=== PATIENT | female | born 1975 | race Caucasian/White ===

== ENCOUNTER 2016-12-19 12:56 | Emergency (ER) | payer OTHER ==
[2016-12-19 13:15] VITALS: BP 122/73; PULSE 97; RESP 20; TEMP 98.2
--- NOTE | 2016-12-19 13:25 | ED ---
General Adult HPI - General Chief complaint: Back Pain/Injury Stated complaint: back pain Time Seen by Provider: 12/19/16 13:16 Source: patient, RN notes reviewed Mode of arrival: ambulatory Limitations: no limitations - History of Present Illness Initial comments: The patient is a 41-year-old female who presents emergency room today with a chief complaint of increased right-sided lower back pain over the last week. Does admit to symptoms of nausea vomiting earlier in the week. Please due to nausea vomiting she was straining MUSCLES in her back. States she's tried heat and ibuprofen with little relief the symptoms. Patient admits that pain is worse certain movements and she bends over. Patient denies any other complaints associated symptoms. Denies any bowel or bladder incontinence retention. Denies any saddle anesthesia. Patient denies any recent fever, chills, shortness of breath, chest pain, abdominal pain, nausea or vomiting, numbness or tingling, dysuria or hematuria, constipation or diarrhea, headaches or visual changes, or any other complaints. - Related Data Home Medications Medication Instructions Recorded Confirmed Insulin Glargine [Lantus] 25 unit SQ HS 12/25/14 12/19/16 glipiZIDE [Glucotrol] 10 mg PO BID 12/25/14 12/19/16 sitaGLIPtin [Januvia] 100 mg PO DAILY 04/28/16 12/19/16 Pregabalin [Lyrica] 50 mg PO BID 05/12/16 12/19/16 metFORMIN HCL 1,000 mg PO BID 05/12/16 12/19/16 Omeprazole 20 mg PO DAILY 10/20/16 12/19/16 Vortioxetine Hydrobromide 20 mg PO DAILY 10/20/16 12/19/16 [Trintellix] Previous Rx's Medication Instructions Recorded Cyclobenzaprine [Flexeril] 10 mg PO TID #20 tab 12/19/16 Ibuprofen [Motrin] 800 mg PO Q6HR PRN #30 tab 12/19/16 Allergies Allergy/AdvReac Type Severity Reaction Status Date / Time codeine Allergy Nausea & Verified 12/19/16 13:15 Vomiting Review of Systems ROS Statement: Those systems with pertinent positive or pertinent negative responses have been documented in the HPI. ROS Other: All systems not noted in ROS Statement are negative. Past Medical History Past Medical History: Diabetes Mellitus, Fibromyalgia, GERD/Reflux Additional Past Medical History / Comment(s): change in bowel habits, ovarian cyst History of Any Multi-Drug Resistant Organisms: None Reported Past Surgical History: Appendectomy, Cholecystectomy, Hernia Repair, Orthopedic Surgery, Uterine Ablation Additional Past Surgical History / Comment(s): sinus surgery, carpal tunnel-rt, vein stripping Past Anesthesia/Blood Transfusion Reactions: Previous Problems w/ Anesthesia, Motion Sickness Additional Past Anesthesia/Blood Transfusion Reaction / Comment(s): "sometimes hard time coming out of anesthesia" Past Psychological History: Depression Smoking Status: Current every day smoker Past Alcohol Use History: None Reported Additional Past Alcohol Use History / Comment(s): smokes 1/2 PPD for 10 yrs Past Drug Use History: None Reported - Past Family History Father Family Medical History: Pulmonary Embolus General Exam - General Exam Comments Initial Comments: General: The patient is awake and alert, in no distress, and does not appear acutely ill. Neck: The neck is supple, there is no tenderness or JVD. Cardiovascular: There is a regular rate and rhythm. No murmur, rub or gallop is appreciated. Respiratory: Lungs are clear to auscultation, respirations are non-labored, breath sounds are equal. No wheezes, stridor, rales, or rhonchi. Gastrointestinal: Soft, non-distended, non-tender abdomen without masses or organomegaly noted. There is no rebound or guarding present. No CVA tenderness. Back: Normal appearance of thoracic, lumbar spine. No step-offs deformity appreciated. No tenderness over spinous process. Patient shows good range of motion. Sensations intact with pulses equal bilaterally 2+. Negative straight leg raise test. Patient tender palpation paravertebrally of the right lower lumbar. Musculoskeletal: Normal ROM, no tenderness. Strength 5/5. Sensation intact. Pulses equal bilaterally 2+. Neurological: A&O x 3. CN II-XII intact, There are no obvious motor or sensory deficits. Coordination appears grossly intact. Speech is normal. Skin: Skin is warm and dry and no rashes or lesions are noted. Psychiatric: Cooperative, appropriate mood & affect, normal judgment. Limitations: no limitations Course Vital Signs 12/19/16 13:13 Temperature 98.2 F Pulse Rate 97 Respiratory 20 Rate Blood Pressure 122/73 O2 Sat by Pulse 97 Oximetry Disposition Clinical Impression: Low back strain Disposition: HOME SELF-CARE Condition: Good Instructions: Acute Low Back Pain (ED) Additional Instructions: Please continue heat to the affected area. Please use anti-inflammatories and muscle relaxer as prescribed. Please be aware that muscle relaxant may make you drowsy. His follow-up family doctor over the next 2-4 days if symptoms persist. Please return here the emergency room if any symptoms increase or worsen or for any other concerns. Prescriptions: Cyclobenzaprine [Flexeril] 10 mg PO TID #20 tab Ibuprofen [Motrin] 800 mg PO Q6HR PRN #30 tab PRN Reason: Pain Time of Disposition: 13:23
== END 2016-12-19 14:02 | disposition home or self-care (01) ==
LOC: EC 12:56
DX: S39.012A Strain of muscle, fascia and tendon of lower back, initial encounter (principal); X58.XXXA Exposure to other specified factors, initial encounter; E11.9 Type 2 diabetes mellitus without complications; K21.9 Gastro-esophageal reflux disease without esophagitis; M79.7 Fibromyalgia; F32.9 Major depressive disorder, single episode, unspecified; Z79.4 Long term (current) use of insulin; Z79.899 Other long term (current) drug therapy; Z79.84 Long term (current) use of oral hypoglycemic drugs; F17.200 Nicotine dependence, unspecified, uncomplicated; Z88.5 Allergy status to narcotic agent
CPT/HCPCS: 99283

== ENCOUNTER → 2017-07-03 | Outpatient (CLI) | payer OTHER ==
--- NOTE | 2017-07-03 11:59 | US ---
EXAMINATION TYPE: US pelvic complete DATE OF EXAM: 07/03/2017 COMPARISON: CT & US 05/12/2016 CLINICAL HISTORY: Pelvic Pain R10.2. Constant left pelvic pain x couple months, 2, para 1, ab ortion 1, history of uterine ablation TECHNIQUE: Transabdominal (TA) Date of LMP: 06/14/2017 EXAM MEASUREMENTS: Uterus: 8.7 x 4.3 x 6.0 cm Endometrial Stripe: 0.4 cm Right Ovary: 3.9 x 2.6 x 3.4 cm Left Ovary: 2.3 x 1.5 x 2.6 cm 1. Uterus: anteverted, heterogeneous 2. Endometrium: measuring thin for patient's LMP 3. Right Ovary: 2.4 x 2.1 x 2.7cm cystic area 4. Left Ovary: wnl 5. Bilateral Adnexa: wnl 6. Posterior cul-de-sac: wnl IMPRESSION: 1. Right ovarian cyst. This is larger than previous. This could be a recurrent or new left ovarian cy st. Follow-up exam in 6 weeks following the next normal menstrual period is recommended.
== END | disposition home or self-care (01) ==
LOC: RADUSWWP 10:55
PROVIDERS: ATTEND Obstetrics & Gynecology
DX: N83.201 Unspecified ovarian cyst, right side (principal)
CPT/HCPCS: 76856

== ENCOUNTER → 2018-02-01 | Outpatient (CLI) | payer OTHER ==
--- NOTE | 2018-02-01 16:18 | XR ---
Left foot HISTORY: Pain in left foot 3 views of the left foot Bone mineralization, joint spaces and alignment are maintained. There is soft tissue swelling especia lly lateral to the distal fifth metatarsal, dorsum of the midfoot. Degenerative changes are present a t the first metatarsophalangeal joint. There is a plantar calcaneal spur. Enthesophyte present at the insertion of the Achilles tendon. IMPRESSION: Osteoarthritis and additional findings above.
== END | disposition home or self-care (01) ==
LOC: RADXRMAIN 15:11
PROVIDERS: ATTEND Physician Assistant Medical
DX: M19.072 Primary osteoarthritis, left ankle and foot (principal)

== ENCOUNTER 2018-09-04 10:12 | Emergency (ER) | payer OTHER ==
[2018-09-04 10:27] VITALS: BP 118/80; PULSE 103; RESP 18; TEMP 98.2
--- NOTE | 2018-09-04 10:48 | ED ---
Extremity Problem HPI - General Chief complaint: Extremity Problem,Nontraumatic Stated complaint: lt shoulder injury Time Seen by Provider: 09/04/18 10:31 Source: patient, RN notes reviewed Mode of arrival: ambulatory Limitations: no limitations - History of Present Illness Initial comments: This a 43-year-old female presents emergency Department chief complaint of left shoulder pain. Patient states has been bothersome for almost 2 weeks. Patient states it's worse with any movement. She primarily feels pain around her shoulder blade and over the trapezius region. Patient states that she had no injury. 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 Patient states it is exacerbated by this. Patient denies any paresthesias or weakness to her arm. Patient denies chest pain, shortness breath, headache or dizziness. - Related Data Home Medications Medication Instructions Recorded Confirmed Insulin Glargine [Lantus] 100 unit SQ HS 12/25/14 09/04/18 glipiZIDE [Glucotrol] 10 mg PO BID 12/25/14 09/04/18 sitaGLIPtin [Januvia] 100 mg PO DAILY 04/28/16 09/04/18 metFORMIN HCL 1,000 mg PO BID 05/12/16 09/04/18 Omeprazole 20 mg PO DAILY 10/20/16 09/04/18 Vortioxetine Hydrobromide 40 mg PO DAILY 10/20/16 09/04/18 [Trintellix] Pregabalin [Lyrica] 75 mg PO BID 09/04/18 09/04/18 Previous Rx's Medication Instructions Recorded Ibuprofen [Motrin] 800 mg PO Q6HR PRN #30 tab 12/19/16 Ibuprofen [Motrin] 600 mg PO Q8HR PRN #30 tab 09/04/18 Orphenadrine [Norflex] 100 mg PO Q12H #14 tablet.er 09/04/18 Allergies Allergy/AdvReac Type Severity Reaction Status Date / Time codeine Allergy Nausea & Verified 09/04/18 11:13 Vomiting Review of Systems ROS Statement: Those systems with pertinent positive or pertinent negative responses have been documented in the HPI. ROS Other: All systems not noted in ROS Statement are negative. Past Medical History Past Medical History: Diabetes Mellitus, Fibromyalgia, GERD/Reflux Additional Past Medical History / Comment(s): change in bowel habits, ovarian cyst History of Any Multi-Drug Resistant Organisms: None Reported Past Surgical History: Appendectomy, Cholecystectomy, Hernia Repair, Orthopedic Surgery, Uterine Ablation Additional Past Surgical History / Comment(s): sinus surgery, carpal tunnel-rt, vein stripping Past Anesthesia/Blood Transfusion Reactions: Previous Problems w/ Anesthesia, Motion Sickness Additional Past Anesthesia/Blood Transfusion Reaction / Comment(s): "sometimes hard time coming out of anesthesia" Past Psychological History: Depression Smoking Status: Former smoker Past Alcohol Use History: None Reported Past Drug Use History: None Reported - Past Family History Father Family Medical History: Pulmonary Embolus General Exam Limitations: no limitations General appearance: alert, in no apparent distress Head exam: Present: atraumatic, normocephalic, normal inspection Eye exam: Present: normal appearance, PERRL, EOMI. Absent: scleral icterus, conjunctival injection, periorbital swelling ENT exam: Present: normal exam, normal oropharynx, mucous membranes moist Neck exam: Present: normal inspection, tenderness (Mild tenderness over the left trapezius), full ROM. Absent: meningismus, lymphadenopathy Respiratory exam: Present: normal lung sounds bilaterally. Absent: respiratory distress, wheezes, rales, rhonchi, stridor Cardiovascular Exam: Present: regular rate, normal rhythm, normal heart sounds. 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 Absent: motor sensory deficit Skin exam: Present: warm, dry, intact, normal color. Absent: rash Course Vital Signs 09/04/18 10:24 Temperature 98.2 F Pulse Rate 103 H Respiratory 18 Rate Blood Pressure 118/80 O2 Sat by Pulse 96 Oximetry Medical Decision Making - Medical Decision Making 43-year-old female presents emergency Department for left shoulder pain. Patient has left rotator cuff strain/tendinitis. Patient will follow-up with orthopedics on-call. We discussed anti-inflammatories, muscle relaxers for her trapezius muscle spasm. Patient will be instructed to do home exercises return for any worsening symptoms. Disposition Clinical Impression: Injury of left rotator cuff, Rotator cuff tendinitis Disposition: HOME SELF-CARE Condition: Stable Instructions: Rotator Cuff Injury (ED) Additional Instructions: Please return to the Emergency Department if symptoms worsen or any other concerns. Prescriptions: Ibuprofen [Motrin] 600 mg PO Q8HR PRN #30 tab PRN Reason: Pain Orphenadrine [Norflex] 100 mg PO Q12H #14 tablet.er Is patient prescribed a controlled substance at d/c from ED?: No Referrals: Sandeep Jean III, MD [Primary Care Provider] - 1-2 days Alli Catherine DO [Doctor of Osteopathic Medicine] - 1-2 days Time of Disposition: 11:30
--- NOTE | 2018-09-04 11:00 | XR ---
Left shoulder HISTORY: Left shoulder pain 3 views of the left shoulder Arthropathy changes present at the acromioclavicular joint, there is hypertrophic bone formation. Ali gnment, bone mineralization, joint spaces are maintained. No fracture or dislocation. Left lung apex as visualized is normal. IMPRESSION: Acromioclavicular joint arthropathy, shoulder MRI may be of benefit.
[2018-09-04] MEDS ORDERED: KETOROLAC 60 MG/2 ML VIAL IM STA (11:28)
[2018-09-04] MEDS ORDERED: ORPHENADRINE 30 MG/ML 2 ML VIAL IM STA (11:28)
[2018-09-04] MEDS ORDERED: traMADol 50 MG STARTER PACK 3 TAB BTL PO STA (11:29)
== END 2018-09-04 11:49 | disposition home or self-care (01) ==
LOC: EC 10:12
DX: S46.002A Unspecified injury of muscle(s) and tendon(s) of the rotator cuff of left shoulder, initial encounter (principal); E11.9 Type 2 diabetes mellitus without complications; M79.7 Fibromyalgia; K21.9 Gastro-esophageal reflux disease without esophagitis; F32.9 Major depressive disorder, single episode, unspecified; Z87.891 Personal history of nicotine dependence; Z90.49 Acquired absence of other specified parts of digestive tract; Z98.890 Other specified postprocedural states; Z79.4 Long term (current) use of insulin; Z79.899 Other long term (current) drug therapy; Z88.5 Allergy status to narcotic agent; X50.0XXA Overexertion from strenuous movement or load, initial encounter; Y92.69 Other specified industrial and construction area as the place of occurrence of the external cause; Y99.0 Civilian activity done for income or pay
CPT/HCPCS: 73030; 99283; 96372 ×2; J2360; J1885

== ENCOUNTER → 2019-06-10 | Outpatient (CLI) | payer OTHER ==
--- NOTE | 2019-06-11 10:24 | MM ---
Reason for exam: clinical finding. Baseline mammogram. History: Family history of breast cancer in mother at age 68. Physical Findings: Nurse did not find any significant physical abnormalities on exam. Patient states she has had a clear MG Screening Mammo w CAD Bilateral CC and MLO view(s) were taken. There are scattered fibroglandular densities. No discrete abnormality. ASSESSMENT: Incomplete: need additional imaging evaluation, BI-RAD 0 RECOMMENDATION: Ultrasound of the left breast.
--- NOTE | 2019-06-11 10:27 | USB ---
History: Family history of breast cancer in mother at age 68. US Breast Workup Limited LT Left limited breast ultrasound including focal area of concern, retroareolar and axilla demonstrates No cystic or solid lesion seen. ASSESSMENT: Negative, BI-RAD 1 RECOMMENDATION: Clinical management of the left breast. Routine screening mammogram of both breasts in 1 year.
== END | disposition home or self-care (01) ==
LOC: RADMAMWWP 13:20
PROVIDERS: ATTEND Family Medicine
DX: Z12.31 Encounter for screening mammogram for malignant neoplasm of breast (principal); R92.8 Other abnormal and inconclusive findings on diagnostic imaging of breast
CPT/HCPCS: 77067

== ENCOUNTER 2019-12-09 18:31 | Emergency (ER) | payer OTHER ==
[2019-12-09 18:59] VITALS: RESP 18
[2019-12-09 19:29] LABS: Appearance,Urine Cloudy (Clear); Bilirubin,Urine Negative (Negative); Blood,Urine Negative (Negative); Color,Urine Yellow; Glucose,Urine (UA) 4+ (Negative); Ketones,Urine Negative (Negative); Leukocyte Esterase,Urine Moderate (Negative); Mucus,Urine Rare /hpf; Nitrite,Urine Negative (Negative); PH, Urine 5.5 (5.0-8.0); Protein,Urine Negative (Negative); RBC,Urine 1 /hpf (0-5); Specific Gravity,Urine 1.021 (1.001-1.035); Squamous Epithelial Cell,Urine 13 /hpf (0-4); Urobilinogen,Urine <2.0 mg/dL (<2.0); WBC,Urine 2 /hpf (0-5)
[2019-12-09] MEDS ORDERED: PANTOPRAZOLE 40 MG/10 ML VIAL IVP STA (19:51)
[2019-12-09] MEDS ORDERED: DICYCLOMINE 10 MG/ML 2 ML AMP IM STA (19:51)
[2019-12-09] MEDS ORDERED: SODIUM CHLORIDE 0.9% 1,000 ML IV STA (19:51)
[2019-12-09] MEDS ORDERED: KETOROLAC 30 MG/ML 1 ML VIAL IVP STA (19:51)
--- NOTE | 2019-12-09 20:02 | ED ---
Abdominal Pain HPI - General Chief Complaint: Abdominal Pain Stated Complaint: lt sided abd pain Time Seen by Provider: 12/09/19 19:31 Source: patient Mode of arrival: ambulatory Limitations: no limitations - History of Present Illness Initial Comments: Patient is a 44-year-old female presenting to the emergency department with a chief complaint of abdominal pain. Patient states she developed the sudden onset of sharp left lower quadrant abdominal pain that is radiating to the left groin region. Patient states the only alleviating factor is being in a position. Patient does report some nausea but denies any vomiting diarrhea or constipation. Patient does report a history of ovarian cyst on bilateral ovaries, however she has had issues with cyst on the left ovary. Patient does report urinary ablation and does not remember her last menstrual period. Patient states her also had a vasectomy. Patient has 0 concern for . Patient does report taking ibuprofen with some improvement in symptoms. She denies increased urgency frequency or dysuria. Denies any vaginal bleeding or discharge. Denies hematuria, hematochezia or melena. Denies night sweats or chills. Denies any chest pain back pain or shortness of breath. - Related Data Home Medications Medication Instructions Recorded Confirmed Insulin Glargine [Lantus] 100 unit SQ HS 12/25/14 09/04/18 glipiZIDE [Glucotrol] 10 mg PO BID 12/25/14 09/04/18 sitaGLIPtin [Januvia] 100 mg PO DAILY 04/28/16 09/04/18 metFORMIN HCL 1,000 mg PO BID 05/12/16 09/04/18 Omeprazole 20 mg PO DAILY 10/20/16 09/04/18 Vortioxetine Hydrobromide 40 mg PO DAILY 10/20/16 09/04/18 [Trintellix] Pregabalin [Lyrica] 75 mg PO BID 09/04/18 09/04/18 Previous Rx's Medication Instructions Recorded Ibuprofen [Motrin] 800 mg PO Q6HR PRN #30 tab 12/19/16 Ibuprofen [Motrin] 600 mg PO Q8HR PRN #30 tab 09/04/18 Orphenadrine [Norflex] 100 mg PO Q12H #14 tablet.er 09/04/18 Allergies Allergy/AdvReac Type Severity Reaction Status Date / Time codeine Allergy Nausea & Verified 07/29/19 14:41 Vomiting Review of Systems ROS Statement: Those systems with pertinent positive or pertinent negative responses have been documented in the HPI. ROS Other: All systems not noted in ROS Statement are negative. Past Medical History Past Medical History: Diabetes Mellitus, Fibromyalgia, GERD/Reflux Additional Past Medical History / Comment(s): change in bowel habits, ovarian cyst History of Any Multi-Drug Resistant Organisms: None Reported Past Surgical History: Appendectomy, Cholecystectomy, Hernia Repair, Orthopedic Surgery, Uterine Ablation Additional Past Surgical History / Comment(s): sinus surgery, carpal tunnel-rt, vein stripping Past Anesthesia/Blood Transfusion Reactions: Previous Problems w/ Anesthesia, Motion Sickness Additional Past Anesthesia/Blood Transfusion Reaction / Comment(s): "sometimes hard time coming out of anesthesia" Past Psychological History: Depression Smoking Status: Former smoker Past Alcohol Use History: None Reported Past Drug Use History: None Reported - Past Family History Father Family Medical History: Pulmonary Embolus General Exam Limitations: no limitations General appearance: alert, in no apparent distress Head exam: Present: atraumatic, normocephalic, normal inspection Eye exam: Present: normal appearance, PERRL, EOMI Pupils: Present: normal accommodation ENT exam: Present: normal exam, normal oropharynx, mucous membranes moist Neck exam: Present: normal inspection, full ROM Respiratory exam: Present: normal lung sounds bilaterally Cardiovascular Exam: Present: regular rate, normal rhythm, normal heart sounds GI/Abdominal exam: Present: soft, tenderness (Left lower quadrant tenderness with palpation.), normal bowel sounds. Absent: distended, guarding, rebound, rigid, bruit, pulsatile mass, hernia Extremities exam: Present: normal inspection, full ROM, normal capillary refill Back exam: Present: normal inspection, full ROM Neurological exam: Present: alert, oriented X3 Psychiatric exam: Present: normal affect, normal mood Skin exam: Present: warm, dry, intact, normal color Course Vital Signs 12/09/19 12/09/19 18:56 22:39 Temperature 98.3 F Pulse Rate 86 92 Respiratory 18 18 Rate Blood Pressure 120/77 117/71 O2 Sat by Pulse 98 96 Oximetry Medical Decision Making - Medical Decision Making She is 44-year-old female presenting to emergency Department with a chief co mplaint of abdominal pain. Exam patient is up left lower quadrant abdominal pain. It seems to be alleviated when the patient is in a position. Patient does have history of ovarian cyst and has had a possible rupture on the left side when she was younger. CBC is unremarkable. CMP shows elevated glucose but she is a diabetic. Mild hyponatremia which I suspect is secondary to elevated glucose levels. UA is unremarkable aside from elevated glucose. Transvaginal ultrasound was not able to visualize the right ovary but was able to visualize the left ovary and shows no signs of ovarian torsion. No cyst were detected which I'm suspecting is due to the rupture of the cyst. No free fluid detected. I suspect the patient is symptomatic due to a ruptured ovarian cyst. Patient discharged and advised to alternate between Tylenol and Motrin for pain control. I have low suspicion for diverticulitis considering the patient is afebrile, no vomiting, diarrhea, constipation or leukocytosis. She has no history of diverticulosis. Strict return parameters were thoroughly discussed with patient is understanding and agreeable. Case discussed with physician. - Lab Data Result diagrams: 12/09/19 20:06 12/09/19 20:06 Lab Results 12/09/19 12/09/19 12/09/19 Range/Units 19:00 20:06 20:06 WBC 9.0 (3.8-10.6) k/uL RBC 5.11 (3.80-5.40) m/uL Hgb 15.0 (11.4-16.0) gm/dL Hct 43.9 (34.0-46.0) % MCV 85.9 (80.0-100.0) fL MCH 29.3 (25.0-35.0) pg MCHC 34.2 (31.0-37.0) g/dL RDW 12.6 (11.5-15.5) % Plt Count 218 (150-450) k/uL Neutrophils % 62 % Lymphocytes % 30 % Monocytes % 4 % Eosinophils % 2 % Basophils % 1 % Neutrophils # 5.5 (1.3-7.7) k/uL Lymphocytes # 2.7 (1.0-4.8) k/uL Monocytes # 0.4 (0-1.0) k/uL Eosinophils # 0.2 (0-0.7) k/uL Basophils # 0.0 (0-0.2) k/uL Sodium 135 L (137-145) mmol/L Potassium 4.4 (3.5-5.1) mmol/L Chloride 105 (98-107) mmol/L Carbon Dioxide 22 (22-30) mmol/L Anion Gap 8 mmol/L BUN 12 (7-17) mg/dL Creatinine 0.57 (0.52-1.04) mg/dL Est GFR (CKD-EPI)AfAm >90 (>60 ml/min/1.73 sqM) Est GFR (CKD-EPI)NonAf >90 (>60 ml/min/1.73 sqM) Glucose 197 H (74-99) mg/dL Calcium 10.4 H (8.4-10.2) mg/dL Total Bilirubin 0.4 (0.2-1.3) mg/dL AST 30 (14-36) U/L ALT 34 (4-34) U/L Alkaline Phosphatase 92 (38-126) U/L Total Protein 7.3 (6.3-8.2) g/dL Albumin 4.2 (3.5-5.0) g/dL Amylase 65 (30-110) U/L Lipase 91 (23-300) U/L Urine Color Yellow Urine Appearance Cloudy H (Clear) Urine pH 5.5 (5.0-8.0) Ur Specific [place] 1.021 (1.001-1.035) Urine Protein Negative (Negative) Urine Glucose (UA) 4+ H (Negative) Urine Ketones Negative (Negative) Urine Blood Negative (Negative) Urine Nitrite Negative (Negative) Urine Bilirubin Negative (Negative) Urine Urobilinogen <2.0 (<2.0) mg/dL Ur Leukocyte Esterase Moderate H (Negative) Urine RBC 1 (0-5) /hpf Urine WBC 2 (0-5) /hpf Ur Squamous Epith Cells 13 H (0-4) /hpf Urine Mucus Rare H (None) /hpf Disposition Clinical Impression: Acute abdominal pain in left lower quadrant, Ruptured ovarian cyst Disposition: HOME SELF-CARE Condition: Stable Instructions (If sedation given, give patient instructions): Ruptured Ovarian Cyst (ED) Additional Instructions: Alternate between Tylenol and Motrin for pain. Return to the emergency department if symptoms worsen. Follow-up with primary care. Is patient prescribed a controlled substance at d/c from ED?: No Referrals: Sandeep Jean III, MD [Primary Care Provider] - 1-2 days Time of Disposition: 23:02
[2019-12-09 20:18] LABS: Basophils % (A) 1 %; Eosinophils # (A) 0.2 k/uL (0-0.7); Eosinophils % (A) 2 %; HCT 43.9 % (34.0-46.0); Lymphocytes # (A) 2.7 k/uL (1.0-4.8); Lymphocytes % (A) 30 %; MCH 29.3 pg (25.0-35.0); MCHC 34.2 g/dL (31.0-37.0); MCV 85.9 fL (80.0-100.0); Mean Platelet Volume 7.6; Monocytes # (A) 0.4 k/uL (0-1.0); Monocytes % (A) 4 %; Neutrophils # (A) 5.5 k/uL (1.3-7.7); Neutrophils % (A) 62 %; Platelet Count 218 k/uL (150-450); RBC 5.11 m/uL (3.80-5.40); RDW 12.6 % (11.5-15.5)
[2019-12-09 20:31] LABS: ALT 34 U/L (4-34); AST 30 U/L (14-36); African American GFR (CKD) >90 (>60 ml/min/1.73 sqM); Albumin 4.2 g/dL (3.5-5.0); Alkaline Phosphatase 92 U/L (38-126); Amylase 65 U/L (30-110); Anion Gap 8 mmol/L; Blood Urea Nitrogen 12 mg/dL (7-17); Calcium 10.4 mg/dL (8.4-10.2); Carbon Dioxide 22 mmol/L (22-30); Chloride 105 mmol/L (98-107); Glucose 197 mg/dL (74-99); Non-African American GFR(CKD) >90 (>60 ml/min/1.73 sqM); Potassium 4.4 mmol/L (3.5-5.1); Sodium 135 mmol/L (137-145); Total Bilirubin 0.4 mg/dL (0.2-1.3); Total Protein 7.3 g/dL (6.3-8.2)
[2019-12-09] MEDS ORDERED: MORPHINE SULFATE 4 MG/ML SYRINGE IVP STA (21:33)
--- NOTE | 2019-12-09 22:38 | US ---
EXAMINATION TYPE: US transvaginal DATE OF EXAM: 12/09/2019 COMPARISON: US CLINICAL HISTORY: r/o ovarian torsion, poss ovarian cyst rupture. Pain left pelvic area x 6 hours. R/ O ovarian torsion. Possible ovarian cyst rupture. Hx ovarian cyst. Uterine ablation. LMP unknown. . TECHNIQUE: Transvaginal (TV). Date of LMP: Unknown. EXAM MEASUREMENTS: Uterus: 8.4 x 4.5 x 4.8 cm Endometrial Stripe: 0.41 cm Right Ovary: Not visualized Left Ovary: 3.7 x 2.3 x 2.7 cm 1. Uterus: Anteverted Appears heterogeneous. Multiple hypoechoic areas seen. Largest appear to sheryl sure: #1: 1.4 x 1.1 x 1.4 cm. #2: 1.4 x 1.5 x 1.3 cm. Subcentimeter anechoic areas seen in cervix. Hyperechoic area seen in cervix measurin.2 x 0.2 x 0.3 cm. 2. Endometrium: Limited visibility, measured at: 0.41 cm. 3. Right Ovary: Not visualized 4. Left Ovary: Limited due to position posterior to the uterus. Possible arterial waveform seen. Keith ous waveform not seen. Evaluation for Pulsed-wave Doppler waveforms is limited. Indistinct anechoic a jaron seen measurin.4 x 1.1 1.4 cm. 5. Bilateral Adnexa: Appear to be wnl. 6. Posterior cul-de-sac: No fluid is seen. IMPRESSION: Right ovary is not seen. Left ovary does not show evidence of torsion. No free fluid. No adnexal ma ss. No evidence of ovarian cyst.
[2019-12-09 23:27] VITALS: BP 129/89; PULSE 79; TEMP 97
== END 2019-12-09 23:27 | disposition home or self-care (01) ==
LOC: EC 18:31
DX: N83.202 Unspecified ovarian cyst, left side (principal); E11.65 Type 2 diabetes mellitus with hyperglycemia; E87.1 Hypo-osmolality and hyponatremia; F32.9 Major depressive disorder, single episode, unspecified; M79.7 Fibromyalgia; K21.9 Gastro-esophageal reflux disease without esophagitis; Z79.4 Long term (current) use of insulin; Z79.899 Other long term (current) drug therapy; Z88.5 Allergy status to narcotic agent; Z90.49 Acquired absence of other specified parts of digestive tract; Z98.890 Other specified postprocedural states; Z87.891 Personal history of nicotine dependence
CPT/HCPCS: 36415; 80053; 82150; 83690; 85025; 81001; 93976; 76830; 99284; 96372; 96374; 96375 ×2; 96361 ×3; J2270; J0500; J1885; C9113

== ENCOUNTER 2020-02-29 07:20 | Emergency (ER) | payer OTHER ==
--- NOTE | 2020-02-29 07:53 | ED ---
SOB HPI - General Chief Complaint: Shortness of Breath Stated Complaint: Fever,cough,SOB Time Seen by Provider: 02/29/20 07:25 Source: EMS, RN notes reviewed Mode of arrival: EMS Limitations: no limitations - History of Present Illness Initial Comments: Is a 44-year-old female with a benign history other than she is a smoker who states she started developing fever chills sweats shortness of breath feeling a heaviness in her chest last night. She was exertional dyspnea. She states she has been exposed to the Covid -19 19 virus where she works. She has no productive cough at this time. She states she did finally sinus congestion for last couple months. She states her left ear feels somewhat plugged up. No overt sore throat no overt loss of smell or taste this time. MD Complaint: shortness of breath - Related Data Home Medications Medication Instructions Recorded Confirmed Insulin Glargine [Lantus] 100 unit SQ HS 12/25/14 09/04/18 glipiZIDE [Glucotrol] 10 mg PO BID 12/25/14 09/04/18 sitaGLIPtin [Januvia] 100 mg PO DAILY 04/28/16 09/04/18 metFORMIN HCL 1,000 mg PO BID 05/12/16 09/04/18 Omeprazole 20 mg PO DAILY 10/20/16 09/04/18 Vortioxetine Hydrobromide 40 mg PO DAILY 10/20/16 09/04/18 [Trintellix] Pregabalin [Lyrica] 75 mg PO BID 09/04/18 09/04/18 Previous Rx's Medication Instructions Recorded Ibuprofen [Motrin] 800 mg PO Q6HR PRN #30 tab 12/19/16 Ibuprofen [Motrin] 600 mg PO Q8HR PRN #30 tab 09/04/18 Orphenadrine [Norflex] 100 mg PO Q12H #14 tablet.er 09/04/18 Albuterol Inhaler [Ventolin Hfa 2 puff INHALATION RT-QID PRN #1 02/29/20 Inhaler] puff Azithromycin [Zithromax Z-pack] 250 mg PO DIRECTED #6 tab 02/29/20 Magnesium 250 mg PO DAILY #15 tablet 02/29/20 Allergies Allergy/AdvReac Type Severity Reaction Status Date / Time codeine Allergy Nausea & Verified 06/10/19 14:41 Vomiting Review of Systems ROS Statement: Those systems with pertinent positive or pertinent negative responses have been documented in the HPI. ROS Other: All systems not noted in ROS Statement are negative. Past Medical History Past Medical History: Diabetes Mellitus, Fibromyalgia, GERD/Reflux Additional Past Medical History / Comment(s): change in bowel habits, ovarian cyst History of Any Multi-Drug Resistant Organisms: None Reported Past Surgical History: Appendectomy, Cholecystectomy, Hernia Repair, Orthopedic Surgery, Uterine Ablation Additional Past Surgical History / Comment(s): sinus surgery, carpal tunnel-rt, vein stripping Past Anesthesia/Blood Transfusion Reactions: Previous Problems w/ Anesthesia, Motion Sickness Additional Past Anesthesia/Blood Transfusion Reaction / Comment(s): "sometimes hard time coming out of anesthesia" Past Psychological History: Depression Smoking Status: Current every day smoker Past Alcohol Use History: None Reported Past Drug Use History: None Reported - Past Family History Father Family Medical History: Pulmonary Embolus General Exam - General Exam Comments Initial Comments: This is a well-developed well-nourished awake alert oriented 3 female Limitations: no limitations General appearance: alert, in no apparent distress Head exam: Present: atraumatic, normocephalic, normal inspection Eye exam: Present: normal appearance, PERRL, EOMI. Absent: scleral icterus, conjunctival injection, periorbital swelling ENT exam: Present: mucous membranes moist, other (The left tympanic membrane is demonstrating fluid and some opacity. Right one appears be within normal limits. There is mild posterior pharyngeal hyperemia without exudate.) Neck exam: Present: normal inspection, full ROM, other (No stridor JVD or bruits). Absent: tenderness, meningismus, lymphadenopathy Respiratory exam: Present: normal lung sounds bilaterally. Absent: respiratory distress, wheezes, rales, rhonchi, stridor Cardiovascular Exam: Present: regular rate, normal rhythm, normal heart sounds. Absent: systolic murmur, diastolic murmur, rubs, gallop, clicks GI/Abdominal exam: Present: soft, normal bowel sounds. Absent: distended, tenderness, guarding, rebound, rigid Extremities exam: Present: normal inspection, full ROM, normal capillary refill. Absent: tenderness, pedal edema, joint swelling, calf tenderness Back exam: Present: normal inspection Neurological exam: Present: alert, oriented X3, CN II-XII intact Psychiatric exam: Present: normal affect, normal mood Skin exam: Present: warm, dry, intact, normal color. Absent: rash Course Vital Signs 02/29/20 02/29/20 07:29 07:32 Temperature 98.4 F Pulse Rate 103 H Respiratory 24 24 Rate Blood Pressure 137/89 O2 Sat by Pulse 96 Oximetry Procedures - Smoking Cessation Time Spent Discussing Smoking Cessation w/Patient (Minutes): 3 Patient Acknowledges Need for Cessation: Yes Additional Comments: Patient does agree that she needs to stop smoking Medical Decision Making - Medical Decision Making I did a long discussion with patient regarding the findings patient is covid 19 Negative. Presentation is consistent with bronchitis and some bronchospasm. We did discuss smoking cessation. Patient does work and will get a note for next [address] on an inhaler and short course of antibiotics as well as recommendation for magnesium due to her borderline magnesium levels. - Lab Data Result diagrams: 02/29/20 08:00 02/29/20 08:00 Lab Results 02/29/20 02/29/20 02/29/20 Range/Units 07:55 08:00 08:00 WBC 9.1 (3.8-10.6) k/uL RBC 4.95 (3.80-5.40) m/uL Hgb 14.5 (11.4-16.0) gm/dL Hct 42.2 (34.0-46.0) % MCV 85.2 (80.0-100.0) fL MCH 29.3 (25.0-35.0) pg MCHC 34.4 (31.0-37.0) g/dL RDW 12.9 (11.5-15.5) % Plt Count 233 (150-450) k/uL Neutrophils % 71 % Lymphocytes % 22 % Monocytes % 4 % Eosinophils % 2 % Basophils % 0 % Neutrophils # 6.4 (1.3-7.7) k/uL Lymphocytes # 2.0 (1.0-4.8) k/uL Monocytes # 0.4 (0-1.0) k/uL Eosinophils # 0.2 (0-0.7) k/uL Basophils # 0.0 (0-0.2) k/uL PT 9.7 (9.0-12.0) sec INR 0.9 (<1.2) APTT 22.7 (22.0-30.0) sec D-Dimer 0.35 (<0.60) mg/L FEU Sodium (137-145) mmol/L Potassium (3.5-5.1) mmol/L Chloride (98-107) mmol/L Carbon Dioxide (22-30) mmol/L Anion Gap mmol/L BUN (7-17) mg/dL Creatinine (0.52-1.04) mg/dL Est GFR (CKD-EPI)AfAm (>60 ml/min/1.73 sqM) Est GFR (CKD-EPI)NonAf (>60 ml/min/1.73 sqM) Glucose (74-99) mg/dL Plasma Lactic Acid Keith (0.7-2.0) mmol/L Calcium (8.4-10.2) mg/dL Magnesium (1.6-2.3) mg/dL Total Bilirubin (0.2-1.3) mg/dL AST (14-36) U/L ALT (4-34) U/L Alkaline Phosphatase (38-126) U/L Lactate Dehydrogenase (313-618) U/L Troponin I (0.000-0.034) ng/mL C-Reactive Protein (<10.0) mg/L Total Protein (6.3-8.2) g/dL Albumin (3.5-5.0) g/dL Coronavirus (PCR) Cancelled Influenza Type A RNA Not Detected (Not Detectd) Influenza Type B (PCR) Not Detected (Not Detectd) 02/29/20 02/29/20 02/29/20 Range/Units 08:00 08:00 08:00 WBC (3.8-10.6) k/uL RBC (3.80-5.40) m/uL Hgb (11.4-16.0) gm/dL Hct (34.0-46.0) % MCV (80.0-100.0) fL MCH (25.0-35.0) pg MCHC (31.0-37.0) g/dL RDW (11.5-15.5) % Plt Count (150-450) k/uL Neutrophils % % Lymphocytes % % Monocytes % % Eosinophils % % Basophils % % Neutrophils # (1.3-7.7) k/uL Lymphocytes # (1.0-4.8) k/uL Monocytes # (0-1.0) k/uL Eosinophils # (0-0.7) k/uL Basophils # (0-0.2) k/uL PT (9.0-12.0) sec INR (<1.2) APTT (22.0-30.0) sec D-Dimer (<0.60) mg/L FEU Sodium 135 L (137-145) mmol/L Potassium 4.7 (3.5-5.1) mmol/L Chloride 103 (98-107) mmol/L Carbon Dioxide 23 (22-30) mmol/L Anion Gap 9 mmol/L BUN 10 (7-17) mg/dL Creatinine 0.55 (0.52-1.04) mg/dL Est GFR (CKD-EPI)AfAm >90 (>60 ml/min/1.73 sqM) Est GFR (CKD-EPI)NonAf >90 (>60 ml/min/1.73 sqM) Glucose 136 H (74-99) mg/dL Plasma Lactic Acid Keith 1.7 (0.7-2.0) mmol/L Calcium 10.0 (8.4-10.2) mg/dL Magnesium 1.7 (1.6-2.3) mg/dL Total Bilirubin 0.7 (0.2-1.3) mg/dL AST 37 H (14-36) U/L ALT 34 (4-34) U/L Alkaline Phosphatase 68 (38-126) U/L Lactate Dehydrogenase 698 H (313-618) U/L Troponin I <0.012 (0.000-0.034) ng/mL C-Reactive Protein <5.0 (<10.0) mg/L Total Protein 7.8 (6.3-8.2) g/dL Albumin 4.5 (3.5-5.0) g/dL Coronavirus (PCR) Influenza Type A RNA (Not Detectd) Influenza Type B (PCR) (Not Detectd) 02/29/20 Range/Units 09:00 WBC (3.8-10.6) k/uL RBC (3.80-5.40) m/uL Hgb (11.4-16.0) gm/dL Hct (34.0-46.0) % MCV (80.0-100.0) fL MCH (25.0-35.0) pg MCHC (31.0-37.0) g/dL RDW (11.5-15.5) % Plt Count (150-450) k/uL Neutrophils % % Lymphocytes % % Monocytes % % Eosinophils % % Basophils % % Neutrophils # (1.3-7.7) k/uL Lymphocytes # (1.0-4.8) k/uL Monocytes # (0-1.0) k/uL Eosinophils # (0-0.7) k/uL Basophils # (0-0.2) k/uL PT (9.0-12.0) sec INR (<1.2) APTT (22.0-30.0) sec D-Dimer (<0.60) mg/L FEU Sodium (137-145) mmol/L Potassium (3.5-5.1) mmol/L Chloride (98-107) mmol/L Carbon Dioxide (22-30) mmol/L Anion Gap mmol/L BUN (7-17) mg/dL Creatinine (0.52-1.04) mg/dL Est GFR (CKD-EPI)AfAm (>60 ml/min/1.73 sqM) Est GFR (CKD-EPI)NonAf (>60 ml/min/1.73 sqM) Glucose (74-99) mg/dL Plasma Lactic Acid Keith (0.7-2.0) mmol/L Calcium (8.4-10.2) mg/dL Magnesium (1.6-2.3) mg/dL Total Bilirubin (0.2-1.3) mg/dL AST (14-36) U/L ALT (4-34) U/L Alkaline Phosphatase (38-126) U/L Lactate Dehydrogenase (313-618) U/L Troponin I (0.000-0.034) ng/mL C-Reactive Protein (<10.0) mg/L Total Protein (6.3-8.2) g/dL Albumin (3.5-5.0) g/dL Coronavirus (PCR) Not Detected Influenza Type A RNA (Not Detectd) Influenza Type B (PCR) (Not Detectd) - EKG Data -: EKG Interpreted by Nh EKG shows normal: sinus rhythm EKG Comments: EKG shows normal sinus rhythm of 87 appear interval 142 QRS duration 80 QT since QTC 358/4:30 this is a normal-appearing EKG. - Radiology Data Radiology results: image reviewed Interpreted by me: I did review the imaging and report no acute findings. Disposition Clinical Impression: Bronchitis, Bronchospasm, acute, Smoking Disposition: HOME SELF-CARE Condition: Good Instructions (If sedation given, give patient instructions): Bronchospasm (ED), Acute Bronchitis (ED), How to Stop Smoking (ED) Additional Instructions: Prescriptions he described it to your preferred pharmacy Prescriptions: Magnesium 250 mg PO DAILY #15 tablet Albuterol Inhaler [Ventolin Hfa Inhaler] 2 puff INHALATION RT-QID PRN #1 puff PRN Reason: Dyspnea Azithromycin [Zithromax Z-pack] 250 mg PO DIRECTED #6 tab Is patient prescribed a controlled substance at d/c from ED?: No Referrals: Sandeep Jean III, MD [Primary Care Provider] - 1-2 days
--- NOTE | 2020-02-29 08:17 | XR ---
EXAMINATION TYPE: XR chest 1V portable DATE OF EXAM: 02/29/2020 HISTORY: Suspected COVID-19 pneumonia. REFERENCE: Previous study dated 12/25/2014. FINDINGS: The lungs are clear. Pleural space are clear. The heart is not enlarged. IMPRESSION: NO ACTIVE INTRATHORACIC DISEASE.
[2020-02-29 08:18] LABS: Basophils % (A) 0 %; Eosinophils # (A) 0.2 k/uL (0-0.7); Eosinophils % (A) 2 %; HCT 42.2 % (34.0-46.0); HGB 14.5 gm/dL (11.4-16.0); Lymphocytes % (A) 22 %; MCH 29.3 pg (25.0-35.0); MCHC 34.4 g/dL (31.0-37.0); MCV 85.2 fL (80.0-100.0); Mean Platelet Volume 7.5; Monocytes # (A) 0.4 k/uL (0-1.0); Monocytes % (A) 4 %; Neutrophils # (A) 6.4 k/uL (1.3-7.7); Neutrophils % (A) 71 %; Platelet Count 233 k/uL (150-450); RBC 4.95 m/uL (3.80-5.40); RDW 12.9 % (11.5-15.5); WBC 9.1 k/uL (3.8-10.6)
[2020-02-29 08:26] LABS: D-Dimer 0.35 mg/L FEU (<0.60); INR 0.9 (<1.2); Partial Thromboplastin Time 22.7 sec (22.0-30.0); Prothrombin Time 9.7 sec (9.0-12.0)
[2020-02-29 08:27] LABS: ALT 34 U/L (4-34); African American GFR (CKD) >90 (>60 ml/min/1.73 sqM); Albumin 4.5 g/dL (3.5-5.0); Anion Gap 9 mmol/L; Blood Urea Nitrogen 10 mg/dL (7-17); C Reactive Protein <5.0 mg/L (<10.0); Carbon Dioxide 23 mmol/L (22-30); Chloride 103 mmol/L (98-107); Glucose 136 mg/dL (74-99); LDH 698 U/L (313-618); Non-African American GFR(CKD) >90 (>60 ml/min/1.73 sqM); Sodium 135 mmol/L (137-145); Total Bilirubin 0.7 mg/dL (0.2-1.3); Total Protein 7.8 g/dL (6.3-8.2)
[2020-02-29 08:30] LABS: AST 37 U/L (14-36); Alkaline Phosphatase 68 U/L (38-126); Magnesium 1.7 mg/dL (1.6-2.3); Potassium 4.7 mmol/L (3.5-5.1)
[2020-02-29 10:28] VITALS: BP 101/62; PULSE 93; RESP 18; TEMP 98.7
--- NOTE | 2020-02-29 10:29 | ED ---
Medical Decision Making - Medical Decision Making The patient is requesting heart copies of her prescriptions as well as Diflucan due to history of yeast infections - Lab Data Result diagrams: 02/29/20 08:00 02/29/20 08:00 Lab Results 02/29/20 02/29/20 02/29/20 Range/Units 07:55 08:00 08:00 WBC 9.1 (3.8-10.6) k/uL RBC 4.95 (3.80-5.40) m/uL Hgb 14.5 (11.4-16.0) gm/dL Hct 42.2 (34.0-46.0) % MCV 85.2 (80.0-100.0) fL MCH 29.3 (25.0-35.0) pg MCHC 34.4 (31.0-37.0) g/dL RDW 12.9 (11.5-15.5) % Plt Count 233 (150-450) k/uL Neutrophils % 71 % Lymphocytes % 22 % Monocytes % 4 % Eosinophils % 2 % Basophils % 0 % Neutrophils # 6.4 (1.3-7.7) k/uL Lymphocytes # 2.0 (1.0-4.8) k/uL Monocytes # 0.4 (0-1.0) k/uL Eosinophils # 0.2 (0-0.7) k/uL Basophils # 0.0 (0-0.2) k/uL PT 9.7 (9.0-12.0) sec INR 0.9 (<1.2) APTT 22.7 (22.0-30.0) sec D-Dimer 0.35 (<0.60) mg/L FEU Sodium (137-145) mmol/L Potassium (3.5-5.1) mmol/L Chloride (98-107) mmol/L Carbon Dioxide (22-30) mmol/L Anion Gap mmol/L BUN (7-17) mg/dL Creatinine (0.52-1.04) mg/dL Est GFR (CKD-EPI)AfAm (>60 ml/min/1.73 sqM) Est GFR (CKD-EPI)NonAf (>60 ml/min/1.73 sqM) Glucose (74-99) mg/dL Plasma Lactic Acid Keith (0.7-2.0) mmol/L Calcium (8.4-10.2) mg/dL Magnesium (1.6-2.3) mg/dL Total Bilirubin (0.2-1.3) mg/dL AST (14-36) U/L ALT (4-34) U/L Alkaline Phosphatase (38-126) U/L Lactate Dehydrogenase (313-618) U/L Troponin I (0.000-0.034) ng/mL C-Reactive Protein (<10.0) mg/L Total Protein (6.3-8.2) g/dL Albumin (3.5-5.0) g/dL Coronavirus (PCR) Cancelled Influenza Type A RNA Not Detected (Not Detectd) Influenza Type B (PCR) Not Detected (Not Detectd) 02/29/20 02/29/20 02/29/20 Range/Units 08:00 08:00 08:00 WBC (3.8-10.6) k/uL RBC (3.80-5.40) m/uL Hgb (11.4-16.0) gm/dL Hct (34.0-46.0) % MCV (80.0-100.0) fL MCH (25.0-35.0) pg MCHC (31.0-37.0) g/dL RDW (11.5-15.5) % Plt Count (150-450) k/uL Neutrophils % % Lymphocytes % % Monocytes % % Eosinophils % % Basophils % % Neutrophils # (1.3-7.7) k/uL Lymphocytes # (1.0-4.8) k/uL Monocytes # (0-1.0) k/uL Eosinophils # (0-0.7) k/uL Basophils # (0-0.2) k/uL PT (9.0-12.0) sec INR (<1.2) APTT (22.0-30.0) sec D-Dimer (<0.60) mg/L FEU Sodium 135 L (137-145) mmol/L Potassium 4.7 (3.5-5.1) mmol/L Chloride 103 (98-107) mmol/L Carbon Dioxide 23 (22-30) mmol/L Anion Gap 9 mmol/L BUN 10 (7-17) mg/dL Creatinine 0.55 (0.52-1.04) mg/dL Est GFR (CKD-EPI)AfAm >90 (>60 ml/min/1.73 sqM) Est GFR (CKD-EPI)NonAf >90 (>60 ml/min/1.73 sqM) Glucose 136 H (74-99) mg/dL Plasma Lactic Acid Keith 1.7 (0.7-2.0) mmol/L Calcium 10.0 (8.4-10.2) mg/dL Magnesium 1.7 (1.6-2.3) mg/dL Total Bilirubin 0.7 (0.2-1.3) mg/dL AST 37 H (14-36) U/L ALT 34 (4-34) U/L Alkaline Phosphatase 68 (38-126) U/L Lactate Dehydrogenase 698 H (313-618) U/L Troponin I <0.012 (0.000-0.034) ng/mL C-Reactive Protein <5.0 (<10.0) mg/L Total Protein 7.8 (6.3-8.2) g/dL Albumin 4.5 (3.5-5.0) g/dL Coronavirus (PCR) Influenza Type A RNA (Not Detectd) Influenza Type B (PCR) (Not Detectd) 02/29/20 Range/Units 09:00 WBC (3.8-10.6) k/uL RBC (3.80-5.40) m/uL Hgb (11.4-16.0) gm/dL Hct (34.0-46.0) % MCV (80.0-100.0) fL MCH (25.0-35.0) pg MCHC (31.0-37.0) g/dL RDW (11.5-15.5) % Plt Count (150-450) k/uL Neutrophils % % Lymphocytes % % Monocytes % % Eosinophils % % Basophils % % Neutrophils # (1.3-7.7) k/uL Lymphocytes # (1.0-4.8) k/uL Monocytes # (0-1.0) k/uL Eosinophils # (0-0.7) k/uL Basophils # (0-0.2) k/uL PT (9.0-12.0) sec INR (<1.2) APTT (22.0-30.0) sec D-Dimer (<0.60) mg/L FEU Sodium (137-145) mmol/L Potassium (3.5-5.1) mmol/L Chloride (98-107) mmol/L Carbon Dioxide (22-30) mmol/L Anion Gap mmol/L BUN (7-17) mg/dL Creatinine (0.52-1.04) mg/dL Est GFR (CKD-EPI)AfAm (>60 ml/min/1.73 sqM) Est GFR (CKD-EPI)NonAf (>60 ml/min/1.73 sqM) Glucose (74-99) mg/dL Plasma Lactic Acid Keith (0.7-2.0) mmol/L Calcium (8.4-10.2) mg/dL Magnesium (1.6-2.3) mg/dL Total Bilirubin (0.2-1.3) mg/dL AST (14-36) U/L ALT (4-34) U/L Alkaline Phosphatase (38-126) U/L Lactate Dehydrogenase (313-618) U/L Troponin I (0.000-0.034) ng/mL C-Reactive Protein (<10.0) mg/L Total Protein (6.3-8.2) g/dL Albumin (3.5-5.0) g/dL Coronavirus (PCR) Not Detected Influenza Type A RNA (Not Detectd) Influenza Type B (PCR) (Not Detectd) Disposition Clinical Impression: Bronchitis, Bronchospasm, acute, Smoking Disposition: HOME SELF-CARE Condition: Good Instructions (If sedation given, give patient instructions): How to Stop Smoking (ED), Acute Bronchitis (ED), Bronchospasm (ED) Additional Instructions: Prescriptions he described it to your preferred pharmacy Prescriptions: Fluconazole [Diflucan] 150 mg PO ONCE #1 tab Magnesium 250 mg PO DAILY #15 tablet Albuterol Inhaler [Ventolin Hfa Inhaler] 2 puff INHALATION RT-QID PRN #1 puff PRN Reason: Dyspnea Azithromycin [Zithromax Z-pack] 250 mg PO DIRECTED #6 tab Is patient prescribed a controlled substance at d/c from ED?: No Referrals: Sandeep Jean III, MD [Primary Care Provider] - 1-2 days
[2020-02-29 16:30] LABS: Ferritin 76.5 ng/mL (10.0-291.0)
== END 2020-02-29 10:30 | disposition home or self-care (01) ==
LOC: EC 07:20
DX: Z03.818 Encounter for observation for suspected exposure to other biological agents ruled out (principal); J20.9 Acute bronchitis, unspecified; F17.200 Nicotine dependence, unspecified, uncomplicated; M79.7 Fibromyalgia; E11.9 Type 2 diabetes mellitus without complications; K21.9 Gastro-esophageal reflux disease without esophagitis; F32.9 Major depressive disorder, single episode, unspecified; Z88.5 Allergy status to narcotic agent; Z79.4 Long term (current) use of insulin; Z79.899 Other long term (current) drug therapy
CPT/HCPCS: 36415; 71045; 80053; 82728; 83605; 83615; 83735; 84145; 84484; 85025; 85379; 85610; 85730; 86140; 87040; 87502; 87635; 93005; 99285; 99406

== ENCOUNTER → 2020-05-11 | Outpatient (CLI) | payer OTHER ==
--- NOTE | 2020-05-11 11:29 | XR ---
EXAMINATION TYPE: XR shoulder complete LT DATE OF EXAM: 05/11/2020 COMPARISON: 09/04/2018 HISTORY: Left shoulder pain TECHNIQUE: Three views are submitted. FINDINGS: The osseous structures are intact. There is no acute fracture or dislocation. There is arthropathy o f the AC joint. There is calcification along the humeral head suggestive of calcific tendinosis. IMPRESSION: 1. AC joint arthropathy 2. Calcific tendinosis
== END | disposition home or self-care (01) ==
LOC: RADXRMAIN 11:02
PROVIDERS: ATTEND Emergency Medicine
DX: M12.9 Arthropathy, unspecified (principal)

== ENCOUNTER → 2020-05-19 | Outpatient (CLI) | payer OTHER ==
--- NOTE | 2020-05-19 22:09 | MR ---
EXAMINATION TYPE: MR shoulder LT wo con DATE OF EXAM: 05/19/2020 COMPARISON: None HISTORY: Lt shoulder strain Multiplanar multiecho imaging of the left shoulder was performed without contrast. There is mild shoulder joint effusion. The biceps tendon is intact. Subscapularis tendon is intact. T he glenoid arnie appear intact. There is intact supraspinatus tendon. There is no retraction. There is small fluid collection under t he supraspinatus tendon related to shoulder joint effusion. There is extensive hypertrophic spurring at the AC joint. I see no focal bone destruction. There is no evidence of a fracture. IMPRESSION: Shoulder joint effusion. Extensive hypertrophic degenerative change at the AC joint. No fracture. No evidence of rotator cuff tear.
== END | disposition home or self-care (01) ==
LOC: RADMRIMAIN 17:39
PROVIDERS: ATTEND Emergency Medicine
DX: M19.012 Primary osteoarthritis, left shoulder (principal); M25.412 Effusion, left shoulder; S46.912D Strain of unspecified muscle, fascia and tendon at shoulder and upper arm level, left arm, subsequent encounter

== ENCOUNTER 2021-01-07 19:12 | Emergency (ER) | payer BC ==
[2021-01-07 19:16] VITALS: TEMP 98.1
[2021-01-07] MEDS ORDERED: METOCLOPRAMIDE 5 MG/ML 2 ML VIAL IVP STA (20:02)
[2021-01-07] MEDS ORDERED: diphenhydrAMINE 50 MG/ML 1 ML VIAL IVP STA (20:02)
[2021-01-07] MEDS ORDERED: SODIUM CHLORIDE 0.9% 1,000 ML IV ONE (20:02)
--- NOTE | 2021-01-07 20:29 | CT ---
EXAMINATION TYPE: CT brain wo con DATE OF EXAM: 01/07/2021 COMPARISON: None available. HISTORY: Headache and facial pain. CT DLP: 1257.4 mGycm. Automated Exposure Control for Dose Reduction was Utilized. TECHNIQUE: CT scan of the head is performed without contrast. FINDINGS: There is no acute intracranial hemorrhage, mass effect, or midline shift identified. The ventricles and sulci are within normal limits in size. The globes are intact and the visualized sin uses are clear. IMPRESSION: No acute intracranial hemorrhage, mass effect, or midline shift is seen.
--- NOTE | 2021-01-07 20:31 | CT ---
EXAMINATION TYPE: CT sinus wo con DATE OF EXAM: 01/07/2021 COMPARISON: None available. HISTORY: Facial pain. CT DLP: 1257.4 mGycm. Automated Exposure Control for Dose Reduction was Utilized. TECHNIQUE: CT scan of the sinuses is performed without contrast, axial images are obtained, coronal r eformatted images are also reviewed. FINDINGS: The paranasal sinuses including the frontal, ethmoid, sphenoid, and maxillary sinuses bila terally are well-aerated without abnormal opacification. The ostiomeatal complex is patent bilateral ly on the coronal images. Visualized portion of mastoid air cells show no abnormal opacification. The globes are intact bilate rally. IMPRESSION: No significant abnormality.
--- NOTE | 2021-01-07 20:42 | ED ---
Headache HPI - General Chief Complaint: Headache Stated Complaint: Headache Time Seen by Provider: 01/07/21 19:17 Mode of arrival: ambulatory Limitations: no limitations - History of Present Illness Initial Comments: 45-year-old female patient presents to the emergency department today for evaluation of left-sided headache. Patient states symptoms started on Monday and have been persistent since. States she woke up with the headache. States there are times it does start to feel better but then gets worse again. States she did initially have some blurred vision but that did resolve. States she is not feeling some numbness tingling sensation to the left side of her face. She denies history of migraines or headaches. Denies any head injury. Denies dizziness or weakness. Denies nausea or vomiting. Denies any light or sound sensitivity. Denies any worsening pain with chewing or clenching her jaw. Patient denies any recent rash, fever, chills, cough, shortness of breath, chest pain, abdominal pain, diarrhea, constipation, back pain, hematuria, dysuria, urinary urgency, urinary frequency, or any other complaints. - Related Data Home Medications Medication Instructions Recorded Confirmed Insulin Glargine [Lantus] 100 unit SQ HS 12/25/14 09/04/18 glipiZIDE [Glucotrol] 10 mg PO BID 12/25/14 09/04/18 sitaGLIPtin [Januvia] 100 mg PO DAILY 04/28/16 09/04/18 metFORMIN HCL 1,000 mg PO BID 05/12/16 09/04/18 Omeprazole 20 mg PO DAILY 10/20/16 09/04/18 Vortioxetine Hydrobromide 40 mg PO DAILY 10/20/16 09/04/18 [Trintellix] Pregabalin [Lyrica] 75 mg PO BID 09/04/18 09/04/18 Previous Rx's Medication Instructions Recorded Ibuprofen [Motrin] 800 mg PO Q6HR PRN #30 tab 12/19/16 Ibuprofen [Motrin] 600 mg PO Q8HR PRN #30 tab 09/04/18 Orphenadrine [Norflex] 100 mg PO Q12H #14 tablet.er 09/04/18 Albuterol Inhaler [Ventolin Hfa 2 puff INHALATION RT-QID PRN #1 02/29/20 Inhaler] puff Azithromycin [Zithromax Z-pack] 250 mg PO DIRECTED #6 tab 02/29/20 Fluconazole [Diflucan] 150 mg PO ONCE #1 tab 02/29/20 Magnesium 250 mg PO DAILY #15 tablet 02/29/20 Allergies Allergy/AdvReac Type Severity Reaction Status Date / Time codeine Allergy Nausea & Verified 01/07/21 19:16 Vomiting Review of Systems ROS Statement: Those systems with pertinent positive or pertinent negative responses have been documented in the HPI. ROS Other: All systems not noted in ROS Statement are negative. Past Medical History Past Medical History: Diabetes Mellitus, Fibromyalgia, GERD/Reflux Additional Past Medical History / Comment(s): change in bowel habits, ovarian cyst History of Any Multi-Drug Resistant Organisms: None Reported Past Surgical History: Appendectomy, Cholecystectomy, Hernia Repair, Orthopedic Surgery, Uterine Ablation Additional Past Surgical History / Comment(s): sinus surgery, carpal tunnel-rt, vein stripping Past Anesthesia/Blood Transfusion Reactions: Previous Problems w/ Anesthesia, Motion Sickness Additional Past Anesthesia/Blood Transfusion Reaction / Comment(s): "sometimes hard time coming out of anesthesia" Past Psychological History: Depression Past Alcohol Use History: None Reported Past Drug Use History: None Reported - Past Family History Father Family Medical History: Pulmonary Embolus General Exam Limitations: no limitations General appearance: alert, in no apparent distress, other (This is a well- developed, well-nourished adult female patient in no acute distress. Vital signs upon presentation are temperature 98.1F, pulse 94, respirations 18, blood pressure 137/89, pulse ox 97% on room air.) Eye exam: Present: normal appearance, PERRL, EOMI. Absent: scleral icterus, conjunctival injection, nystagmus, periorbital swelling ENT exam: Present: normal exam, normal oropharynx, mucous membranes moist Respiratory exam: Present: normal lung sounds bilaterally. Absent: respiratory distress, wheezes, rales, rhonchi, stridor Cardiovascular Exam: Present: regular rate, normal rhythm, normal heart sounds. Absent: systolic murmur, diastolic murmur, rubs, gallop, clicks GI/Abdominal exam: Present: soft, normal bowel sounds. Absent: distended, tenderness, guarding, rebound, rigid Neurological exam: Present: alert, oriented X3, CN II-XII intact Expanded Speech: Present: fluid speech Cranial nerves: EOM's Intact: Normal, Nystagmus: Normal, Facial Sensation: Normal Motor strength exam: RUE: 5, LUE: 5, RLE: 5, LLE: 5 Psychiatric exam: Present: normal affect, normal mood Skin exam: Present: warm, dry, intact, normal color. Absent: rash Course Vital Signs 01/07/21 01/07/21 19:14 21:00 Temperature 98.1 F Pulse Rate 94 89 Respiratory 18 22 Rate Blood Pressure 137/89 134/88 O2 Sat by Pulse 97 97 Oximetry Medical Decision Making - Medical Decision Making 45-year-old female patient presents to the emergency department today for evaluation of left-sided headache. Reports pain around her left eye and some mild tingling to the left wrist. Physical examination is unremarkable. She is neurologically intact with no focal deficits. CT brain is negative, CT sinuses negative. She is given IV fluids and medication. Upon reevaluation she is resting comfortably in bed states her symptoms are completely improved. We did obtain visual acuity which was 20/20 and 20/25. She will be discharged home to follow-up through primary care physician for recheck in 1-2 days. Return parameters discussed in detail patient verbalizes understanding and agrees with this plan. Case discussed with my attending Dr. Sanders. - EKG Data -: EKG Interpreted by Me EKG Comments: EKG obtained in 1919 shows normal sinus rhythm with a ventricular 92, WI interval 142, QRS duration 88, QT 354, QTC 437. No evidence of ST elevation or depression - Radiology Data Radiology results: report reviewed, image reviewed CT brain without contrast was obtained. Report is reviewed in its entirety. Impression by Dr. Nava shows no acute intracranial hemorrhage, mass effect, or midline shift. CT sinus without contrast was obtained. Report is reviewed in its entirety. Impression by Dr. Nava shows no significant abnormality. Disposition Clinical Impression: Headache Disposition: HOME SELF-CARE Condition: Good Instructions (If sedation given, give patient instructions): Acute Headache (ED) Additional Instructions: Increase fluids. Rest. Follow-up with the primary care physician for recheck in 1-2 days. If headaches persist discuss possible referral to neurology or MRI. Return to the emergency department for any new, worsening, or concerning symptoms. Is patient prescribed a controlled substance at d/c from ED?: No Referrals: Sandeep Jean III, MD [Primary Care Provider] - 1-2 days Time of Disposition: 21:49
[2021-01-07] MEDS ORDERED: KETOROLAC 15 MG/ML 1 ML VIAL IVP STA (20:49)
[2021-01-07 21:25] VITALS: BP 134/88; PULSE 89; RESP 22
== END 2021-01-07 22:08 | disposition home or self-care (01) ==
LOC: EC 19:12
DX: R51.9 Headache, unspecified (principal); R20.2 Paresthesia of skin; H57.12 Ocular pain, left eye; E11.9 Type 2 diabetes mellitus without complications; K21.9 Gastro-esophageal reflux disease without esophagitis; F32.9 Major depressive disorder, single episode, unspecified; Z79.4 Long term (current) use of insulin; Z79.899 Other long term (current) drug therapy; Z88.5 Allergy status to narcotic agent; Z90.49 Acquired absence of other specified parts of digestive tract
CPT/HCPCS: 93005; 70450; 70486; 99284; 96374; 96375 ×2; 96361; J1200; J2765; J1885

== ENCOUNTER 2021-06-23 10:21 | Emergency (ER) | payer BC, OTHER ==
[2021-06-23 10:25] VITALS: TEMP 98.2
[2021-06-23] MEDS ORDERED: SODIUM CHLORIDE 0.9% 2,000 ML IV ONE (10:47)
--- NOTE | 2021-06-23 11:10 | ED ---
General Adult HPI - General Chief complaint: Urogenital Stated complaint: UTI Time Seen by Provider: 06/23/21 10:28 Source: patient, RN notes reviewed Mode of arrival: ambulatory Limitations: no limitations - History of Present Illness Initial comments: This a 45-year-old female presents emergency Department chief complaint of urinary tract infection, lightheadedness, not feeling well. Patient states she started symptoms on Monday was seen yesterday started on Bactrim taken 2 doses. She states she felt worse today states that she just felt sick where she felt like her blood sugar was offered states that her it's not. Patient has helped was monitored on. - Related Data Home Medications Medication Instructions Recorded Confirmed metFORMIN HCL [Glucophage] 1,000 mg PO HS 05/12/16 06/23/21 Omeprazole 20 mg PO DAILY 10/20/16 06/23/21 Vortioxetine Hydrobromide 20 mg PO DAILY 10/20/16 06/23/21 [Trintellix] Pregabalin [Lyrica] 75 mg PO DAILY 09/04/18 06/23/21 Dulaglutide [Trulicity] 3 mg SQ TH 06/23/21 06/23/21 Fluconazole [Diflucan] 150 mg PO ONCE PRN 06/23/21 06/23/21 Ibuprofen [Motrin] 800 mg PO TID PRN 06/23/21 06/23/21 Rosuvastatin [Crestor] 10 mg PO HS 06/23/21 06/23/21 Sulfamethox-Tmp 800-160Mg [Bactrim 1 tab PO BID 06/23/21 06/23/21 DS 800-160 mg] buPROPion HCL [Wellbutrin XL] 150 mg PO DAILY 06/23/21 06/23/21 buPROPion HCL [Wellbutrin XL] 300 mg PO DAILY 06/23/21 06/23/21 glipiZIDE XL [Glucotrol Xl] 10 mg PO BID 06/23/21 06/23/21 Allergies Allergy/AdvReac Type Severity Reaction Status Date / Time codeine AdvReac Nausea & Verified 06/23/21 11:58 Vomiting Review of Systems ROS Statement: Those systems with pertinent positive or pertinent negative responses have been documented in the HPI. ROS Other: All systems not noted in ROS Statement are negative. Past Medical History Past Medical History: Diabetes Mellitus, Fibromyalgia, GERD/Reflux Additional Past Medical History / Comment(s): change in bowel habits, ovarian cyst History of Any Multi-Drug Resistant Organisms: None Reported Past Surgical History: Appendectomy, Cholecystectomy, Hernia Repair, Orthopedic Surgery, Uterine Ablation Additional Past Surgical History / Comment(s): sinus surgery, carpal tunnel-rt, vein stripping Past Anesthesia/Blood Transfusion Reactions: Previous Problems w/ Anesthesia, Motion Sickness Additional Past Anesthesia/Blood Transfusion Reaction / Comment(s): "sometimes hard time coming out of anesthesia" Past Psychological History: Depression Past Alcohol Use History: None Reported Past Drug Use History: None Reported - Past Family History Father Family Medical History: Pulmonary Embolus General Exam Limitations: no limitations General appearance: alert, in no apparent distress Head exam: Present: atraumatic, normocephalic, normal inspection Eye exam: Present: normal appearance, PERRL, EOMI. Absent: scleral icterus, conjunctival injection, periorbital swelling Respiratory exam: Present: normal lung sounds bilaterally. Absent: respiratory distress, wheezes, rales, rhonchi, stridor Cardiovascular Exam: Present: regular rate, normal rhythm, normal heart sounds. Absent: systolic murmur, diastolic murmur, rubs, gallop, clicks GI/Abdominal exam: Present: soft, tenderness, normal bowel sounds. Absent: distended, guarding, rebound, rigid Back exam: Present: CVA tenderness (R), CVA tenderness (L) Neurological exam: Present: alert Skin exam: Present: warm, dry, intact, normal color. Absent: rash Course Vital Signs 06/23/21 06/23/21 10:23 11:31 Temperature 98.2 F Pulse Rate 98 90 Respiratory 16 20 Rate Blood Pressure 126/77 106/76 O2 Sat by Pulse 93 L 94 L Oximetry Medical Decision Making - Medical Decision Making 45-year-old presented for urinary tract infection, not feeling well. Patient was given 2 L of fluids, given antibiotics. Patient does have evidence UTI. Patient does have mild ketonuria, glucosuria. Patient we discharged with continuation of her oral antibiotics pending urine culture. - Lab Data Result diagrams: 06/23/21 11:06 06/23/21 11:06 Lab Results 06/23/21 06/23/21 06/23/21 Range/Units 11:06 11:06 11:06 WBC 10.5 (3.8-10.6) k/uL RBC 4.96 (3.80-5.40) m/uL Hgb 15.4 (11.4-16.0) gm/dL Hct 44.6 (34.0-46.0) % MCV 90.0 (80.0-100.0) fL MCH 31.1 (25.0-35.0) pg MCHC 34.6 (31.0-37.0) g/dL RDW 13.3 (11.5-15.5) % Plt Count 237 (150-450) k/uL MPV 7.8 Neutrophils % 75 % Lymphocytes % 18 % Monocytes % 4 % Eosinophils % 1 % Basophils % 0 % Neutrophils # 7.9 H (1.3-7.7) k/uL Lymphocytes # 1.9 (1.0-4.8) k/uL Monocytes # 0.4 (0-1.0) k/uL Eosinophils # 0.1 (0-0.7) k/uL Basophils # 0.0 (0-0.2) k/uL Sodium 135 L (137-145) mmol/L Potassium 4.6 (3.5-5.1) mmol/L Chloride 103 (98-107) mmol/L Carbon Dioxide 22 (22-30) mmol/L Anion Gap 10 mmol/L BUN 14 (7-17) mg/dL Creatinine 0.57 (0.52-1.04) mg/dL Est GFR (CKD-EPI)AfAm >90 (>60 ml/min/1.73 sqM) Est GFR (CKD-EPI)NonAf >90 (>60 ml/min/1.73 sqM) Glucose 243 H (74-99) mg/dL Plasma Lactic Acid Keith (0.7-2.0) mmol/L Calcium 10.5 H (8.4-10.2) mg/dL Total Bilirubin 0.6 (0.2-1.3) mg/dL AST 37 H (14-36) U/L ALT 42 H (4-34) U/L Alkaline Phosphatase 84 (38-126) U/L Total Protein 7.3 (6.3-8.2) g/dL Albumin 4.6 (3.5-5.0) g/dL Urine Color Yellow Urine Appearance Cloudy H (Clear) Urine pH 6.0 (5.0-8.0) Ur Specific [place] 1.010 (1.001-1.035) Urine Protein Negative (Negative) Urine Glucose (UA) 4+ H (Negative) Urine Ketones Trace H (Negative) Urine Blood Trace H (Negative) Urine Nitrite Negative (Negative) Urine Bilirubin Negative (Negative) Urine Urobilinogen <2.0 (<2.0) mg/dL Ur Leukocyte Esterase Large H (Negative) Urine RBC 3 (0-5) /hpf Urine WBC 17 H (0-5) /hpf Ur Squamous Epith Cells 2 (0-4) /hpf Urine Bacteria Moderate H (None) /hpf 06/23/21 Range/Units 11:06 WBC (3.8-10.6) k/uL RBC (3.80-5.40) m/uL Hgb (11.4-16.0) gm/dL Hct (34.0-46.0) % MCV (80.0-100.0) fL MCH (25.0-35.0) pg MCHC (31.0-37.0) g/dL RDW (11.5-15.5) % Plt Count (150-450) k/uL MPV Neutrophils % % Lymphocytes % % Monocytes % % Eosinophils % % Basophils % % Neutrophils # (1.3-7.7) k/uL Lymphocytes # (1.0-4.8) k/uL Monocytes # (0-1.0) k/uL Eosinophils # (0-0.7) k/uL Basophils # (0-0.2) k/uL Sodium (137-145) mmol/L Potassium (3.5-5.1) mmol/L Chloride (98-107) mmol/L Carbon Dioxide (22-30) mmol/L Anion Gap mmol/L BUN (7-17) mg/dL Creatinine (0.52-1.04) mg/dL Est GFR (CKD-EPI)AfAm (>60 ml/min/1.73 sqM) Est GFR (CKD-EPI)NonAf (>60 ml/min/1.73 sqM) Glucose (74-99) mg/dL Plasma Lactic Acid Keith 2.1 H* (0.7-2.0) mmol/L Calcium (8.4-10.2) mg/dL Total Bilirubin (0.2-1.3) mg/dL AST (14-36) U/L ALT (4-34) U/L Alkaline Phosphatase (38-126) U/L Total Protein (6.3-8.2) g/dL Albumin (3.5-5.0) g/dL Urine Color Urine Appearance (Clear) Urine pH (5.0-8.0) Ur Specific [place] (1.001-1.035) Urine Protein (Negative) Urine Glucose (UA) (Negative) Urine Ketones (Negative) Urine Blood (Negative) Urine Nitrite (Negative) Urine Bilirubin (Negative) Urine Urobilinogen (<2.0) mg/dL Ur Leukocyte Esterase (Negative) Urine RBC (0-5) /hpf Urine WBC (0-5) /hpf Ur Squamous Epith Cells (0-4) /hpf Urine Bacteria (None) /hpf Disposition Clinical Impression: Urinary tract infection, Malaise, Lightheaded Disposition: HOME SELF-CARE Condition: Stable Instructions (If sedation given, give patient instructions): Urinary Tract Infection in Women (ED) Additional Instructions: Please return to the Emergency Department if symptoms worsen or any other concerns. Continue antibiotics as prescribed Is patient prescribed a controlled substance at d/c from ED?: No Referrals: Ladonna Soto MD [Primary Care Provider] - 1-2 days Time of Disposition: 12:40
[2021-06-23 11:44] LABS: Basophils % (A) 0 %; Eosinophils # (A) 0.1 k/uL (0-0.7); Eosinophils % (A) 1 %; HCT 44.6 % (34.0-46.0); HGB 15.4 gm/dL (11.4-16.0); Lymphocytes # (A) 1.9 k/uL (1.0-4.8); Lymphocytes % (A) 18 %; MCH 31.1 pg (25.0-35.0); MCHC 34.6 g/dL (31.0-37.0); Mean Platelet Volume 7.8; Monocytes # (A) 0.4 k/uL (0-1.0); Monocytes % (A) 4 %; Neutrophils # (A) 7.9 k/uL (1.3-7.7); Neutrophils % (A) 75 %; Platelet Count 237 k/uL (150-450); RBC 4.96 m/uL (3.80-5.40); RDW 13.3 % (11.5-15.5); WBC 10.5 k/uL (3.8-10.6)
[2021-06-23 11:48] LABS: ALT 42 U/L (4-34); AST 37 U/L (14-36); African American GFR (CKD) >90 (>60 ml/min/1.73 sqM); Albumin 4.6 g/dL (3.5-5.0); Alkaline Phosphatase 84 U/L (38-126); Anion Gap 10 mmol/L; Blood Urea Nitrogen 14 mg/dL (7-17); Calcium 10.5 mg/dL (8.4-10.2); Carbon Dioxide 22 mmol/L (22-30); Chloride 103 mmol/L (98-107); Glucose 243 mg/dL (74-99); Non-African American GFR(CKD) >90 (>60 ml/min/1.73 sqM); Potassium 4.6 mmol/L (3.5-5.1); Sodium 135 mmol/L (137-145); Total Bilirubin 0.6 mg/dL (0.2-1.3); Total Protein 7.3 g/dL (6.3-8.2)
[2021-06-23] MEDS ORDERED: KETOROLAC 15 MG/ML 1 ML VIAL IVP STA (11:50)
[2021-06-23 11:51] LABS: Appearance,Urine Cloudy (Clear); Bacteria,Urine Moderate /hpf; Bilirubin,Urine Negative (Negative); Blood,Urine Trace (Negative); Color,Urine Yellow; Glucose,Urine (UA) 4+ (Negative); Ketones,Urine Trace (Negative); Leukocyte Esterase,Urine Large (Negative); Nitrite,Urine Negative (Negative); Protein,Urine Negative (Negative); RBC,Urine 3 /hpf (0-5); Squamous Epithelial Cell,Urine 2 /hpf (0-4); Urobilinogen,Urine <2.0 mg/dL (<2.0); WBC,Urine 17 /hpf (0-5)
[2021-06-23 12:57] VITALS: BP 107/60; PULSE 70; RESP 18
== END 2021-06-23 12:55 | disposition home or self-care (01) ==
LOC: EC 10:21
DX: N39.0 Urinary tract infection, site not specified (principal); R53.81 Other malaise; R42 Dizziness and giddiness; R82.4 Acetonuria; E11.9 Type 2 diabetes mellitus without complications; K21.9 Gastro-esophageal reflux disease without esophagitis; Z79.84 Long term (current) use of oral hypoglycemic drugs; Z79.899 Other long term (current) drug therapy; Z88.5 Allergy status to narcotic agent
CPT/HCPCS: 36415; 80053; 83605; 85025; 81001; 87040; 99284; 96365; 96375; J0696; J1885

== ENCOUNTER 2022-04-08 19:05 | Inpatient (IN) | payer OTHER ==
[2022-04-08] MEDS ORDERED: SODIUM CHLORIDE 0.9% 1,000 ML IV STA (19:17)
[2022-04-08 19:43] LABS: Glucose,Whole Blood 144 mg/dL (75-99)
[2022-04-08 20:30] LABS: Basophils # (A) 0.1 k/uL (0-0.2); Basophils % (A) 1 %; Eosinophils # (A) 0.1 k/uL (0-0.7); Eosinophils % (A) 1 %; HCT 46.6 % (34.0-46.0); HGB 15.4 gm/dL (11.4-16.0); Lymphocytes # (A) 1.9 k/uL (1.0-4.8); Lymphocytes % (A) 22 %; MCH 29.4 pg (25.0-35.0); MCHC 32.9 g/dL (31.0-37.0); MCV 89.3 fL (80.0-100.0); Mean Platelet Volume 8.2; Monocytes # (A) 0.4 k/uL (0-1.0); Monocytes % (A) 5 %; Neutrophils # (A) 6.3 k/uL (1.3-7.7); Neutrophils % (A) 71 %; Platelet Count 214 k/uL (150-450); RBC 5.22 m/uL (3.80-5.40); RDW 11.8 % (11.5-15.5); VBG PH 7.34 (7.31-7.41)
[2022-04-08 20:39] LABS: ALT 33 U/L (4-34); AST 27 U/L (14-36); Acetaminophen <10.0 ug/mL; African American GFR (CKD) >90 (>60 ml/min/1.73 sqM); Albumin 4.5 g/dL (3.5-5.0); Alcohol <10 mg/dL; Alkaline Phosphatase 90 U/L (38-126); Anion Gap 9 mmol/L; Blood Urea Nitrogen 13 mg/dL (7-17); Calcium 9.8 mg/dL (8.4-10.2); Carbon Dioxide 22 mmol/L (22-30); Chloride 110 mmol/L (98-107); Glucose 159 mg/dL (74-99); Lithium <0.2 mmol/L; Non-African American GFR(CKD) >90 (>60 ml/min/1.73 sqM); Potassium 4.2 mmol/L (3.5-5.1); Salicylate <1.0 mg/dL; Sodium 141 mmol/L (137-145); Total Bilirubin 0.4 mg/dL (0.2-1.3); Total Protein 7.3 g/dL (6.3-8.2)
--- NOTE | 2022-04-08 21:37 | CT ---
EXAMINATION TYPE: CT brain wo con DATE OF EXAM: 04/08/2022 COMPARISON: None HISTORY: unconcious, AMS, poss overdose CT DLP: 1173.4 mGycm Automated exposure control for dose reduction was used. Ventricles and sulci appear normal. There is no mass effect or midline shift. No sign of intracranial hemorrhage. Calvarium is intact. There is normal aeration of the mastoid sinuses. IMPRESSION: Negative CT scan of the brain. No change.
--- NOTE | 2022-04-08 22:08 | ED ---
General Adult HPI - General Chief complaint: Overdose Stated complaint: unresponsive Time Seen by Provider: 04/08/22 19:12 Source: family, EMS, RN notes reviewed, old records reviewed Mode of arrival: EMS Limitations: altered mental status - History of Present Illness Initial comments: 46-year-old female presenting with altered mental status. Patient was brought in by paramedics after her suspected benzodiazepine overdose. Patient had an argument with family earlier today and there was report that she had taken several Xanax tablets. Uncertain exact quantity. Patient did have what was thought to be seizure activity at home prior to arrival. The exact details of this are not known. The history is very limited. - Related Data Home Medications Medication Instructions Recorded Confirmed metFORMIN HCL [Glucophage] 1,000 mg PO HS 05/12/16 06/23/21 Omeprazole 20 mg PO DAILY 10/20/16 06/23/21 Vortioxetine Hydrobromide 20 mg PO DAILY 10/20/16 06/23/21 [Trintellix] Pregabalin [Lyrica] 75 mg PO DAILY 09/04/18 06/23/21 Dulaglutide [Trulicity] 3 mg SQ TH 06/23/21 06/23/21 Fluconazole [Diflucan] 150 mg PO ONCE PRN 06/23/21 06/23/21 Ibuprofen [Motrin] 800 mg PO TID PRN 06/23/21 06/23/21 Rosuvastatin [Crestor] 10 mg PO HS 06/23/21 06/23/21 Sulfamethox-Tmp 800-160Mg [Bactrim 1 tab PO BID 06/23/21 06/23/21 DS 800-160 mg] buPROPion HCL [Wellbutrin XL] 150 mg PO DAILY 06/23/21 06/23/21 buPROPion HCL [Wellbutrin XL] 300 mg PO DAILY 06/23/21 06/23/21 glipiZIDE XL [Glucotrol Xl] 10 mg PO BID 06/23/21 06/23/21 Allergies Allergy/AdvReac Type Severity Reaction Status Date / Time codeine AdvReac Nausea & Verified 06/23/21 11:58 Vomiting Review of Systems ROS Statement: Those systems with pertinent positive or pertinent negative responses have been documented in the HPI. ROS Other: All systems not noted in ROS Statement are negative. Past Medical History Past Medical History: Diabetes Mellitus, Fibromyalgia, GERD/Reflux Additional Past Medical History / Comment(s): change in bowel habits, ovarian cyst History of Any Multi-Drug Resistant Organisms: None Reported Past Surgical History: Appendectomy, Cholecystectomy, Hernia Repair, Orthopedic Surgery, Uterine Ablation Additional Past Surgical History / Comment(s): sinus surgery, carpal tunnel-rt, vein stripping, aortic stent placed approx 2 years ago. Past Anesthesia/Blood Transfusion Reactions: Previous Problems w/ Anesthesia, Motion Sickness Additional Past Anesthesia/Blood Transfusion Reaction / Comment(s): "sometimes hard time coming out of anesthesia" Past Psychological History: Depression Smoking Status: Current every day smoker Past Alcohol Use History: Occasional Past Drug Use History: None Reported - Past Family History Father Family Medical History: Pulmonary Embolus General Exam Limitations: altered mental status General appearance: appears intoxicated, obtunded Head exam: Present: atraumatic, normocephalic Eye exam: Present: normal appearance, PERRL ENT exam: Present: other (Positive gag reflex) Neck exam: Present: normal inspection. Absent: tenderness, meningismus Respiratory exam: Present: normal lung sounds bilaterally. Absent: respiratory distress Cardiovascular Exam: Present: regular rate, normal rhythm GI/Abdominal exam: Present: soft. Absent: distended, tenderness Neurological exam: Present: other (Patient does withdrawal to pain in all extremities. She has corneal and gag reflex. She does spontaneous respirations.) Skin exam: Present: warm, dry, intact. Absent: cyanosis, diaphoretic Course Vital Signs 04/08/22 19:36 Temperature 97.3 F L Pulse Rate 86 Respiratory 16 Rate Blood Pressure 107/65 O2 Sat by Pulse 96 Oximetry EKG Findings - EKG Comments: EKG Findings:: EKG: Sinus rhythm rate of 87, MD interval 138, QRS duration 105, QTC 4:[address] segment elevation. Medical Decision Making - Medical Decision Making 46-year-old female presenting with suspected suicide attempt. History is very limited on this patient. EMS and family reported there was a verbal altercation with family that the patient mentioned that she was suicidal. There was concern that she may have taken medication. Uncertain exactly what medication she took but there was a bottle of Xanax with an unknown quantity. Patient presents obtunded but protecting her airway with stable vitals, normal hemodynamics. Workup was initiated including laboratory testing, drug testing, and CT imaging of the brain. He is negative for acute process. Laboratory showing normal CBC, normal CMP, negative Tylenol, negative salicylate, negative alcohol levels. Urine drug screen is positive for amphetamines only. - Lab Data Result diagrams: 04/08/22 20:25 04/08/22 20:25 Lab Results 04/08/22 04/08/22 04/08/22 Range/Units 19:40 20:25 20:25 WBC 9.0 (3.8-10.6) k/uL RBC 5.22 (3.80-5.40) m/uL Hgb 15.4 (11.4-16.0) gm/dL Hct 46.6 H (34.0-46.0) % MCV 89.3 (80.0-100.0) fL MCH 29.4 (25.0-35.0) pg MCHC 32.9 (31.0-37.0) g/dL RDW 11.8 (11.5-15.5) % Plt Count 214 (150-450) k/uL MPV 8.2 Neutrophils % 71 % Lymphocytes % 22 % Monocytes % 5 % Eosinophils % 1 % Basophils % 1 % Neutrophils # 6.3 (1.3-7.7) k/uL Lymphocytes # 1.9 (1.0-4.8) k/uL Monocytes # 0.4 (0-1.0) k/uL Eosinophils # 0.1 (0-0.7) k/uL Basophils # 0.1 (0-0.2) k/uL VBG pH (7.31-7.41) VBG pCO2 (37-51) mmHg VBG HCO3 (24-28) mmol/L Sodium 141 (137-145) mmol/L Potassium 4.2 (3.5-5.1) mmol/L Chloride 110 H (98-107) mmol/L Carbon Dioxide 22 (22-30) mmol/L Anion Gap 9 mmol/L BUN 13 (7-17) mg/dL Creatinine 0.72 (0.52-1.04) mg/dL Est GFR (CKD-EPI)AfAm >90 (>60 ml/min/1.73 sqM) Est GFR (CKD-EPI)NonAf >90 (>60 ml/min/1.73 sqM) Glucose 159 H (74-99) mg/dL POC Glucose (mg/dL) 144 H (75-99) mg/dL POC Glu [employer] [place] Plasma Lactic Acid Keith (0.7-2.0) mmol/L Calcium 9.8 (8.4-10.2) mg/dL Total Bilirubin 0.4 (0.2-1.3) mg/dL AST 27 (14-36) U/L ALT 33 (4-34) U/L Alkaline Phosphatase 90 (38-126) U/L Total Protein 7.3 (6.3-8.2) g/dL Albumin 4.5 (3.5-5.0) g/dL Salicylates <1.0 mg/dL Acetaminophen <10.0 ug/mL [place] <0.2 mmol/L Serum Alcohol <10 mg/dL 04/08/22 04/08/22 Range/Units 20:25 20:25 WBC (3.8-10.6) k/uL RBC (3.80-5.40) m/uL Hgb (11.4-16.0) gm/dL Hct (34.0-46.0) % MCV (80.0-100.0) fL MCH (25.0-35.0) pg MCHC (31.0-37.0) g/dL RDW (11.5-15.5) % Plt Count (150-450) k/uL MPV Neutrophils % % Lymphocytes % % Monocytes % % Eosinophils % % Basophils % % Neutrophils # (1.3-7.7) k/uL Lymphocytes # (1.0-4.8) k/uL Monocytes # (0-1.0) k/uL Eosinophils # (0-0.7) k/uL Basophils # (0-0.2) k/uL VBG pH 7.34 (7.31-7.41) VBG pCO2 41 (37-51) mmHg VBG HCO3 22 L (24-28) mmol/L Sodium (137-145) mmol/L Potassium (3.5-5.1) mmol/L Chloride (98-107) mmol/L Carbon Dioxide (22-30) mmol/L Anion Gap mmol/L BUN (7-17) mg/dL Creatinine (0.52-1.04) mg/dL Est GFR (CKD-EPI)AfAm (>60 ml/min/1.73 sqM) Est GFR (CKD-EPI)NonAf (>60 ml/min/1.73 sqM) Glucose (74-99) mg/dL POC Glucose (mg/dL) (75-99) mg/dL POC Glu [employer] [place] [facility] Plasma Lactic Acid Keith 1.1 (0.7-2.0) mmol/L Calcium (8.4-10.2) mg/dL Total Bilirubin (0.2-1.3) mg/dL AST (14-36) U/L ALT (4-34) U/L Alkaline Phosphatase (38-126) U/L Total Protein (6.3-8.2) g/dL Albumin (3.5-5.0) g/dL Salicylates mg/dL Acetaminophen ug/mL [place] mmol/L Serum Alcohol mg/dL Disposition Clinical Impression: Drug overdose, Suicide attempt Disposition: ADMITTED IP TO THIS [facility] Condition: Stable Is patient prescribed a controlled substance at d/c from ED?: No Time of Disposition: 22:45
[2022-04-08] MEDS ORDERED: NALOXONE 0.4 MG/ML 1 ML VIAL IV PRN (22:11)
[2022-04-08 22:28] LABS: Appearance,Urine Clear (Clear); Bilirubin,Urine Negative (Negative); Blood,Urine Negative (Negative); Color,Urine Colorless; Glucose,Urine (UA) 4+ (Negative); Ketones,Urine Negative (Negative); Leukocyte Esterase,Urine Negative (Negative); Nitrite,Urine Negative (Negative); Protein,Urine Negative (Negative); Specific Gravity,Urine 1.009 (1.001-1.035); Urobilinogen,Urine <2.0 mg/dL (<2.0)
[2022-04-08 22:39] LABS: Amphetamine Screen,Urine Detected (NotDetected); Barbiturate Screen,Urine Not Detected (NotDetected); Benzodiazepines Screen,Urine Not Detected (NotDetected); Cocaine Screen,Urine Not Detected (NotDetected); Methadone Screen, Urine Not Detected (NotDetected); Opiate Screen,Urine Not Detected (NotDetected); Oxycodone Screen, Urine Not Detected (NotDetected); Phencyclidine Screen,Urine Not Detected (NotDetected); Tricyclic Antidepressant,Urine Not Detected (NotDetected); Urn Cannabinoid Scrn Not Detected (NotDetected)
[2022-04-09 01:46] LABS: Glucose,Whole Blood 180 mg/dL (75-99)
[2022-04-09 05:31] LABS: Basophils % (A) 0 %; Eosinophils # (A) 0.2 k/uL (0-0.7); Eosinophils % (A) 1 %; HGB 16.5 gm/dL (11.4-16.0); Lymphocytes # (A) 1.4 k/uL (1.0-4.8); Lymphocytes % (A) 9 %; MCH 30.9 pg (25.0-35.0); MCHC 34.3 g/dL (31.0-37.0); MCV 90.2 fL (80.0-100.0); Mean Platelet Volume 7.8; Monocytes # (A) 0.4 k/uL (0-1.0); Monocytes % (A) 3 %; Neutrophils # (A) 12.8 k/uL (1.3-7.7); Neutrophils % (A) 86 %; Platelet Count 249 k/uL (150-450); RBC 5.32 m/uL (3.80-5.40); RDW 12.7 % (11.5-15.5); WBC 14.8 k/uL (3.8-10.6)
[2022-04-09 05:51] LABS: VBG PH 7.34 (7.31-7.41)
[2022-04-09 06:11] LABS: ALT 35 U/L (4-34); AST 31 U/L (14-36); African American GFR (CKD) >90 (>60 ml/min/1.73 sqM); Albumin 4.9 g/dL (3.5-5.0); Albumin/Globulin Ratio 1.5; Alkaline Phosphatase 93 U/L (38-126); Anion Gap 11 mmol/L; Blood Urea Nitrogen 13 mg/dL (7-17); Calcium 10.3 mg/dL (8.4-10.2); Carbon Dioxide 20 mmol/L (22-30); Chloride 114 mmol/L (98-107); Globulin 3.2 g/dL; Glucose 241 mg/dL (74-99); Non-African American GFR(CKD) >90 (>60 ml/min/1.73 sqM); Potassium 4.5 mmol/L (3.5-5.1); Sodium 145 mmol/L (137-145); Total Bilirubin 0.7 mg/dL (0.2-1.3); Total Protein 8.1 g/dL (6.3-8.2)
[2022-04-09] MEDS ORDERED: DIAZEPAM 5 MG/ML 2 ML INJ IVP STA (06:24)
[2022-04-09] MEDS: SODIUM CHLORIDE 0.9% 1,000 ML IV SCH ×2 (07:00→14:37)
[2022-04-09] MEDS: LORazepam 2 MG/ML INJ IV PRN ×2 (08:17→14:15)
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
[2022-04-09] MEDS ORDERED: LORazepam 2 MG/ML INJ IV STA (11:49)
--- NOTE | 2022-04-09 14:58 | EEG ---
ELECTROENCEPHALOGRAM REPORT DATE OF SERVICE: 04/09/2022 PREAMBLE: This is a 46-year-old female with altered mental status. EEG FINDINGS: This is a 21-channel digital EEG recording with video component, utilizing 10/20 international system with referential and bipolar montages. Background consists of moderately well-developed, poorly regulated, mixed frequencies of 6 to 7 hertz theta seen in bihemispheric region. Intermittent periods of generalized suppression lasting for one second were also seen frequently during this study. The patient was restless, frequently moving, rolling over in the bed during the study with associated significant myogenic activities during most of the study. Some sleep spindles were also seen. No focal or generalized epileptiform activity was seen. Photic stimulation and hyperventilation were not performed. EKG channel showed no obvious arrhythmia. IMPRESSION: This is an abnormal EEG due to background slowing of moderate degree, with intermittent periods of generalized suppression lasting for one second. This is suggestive of generalized cerebral dysfunction as can be seen with toxic metabolic encephalopathy or due to diffuse structural brain abnormality or medication effect. Clinical correlation is recommended. No epileptiform activity was seen. Follow-up EEG recommended, if clinically indicated. MMODL / IJN: [id number] /
--- NOTE | 2022-04-09 15:40 | US ---
EXAMINATION TYPE: US carotid duplex BILAT DATE OF EXAM: 04/09/2022 COMPARISON: NONE CLINICAL HISTORY: Altered mental status. altered mental status. suicide attempt - benzodiazepine over dose EXAM MEASUREMENTS: RIGHT: Peak Systolic Velocity (PSV) cm/sec ----- Right CCA: 86.4 ----- Right ICA: 85.5 ----- Right ECA: 125 ICA/CCA ratio: 1.0 RIGHT: End Diastole cm/sec ----- Right CCA: 19.5 ----- Right ICA: 18.4 ----- Right ECA: 13.6 LEFT: Peak Systolic Velocity (PSV) cm/sec ----- Left CCA: 99.4 ----- Left ICA: 85.8 ----- Left ECA: 112 ICA/CCA ratio: 0.86 LEFT: End Diastole cm/sec ----- Left CCA: 17.5 ----- Left ICA: 29.9 ----- Left ECA: 14.3 VERTEBRALS (direction of flow): Right Vertebral: Antegrade Left Vertebral: Antegrade Rhythm: Normal Minimal plaque bilateral bifurcations. no evidence of increased velocities IMPRESSION: There is antegrade flow in the vertebral arteries. The images and measurements suggest less than 15% stenosis in both internal carotid arteries. Criteria for Assigning % of Stenosis / Diameter reduction (Estimation based on the indirect measurements of the internal carotid artery velocities (ICA PSV). 1. Normal (no stenosis)=ICA PSV < 125 cm/s: ratio < 2.0: ICA EDV<40 cm/s. 2. Less than 50% stenosis=ICA PSV < 125 cm/s: ratio < 2.0: ICA EDV<40 cm/s. 3. 50 to 69% stenosis=ICA PSV of 125 to 230 cm/s: ration 2.0 ? 4.0: ICA EDV 40-100 cm/s. 4. Greater than 70% stenosis to near occlusion= ICA PSV > 230 cm/s: ratio > 4.0: ICA EDV > 100 cm/s. 5. Near occlusion= ICA PSV velocities may be low or undetectable: variable ratio and ICA EDV. 6. Total occlusion=unable to detect flow.
[2022-04-09] MEDS: HEPARIN SODIUM,PORCINE/PF 5,000 UNIT/0.5 ML SYRINGE SQ SCH ×2 (16:02→21:48)
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
[2022-04-09] MEDS ORDERED: THIAMINE 100 MG/ML 2 ML VIAL IM STA (20:41)
[2022-04-09] MEDS ORDERED: LORazepam 2 MG/ML INJ IV PRN ×3 (20:41)
[2022-04-10 00:51] LABS: Glucose,Whole Blood 142 mg/dL (75-99)
[2022-04-10] MEDS: SODIUM CHLORIDE 0.9% 1,000 ML IV SCH ×2 (03:27→10:53)
[2022-04-10 07:47] LABS: Glucose,Whole Blood 197 mg/dL (75-99)
[2022-04-10] MEDS: THIAMINE 100 MG TAB PO SCH ×2 (09:22→16:38)
[2022-04-10] MEDS: HEPARIN SODIUM,PORCINE/PF 5,000 UNIT/0.5 ML SYRINGE SQ SCH ×2 (09:22→20:47)
[2022-04-10 09:23] LABS: Basophils # (A) 0.02 X 10*3/uL (0.00-0.10); Basophils % (A) 0.2 %; Eosinophils # (A) 0.15 X 10*3/uL (0.04-0.35); Eosinophils % (A) 1.5 %; HCT 43.8 % (37.2-46.3); HGB 14.4 g/dL (12.0-15.0); Immature Grans, Automated 0.5 %; Lymphocytes # (A) 2.96 X 10*3/uL (0.90-5.00); Lymphocytes % (A) 28.8 %; MCH 29.6 pg (27.0-32.0); MCHC 32.9 g/dL (32.0-37.0); MCV 89.9 fL (80.0-97.0); Mean Platelet Volume 10.5 fL (9.5-12.2); Monocytes # (A) 0.65 X 10*3/uL (0.20-1.00); Monocytes % (A) 6.3 %; NRBC Per 100 WBC 0 /100 WBCS (0.0-0.0); Neutrophils # (A) 6.44 X 10*3/uL (1.80-7.70); Neutrophils % (A) 62.7 %; Platelet Count 211 X 10*3/uL (140-440); RBC 4.87 X 10*6/uL (4.10-5.20); RDW 12.4 % (11.5-14.5); WBC 10.27 X 10*3/uL (4.50-10.00)
[2022-04-10 09:45] LABS: African American GFR (CKD) 103.2 (60.0-200.0); Anion Gap 12.4 mmol/L (10.00-18.00); BUN/Creat Ratio 16.75 Ratio (12.00-20.00); Blood Urea Nitrogen 13.4 mg/dL (9.0-27.0); Calcium 9.9 mg/dL (8.7-10.3); Carbon Dioxide 22.6 mmol/L (20.0-27.5); Potassium 3.8 mmol/L (3.5-5.5)
[2022-04-10 12:15] LABS: Glucose,Whole Blood 172 mg/dL (75-99)
--- NOTE | 2022-04-10 13:11 | P.HPIM ---
History of Present Illness H&P Date: 04/09/22 Chief Complaint: Drug overdose 46-year-old female presenting with altered mental status. Patient was brought in by paramedics after her suspected benzodiazepine overdose. Patient had an argument with family earlier today and there was report that she had taken several Xanax tablets. Uncertain exact quantity. Patient did have what was thought to be seizure activity at home prior to arrival. The exact details of this are not known. The history is very limited. As per EMS flow sheet, it was reported patient is diabetic. Patient was seizing prior to EMS arrival. When EMS arrived, patient was combative, restrained her manually on the floor prior to arrival. EMS noted patient was unresponsive. Her blood glucose was 148 mg/dL. Repeat blood glucose was 135 mg/dL. No history of trauma and family reported patient has history of psychiatric issues that she takes medication for. Patient was given IV Benadryl for possible dystonic reaction. It was reported by family that patient was making suicidal remarks earlier in the day around 3 PM and that she took 6 tablets of Xanax. An empty bottle of Xanax was found from a old prescription from 2019. Patient's v itals were blood pressure 132/85, pulse rate 96, respiration 20, saturation 96%. Blood test shows normal CBC PT/PTT, normal CMP. UA negative, urine drug screen positive for amphetamines. Salicylates, acetaminophen, blood alkaline level were negative. Review of Systems ROS unobtainable: due to mental status Past Medical History Past Medical History: Diabetes Mellitus, Fibromyalgia, GERD/Reflux Additional Past Medical History / Comment(s): change in bowel habits, ovarian cyst History of Any Multi-Drug Resistant Organisms: None Reported Past Surgical History: Appendectomy, Cholecystectomy, Hernia Repair, Orthopedic Surgery, Uterine Ablation Additional Past Surgical History / Comment(s): sinus surgery, carpal tunnel-rt, vein stripping, aortic stent placed approx 2 years ago. Past Anesthesia/Blood Transfusion Reactions: Previous Problems w/ Anesthesia, Motion Sickness Additional Past Anesthesia/Blood Transfusion Reaction / Comment(s): "sometimes hard time coming out of anesthesia" Past Psychological History: Depression Smoking Status: Current every day smoker Past Alcohol Use History: Occasional Past Drug Use History: None Reported - Past Family History Father Family Medical History: Pulmonary Embolus Medications and Allergies Home Medications Medication Instructions Recorded Confirmed Type metFORMIN HCL [Glucophage] 1,000 mg PO BID 05/12/16 04/08/22 History Omeprazole 20 mg PO DAILY 10/20/16 04/08/22 History Vortioxetine Hydrobromide 20 mg PO DAILY 10/20/16 04/08/22 History [Trintellix] Pregabalin [Lyrica] 75 mg PO BID 09/04/18 04/08/22 History Dulaglutide [Trulicity] 3 mg SQ Q7D 06/23/21 04/08/22 History Ibuprofen [Motrin] 800 mg PO TID PRN 06/23/21 04/08/22 History Empagliflozin [Jardiance] 10 mg PO DAILY 04/08/22 04/08/22 History Glimepiride [Amaryl] 4 mg PO BID 04/08/22 04/08/22 History Ondansetron [Zofran] 4 mg PO QID PRN 04/08/22 04/08/22 History Phentermine HCl [Adipex-P] 37.5 mg PO [id number] 04/08/22 04/08/22 History Rosuvastatin Calcium [Crestor] 20 mg PO DAILY 04/08/22 04/08/22 History Wellbutrin (Unknown Dose) 1 dose PO DIRECTED 04/08/22 04/08/22 History Allergies Allergy/AdvReac Type Severity Reaction Status Date / Time codeine AdvReac Nausea & Verified 06/23/21 11:58 Vomiting Physical Exam Vitals: Vital Signs Temp Pulse Resp BP Pulse Ox 04/09/22 08:18 101 H 16 137/94 96 04/09/22 07:00 94 20 127/82 04/09/22 01:49 96 10 L 112/78 96 04/08/22 23:56 87 16 112/70 95 04/08/22 19:36 97.3 F L 86 16 107/65 96 Intake and Output 04/08/22 04/09/22 04/09/22 22:59 06:59 14:59 Other: Weight 97.4 kg General appearance: appears intoxicated, obtunded Head exam: Present: atraumatic, normocephalic Eye exam: Present: normal appearance, PERRL ENT exam: Present: other (Positive gag reflex) Neck exam: Present: normal inspection. Absent: tenderness, meningismus Respiratory exam: Present: normal lung sounds bilaterally. Absent: respiratory distress Cardiovascular Exam: Present: regular rate, normal rhythm GI/Abdominal exam: Present: soft. Absent: distended, tenderness Neurological exam: Present: other (Patient does withdrawal to pain in all extremities. She has corneal and gag reflex. She does spontaneous respirations.) Skin exam: Present: warm, dry, intact. Absent: cyanosis, diaphoretic Results CBC & Chem 7: 04/10/22 04:16 04/10/22 04:16 Labs: Abnormal Lab Results - Last 24 Hours (Table) 04/08/22 04/08/22 04/08/22 Range/Units 19:40 20:25 20:25 WBC (3.8-10.6) k/uL Hgb (11.4-16.0) gm/dL Hct 46.6 H (34.0-46.0) % Neutrophils # (1.3-7.7) k/uL VBG HCO3 (24-28) mmol/L Chloride 110 H (98-107) mmol/L Carbon Dioxide (22-30) mmol/L Glucose 159 H (74-99) mg/dL POC Glucose (mg/dL) 144 H (75-99) mg/dL Calcium (8.4-10.2) mg/dL Magnesium (1.6-2.3) mg/dL ALT (4-34) U/L Urine Glucose (UA) (Negative) Ur Amphetamines Screen (NotDetected) 04/08/22 04/08/22 04/09/22 Range/Units 20:25 22:17 01:43 WBC (3.8-10.6) k/uL Hgb (11.4-16.0) gm/dL Hct (34.0-46.0) % Neutrophils # (1.3-7.7) k/uL VBG HCO3 22 L (24-28) mmol/L Chloride (98-107) mmol/L Carbon Dioxide (22-30) mmol/L Glucose (74-99) mg/dL POC Glucose (mg/dL) 180 H (75-99) mg/dL Calcium (8.4-10.2) mg/dL Magnesium (1.6-2.3) mg/dL ALT (4-34) U/L Urine Glucose (UA) 4+ H (Negative) Ur Amphetamines Screen Detected H (NotDetected) 04/09/22 04/09/22 04/09/22 Range/Units 05:17 05:17 05:17 WBC 14.8 H (3.8-10.6) k/uL Hgb 16.5 H (11.4-16.0) gm/dL Hct 48.0 H (34.0-46.0) % Neutrophils # 12.8 H (1.3-7.7) k/uL VBG HCO3 20 L (24-28) mmol/L Chloride 114 H (98-107) mmol/L Carbon Dioxide 20 L (22-30) mmol/L Glucose 241 H (74-99) mg/dL POC Glucose (mg/dL) (75-99) mg/dL Calcium 10.3 H (8.4-10.2) mg/dL Magnesium (1.6-2.3) mg/dL ALT 35 H (4-34) U/L Urine Glucose (UA) (Negative) Ur Amphetamines Screen (NotDetected) 04/09/22 Range/Units 05:17 WBC (3.8-10.6) k/uL Hgb (11.4-16.0) gm/dL Hct (34.0-46.0) % Neutrophils # (1.3-7.7) k/uL VBG HCO3 (24-28) mmol/L Chloride (98-107) mmol/L Carbon Dioxide (22-30) mmol/L Glucose (74-99) mg/dL POC Glucose (mg/dL) (75-99) mg/dL Calcium (8.4-10.2) mg/dL Magnesium 2.4 H (1.6-2.3) mg/dL ALT (4-34) U/L Urine Glucose (UA) (Negative) Ur Amphetamines Screen (NotDetected) Assessment and Plan Assessment: 1. Altered mental status/ Drug overdose - Patient has been evaluated by neurology; EEG has been completed; suggestive of generalized cerebral dysfunction likely consistent with toxic metabolic encephalopathy; no epileptiform activity was seen - Neurology recommending to hold off on antiepileptic medications; recommending to discontinue Wellbutrin and hold off on intermittent 2. Suicidal attempt/delirium; likely multidrug ingestion; patient has been evaluated by psychiatry; recommended to continue Wellbutrin; CIWA protocol is recommended due to gaps history; psychiatry will hold off on adjusting anti- depressant therapy the patient is medically stable and the medium results - Patient to be transferred to psych floor once clinically stable 3. Possible new onset seizures; EEG is completed; EEG has been completed; suggestive of generalized cerebral dysfunction likely consistent with toxic metabolic encephalopathy; no epileptiform activity was seen - Neurology recommending to hold off on antiepileptic medications 4. Diabetes mellitus; monitor Accu-Cheks every before meals and at bedtime with insulin sliding scale DVT prophylaxis; SCDs/subcu heparin CODE STATUS; full code
[2022-04-10] MEDS ORDERED: PANTOPRAZOLE 40 MG TABLET PO STA (16:34)
[2022-04-10] MEDS: metFORMIN 500 MG TAB PO SCH (16:37)
[2022-04-10] MEDS: ACETAMINOPHEN TAB 500 MG TAB PO PRN (16:42)
--- NOTE | 2022-04-10 19:48 | P.PN ---
Subjective Progress Note Date: 04/10/22 46-year-old female presenting with altered mental status. Patient was brought in by paramedics after her suspected benzodiazepine overdose. Patient had an argument with family earlier today and there was report that she had taken several Xanax tablets. Uncertain exact quantity. Patient did have what was thought to be seizure activity at home prior to arrival. The exact details of this are not known. The history is very limited. As per EMS flow sheet, it was reported patient is diabetic. Patient was seizing prior to EMS arrival. When EMS arrived, patient was combative, restrained her manually on the floor prior to arrival. EMS noted patient was unresponsive. Her blood glucose was 148 mg/dL. Repeat blood glucose was 135 mg/dL. No history of trauma and family reported patient has history of psychiatric issues that she takes medication for. Patient was given IV Benadryl for possible dystonic reaction. It was reported by family that patient was making suicidal remarks earlier in the day around 3 PM and that she took 6 tablets of Xanax. An empty bottle of Xanax was found from a old prescription from 2019. Patient's vitals were blood pressure 132/85, pulse rate 96, respiration 20, saturation 96%. Blood test shows normal CBC PT/PTT, normal CMP. UA negative, urine drug screen positive for amphetamines. Salicylates, acetaminophen, blood alkaline level were negative. Patient is seen and evaluated with sedated at bedside; reports that she wants to be discharged home and doesn't want to be transferred to mental health unit; patient has been evaluated by psych and is recommended inpatient psych transfer once clinically stable; can likely be transferred to psych unit in next 24 hours Objective - Vital Signs Vital signs: Vital Signs Temp 98 F 04/10/22 14:00 Pulse 90 04/10/22 14:00 Resp 18 04/10/22 14:00 BP 114/74 04/10/22 14:00 Pulse Ox 97 04/10/22 14:00 FiO2 Intake & Output 04/09/22 04/10/22 04/10/22 18:59 06:59 18:59 Weight 97.4 kg Other: Voiding Method Diaper Toilet Toilet Incontinent # Voids 5 2 - Exam PHYSICAL EXAMINATION: GENERAL: The patient is alert and oriented x3, not in any acute distress. Well developed, well nourished. HEENT: Pupils are round and equally reacting to light. EOMI. No scleral icterus. No conjunctival pallor. Normocephalic, atraumatic. No pharyngeal erythema. No thyromegaly. CARDIOVASCULAR: S1 and S2 present. No murmurs, rubs, or gallops. PULMONARY: Chest is clear to auscultation, no wheezing or crackles. ABDOMEN: Soft, nontender, nondistended, normoactive bowel sounds. No palpable organomegaly. MUSCULOSKELETAL: No joint swelling or deformity. EXTREMITIES: No cyanosis, clubbing, or pedal edema. NEUROLOGICAL: Gross neurological examination did not reveal any focal deficits. SKIN: No rashes. - Labs CBC & Chem 7: 04/10/22 04:16 04/10/22 04:16 Labs: Abnormal Lab Results - Last 24 Hours (Table) 04/10/22 04/10/22 04/10/22 Range/Units 00:43 04:16 04:16 WBC 10.27 H (4.50-10.00) X 10*3/uL Immature Gran # 0.05 H (0.00-0.04) X 10*3/uL Glucose 172 H (70-110) mg/dL POC Glucose (mg/dL) 142 H (75-99) mg/dL 04/10/22 04/10/22 Range/Units 07:46 12:14 WBC (4.50-10.00) X 10*3/uL Immature Gran # (0.00-0.04) X 10*3/uL Glucose (70-110) mg/dL POC Glucose (mg/dL) 197 H 172 H (75-99) mg/dL Assessment and Plan Assessment: 1. Altered mental status/ Drug overdose - Patient has been evaluated by neurology; EEG has been completed; suggestive of generalized cerebral dysfunction likely consistent with toxic metabolic encephalopathy; no epileptiform activity was seen - Neurology recommending to hold off on antiepileptic medications; recommending to discontinue Wellbutrin and hold off on intermittent 2. Suicidal attempt/delirium; likely multidrug ingestion; patient has been evaluated by psychiatry; recommended to continue Wellbutrin; CIWA protocol is recommended due to gaps history; psychiatry will hold off on adjusting anti- depressant therapy the patient is medically stable and the medium results - Patient to be transferred to psych floor once clinically stable 3. Possible new onset seizures; EEG is completed; EEG has been completed; suggestive of generalized cerebral dysfunction likely consistent with toxic metabolic encephalopathy; no epileptiform activity was seen - Neurology recommending to hold off on antiepileptic medications 4. Diabetes mellitus; monitor Accu-Cheks every before meals and at bedtime with insulin sliding scale DVT prophylaxis; SCDs/subcu heparin CODE STATUS; full code
[2022-04-10] MEDS: GLIMEPIRIDE 4 MG TAB PO SCH (20:47)
[2022-04-10] MEDS: PREGABALIN 75 MG CAP PO SCH (20:47)
[2022-04-11] MEDS: ACETAMINOPHEN TAB 500 MG TAB PO PRN ×3 (02:05→18:02)
[2022-04-11] MEDS: SODIUM CHLORIDE 0.9% 1,000 ML IV SCH ×2 (05:33→07:29)
[2022-04-11 07:16] LABS: Glucose,Whole Blood 169 mg/dL (75-99)
[2022-04-11] MEDS: HEPARIN SODIUM,PORCINE/PF 5,000 UNIT/0.5 ML SYRINGE SQ SCH ×2 (07:19→21:59)
[2022-04-11] MEDS: PREGABALIN 75 MG CAP PO SCH ×2 (07:19→21:58)
[2022-04-11] MEDS: GLIMEPIRIDE 4 MG TAB PO SCH ×2 (07:19→21:58)
[2022-04-11] MEDS: PANTOPRAZOLE 40 MG TABLET PO SCH (07:19)
[2022-04-11] MEDS: THIAMINE 100 MG TAB PO SCH ×2 (07:19→18:02)
[2022-04-11] MEDS: buPROPion XL 150 MG TAB.ER.24H PO SCH (07:19)
[2022-04-11] MEDS: ATORVASTATIN 40 MG TAB PO SCH (07:19)
[2022-04-11] MEDS: buPROPion XL 300 MG TAB.ER.24H PO SCH (07:19)
[2022-04-11] MEDS: metFORMIN 500 MG TAB PO SCH ×2 (07:25→18:03)
[2022-04-11] MEDS ORDERED: buPROPion SR 100 MG TABLET.ER PO SCH (09:00)
--- NOTE | 2022-04-11 09:33 | P.PN ---
Subjective Progress Note Date: 04/10/22 Patient was seen for a follow-up. Patient is fully alert and awake. Denies any focal symptoms. She feels good, but does admit to having headache 8 involving the left frontal region. Patient admits that she had an argument with her brother. She became upset, and intentionally took 4-5 tablets of Xanax 0.25 mg. She also took 5 tablets of baclofen 5 mg tablets. (Patient does recall the number of tablets, although was not very clear about the milligram of each pill of Xanax and baclofen. Patient was slightly emotional today. She does take Wellbutrin 500 mg every morning as well as Trintellix 20 mg daily. Objective - Vital Signs Vital signs: Vital Signs Temp 98 F 04/10/22 14:00 Pulse 90 04/10/22 14:00 Resp 18 04/10/22 14:00 BP 114/74 04/10/22 14:00 Pulse Ox 97 04/10/22 14:00 FiO2 Intake & Output 04/09/22 04/10/22 04/10/22 18:59 06:59 18:59 Weight 97.4 kg Other: Voiding Method Diaper Toilet Toilet Incontinent # Voids 5 2 - Exam Mental status, speech and language functions are normal. Cranial nerves are normal muscle strength normal. No ataxia. - Labs CBC & Chem 7: 04/10/22 04:16 04/10/22 04:16 Labs: Abnormal Lab Results - Last 24 Hours (Table) 04/10/22 04/10/22 04/10/22 Range/Units 00:43 04:16 04:16 WBC 10.27 H (4.50-10.00) X 10*3/uL Immature Gran # 0.05 H (0.00-0.04) X 10*3/uL Glucose 172 H (70-110) mg/dL POC Glucose (mg/dL) 142 H (75-99) mg/dL 04/10/22 04/10/22 Range/Units 07:46 12:14 WBC (4.50-10.00) X 10*3/uL Immature Gran # (0.00-0.04) X 10*3/uL Glucose (70-110) mg/dL POC Glucose (mg/dL) 197 H 172 H (75-99) mg/dL Assessment and Plan Assessment: * Altered mental status, unclear etiology. Likely due to intentional overdose on Xanax and baclofen. Patient had an argument with her brother, became upset and took excessive doses of Xanax and baclofen. No previous history of seizures. * New onset seizure during altered mental status, likely due to above. * Urine drug screen positive for amphetamine but negative for methamphetamine. Perhaps related to use of phentermine. * Diabetes. Patient's blood sugar was normal at the time of incident. Plan: * Patient's mentation is back to normal. Psychiatry on board. Neurologically clear for transfer to psychiatry unit. * EEG performed 04/09/2022 was abnormal due to background slowing of at least moderate degree. There were periods of suppression lasting for around 1 second frequently during the study. This is suggestive of generalized cerebral dysfunction as can be seen with toxic metabolic encephalopathy, due to diffuse structural brain abnormality or medication effect. Clinical correlation is recommended. No epileptiform activity was seen. We will hold off on antiepileptic medication at this time. * Recommend decrease dose of Wellbutrin, as it can lower seizure threshold. Patient will discuss with her psychiatrist.
[2022-04-11] MEDS: CEPHALEXIN 250 MG CAP PO SCH ×3 (09:47→21:58)
[2022-04-11 10:49] LABS: Basophils # (A) 0.04 X 10*3/uL (0.00-0.10); Basophils % (A) 0.5 %; Eosinophils # (A) 0.22 X 10*3/uL (0.04-0.35); Eosinophils % (A) 2.6 %; HCT 42.7 % (37.2-46.3); HGB 13.8 g/dL (12.0-15.0); Immature Grans, Automated 0.6 %; Lymphocytes # (A) 3.28 X 10*3/uL (0.90-5.00); Lymphocytes % (A) 39.4 %; MCH 28.6 pg (27.0-32.0); MCHC 32.3 g/dL (32.0-37.0); MCV 88.4 fL (80.0-97.0); Monocytes # (A) 0.62 X 10*3/uL (0.20-1.00); Monocytes % (A) 7.4 %; NRBC Per 100 WBC 0 /100 WBCS (0.0-0.0); Neutrophils # (A) 4.12 X 10*3/uL (1.80-7.70); Neutrophils % (A) 49.5 %; Platelet Count 207 X 10*3/uL (140-440); RBC 4.83 X 10*6/uL (4.10-5.20); RDW 11.9 % (11.5-14.5); WBC 8.33 X 10*3/uL (4.50-10.00)
[2022-04-11 11:02] LABS: African American GFR (CKD) 127.6 (60.0-200.0); Anion Gap 14.3 mmol/L (10.00-18.00); Blood Urea Nitrogen 13.2 mg/dL (9.0-27.0); Calcium 9.6 mg/dL (8.7-10.3); Carbon Dioxide 21.7 mmol/L (20.0-27.5); Non-African American GFR(CKD) 110.1 (60.0-200.0); Potassium 3.8 mmol/L (3.5-5.5)
[2022-04-11 11:20] LABS: Glucose,Whole Blood 228 mg/dL (75-99)
--- NOTE | 2022-04-11 16:37 | US ---
EXAMINATION TYPE: US venous doppler duplex UE RT DATE OF EXAM: 04/11/2022 COMPARISON: NONE CLINICAL HISTORY: rule out DVT right upper arm cellulitis. Cellulitis, pain. Hx superficial clot in r ight leg. No hx of DVT per patient. Patient does not take blood thinners. SIDE PERFORMED: Right arm Right Arm: Internal echoes seen within the basilic vein at the elbow and within the forearm. Basilic vein does not compress and shows color defect/ [id number] color flow in some segments. No evidence of DVT at this time. IMPRESSION: 1. No evidence of deep venous thrombosis. 2. Basilic vein demonstrates internal echogenicity without complete compression which may relate to u nderlying superficial thrombophlebitis.
[2022-04-11 20:39] LABS: Glucose,Whole Blood 218 mg/dL (75-99)
--- NOTE | 2022-04-11 22:16 | P.PN ---
Subjective 46-year-old female presenting with altered mental status. Patient was brought in by paramedics after her suspected benzodiazepine overdose. Patient had an argument with family earlier today and there was report that she had taken several Xanax tablets. Uncertain exact quantity. Patient did have what was thought to be seizure activity at home prior to arrival. Patient has been evaluated by neurologist and psychiatrist, sitter was at bedside with suicidal precautions, patient underwent workup showing unremarkable CT of the brain or EEG for any acute epileptic discharge, as per recommendation by neurologist we will hold on antiseizure medication, while the dose of Wellbutrin is recommended to be decreased, however management of antipsychotic medication will be deferred to the psychiatrist on the case which was also following the patient closely, patient recommended by psychiatrist for inpatient psychiatric admission. Patient hemodynamically stable. Labs showing WBC of 8.3, rest of CBC is normal, BMP is unremarkable. Glucose is controlled. Patient has evidence of mild left forearm cellulitis at the previous IV injection site, patient was started on Keflex and needs close monitoring. Psych medication management is deferred to psychiatrist Patient is on metformin and Amaryl which her home doses. Ultrasound of the upper extremity showing no DVT, possible superficial thrombophlebitis Repeat liver enzymes are pending Objective - Vital Signs Vital signs: Vital Signs Temp 98.6 F 04/11/22 14:00 Pulse 80 04/11/22 14:00 Resp 18 04/11/22 14:00 BP 119/77 04/11/22 14:00 Pulse Ox 96 04/11/22 14:00 FiO2 Intake & Output 04/10/22 04/11/22 04/11/22 18:59 06:59 18:59 Intake Total 1500 Balance 1500 Intake: Oral 1500 Other: Voiding Method Toilet Toilet # Voids 3 - Exam -GENERAL: The patient is alert and oriented x3, not in any acute distress obese HEENT: Pupils are round and equally reacting to light. EOMI. No scleral icterus. No conjunctival pallor. Normocephalic, atraumatic. No pharyngeal erythema. No thyromegaly. CARDIOVASCULAR: S1 and S2 present. No murmurs, rubs, or gallops. PULMONARY: Chest is clear to auscultation, no wheezing or crackles. ABDOMEN: Soft, nontender, nondistended, normoactive bowel sounds. No palpable organomegaly. MUSCULOSKELETAL: No joint swelling or deformity. EXTREMITIES: No cyanosis, clubbing, or pedal edema. NEUROLOGICAL: Gross neurological examination did not reveal any focal deficits. SKIN: No rashes. no petechiae. - Labs CBC & Chem 7: 04/11/22 03:53 04/11/22 03:53 Labs: Abnormal Lab Results - Last 24 Hours (Table) 04/11/22 04/11/22 04/11/22 Range/Units 03:53 03:53 07:14 Immature Gran # 0.05 H (0.00-0.04) X 10*3/uL BUN/Creatinine Ratio 22.00 H (12.00-20.00) Ratio Glucose 152 H (70-110) mg/dL POC Glucose (mg/dL) 169 H (75-99) mg/dL 04/11/22 Range/Units 11:19 Immature Gran # (0.00-0.04) X 10*3/uL BUN/Creatinine Ratio (12.00-20.00) Ratio Glucose (70-110) mg/dL POC Glucose (mg/dL) 228 H (75-99) mg/dL Assessment and Plan Assessment: Severe depression with suicidal attempt with dark overdose with benzodiazepine Periods of unresponsiveness secondary to above, unlikely seizure, neurologist recommended to hold on seizure medication Left forearm cellulitis with superficial thrombophlebitis Occasional alcohol drinker, patient states she drinks once a month, no evidence of focal abuse Diabetes mellitus with hyperglycemia Obesity with BMI of 55.7 Plan: This is a pleasant 46 years old female who presents with drug overdose with benzodiazepines Neurologist cleared the patient for discharge to psych unit Start Keflex, ultrasound was negative for DVT Continue with Amaryl and metformin Keep sitter at bedside with suicidal ideation. Repeat labs which are pending Labs and medication were reviewed.. Continue same treatment. Continue with symptomatic treatment. Resume home medication. Monitor lytes and vitals. DVT and GI prophylaxis. Further recommendations as per clinical course of the patient DVT prophylaxis: Subcutaneous heparin GI Prophylaxis: Ppi Prognosis is guarded
[2022-04-12] MEDS: SODIUM CHLORIDE 0.9% 1,000 ML IV SCH (00:08)
[2022-04-12 06:19] LABS: Albumin/Globulin Ratio 1.5; Bilirubin,Unconjugated 0.5 mg/dL (0.0-1.1); Globulin 2.7 g/dL; Total Bilirubin 0.4 mg/dL (0.2-1.3); Total Protein 6.7 g/dL (6.3-8.2)
[2022-04-12] MEDS: buPROPion XL 300 MG TAB.ER.24H PO SCH (06:52)
[2022-04-12] MEDS: THIAMINE 100 MG TAB PO SCH (06:52)
[2022-04-12] MEDS: metFORMIN 500 MG TAB PO SCH (06:52)
[2022-04-12] MEDS: PANTOPRAZOLE 40 MG TABLET PO SCH (06:52)
[2022-04-12] MEDS: ATORVASTATIN 40 MG TAB PO SCH (06:52)
[2022-04-12] MEDS: PREGABALIN 75 MG CAP PO SCH (06:52)
[2022-04-12] MEDS: HEPARIN SODIUM,PORCINE/PF 5,000 UNIT/0.5 ML SYRINGE SQ SCH (06:53)
[2022-04-12] MEDS: buPROPion XL 150 MG TAB.ER.24H PO SCH (06:53)
[2022-04-12] MEDS: GLIMEPIRIDE 4 MG TAB PO SCH (06:53)
[2022-04-12] MEDS: CEPHALEXIN 250 MG CAP PO SCH (06:53)
[2022-04-12 07:00] LABS: Glucose,Whole Blood 222 mg/dL (75-99)
[2022-04-12 08:48] VITALS: RESP 18
[2022-04-12 09:41] LABS: ALT 28 U/L (8-44); AST 19 U/L (13-35); Albumin 4.1 g/dL (3.8-4.9); Albumin/Globulin Ratio 1.92 (1.60-3.17); Alkaline Phosphatase 76 U/L (41-126); Bilirubin, Conjugated <0.20 mg/dL (0.20-0.40); Globulin 2.1 g/dL (1.6-3.3); Total Protein 6.3 g/dL (6.2-8.2)
--- NOTE | 2022-04-12 10:42 | P.DS ---
Providers Date of admission: 04/08/22 22:11 Attending physician: Farhat Cristobal Consults: 04/08/22 22:14 Consult Physician Routine Consulting Provider: Yvette Landry Consult Reason/Comments: Suicide attempt, medication overdose Do you want consulting provider notified?: Yes Consult Physician Routine Consulting Provider: Aric Torres Consult Reason/Comments: Concern for new onset seizure Do you want consulting provider notified?: Yes Primary care physician: Ladonna Soto Hospital Course: Diagnoses: Severe depression with suicidal attempt with dark overdose with benzodiazepine Periods of unresponsiveness secondary to above, unlikely seizure, neurologist recommended to hold on seizure medication right forearm cellulitis with superficial thrombophlebitis, improving Occasional alcohol drinker, patient states she drinks once a month, no evidence of alcohol abuse Diabetes mellitus with hyperglycemia Obesity with BMI of 55.7 Hospital course: 46-year-old female presenting with altered mental status. Patient was brought in by paramedics after her suspected benzodiazepine overdose. Patient had an argument with family earlier today and there was report that she had taken several Xanax tablets. Uncertain exact quantity. Patient did have what was thought to be seizure activity at home prior to arrival. Patient has been evaluated by neurologist and psychiatrist, sitter was at bedside with suicidal precautions, patient underwent workup showing unremarkable CT of the brain or EEG for any acute epileptic discharge, as per recommendation by neurologist we will hold on antiseizure medication, while the dose of Wellbutrin is recommended to be decreased, however management of antipsychotic medication will be deferred to the psychiatrist on the case which was also following the patient closely, patient recommended by psychiatrist for inpatient psychiatric admission. Patient hemodynamically stable. Labs showing WBC of 8.3, rest of CBC is normal, BMP is unremarkable. Glucose is controlled. Patient has evidence of mild left forearm cellulitis at the previous IV injection site, patient was started on Keflex and needs close monitoring. Psych medication management is deferred to psychiatrist Patient is on metformin and Amaryl which her home doses. Patient was cleared by neurologist to be transferred to psych unit. Patient is medically stable and guarded prognosis Problems and management plan were discussed with the patient and he verbalized understanding and acceptance Patient was found stable and can be discharged to psych unit however he needs follow-up as an outpatient. Patient was instructed to follow up with PCP Dr. Ladonna gutierrez within one week and patient agrees Patient instructed to follow up with the neurologist Dr. Wang in 1-2 weeks and she agrees Physical exam Gen: patient is a AAOx3, no distress CVS: S1-S2, RRR, no murmur Lungs: B/L CTA, no wheezing Abdomen: soft, no distention, no tenderness, positive bowel sounds Extremity: no leg edema or induration Time spent more than 35 minutes Patient Condition at Discharge: Stable Plan - Discharge Summary Discharge Rx Participant: No New Discharge Prescriptions: New Cephalexin [Keflex] 250 mg PO TID 7 Days #21 cap Pantoprazole [Protonix] 40 mg PO AC-BRKFST tab Thiamine [Vitamin B-1] 100 mg PO BID-W/MEALS tab Acetaminophen Tab [Tylenol] 1,000 mg PO Q6HR PRN tab PRN Reason: Fever And/ Or Pain Continue metFORMIN HCL [Glucophage] 1,000 mg PO BID Pregabalin [Lyrica] 75 mg PO BID Empagliflozin [Jardiance] 10 mg PO DAILY Dulaglutide [Trulicity] 3 mg SQ Q7D Rosuvastatin Calcium [Crestor] 20 mg PO DAILY Ondansetron [Zofran] 4 mg PO QID PRN PRN Reason: nausea Glimepiride [Amaryl] 4 mg PO BID Discontinued Omeprazole 20 mg PO DAILY Ibuprofen [Motrin] 800 mg PO TID PRN PRN Reason: Pain No Action Vortioxetine Hydrobromide [Trintellix] 20 mg PO DAILY Phentermine HCl [Adipex-P] 37.5 mg PO AC-BRKFST buPROPion HCL [Wellbutrin XL] 300 mg PO DAILY Discharge Medication List metFORMIN HCL [Glucophage] 1,000 mg PO BID 05/12/16 [History] Vortioxetine Hydrobromide [Trintellix] 20 mg PO DAILY 10/20/16 [History] Pregabalin [Lyrica] 75 mg PO BID 09/04/18 [History] Dulaglutide [Trulicity] 3 mg SQ Q7D 06/23/21 [History] Empagliflozin [Jardiance] 10 mg PO DAILY 04/08/22 [History] Glimepiride [Amaryl] 4 mg PO BID 04/08/22 [History] Ondansetron [Zofran] 4 mg PO QID PRN 04/08/22 [History] Phentermine HCl [Adipex-P] 37.5 mg PO AC-BRKFST 04/08/22 [History] Rosuvastatin Calcium [Crestor] 20 mg PO DAILY 04/08/22 [History] Acetaminophen Tab [Tylenol] 1,000 mg PO Q6HR PRN tab 04/11/22 [Rx] Cephalexin [Keflex] 250 mg PO TID 7 Days #21 cap 04/11/22 [Rx] Pantoprazole [Protonix] 40 mg PO AC-BRKFST tab 04/11/22 [Rx] Thiamine [Vitamin B-1] 100 mg PO BID-W/MEALS tab 04/11/22 [Rx] buPROPion HCL [Wellbutrin XL] 300 mg PO DAILY 04/12/22 [History] Follow up Appointment(s)/Referral(s): Ladonna Soto MD [Primary Care Provider] - 1-2 days Inocencia Wang MD [Medical Doctor] - 1 Week Activity/Diet/Wound Care/Special Instructions: we recommend to check your glucose 4 times a day before each meal and at bed time , keep the results in a log book and bring it to your doctor upon your appointment date if your glucose is less than 70 or more than 400 then call 911 and come to emergency room diabetic diet activity is restricted till you see your doctor Discharge Disposition: TRANSFER TO PSYCH HOSP/UNIT
[2022-04-12 11:38] LABS: Glucose,Whole Blood 169 mg/dL (75-99)
[2022-04-12] MEDS: ACETAMINOPHEN TAB 500 MG TAB PO PRN (13:02)
[2022-04-12 15:10] VITALS: BP 112/72; PULSE 86; TEMP 98.5
[2022-04-12 16:49] LABS: Glucose,Whole Blood 145 mg/dL (75-99)
== END 2022-04-12 17:00 | DRG 917 ==
LOC: EC 19:05 → 4SSUR 22:11
PROVIDERS: ADMIT Hospitalist; ATTEND Hospitalist
DX: T42.4X2A Poisoning by benzodiazepines, intentional self-harm, initial encounter (principal); G92.8 Other toxic encephalopathy; Z68.43 Body mass index [BMI] 50.0-59.9, adult; L03.114 Cellulitis of left upper limb; I80.8 Phlebitis and thrombophlebitis of other sites; E11.65 Type 2 diabetes mellitus with hyperglycemia; E66.9 Obesity, unspecified; F32.A Depression, unspecified; M79.7 Fibromyalgia; F17.210 Nicotine dependence, cigarettes, uncomplicated; K21.9 Gastro-esophageal reflux disease without esophagitis; Z20.822 Contact with and (suspected) exposure to COVID-19; Z79.899 Other long term (current) drug therapy; Z79.84 Long term (current) use of oral hypoglycemic drugs; Z90.49 Acquired absence of other specified parts of digestive tract; Z95.5 Presence of coronary angioplasty implant and graft
CPT/HCPCS: 36415; 70450; 80048; 80053; 80076; 80143; 80178; 80179; 80306; 80320; 81003; 82803; 83605; 83735; 85025; 87635; 93005; 93880; 95816; 96361; 96374; 96375; 96376; 99285

== ENCOUNTER 2022-04-12 14:45 | Inpatient (IN) | payer MEDICAID ==
[2022-04-12] MEDS ORDERED: MAG HYDROX/AL HYDROX/SIMETH 30 ML CUP PO PRN (16:58)
[2022-04-12] MEDS ORDERED: HALOPERIDOL LACTATE 5 MG/ML 1 ML VIAL IM PRN (16:58)
[2022-04-12] MEDS ORDERED: LORazepam 1 MG TAB PO PRN (16:58)
[2022-04-12] MEDS ORDERED: MAGNESIUM HYDROXIDE 2,400 MG/10 ML CUP PO PRN (16:58)
[2022-04-12] MEDS ORDERED: LORazepam 2 MG/ML INJ IM PRN (17:09)
[2022-04-12] MEDS ORDERED: haloperidoL 5 MG TAB PO PRN (17:09)
[2022-04-12] MEDS ORDERED: ONDANSETRON 4 MG TAB PO PRN (17:37)
[2022-04-12] MEDS: metFORMIN 500 MG TAB PO SCH (18:19)
[2022-04-12 20:06] LABS: Glucose,Whole Blood 237 mg/dL (75-99)
[2022-04-12] MEDS: PREGABALIN 75 MG CAP PO SCH (20:12)
[2022-04-12] MEDS: THIAMINE 100 MG TAB PO SCH (20:12)
[2022-04-12] MEDS: ACETAMINOPHEN TAB 325 MG TAB PO PRN (20:12)
[2022-04-12] MEDS: CEPHALEXIN 250 MG CAP PO SCH (20:13)
[2022-04-12] MEDS: GLIMEPIRIDE 4 MG TAB PO SCH (20:13)
[2022-04-13 00:58] VITALS: RESP 14; TEMP 97.5
[2022-04-13 08:00] LABS: Glucose,Whole Blood 195 mg/dL (75-99)
[2022-04-13] MEDS: VORTIOXETINE HYDROBROMIDE 20 MG TABLET PO SCH (08:30)
[2022-04-13] MEDS: buPROPion XL 300 MG TAB.ER.24H PO SCH (08:30)
[2022-04-13] MEDS: CEPHALEXIN 250 MG CAP PO SCH ×3 (08:30→21:02)
[2022-04-13] MEDS: metFORMIN 500 MG TAB PO SCH ×2 (08:30→17:44)
[2022-04-13] MEDS: ATORVASTATIN 20 MG TAB PO SCH (08:30)
[2022-04-13] MEDS: THIAMINE 100 MG TAB PO SCH ×2 (08:30→21:02)
[2022-04-13] MEDS: PANTOPRAZOLE 40 MG TABLET PO SCH (08:30)
[2022-04-13] MEDS: GLIMEPIRIDE 4 MG TAB PO SCH ×2 (08:30→21:02)
[2022-04-13] MEDS: PREGABALIN 75 MG CAP PO SCH ×2 (08:30→21:02)
[2022-04-13] MEDS ORDERED: TRULICITY SQ SCH (09:00)
[2022-04-13] MEDS ORDERED: JARDIANCE 10 MG PO SCH (09:00)
[2022-04-13] MEDS: ACETAMINOPHEN TAB 325 MG TAB PO PRN ×2 (09:29→21:03)
[2022-04-13] MEDS ORDERED: MELATONIN 3 MG TABLET PO PRN (11:21)
[2022-04-13 12:56] LABS: Glucose,Whole Blood 183 mg/dL (75-99)
--- NOTE | 2022-04-13 12:57 | P.HP ---
Psychiatric H&P - . H&P Date: 04/13/22 History & Physical: Allergies Allergy/AdvReac Type Severity Reaction Status Date / Time codeine AdvReac Nausea & Verified 06/23/21 11:58 Vomiting Vital Signs Temp 97.5 F L 04/13/22 00:57 Pulse 116 H 04/13/22 00:57 Resp 14 04/13/22 00:57 BP 107/67 04/13/22 00:57 Pulse Ox FiO2 Intake & Output 04/12/22 04/13/22 04/13/22 18:59 06:59 18:59 Weight 97.4 kg Laboratory Last Values POC Glucose (mg/dL) 195 mg/dL (75-99) H 04/13/22 07:58 POC Glu Professor Computer Science ID Amisha Rosario 04/13/22 07:58 04/13/22 11:07 IDENTIFYING DATA: This patient is a 46-year-old female, , has one adult daughter, with history of bipolar disorder. HISTORY OF PRESENT ILLNESS: The patient presented to the hospital via ambulance for evaluation in the ER on 04/08 after a family argument and reportedly overdosing on Xanax combined with alcohol and muscle relaxer. Patient was admitted medically and seen by psych CL for evaluation. As per Dr. Landry's consult note " patient was initially found asleep with sitter and nurse at bedside, however she does awaken after multiple attempts to call her name and sternal rub. She is emotionally labile, sobbing and has difficulty answering questions. She admits this was an intentional suicide attempt. Reports she had gotten into an argument with her brother over the phone who was accusing her of stealing from their mother whom she lives with. She states her brother's friend but the mother in protective social scientist custody. Patient admits to borrowing money from her mother but insists she pays it back. Patient becomes increasingly emotional throughout assessment. She reports she overdosed on 5 tablets of Xanax (2 mg each), and combined this with alcohol and a muscle relaxer baclofen. At this time patient denies any suicidal or homical ideations, intent or plan; however she admits this was an intentional suicide attempt. Patient denies any auditory, visual hallucinations. No over paranoia or delusions expressed. Patients admits to using to drinking alcohol including one can of truly and 1 can of Budweiser when ingesting the pills. It is not clear how much she drinks on a regular basis. She smokes one pack per day of cigarettes. She denies any illicit drug use including marijuana. Around 5 PM yesterday patient's daughter her decide when she went in patient was on her knees and was moaning and was acting like she was a little drunk., And shortly after had seizure-like activity. EEG was completed which was consistent with toxic metabolic encephalopathy, and no seizure activity was noted." Patient was cleared medically and transferred to the MHU unit last night and seen today for evaluation by journalists and other writers. Patient claims that she has a history of depression and anxiety. She states the medications have been working fairly well however she has been having poor coping skills. She states that she overdosed on the Xanax and baclofen taking 5 tablets of each at home after an argument with her brother. She states that "I just couldn't handle it anymore". She claims that her daughter found her on the floor. She states that her brother has been accusing her of stealing from him. She states that "my brain went blank" and relays that it was an impulsive suicide attempt. She states that she is regretting it now. She claims that her sleep and appetite have been fair. She wants that remain on the same medications as it has been helping her in the past. She claims that she is not suicidal or homicidal ideations today. She is denying any auditory or visual hallucinations. She states that she smokes cigarettes and drinks alcohol occasionally however denies using any other recreational drug use. PAST PSYCHIATRIC HISTORY: Patient has a a history of bipolar disorder for which she states she takes Xanax as needed. Patient claims that she takes Wellbutrin and trintellix now. Patient reports previous psychiatric hospitalizations including 2005 after her cousin . Patient denies any patient psychiatric outpatient follow-up, and follows up with a PCP. Patient denies any history of suicide attempts in the past. PAST MEDICAL HISTORY: Past Medical History: Diabetes Mellitus, Fibromyalgia, GERD/Reflux Additional Past Medical History / Comment(s): change in bowel habits, ovarian cyst History of Any Multi-Drug Resistant Organisms: None Reported Past Surgical History: Appendectomy, Cholecystectomy, Hernia Repair, Orthopedic Surgery, Uterine Ablation Additional Past Surgical History / Comment(s): sinus surgery, carpal tunnel-rt, vein stripping, aortic stent placed approx 2 years ago. Past Anesthesia/Blood Transfusion Reactions: Previous Problems w/ Anesthesia, Motion Sickness Additional Past Anesthesia/Blood Transfusion Reaction / Comment(s): "sometimes hard time coming out of anesthesia" Past Psychological History: Depression Smoking Status: Current every day smoker Past Alcohol Use History: Occasional Past Drug Use History: None Reported ALLERGIES: as per EMR. CHEMICAL DEPENDENCY HISTORY: Patients admits to using to drinking alcohol including one can of truly and 1 can of Budweiser when ingesting the pills. It is not clear how much she drinks on a regular basis. She smokes one pack per day of cigarettes. She denies any illicit drug use including marijuana. FAMILY PSYCHIATRIC/SUBSTANCE USE HISTORY: Not known at this time. SOCIAL HISTORY: Patient is and has one 21-year-old daughter. She lives with her daughter and her mother. 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 She states that she completed high school. She is denying any legal history. MENTAL STATUS EXAM: General Appearance: Patient appears to be stated age, alert, attempts to cooperate. Fair hygiene and grooming. Behavior: Patient is attending to cooperate, no agitation today. Speech: Patient's speech is rambling. Fluent. Mood/Affect: Patient reports their mood is "a bit depressed", affect is constricted Suicidality/Homicidality: Patient denies having any suicidal or homicidal ideation intent or plan. Perceptions: Patient denies any visual hallucinations and denies any auditory hallucinations. Though content/process: There is no evidence of any delusional thought content. Thought process is rambling and at times difficult to follow. Memory and concentration: Alert and oriented to person, place, and time. fair concentration. Judgment and insight: Poor IMPRESSIONS: Major depressive disorder, without psychosis nicotine dependence overdose of medications STRENGTHS/WEAKNESSES: strength is that patient is resilient. Weakness is that patient has poor judgment and is impulsive INTELLECT: average PLAN: -Patient is admitted under voluntary status to MHU for stabilization of psychiatric symptoms and safety. Patient has signed adult voluntary form and medication consent and is placed in patient's chart. -Medications : Will start patient on her current home medications including Wellbutrin XL 300 mg daily and also trintellix 20 mg daily for mood/anxiety. -Ativan and Haldol PRN for agitation/aggression -Patient was informed of the risks, benefits and side effects of the medication and patient verbally consented to taking the medications. Patient signed med consent form and was placed in chart. -Internal Medicine consult to perform medical evaluation and physical. -NRT - nicotine patch -SW on board for discharge planning. Encourage patient to participate in groups to work on coping skills. 04/13/22 12:52
[2022-04-13 17:33] LABS: Glucose,Whole Blood 130 mg/dL (75-99)
[2022-04-13 20:07] LABS: Glucose,Whole Blood 194 mg/dL (75-99)
[2022-04-14 07:49] LABS: Glucose,Whole Blood 154 mg/dL (75-99)
[2022-04-14 08:26] VITALS: BP 124/69; PULSE 91
[2022-04-14] MEDS: metFORMIN 500 MG TAB PO SCH ×2 (08:26→17:39)
[2022-04-14] MEDS: CEPHALEXIN 250 MG CAP PO SCH ×3 (08:26→20:42)
[2022-04-14] MEDS: VORTIOXETINE HYDROBROMIDE 20 MG TABLET PO SCH (08:26)
[2022-04-14] MEDS: buPROPion XL 300 MG TAB.ER.24H PO SCH (08:26)
[2022-04-14] MEDS: GLIMEPIRIDE 4 MG TAB PO SCH ×2 (08:26→20:41)
[2022-04-14] MEDS: ATORVASTATIN 20 MG TAB PO SCH (08:26)
[2022-04-14] MEDS: THIAMINE 100 MG TAB PO SCH ×2 (08:26→20:42)
[2022-04-14] MEDS: PANTOPRAZOLE 40 MG TABLET PO SCH (08:26)
[2022-04-14] MEDS: PREGABALIN 75 MG CAP PO SCH ×2 (08:27→20:42)
[2022-04-14] MEDS: ACETAMINOPHEN TAB 325 MG TAB PO PRN ×2 (08:29→14:48)
[2022-04-14] MEDS: JARDIANCE (EMPAGLIFLOZIN) 10 MG TABLET PO SCH (08:51)
[2022-04-14] MEDS ORDERED: TRULICITY 3 MG/0.5 ML SQ SCH (09:00)
[2022-04-14] MEDS ORDERED: FLUCONAZOLE 150 MG TAB PO STA (09:27)
[2022-04-14] MEDS: LACTOBACILLUS ACIDOPH & BULGAR 1 EACH PACKET PO SCH (10:25)
[2022-04-14] MEDS: NICOTINE 14MG/24HR PATCH TRANSDERM SCH (10:26)
--- NOTE | 2022-04-14 10:37 | P.PN ---
Progress Note - Text Progress Note Date: 04/14/22 Interval History: Patient was seen wandering the hallways after she took her medications this mo rning and was directable and agreeable to speak with leader writer in the office. She went on to describe what she is learning in group and therapy. She spoke about coping skills and how she did not use them at that time. She went on to describe her various coping skills and what she can do to remove herself from the situations. She states that she is feeling more optomistic today and less depressed. she states that the visit with her boyfriend last night which went well. She claims that she is going to groups and eating well, slept fairly last night. At this time patient denies any suicidal or homical ideations, intent or plan. Patient denies any auditory, visual hallucinations and denies any paranoia or delusions. Patient denies any side effects from the medications and has been compliant with meds. Mental Status Exam: General Appearance: Patient appears to be stated age, alert, attempts to cooperate. Fair hygiene and grooming. Behavior: Patient is attending to cooperate, no agitation today. Speech: Patient's speech is rambling. Fluent. Mood/Affect: Patient reports their mood is "better", affect is improved Suicidality/Homicidality: Patient denies having any suicidal or homicidal i deation intent or plan. Perceptions: Patient denies any visual hallucinations and denies any auditory hallucinations. Though content/process: There is no evidence of any delusional thought content. Thought process is rambling and at times, more goal oriented. Memory and concentration: Alert and oriented to person, place, and time. fair concentration. Judgment and insight: improving IMPRESSIONS: Major depressive disorder, without psychosis nicotine dependence overdose of medications Plan: -Patient continues to meet criteria for inpatient psychiatric admission for symptom stabilization and safety. Patient has signed [adult voluntary form and] [medication consent] and was placed in patient's chart. -Medications: Wellbutrin XL 300 mg daily and also trintellix 20 mg daily for mood/anxiety. -When necessary Ativan and Haldol for agitation/aggression. -NRT - nicotine patch -SW on board for discharge planning. Encouraged the patient to participate in milieu. liekly discharge tomorrow.
--- NOTE | 2022-04-14 11:42 | P.MDCNMH ---
History of Present Illness H&P Date: 04/14/22 HISTORY OF PRESENT ILLNESS This is a 46-year-old female patient newly established with Dr. Meade one week ago with past medical history of diabetes mellitus type 2, hyperlipidemia, bipolar disorder, gastroesophageal reflux disease, abdominal aortic aneurysm status post stent done at [facility]. Patient initially presented to the hospital on 04/08 was amended to [facility] services for suspected benzodiazepine overdose. Patient was stabilized and then transferred to the mental health unit. Patient states that she took 5 Xanax and 5 baclofen and her daughter found her initially checked her blood sugar which was okay and then found out that the patient had taken the medication. Patient complains of swelling and redness to the right antecubital area where she had an IV site. But denies any other physical or medical concerns. She states the onset of her problems was because her brother was accusing her daughter of stealing from her grandmother. Capillary blood glucose running between 130 and 194. REVIEW OF SYSTEMS Constitutional: No fever, no chills, no night sweats. No weight change. No weakness, fatigue or lethargy. No daytime sleepiness. EENT: No headache. No blurred vision or double vision, no loss of vision. No loss of Hearing, no ringing in the ears, no dizziness. No nasal drainage or congestion. No epistaxis. No sore throat. Lungs: No shortness of breath, cough, no sputum production. No wheezing. Cardiovascular: No chest pain, no lower extremity edema. No palpitations. No paroxysmal nocturnal dyspnea. No orthopnea. No lightheadedness or dizziness. No syncopal episodes. Abdominal: No abdominal pain. No nausea, vomiting. No diarrhea. No constipation. No bloody or tarry stools. No loss of appetite. Genitourinary: No dysuria, increased frequency, urgency. No urinary retention. Musculoskeletal: No myalgias. No muscle weakness, no gait dysfunction, no frequent falls. No back pain. No neck pain. Integumentary: No wounds, reports redness and swelling to right antecubital. No rash or pruritus. No unusual bruising. No change in hair or nails. Neurologic: No aphasia. No facial droop. No change in mentation. No head injury. No headache. No paralysis. No paresthesia. Psychiatric: Reports depression. Reports anxiety. No mood swings. Endocrine: Noted mildly abnormal blood sugars. No weight change. No excessive sweating or thirst. No cold intolerance. SOCIAL HISTORY Patient is a smoker of half a pack per day for 15 years. She denies any alcohol use or abuse, no illicit drug use. 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 FAMILY HISTORY Mother is alive at age 71 with history of breast cancer, dementia, hypertension, hypothyroidism and diabetes. Father is alive at age 72 and resides at an extended care facility in [facility] with PTSD due to combat wounded in [place] vet, diabetes, hypertension, myocardial infarction, severe neuropathy. Patient has one brother age 51 with no major medical problems and one daughter age 21 with no major medical problems. PHYSICAL EXAMINATION Gen: This is a 46-year-old female. She is ambulatory on the unit, she is cooperative for evaluation and appears to be in no acute distress. HEENT: Head is atraumatic, normocephalic. Pupils equal, round. Sclerae is anicteric. NECK: Supple. No JVD. No lymphadenopathy. No thyromegaly. LUNGS: Clear to auscultation. No wheezes or rhonchi. No intercostal retractions. HEART: Regular rate and rhythm. No murmur. ABDOMEN: Soft. Bowel sounds are present. No masses. No tenderness. EXTREMITIES: No pedal edema. No calf tenderness. NEUROLOGICAL: Patient is awake, alert and oriented x3. Cranial nerves 2 through 12 are grossly intact. ASSESSMENT AND PLAN 1. Depression with medication overdose, medically stable and cleared for admission to the mental health unit. Continue current plan per psychiatry. 2. Diabetes mellitus type 2. Continue metformin 1000 mg twice daily and Amaryl 4 mg twice daily. Patient will resume Jardiance 10 mg daily and Trulicity 3 mg subcu weekly once discharged as these are not available in the hospital. 3. Phlebitis right antecubital. Continue Keflex, ice to the area. 4. Hyperlipidemia. Continue Crestor 20 mg daily. 5. Gastroesophageal reflux disease. Continue Protonix. 6. Tobacco use and dependence. Continue nicotine patch. 7. Abdominal aortic aneurysm status post stent, stable. 8. Diabetic neuropathy. Continue Lyrica 75 mg twice daily, vitamin B. DISCHARGE PLAN Home. Patient to follow up with Dr. Meade one week following discharge. Impression and plan of care have been directed as dictated by the signing physician. Aleena Vance nurse practitioner acting as scribe for signing physician. Past Medical History Past Medical History: Diabetes Mellitus, Fibromyalgia, GERD/Reflux Additional Past Medical History / Comment(s): change in bowel habits, ovarian cyst History of Any Multi-Drug Resistant Organisms: None Reported Past Surgical History: Appendectomy, Cholecystectomy, Hernia Repair, Orthopedic Surgery, Uterine Ablation Additional Past Surgical History / Comment(s): sinus surgery, carpal tunnel-rt, vein stripping, aortic stent placed approx 2 years ago. Past Anesthesia/Blood Transfusion Reactions: Previous Problems w/ Anesthesia, Motion Sickness Additional Past Anesthesia/Blood Transfusion Reaction / Comment(s): "sometimes hard time coming out of anesthesia" Past Psychological History: Depression Smoking Status: Current every day smoker Past Alcohol Use History: Occasional Past Drug Use History: None Reported - Past Family History Father Family Medical History: Pulmonary Embolus Medications and Allergies Home Medications Medication Instructions Recorded Confirmed Type metFORMIN HCL [Glucophage] 1,000 mg PO BID 05/12/16 04/12/22 History Pregabalin [Lyrica] 75 mg PO BID 09/04/18 04/12/22 History Dulaglutide [Trulicity] 3 mg SQ Q7D 06/23/21 04/12/22 History Empagliflozin [Jardiance] 10 mg PO DAILY 04/08/22 04/12/22 History Glimepiride [Amaryl] 4 mg PO BID 04/08/22 04/12/22 History Ondansetron [Zofran] 4 mg PO QID PRN 04/08/22 04/12/22 History Rosuvastatin Calcium [Crestor] 20 mg PO DAILY 04/08/22 04/12/22 History Pantoprazole [Protonix] 40 mg PO AC-BRKFST tab 04/11/22 04/12/22 Rx Thiamine [Vitamin B-1] 100 mg PO BID-W/MEALS tab 04/11/22 04/12/22 Rx Acetaminophen Tab [Tylenol] 650 mg PO Q4HR PRN tab 04/14/22 Rx Cephalexin [Keflex] 250 mg PO TID 5 Days cap 04/14/22 Rx Lactobacillus Acidoph & Bulgar 1 each PO DAILY 30 Days packet 04/14/22 Rx [Lactinex] Nicotine 14Mg/24Hr Patch [Habitrol] 1 patch TRANSDERM DAILY 14 Days 04/14/22 Rx patch Vortioxetine Hydrobromide 20 mg PO DAILY 30 Days tab 04/14/22 Rx [Trintellix] buPROPion HCL [Wellbutrin XL] 300 mg PO DAILY 30 Days tab 04/14/22 Rx Allergies Allergy/AdvReac Type Severity Reaction Status Date / Time codeine AdvReac Nausea & Verified 06/23/21 11:58 Vomiting Physical Exam Vitals: Vital Signs Pulse BP 04/14/22 08:25 91 124/69 Cranial Nerve Examination - Cranial Nerves Cranial Nerve I- Olfactory: Intact Cranial Nerve II- Optic: Intact Cranial Nerve III- Oculomotor: Intact Cranial Nerve IV- Trochlear: Intact Cranial Nerve V- Trigeminal: Intact Cranial Nerve - Abducens: Intact Cranial Nerve VII- Facial: Intact Cranial Nerve VIII- Auditory: Intact Cranial Nerve IX- Glossopharyngeal: Intact Cranial Nerve X- Vagus: Intact Cranial Nerve XI- Accessory: Intact Cranial Nerve XII- Hypoglossal: Intact Results Labs: Abnormal Lab Results - Last 24 Hours (Table) 04/13/22 04/13/22 04/13/22 Range/Units 12:54 17:31 20:06 POC Glucose (mg/dL) 183 H 130 H 194 H (75-99) mg/dL 04/14/22 Range/Units 07:39 POC Glucose (mg/dL) 154 H (75-99) mg/dL
[2022-04-14 12:40] LABS: Glucose,Whole Blood 103 mg/dL (75-99)
[2022-04-14 17:37] LABS: Glucose,Whole Blood 87 mg/dL (75-99)
[2022-04-14 19:57] LABS: Glucose,Whole Blood 146 mg/dL (75-99)
[2022-04-15 07:44] LABS: Glucose,Whole Blood 107 mg/dL (75-99)
[2022-04-15] MEDS: PANTOPRAZOLE 40 MG TABLET PO SCH (08:40)
[2022-04-15] MEDS: buPROPion XL 300 MG TAB.ER.24H PO SCH (08:40)
[2022-04-15] MEDS: metFORMIN 500 MG TAB PO SCH (08:40)
[2022-04-15] MEDS: ATORVASTATIN 20 MG TAB PO SCH (08:40)
[2022-04-15] MEDS: CEPHALEXIN 250 MG CAP PO SCH (08:41)
[2022-04-15] MEDS: LACTOBACILLUS ACIDOPH & BULGAR 1 EACH PACKET PO SCH (08:41)
[2022-04-15] MEDS: GLIMEPIRIDE 4 MG TAB PO SCH (08:41)
[2022-04-15] MEDS: NICOTINE 14MG/24HR PATCH TRANSDERM SCH (08:41)
[2022-04-15] MEDS: JARDIANCE (EMPAGLIFLOZIN) 10 MG TABLET PO SCH (08:42)
[2022-04-15] MEDS: THIAMINE 100 MG TAB PO SCH (08:42)
[2022-04-15] MEDS: VORTIOXETINE HYDROBROMIDE 20 MG TABLET PO SCH (08:42)
[2022-04-15] MEDS: PREGABALIN 75 MG CAP PO SCH (08:42)
[2022-04-15] MEDS: ACETAMINOPHEN TAB 325 MG TAB PO PRN (08:44)
--- NOTE | 2022-04-15 15:05 | P.DS ---
Providers Date of admission: 04/12/22 17:09 Expected date of discharge: 04/15/22 Attending physician: Sandip Tee MD Consults: 04/12/22 16:58 Consult Physician Routine Consulting Provider: Kirsten Meade Consult Reason/Comments: Medical H&P Do you want consulting provider notified?: Yes Primary care physician: [facility] Course: IDENTIFYING DATA: This patient is a 46-year-old female, , has one adult daughter, with history of bipolar disorder. HISTORY OF PRESENT ILLNESS: The patient presented to the hospital via ambulance for evaluation in the ER on 04/08 after a family argument and reportedly overdosing on Xanax combined with alcohol and muscle relaxer. Patient was admitted medically and seen by psych CL for evaluation. As per Dr. Landry's consult note " patient was initially found asleep with sitter and nurse at bedside, however she does awaken after multiple attempts to call her name and sternal rub. She is emotionally labile, sobbing and has difficulty answering questions. She admits this was an intentional suicide attempt. Reports she had gotten into an argument with her brother over the phone who was accusing her of stealing from their mother whom she lives with. She states her brother's friend but the mother in protective medical social worker custody. Patient admits to borrowing money from her mother but insists she pays it back. Patient becomes increasingly emotional throughout assessment. She reports she overdosed on 5 tablets of Xanax (2 mg each), and combined this with alcohol and a muscle relaxer baclofen. At this time patient denies any suicidal or homical ideations, intent or plan; however she admits this was an intentional suicide attempt. Patient denies any auditory, visual hallucinations. No over paranoia or de lusions expressed. Patients admits to using to drinking alcohol including one can of truly and 1 can of Budweiser when ingesting the pills. It is not clear how much she drinks on a regular basis. She smokes one pack per day of cigarettes. She denies any illicit drug use including marijuana. Around 5 PM yesterday patient's daughter her decide when she went in patient was on her knees and was moaning and was acting like she was a little drunk., And shortly after had seizure-like activity. EEG was completed which was consistent with toxic metabolic encephalopathy, and no seizure activity was noted." Patient was cleared medically and transferred to the MHU unit last night and seen today for evaluation by repairer typewriter. Patient claims that she has a history of depression and anxiety. She states the medications have been working fairly well however she has been having poor coping skills. She states that she overdosed on the Xanax and baclofen taking 5 tablets of each at home after an argument with her brother. She states that "I just couldn't handle it anymore". She claims that her daughter found her on the floor. She states that her brother has been accusing her of stealing from him. She states that "my brain went blank" and relays that it was an impulsive suicide attempt. She states that she is regretting it now. She claims that her sleep and appetite have been fair. She wants that remain on the same medications as it has been helping her in the past. She claims that she is not suicidal or homicidal ideations today. She is denying any auditory or visual hallucinations. She states that she smokes cigarettes and drinks alcohol occasionally however denies using any other recreational drug use. PAST PSYCHIATRIC HISTORY: Patient has a a history of bipolar disorder for which she states she takes Xanax as needed. Patient claims that she takes Wellbutrin and trintellix now. Patient reports previous psychiatric hospitalizations including 2005 after her cousin . Patient denies any patient psychiatric outpatient follow-up, and follows up with a PCP. Patient denies any history of suicide attempts in the past. PAST MEDICAL HISTORY: Past Medical History: Diabetes Mellitus, Fibromyalgia, GERD/Reflux Additional Past Medical History / Comment(s): change in bowel habits, ovarian cyst History of Any Multi-Drug Resistant Organisms: None Reported Past Surgical History: Appendectomy, Cholecystectomy, Hernia Repair, Orthopedic Surgery, Uterine Ablation Additional Past Surgical History / Comment(s): sinus surgery, carpal tunnel-rt, vein stripping, aortic stent placed approx 2 years ago. Past Anesthesia/Blood Transfusion Reactions: Previous Problems w/ Anesthesia, Motion Sickness Additional Past Anesthesia/Blood Transfusion Reaction / Comment(s): "sometimes hard time coming out of anesthesia" Past Psychological History: Depression Smoking Status: Current every day smoker Past Alcohol Use History: Occasional Past Drug Use History: None Reported ALLERGIES: as per EMR. CHEMICAL DEPENDENCY HISTORY: Patients admits to using to drinking alcohol including one can of truly and 1 can of Budweiser when ingesting the pills. It is not clear how much she drinks on a regular basis. She smokes one pack per day of cigarettes. She denies any illicit drug use including marijuana. FAMILY PSYCHIATRIC/SUBSTANCE USE HISTORY: Not known at this time. SOCIAL HISTORY: Patient is and has one 21-year-old daughter. She lives with her daughter and her mother. 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 She states that she completed high school. She is denying any legal history. MENTAL STATUS EXAM: General Appearance: Patient appears to be stated age, alert, attempts to cooperate. Fair hygiene and grooming. Behavior: Patient is attending to cooperate, no agitation today. Speech: Patient's speech is rambling. Fluent. Mood/Affect: Patient reports their mood is "a bit depressed", affect is constricted Suicidality/Homicidality: Patient denies having any suicidal or homicidal ideation intent or plan. Perceptions: Patient denies any visual hallucinations and denies any auditory hallucinations. Though content/process: There is no evidence of any delusional thought content. Thought process is rambling and at times difficult to follow. Memory and concentration: Alert and oriented to person, place, and time. fair concentration. Judgment and insight: Poor IMPRESSIONS: Major depressive disorder, without psychosis nicotine dependence overdose of medications STRENGTHS/WEAKNESSES: strength is that patient is resilient. Weakness is that patient has poor judgment and is impulsive INTELLECT: average PLAN: -Patient is admitted under voluntary status to MHU for stabilization of psychiatric symptoms and safety. Patient has signed adult voluntary form and medication consent and is placed in patient's chart. -Medications : Will start patient on her current home medications including Wellbutrin XL 300 mg daily and also trintellix 20 mg daily for mood/anxiety. -Ativan and Haldol PRN for agitation/aggression -Patient was informed of the risks, benefits and side effects of the medication and patient verbally consented to taking the medications. Patient signed med consent form and was placed in chart. -Internal Medicine consult to perform medical evaluation and physical. -NRT - nicotine patch -SW on board for discharge planning. Encourage patient to participate in groups to work on coping skills. Assessment: General Appearance: Patient appears to be stated age, dressed in clean casual attire. Behavior: Patient is calm, cooperative, does not become aggressive. Speech: Patient's speech is fluent and coherent. Mood/Affect: Patient reports their mood is "good", affect is stable, mood congruent. Suicidality/Homicidality: Patient denies having any suicidal or homicidal ideation intent or plan. Perceptions: Patient denies any visual hallucinations and denies any auditory hallucinations. Though content/process: There is no evidence of any delusional thought content. Thought process is linear, goal-directed and future-oriented. Memory and concentration: Alert and oriented to person, place, time and situation. Judgment and insight: Improved Pertinent Studies: Laboratory Results POC Glucose (mg/dL) 107 mg/dL (75-99) H 04/15/22 07:40 POC Glu Window Machine Operator ID Ibis Smyth 04/15/22 07:40 Patient Condition at Discharge: Stable Plan - Discharge Summary New Discharge Prescriptions: New Nicotine 14Mg/24Hr Patch [Habitrol] 1 patch TRANSDERM DAILY 14 Days patch Acetaminophen Tab [Tylenol] 650 mg PO Q4HR PRN tab PRN Reason: Pain/Discomfort Cephalexin [Keflex] 250 mg PO TID 5 Days cap Lactobacillus Acidoph & Bulgar [Lactinex] 1 each PO DAILY 30 Days packet Continue metFORMIN HCL [Glucophage] 1,000 mg PO BID Pregabalin [Lyrica] 75 mg PO BID Empagliflozin [Jardiance] 10 mg PO DAILY Pantoprazole [Protonix] 40 mg PO AC-BRKFST tab Thiamine [Vitamin B-1] 100 mg PO BID-W/MEALS tab Vortioxetine Hydrobromide [Trintellix] 20 mg PO DAILY 30 Days tab Dulaglutide [Trulicity] 3 mg SQ Q7D Rosuvastatin Calcium [Crestor] 20 mg PO DAILY Ondansetron [Zofran] 4 mg PO QID PRN PRN Reason: nausea Glimepiride [Amaryl] 4 mg PO BID buPROPion HCL [Wellbutrin XL] 300 mg PO DAILY 30 Days tab Discontinued Phentermine HCl [Adipex-P] 37.5 mg PO AC-BRKFST Cephalexin [Keflex] 250 mg PO TID 7 Days #21 cap Acetaminophen Tab [Tylenol] 1,000 mg PO Q6HR PRN tab PRN Reason: Fever And/ Or Pain Discharge Medication List metFORMIN HCL [Glucophage] 1,000 mg PO BID 05/12/16 [History] Pregabalin [Lyrica] 75 mg PO BID 09/04/18 [History] Dulaglutide [Trulicity] 3 mg SQ Q7D 06/23/21 [History] Empagliflozin [Jardiance] 10 mg PO DAILY 04/08/22 [History] Glimepiride [Amaryl] 4 mg PO BID 04/08/22 [History] Ondansetron [Zofran] 4 mg PO QID PRN 04/08/22 [History] Rosuvastatin Calcium [Crestor] 20 mg PO DAILY 04/08/22 [History] Pantoprazole [Protonix] 40 mg PO AC-BRKFST tab 04/11/22 [Rx] Thiamine [Vitamin B-1] 100 mg PO BID-W/MEALS tab 04/11/22 [Rx] Acetaminophen Tab [Tylenol] 650 mg PO Q4HR PRN tab 04/14/22 [Rx] Cephalexin [Keflex] 250 mg PO TID 5 Days cap 04/14/22 [Rx] Lactobacillus Acidoph & Bulgar [Lactinex] 1 each PO DAILY 30 Days packet 04/14/22 [Rx] Nicotine 14Mg/24Hr Patch [Habitrol] 1 patch TRANSDERM DAILY 14 Days patch 04/14/22 [Rx] Vortioxetine Hydrobromide [Trintellix] 20 mg PO DAILY 30 Days tab 04/14/22 [Rx] buPROPion HCL [Wellbutrin XL] 300 mg PO DAILY 30 Days tab 04/14/22 [Rx] Follow up Appointment(s)/Referral(s): [facility] [Outside] - 04/20/22 2:00 pm (w/intake) Kirsten Meade MD [STAFF PHYSICIAN] - 1 Week Patient Instructions/Handouts: How to Stop Smoking (DC), Depression (ED) Activity/Diet/Wound Care/Special Instructions: Pt discharged in stable condition with prescriptions and verb understanding of follow up out pt. Discharged with daughter. Activity and diet as tolerated. Avoid the use of street drugs and alcohol. Take all medications as prescribed. When you are in need of refills on your medications please contact your medical provider and/or outpatient psychiatrist to have this done. Please go to scheduled outpatient appointment for aftercare treatment. If symptoms return or become worse, call the crisis line at and/or go to the nearest emergency room for evaluation Discharge Disposition: HOME SELF-CARE
== END 2022-04-15 11:40 | disposition home or self-care (01) | DRG 885 ==
LOC: 3MHU 17:09
PROVIDERS: ADMIT Psychiatry & Neurology Psychiatry; ATTEND Psychiatry & Neurology Psychiatry
DX: F32.0 Major depressive disorder, single episode, mild (principal); G92.8 Other toxic encephalopathy; I80.9 Phlebitis and thrombophlebitis of unspecified site; F17.210 Nicotine dependence, cigarettes, uncomplicated; M79.7 Fibromyalgia; E11.40 Type 2 diabetes mellitus with diabetic neuropathy, unspecified; T42.4X2D Poisoning by benzodiazepines, intentional self-harm, subsequent encounter; Z90.49 Acquired absence of other specified parts of digestive tract; Z98.890 Other specified postprocedural states; Z63.5 Disruption of family by separation and divorce; Z86.79 Personal history of other diseases of the circulatory system; Z88.5 Allergy status to narcotic agent; Z79.899 Other long term (current) drug therapy

== ENCOUNTER → 2022-04-19 | Outpatient (CLI) | payer OTHER ==
--- NOTE | 2022-04-19 14:05 | XR ---
EXAMINATION TYPE: XR chest 2V DATE OF EXAM: 04/19/2022 COMPARISON: NONE TECHNIQUE: PA and lateral views submitted. HISTORY: Preop FINDINGS: The lungs are clear and there is no pneumothorax, pleural effusion, or focal pneumonia. Heart size normal. No overt failure. Hypertrophic changes of the spine. IMPRESSION: 1. No acute process.
== END | disposition home or self-care (01) ==
LOC: RADXRMAIN 13:44
PROVIDERS: ATTEND Family Medicine
DX: Z01.812 Encounter for preprocedural laboratory examination (principal)
CPT/HCPCS: 71046

== ENCOUNTER → 2022-09-19 | Outpatient (CLI) | payer OTHER ==
--- NOTE | 2022-09-19 14:21 | MM ---
Reason for Exam: Clinical finding. Last mammogram was performed 3 year(s) and 4 month(s) ago. Patient History: Menarche at age 11. First Full-Term at age 24. Mother had breast cancer, age 68. Risk Values: Luci 5 year model risk: 1.8%. NCI Lifetime model risk: 18.9%. Prior Study Comparison: 06/10/2019 Bilateral Screening Mammogram, [facility]. Tissue Density: There are scattered fibroglandular densities. Findings: Analyzed By CAD. No suspicious mass or worrisome cluster of microcystic calcifications within either breast. No mammographic abnormality of the bilateral breasts in the patient's region of palpable abnormality. Overall Assessment: Incomplete: need additional imaging evaluation, BI-RAD 0 Management: Diagnostic Breast Ultrasound of both breasts. A clinical breast exam by your physician is recommended on an annual basis and results should be correlated with mammographic findings. This exam should not preclude additional follow-up of suspicious palpable abnormalities. Results were given to the patient verbally at the time of exam. Electronically signed and approved by: Pete Lovell D.O.
--- NOTE | 2022-09-19 14:50 | USB ---
Patient History: Menarche at age 11. First Full-Term at age 24. Mother had breast cancer, age 68. Risk Values: Luci 5 year model risk: 1.8%. NCI Lifetime model risk: 18.9%. Technique: Method: Targeted. Prior Study Comparison: 06/10/2019 Bilateral Screening Mammogram, [facility]. Findings: The area of palpable concern of both breasts, the axilla of both breasts and the retroareolar of both breasts were scanned. Gated ultrasound of the right breast from 2-4 o'clock with evaluation the nipple and axilla was performed. Additional targeted ultrasound the left breast from 11-1 o'clock with evaluation the nipple and axilla was performed. No solid or cystic lesions identified within either breast in the patient's region of palpable abnormality. No abnormality demonstrated on the mammogram corresponding to palpable markers.Limited ultrasound of the right breast from 2-4 o'clock with evaluation the nipple and axilla was performed. Additional targeted ultrasound of the left breast from 11-1 o'clock with evaluation the nipple and axilla was performed. No solid or cystic lesions identified within either breast in the patient's region of palpable abnormality. No abnormality demonstrated on the mammogram corresponding to palpable markers. Overall Assessment: Negative, BI-RAD 1 Management: Screening Mammogram of both breasts in 1 year. A clinical breast exam by your physician is recommended on an annual basis and results should be correlated with mammographic findings. This exam should not preclude additional follow-up of suspicious palpable abnormalities. Results were given to the patient verbally at the time of exam. Electronically signed and approved by: Pete Lovell D.O.
== END | disposition home or self-care (01) ==
LOC: RADMAMWWP 13:37
PROVIDERS: ATTEND Family Medicine
DX: N63.10 Unspecified lump in the right breast, unspecified quadrant (principal); N63.20 Unspecified lump in the left breast, unspecified quadrant; Z80.3 Family history of malignant neoplasm of breast
CPT/HCPCS: 77066

== ENCOUNTER → 2022-10-18 | Outpatient (CLI) | payer OTHER ==
--- NOTE | 2022-10-18 16:09 | US ---
EXAMINATION TYPE: US kidneys/renal and bladder DATE OF EXAM: 10/18/2022 COMPARISON: CT abdomen pelvis 05/12/2016 CLINICAL HISTORY: R10.9 UNSPECIFIED ABDOMINAL PAIN. Pt states left flank pain EXAM MEASUREMENTS: Right Kidney: 13.3 x 5.4 x 5.9 cm Left Kidney: 12.4 x 6.9 x 5.6 cm Right Kidney: Appeared wnl Left Kidney: Possible lobulations at upper pole Bladder: wnl Bilateral Jets seen: Only left jet visualized There is no evidence for hydronephrosis at this point in time. No nephrolithiasis is seen. Hypoechoi c region measuring 2.5 cm within the superior pole of the left kidney. The urinary bladder is anechoi c. Left ureteral jet is seen. IMPRESSION: 1. Hypoechoic region measuring 2.5 cm within the superior pole the left kidney. Further evaluation w ith CT or MR abdomen (renal mass protocol) is recommended. 2. No hydronephrosis or shadowing renal calculi.
== END | disposition home or self-care (01) ==
LOC: RADUSWWP 15:39
PROVIDERS: ATTEND Internal Medicine Geriatric Medicine
DX: N28.89 Other specified disorders of kidney and ureter (principal)
CPT/HCPCS: 76770

== ENCOUNTER → 2022-11-04 | Outpatient (CLI) | payer OTHER ==
[2022-11-04 14:29] LABS: African American GFR (CKD) >90 (>60 ml/min/1.73 sqM); Blood Urea Nitrogen 20 mg/dL (7-17); Non-African American GFR(CKD) >90 (>60 ml/min/1.73 sqM)
--- NOTE | 2022-11-04 16:14 | CT ---
EXAMINATION TYPE: CT abdomen pelvis w con DATE OF EXAM: 11/04/2022 COMPARISON: None HISTORY: left side renal mass seen on prior US CT DLP: 1722 mGycm Automated exposure control for dose reduction was used. TECHNIQUE: Helical acquisition of images was performed from the lung bases through the pelvis. CONTRAST: Performed with Oral Contrast and with IV Contrast, patient injected with 100 mL of Isovue 300. FINDINGS: The lung bases are clear. There are surgical absence of gallbladder. There is no focal mass or organomegaly involving the liver, pancreas, spleen or adrenal glands. The kidneys excrete contrast promptly and symmetrically and there is no hydronephrosis. 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 MRI would be us eful for further evaluation. There is no retroperitoneal adenopathy or hemorrhage in the caliber of the abdominal aorta is normal. The bowel loops are normal in caliber fluid. There is no pelvic mass or adenopathy. There is a right iliac. The osseous structures are intact. IMPRESSION: 1. 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 MRI of the kidneys is recommended for further evaluation. 2. Right iliac vein stent. 3. Cholecystectomy.
== END | disposition home or self-care (01) ==
LOC: RADCTMAIN 13:47
PROVIDERS: ATTEND Internal Medicine Geriatric Medicine
DX: N28.89 Other specified disorders of kidney and ureter (principal); R93.41 Abnormal radiologic findings on diagnostic imaging of renal pelvis, ureter, or bladder; Z90.49 Acquired absence of other specified parts of digestive tract; Z95.820 Peripheral vascular angioplasty status with implants and grafts
CPT/HCPCS: 82565; 84520; 74177; 36415; Q9967

== ENCOUNTER 2022-11-21 07:22 | Emergency (ER) | payer OTHER ==
[2022-11-21 07:27] VITALS: TEMP 97.6
[2022-11-21] MEDS ORDERED: SODIUM CHLORIDE 0.9% 1,000 ML IV ONE (07:48)
[2022-11-21] MEDS ORDERED: HYDROmorphone 0.5 MG/0.5 ML SYRINGE IVP STA ×2 (07:48→08:59)
[2022-11-21] MEDS ORDERED: ONDANSETRON 4 MG/2 ML VIAL IVP STA (07:48)
[2022-11-21 08:04] LABS: Basophils # (A) 0.1 k/uL (0-0.2); Basophils % (A) 1 %; Eosinophils # (A) 0.2 k/uL (0-0.7); Eosinophils % (A) 2 %; HCT 44.4 % (34.0-46.0); HGB 15.6 gm/dL (11.4-16.0); Lymphocytes # (A) 1.8 k/uL (1.0-4.8); Lymphocytes % (A) 20 %; MCH 30.8 pg (25.0-35.0); MCHC 35.1 g/dL (31.0-37.0); MCV 87.7 fL (80.0-100.0); Mean Platelet Volume 8.3; Monocytes # (A) 0.3 k/uL (0-1.0); Monocytes % (A) 3 %; Neutrophils # (A) 6.5 k/uL (1.3-7.7); Neutrophils % (A) 73 %; Platelet Count 222 k/uL (150-450); RBC 5.06 m/uL (3.80-5.40); RDW 12.8 % (11.5-15.5)
[2022-11-21 08:15] LABS: ALT 52 U/L (4-34); AST 37 U/L (14-36); African American GFR (CKD) >90 (>60 ml/min/1.73 sqM); Albumin 4.6 g/dL (3.5-5.0); Alkaline Phosphatase 91 U/L (38-126); Anion Gap 14 mmol/L; Blood Urea Nitrogen 18 mg/dL (7-17); Calcium 10.1 mg/dL (8.4-10.2); Carbon Dioxide 18 mmol/L (22-30); Chloride 104 mmol/L (98-107); Glucose 311 mg/dL (74-99); Lipase 131 U/L (23-300); Non-African American GFR(CKD) >90 (>60 ml/min/1.73 sqM); Potassium 4.5 mmol/L (3.5-5.1); Sodium 136 mmol/L (137-145); Total Bilirubin 0.6 mg/dL (0.2-1.3); Total Protein 7.5 g/dL (6.3-8.2)
--- NOTE | 2022-11-21 08:42 | ED ---
Abdominal Pain HPI - General Chief Complaint: Abdominal Pain Stated Complaint: left side abd pain Time Seen by Provider: 11/21/22 07:31 Source: patient, RN notes reviewed Mode of arrival: ambulatory Limitations: no limitations - History of Present Illness Initial Comments: 47-year-old female sent emergency Department chief complaint of left flank pain. Patient states that she's been having ongoing pain. Patient states that she has CT ultrasound back in October showed possible mass of her left kidney. Patient states seemed to worsen today. She has follow-up on Monday with urology. Patient states that the pain worsened today she cannot tolerated. Patient denies trauma. Patient states she has a known diabetic. No dysuria no hematuria no chest pain or shortness breath. - Related Data Home Medications Medication Instructions Recorded Confirmed metFORMIN HCL [Glucophage] 1,000 mg PO BID 05/12/16 04/12/22 Pregabalin [Lyrica] 75 mg PO BID 09/04/18 04/12/22 Dulaglutide [Trulicity] 3 mg SQ Q7D 06/23/21 04/12/22 Empagliflozin [Jardiance] 10 mg PO DAILY 04/08/22 04/12/22 Glimepiride [Amaryl] 4 mg PO BID 04/08/22 04/12/22 Ondansetron [Zofran] 4 mg PO QID PRN 04/08/22 04/12/22 Rosuvastatin Calcium [Crestor] 20 mg PO DAILY 04/08/22 04/12/22 Previous Rx's Medication Instructions Recorded Pantoprazole [Protonix] 40 mg PO AC-BRKFST tab 04/11/22 Thiamine [Vitamin B-1] 100 mg PO BID-W/MEALS tab 04/11/22 Acetaminophen Tab [Tylenol] 650 mg PO Q4HR PRN tab 04/14/22 Cephalexin [Keflex] 250 mg PO TID 5 Days cap 04/14/22 Lactobacillus Acidoph & Bulgar 1 each PO DAILY 30 Days packet 04/14/22 [Lactinex] Nicotine 14Mg/24Hr Patch [Habitrol] 1 patch TRANSDERM DAILY 14 Days 04/14/22 patch Vortioxetine Hydrobromide 20 mg PO DAILY 30 Days tab 04/14/22 [Trintellix] buPROPion HCL [Wellbutrin XL] 300 mg PO DAILY 30 Days tab 04/14/22 HYDROcodone/APAP 5-325MG [[place] 5] 1 each PO Q6HR PRN #12 tab 11/21/22 bisacodyL [Dulcolax] 5 mg PO DAILY #14 tab 11/21/22 Allergies Allergy/AdvReac Type Severity Reaction Status Date / Time codeine AdvReac Nausea & Verified 11/21/22 07:27 Vomiting Review of Systems ROS Statement: Those systems with pertinent positive or pertinent negative responses have been documented in the HPI. ROS Other: All systems not noted in ROS Statement are negative. Past Medical History Past Medical History: Diabetes Mellitus, Fibromyalgia, GERD/Reflux Additional Past Medical History / Comment(s): change in bowel habits, ovarian cyst History of Any Multi-Drug Resistant Organisms: None Reported Past Surgical History: Appendectomy, Cholecystectomy, Hernia Repair, Orthopedic Surgery, Uterine Ablation Additional Past Surgical History / Comment(s): sinus surgery, carpal tunnel-rt, vein stripping, aortic stent placed approx 2 years ago. Past Anesthesia/Blood Transfusion Reactions: Previous Problems w/ Anesthesia, Motion Sickness Additional Past Anesthesia/Blood Transfusion Reaction / Comment(s): "sometimes h ramirez time coming out of anesthesia" Past Psychological History: Depression Smoking Status: Current every day smoker Past Alcohol Use History: Occasional Past Drug Use History: None Reported - Past Family History Father Family Medical History: Pulmonary Embolus General Exam Limitations: no limitations General appearance: alert, in no apparent distress Head exam: Present: atraumatic, normocephalic, normal inspection Eye exam: Present: normal appearance, PERRL, EOMI. Absent: scleral icterus, conjunctival injection, periorbital swelling ENT exam: Present: normal exam, normal oropharynx, mucous membranes moist Neck exam: Present: normal inspection, full ROM. Absent: tenderness, meningismus, lymphadenopathy Respiratory exam: Present: normal lung sounds bilaterally. Absent: respiratory distress, wheezes, rales, rhonchi, stridor Cardiovascular Exam: Present: regular rate, normal rhythm, normal heart sounds. Absent: systolic murmur, diastolic murmur, rubs, gallop, clicks GI/Abdominal exam: Present: soft, tenderness, normal bowel sounds. Absent: distended, guarding, rebound, rigid Back exam: Present: CVA tenderness (L). Absent: CVA tenderness (R) Course Vital Signs 11/21/22 11/21/22 11/21/22 07:24 08:00 09:00 Temperature 97.6 F Pulse Rate 72 97 96 Respiratory 20 16 18 Rate Blood Pressure 136/79 117/79 111/67 O2 Sat by Pulse 99 98 97 Oximetry Medical Decision Making - Medical Decision Making Was pt. sent in by a medical professional or institution ([facility], [facility], urgent care, hospital, or fci...) When possible be specific @ -No Did you speak to anyone other than the patient for history (EMS, parent, family, police, friend...)? What history was obtained from this source @ -No Did you review nursing and triage notes (agree or disagree)? Why? @ -I reviewed and agree with nursing and triage notes Were old charts reviewed (outside hosp., previous admission, EMS record, old EKG, old radiological studies, urgent care reports/EKG's, fci records)? Report findings @ -No old charts were reviewed Differential Diagnosis (chest pain, altered mental status, abdominal pain women, abdominal pain men, vaginal bleeding, weakness, fever, dyspnea, syncope, headache, dizziness, GI bleed, back pain, seizure, CVA, palpatations, mental health)? @ -Abdominal pain, kidney stone, hydronephrosis, bowel obstruction, UTI, pyelonephritis, this list is not all inclusive EKG interpreted by me (3pts min.). @ -As above X-rays interpreted by me (1pt min.). @ -None done CT interpreted by me (1pt min.). @ -Ct abdomen pelvis does not reveal any masses the left kidney and there is possible adrenal mass. Patient has fecal stasis noted U/S interpreted by me (1pt. min.). @ -None done What testing was considered but not performed or refused? (CT, X-rays, U/S, labs)? Why? @ -None What meds were considered but not given or refused? Why? @ -None Did you discuss the management of the patient with other professionals (professionals i.e. [facility], [employer], lab, RT, psych nurse, healthcare social worker, clinical lab technologist, teacher, home lending officer, case liner)? Give summary @ -No Was smoking cessation discussed for >3mins.? @ -No Was critical care preformed (if so, how long)? @ -No Were there social determinants of health that impacted care today? How? (Homelessness, low income, unemployed, alcoholism, drug addiction, transportation, low edu. Level, literacy, decrease access to med. care, snf, rehab)? @ -No Was there de-escalation of care discussed even if they declined (Discuss DNR or withdrawal of care, Hospice)? DNR status @ -No What co-morbidities impacted this encounter? (DM, HTN, Smoking, COPD, CAD, Cancer, CVA, ARF, Chemo, Hep., AIDS, mental health diagnosis, sleep apnea, morbid obesity)? @ -dm Was patient admitted / discharged? Hospital course, mention meds given and route, prescriptions, significant lab abnormalities, going to OR and other pertinent info. @ -Discharged a review of labs, CT with findings of constipation, ongoing flank pain. Patient is requesting pain medication for home and instructed that this may cause worsening pain with constipation. Patient agrees she'll follow-up with urology she'll take her lactulose over Dulcolax at home. Undiagnosed new problem with uncertain prognosis? @ -No Drug Therapy requiring intensive monitoring for toxicity (Heparin, Nitro, Insulin, Cardizem)? @ -No Were any procedures done? @ -No Diagnosis/symptom? @ -Abdominal pain Acute, or Chronic, or Acute on Chronic? @ -Acute Uncomplicated (without systemic symptoms) or Complicated (systemic symptoms)? @ -Uncomplicated Side effects of treatment? @ -No Exacerbation, Progression, or Severe Exacerbation? @ -No Poses a threat to life or bodily function? How? (Chest pain, [place], [place], pneumonia, PE, COPD, DKA, ARF, appy, cholecystitis, CVA, Diverticulitis, Homicidal, Suicidal, threat to staff... and all critical care pts) @ -No - Lab Data Result diagrams: 11/21/22 07:51 11/21/22 07:51 Lab Results 11/21/22 11/21/22 11/21/22 Range/Units 07:47 07:51 07:51 WBC 9.0 (3.8-10.6) k/uL RBC 5.06 (3.80-5.40) m/uL Hgb 15.6 (11.4-16.0) gm/dL Hct 44.4 (34.0-46.0) % MCV 87.7 (80.0-100.0) fL MCH 30.8 (25.0-35.0) pg MCHC 35.1 (31.0-37.0) g/dL RDW 12.8 (11.5-15.5) % Plt Count 222 (150-450) k/uL MPV 8.3 Neutrophils % 73 % Lymphocytes % 20 % Monocytes % 3 % Eosinophils % 2 % Basophils % 1 % Neutrophils # 6.5 (1.3-7.7) k/uL Lymphocytes # 1.8 (1.0-4.8) k/uL Monocytes # 0.3 (0-1.0) k/uL Eosinophils # 0.2 (0-0.7) k/uL Basophils # 0.1 (0-0.2) k/uL Sodium 136 L (137-145) mmol/L Potassium 4.5 (3.5-5.1) mmol/L Chloride 104 (98-107) mmol/L Carbon Dioxide 18 L (22-30) mmol/L Anion Gap 14 mmol/L BUN 18 H (7-17) mg/dL Creatinine 0.65 (0.52-1.04) mg/dL Est GFR (CKD-EPI)AfAm >90 (>60 ml/min/1.73 sqM) Est GFR (CKD-EPI)NonAf >90 (>60 ml/min/1.73 sqM) Glucose 311 H (74-99) mg/dL Plasma Lactic Acid Keith (0.7-2.0) mmol/L Calcium 10.1 (8.4-10.2) mg/dL Total Bilirubin 0.6 (0.2-1.3) mg/dL AST 37 H (14-36) U/L ALT 52 H (4-34) U/L Alkaline Phosphatase 91 (38-126) U/L Total Protein 7.5 (6.3-8.2) g/dL Albumin 4.6 (3.5-5.0) g/dL Lipase 131 (23-300) U/L Urine Color Colorless Urine Appearance Clear (Clear) Urine pH 5.0 (5.0-8.0) Ur Specific Niles 1.032 (1.001-1.035) Urine Protein Negative (Negative) Urine Glucose (UA) 4+ H (Negative) Urine Ketones Trace H (Negative) Urine Blood Negative (Negative) Urine Nitrite Negative (Negative) Urine Bilirubin Negative (Negative) Urine Urobilinogen <2.0 (<2.0) mg/dL Ur Leukocyte Esterase Negative (Negative) 11/21/22 Range/Units 07:51 WBC (3.8-10.6) k/uL RBC (3.80-5.40) m/uL Hgb (11.4-16.0) gm/dL Hct (34.0-46.0) % MCV (80.0-100.0) fL MCH (25.0-35.0) pg MCHC (31.0-37.0) g/dL RDW (11.5-15.5) % Plt Count (150-450) k/uL MPV Neutrophils % % Lymphocytes % % Monocytes % % Eosinophils % % Basophils % % Neutrophils # (1.3-7.7) k/uL Lymphocytes # (1.0-4.8) k/uL Monocytes # (0-1.0) k/uL Eosinophils # (0-0.7) k/uL Basophils # (0-0.2) k/uL Sodium (137-145) mmol/L Potassium (3.5-5.1) mmol/L Chloride (98-107) mmol/L Carbon Dioxide (22-30) mmol/L Anion Gap mmol/L BUN (7-17) mg/dL Creatinine (0.52-1.04) mg/dL Est GFR (CKD-EPI)AfAm (>60 ml/min/1.73 sqM) Est GFR (CKD-EPI)NonAf (>60 ml/min/1.73 sqM) Glucose (74-99) mg/dL Plasma Lactic Acid Keith 2.4 H* (0.7-2.0) mmol/L Calcium (8.4-10.2) mg/dL Total Bilirubin (0.2-1.3) mg/dL AST (14-36) U/L ALT (4-34) U/L Alkaline Phosphatase (38-126) U/L Total Protein (6.3-8.2) g/dL Albumin (3.5-5.0) g/dL Lipase (23-300) U/L Urine Color Urine Appearance (Clear) Urine pH (5.0-8.0) Ur Specific Niles (1.001-1.035) Urine Protein (Negative) Urine Glucose (UA) (Negative) Urine Ketones (Negative) Urine Blood (Negative) Urine Nitrite (Negative) Urine Bilirubin (Negative) Urine Urobilinogen (<2.0) mg/dL Ur Leukocyte Esterase (Negative) Disposition Clinical Impression: Abdominal pain Disposition: HOME SELF-CARE Condition: Stable Instructions (If sedation given, give patient instructions): Abdominal Pain (ED) Additional Instructions: Please return to the Emergency Department if symptoms worsen or any other concerns. Prescriptions: bisacodyL [Dulcolax] 5 mg PO DAILY #14 tab HYDROcodone/APAP 5-325MG [[place] 5] 1 each PO Q6HR PRN #12 tab PRN Reason: Pain Is patient prescribed a controlled substance at d/c from ED?: No Referrals: Kirsten Meade MD [Primary Care Provider] - 1-2 days Time of Disposition: 10:25
[2022-11-21 08:43] LABS: Appearance,Urine Clear (Clear); Bilirubin,Urine Negative (Negative); Blood,Urine Negative (Negative); Color,Urine Colorless; Glucose,Urine (UA) 4+ (Negative); Ketones,Urine Trace (Negative); Leukocyte Esterase,Urine Negative (Negative); Nitrite,Urine Negative (Negative); Protein,Urine Negative (Negative); Specific Gravity,Urine 1.032 (1.001-1.035); Urobilinogen,Urine <2.0 mg/dL (<2.0)
--- NOTE | 2022-11-21 09:30 | CT ---
EXAMINATION TYPE: CT abdomen pelvis w con CT DLP: 1381.6 mGycm, Automated exposure control for dose reduction was used. DATE OF EXAM: 11/21/2022 8:52 AM COMPARISON: CT abdomen pelvis most recent from 11/04/2022 CLINICAL INDICATION:Female, 47 years old with history of pain, left, known mass; Left sided abdominal pain, known mass TECHNIQUE: Axial CT of the abdomen and pelvis. Sagittal and coronal reformats were created on a [employer] workstation. Contrast used:100 mL of Isovue 300 with IV Contrast, Oral contrast used: without Oral Contrast FINDINGS: LOWER CHEST: Unremarkable ABDOMEN LIVER: Unremarkable GALLBLADDER AND BILE DUCTS: The gallbladder is surgically absent. PANCREAS: Unremarkable. SPLEEN: At the upper limits of normal measuring up to 14.0 cm ADRENAL GLANDS: 1.2 cm left adrenal gland nodule which is indeterminate. No adrenal gland is unremark able. Moderate amount of stool seen within the colon KIDNEYS AND URETERS: Previous fat-containing lesion within left kidney is not definitively visualized . No evidence of hydronephrosis or renal calculus. The ureters are unremarkable. PELVIS BLADDER: Unremarkable REPRODUCTIVE: Fibroid uterus with lobulated contour noted. ABDOMEN & PELVIS STOMACH AND BOWEL: No evidence of bowel obstruction. Small bowel feces throughout the abdomen. Modera te amount of stool in the colon. PERITONEUM/RETROPERITONEUM: No evidence of pneumoperitoneum or free fluid. VASCULATURE: No evidence of aortic aneurysm. Right common iliac vein stent is present. MUSCULOSKELETAL: No acute osseous abnormalities LYMPH NODES: No gross evidence for lymphadenopathy. SOFT TISSUE/ABDOMINAL WALL: Unremarkable IMPRESSION: 1. Small bowel feces throughout the abdomen correlate for fecal stasis/ileus. No acute abdominal pro cess to explain the patient's pain. 2. No renal mass identified. Fat-containing lesion described on prior involving the left kidney is n ot visualized. This can be confirmed with MRI renal mass protocol. 3. Indeterminate left adrenal 1.2 cm nodule consider further evaluation on MRI adrenal mass protocol .
[2022-11-21 10:43] VITALS: BP 104/66; PULSE 100; RESP 18
== END 2022-11-21 10:43 | disposition home or self-care (01) ==
LOC: EC 07:22
DX: R10.9 Unspecified abdominal pain (principal); E11.9 Type 2 diabetes mellitus without complications; F32.A Depression, unspecified; F17.200 Nicotine dependence, unspecified, uncomplicated; Z88.5 Allergy status to narcotic agent; Z79.84 Long term (current) use of oral hypoglycemic drugs; Z79.899 Other long term (current) drug therapy
CPT/HCPCS: 36415; 80053; 83605; 83690; 85025; 81003; 74177; 99284; 96374; 96375; 96376; 96361 ×2; J2405; J1170; Q9967

== ENCOUNTER 2022-11-22 08:46 | Inpatient (IN) | payer MEDICAID, OTHER ==
[2022-11-22] MEDS ORDERED: HYDROmorphone 0.5 MG/0.5 ML SYRINGE IVP STA (09:26)
--- NOTE | 2022-11-22 09:26 | ED ---
General Adult HPI - General Chief complaint: Abdominal Pain Stated complaint: abd pain Time Seen by Provider: 11/22/22 08:56 Source: patient Mode of arrival: EMS Limitations: no limitations - History of Present Illness Initial comments: Dictation was produced using [employer] dictation software. please excuse any grammatical, word or spelling errors. Chief Complaint: 47-year-old female represents to the emergency department for abdominal pain nausea and vomiting History of Present Illness: 47-year-old female she was seen here in emergency department yesterday. Currently documentation from the emergency room patient was seen here for left flank pain. She has been having nausea and vomiting. Patient had a computed tomography scan performed yesterday suggesting fecal stasis versus ileus. Patient is here today because her symptoms recurred earlier. She had bouts of bilious emesis. No constitutional symptoms. The ROS documented in this emergency department record has been reviewed and confirmed by me. Those systems with pertinent positive or negative responses have been documented in the HPI. All other systems are other negative and/or noncontributory. PHYSICAL EXAM: General Impression: Alert and oriented x3, not in acute distress HEENT: Normocephalic atraumatic, extra-ocular movements intact, pupils equal and reactive to light bilaterally, mucous membranes moist. Cardiovascular: Heart regular rate and rhythm Chest: Able to complete full sentences, no retractions, no tachypnea Abdomen: abdomen soft, diffuse palpatory tenderness, non-distended, no organomegaly Musculoskeletal: Pulses present and equal in all extremities, no peripheral edema Motor: no focal deficits noted Neurological: CN II-XII grossly intact, no focal motor or sensory deficits noted Skin: Intact with no visualized rashes Psych: Normal affect and mood ED course: 47-year-old female presents emergency department for abdominal pain. She seen here yesterday. Computed tomography scan yesterday suggested ileus versus fecal stasis. Clinical presentation suspicious for ileus.. As upon arrival are within acceptable limits. Nursing notes and chart review was performed Laboratory evaluation obtained. CBC, metabolic panel is unremarkable. Abdominal labs are negative. Urinalysis is negative. X-ray shows nonob structive bowel gas pattern. Patient reevaluated bedside still symptomatic. Patient be admitted for monitoring and intractable abdominal pain per Gen. surgery consulted for evaluation. Case discussed with sheet for admission Was pt. sent in by a medical professional or institution (Dr., PA, AUTOMATIC RIVETING MACHINE OPERATOR, urgent care, hospital, or long term...) When possible be specific @ -No Did you speak to anyone other than the patient for history (EMS, parent, family, police, friend...)? What history was obtained from this source @ -No Did you review nursing and triage notes (agree or disagree)? Why? @ -I reviewed and agree with nursing and triage notes Were old charts reviewed (outside hosp., previous admission, EMS record, old EKG, old radiological studies, urgent care reports/EKG's, long term records)? Report findings @ -No old charts were reviewed Differential Diagnosis (chest pain, altered mental status, abdominal pain women, abdominal pain men, vaginal bleeding, weakness, fever, dyspnea, syncope, headache, dizziness, GI bleed, back pain, seizure, CVA, palpatations, mental health)? @ -not applicable EKG interpreted by me (3pts min.). @ -As above X-rays interpreted by me (1pt min.). @ -As above CT interpreted by me (1pt min.). @ -None done U/S interpreted by me (1pt. min.). @ -None done What testing was considered but not performed or refused? (CT, X-rays, U/S, labs)? Why? @ -CT was considered however she received the computed tomography scan yesterday. Labs do not suggest any significant progression to indicate repeat CT today. What meds were considered but not given or refused? Why? @ -None Did you discuss the management of the patient with other professionals (professionals i.e. EFREM Mercer, AUTOMATIC RIVETING MACHINE OPERATOR, lab, RT, psych nurse, social scientist, rn orthopaedics, teacher, geospatial program management officer, case investigator)? Give summary @ -See above Was smoking cessation discussed for >3mins.? @ -No Was critical care preformed (if so, how long)? @ -No Were there social determinants of health that impacted care today? How? (Homelessness, low income, unemployed, alcoholism, drug addiction, transportation, low edu. Level, literacy, decrease access to med. care, shelter, rehab)? @ -No Was there de-escalation of care discussed even if they declined (Discuss DNR or withdrawal of care, Hospice)? DNR status @ -No What co-morbidities impacted this encounter? (DM, HTN, Smoking, COPD, CAD, Ca ncer, CVA, ARF, Chemo, Hep., AIDS, mental health diagnosis, sleep apnea, morbid obesity)? @ -None Was patient admitted / discharged? Hospital course, mention meds given and route, prescriptions, significant lab abnormalities, going to OR and other pertinent info. @ -See above Undiagnosed new problem with uncertain prognosis? @ -No Drug Therapy requiring intensive monitoring for toxicity (Heparin, Nitro, Insulin, Cardizem)? @ -No Were any procedures done? @ -No Diagnosis/symptom? @ -Intractable abdominal pain, no obvious source Acute, or Chronic, or Acute on Chronic? @ -Acute Uncomplicated (without systemic symptoms) or Complicated (systemic symptoms)? @ -default Side effects of treatment? @ -No Exacerbation, Progression, or Severe Exacerbation? @ -No Poses a threat to life or bodily function? How? (Chest pain, USA, DC, pneumonia, PE, COPD, DKA, ARF, appy, cholecystitis, CVA, Diverticulitis, Homicidal, Suic idal, threat to staff... and all critical care pts) @ -Yes - Related Data Home Medications Medication Instructions Recorded Confirmed metFORMIN HCL [Glucophage] 1,000 mg PO BID 05/12/16 04/12/22 Pregabalin [Lyrica] 75 mg PO BID 09/04/18 04/12/22 Dulaglutide [Trulicity] 3 mg SQ Q7D 06/23/21 04/12/22 Empagliflozin [Jardiance] 10 mg PO DAILY 04/08/22 04/12/22 Glimepiride [Amaryl] 4 mg PO BID 04/08/22 04/12/22 Ondansetron [Zofran] 4 mg PO QID PRN 04/08/22 04/12/22 Rosuvastatin Calcium [Crestor] 20 mg PO DAILY 04/08/22 04/12/22 Previous Rx's Medication Instructions Recorded Pantoprazole [Protonix] 40 mg PO AC-BRKFST tab 04/11/22 Thiamine [Vitamin B-1] 100 mg PO BID-W/MEALS tab 04/11/22 Acetaminophen Tab [Tylenol] 650 mg PO Q4HR PRN tab 04/14/22 Cephalexin [Keflex] 250 mg PO TID 5 Days cap 04/14/22 Lactobacillus Acidoph & Bulgar 1 each PO DAILY 30 Days packet 04/14/22 [Lactinex] Nicotine 14Mg/24Hr Patch [Habitrol] 1 patch TRANSDERM DAILY 14 Days 04/14/22 patch Vortioxetine Hydrobromide 20 mg PO DAILY 30 Days tab 04/14/22 [Trintellix] buPROPion HCL [Wellbutrin XL] 300 mg PO DAILY 30 Days tab 04/14/22 HYDROcodone/APAP 5-325MG [[place] 5] 1 each PO Q6HR PRN #12 tab 11/21/22 bisacodyL [Dulcolax] 5 mg PO DAILY #14 tab 11/21/22 Allergies Allergy/AdvReac Type Severity Reaction Status Date / Time codeine AdvReac Nausea & Verified 11/22/22 11:18 Vomiting Review of Systems ROS Statement: Those systems with pertinent positive or pertinent negative responses have been documented in the HPI. ROS Other: All systems not noted in ROS Statement are negative. Past Medical History Past Medical History: Diabetes Mellitus, Fibromyalgia, GERD/Reflux Additional Past Medical History / Comment(s): change in bowel habits, ovarian cyst History of Any Multi-Drug Resistant Organisms: None Reported Past Surgical History: Appendectomy, Cholecystectomy, Hernia Repair, Orthopedic Surgery, Uterine Ablation Additional Past Surgical History / Comment(s): sinus surgery, carpal tunnel-rt, vein stripping, aortic stent placed approx 2 years ago. Past Anesthesia/Blood Transfusion Reactions: Previous Problems w/ Anesthesia, Motion Sickness Additional Past Anesthesia/Blood Transfusion Reaction / Comment(s): "sometimes hard time coming out of anesthesia" Past Psychological History: Depression Smoking Status: Current every day smoker Past Alcohol Use History: Occasional Past Drug Use History: None Reported - Past Family History Father Family Medical History: Pulmonary Embolus General Exam Limitations: no limitations Course Vital Signs 11/22/22 08:51 Temperature 98.4 F Pulse Rate 108 H Respiratory 16 Rate Blood Pressure 122/88 O2 Sat by Pulse 96 Oximetry Medical Decision Making - Lab Data Result diagrams: 11/22/22 09:22 11/22/22 09:22 Lab Results 11/22/22 11/22/22 11/22/22 Range/Units 09:22 09:22 09:22 WBC 8.4 (3.8-10.6) k/uL RBC 5.09 (3.80-5.40) m/uL Hgb 15.6 (11.4-16.0) gm/dL Hct 44.5 (34.0-46.0) % MCV 87.4 (80.0-100.0) fL MCH 30.7 (25.0-35.0) pg MCHC 35.1 (31.0-37.0) g/dL RDW 12.6 (11.5-15.5) % Plt Count 218 (150-450) k/uL MPV 8.2 Neutrophils % 70 % Lymphocytes % 22 % Monocytes % 4 % Eosinophils % 2 % Basophils % 1 % Neutrophils # 5.9 (1.3-7.7) k/uL Lymphocytes # 1.8 (1.0-4.8) k/uL Monocytes # 0.4 (0-1.0) k/uL Eosinophils # 0.2 (0-0.7) k/uL Basophils # 0.1 (0-0.2) k/uL Sodium 136 L (137-145) mmol/L Potassium 4.3 (3.5-5.1) mmol/L Chloride 104 (98-107) mmol/L Carbon Dioxide 20 L (22-30) mmol/L Anion Gap 12 mmol/L BUN 16 (7-17) mg/dL Creatinine 0.58 (0.52-1.04) mg/dL Est GFR (CKD-EPI)AfAm >90 (>60 ml/min/1.73 sqM) Est GFR (CKD-EPI)NonAf >90 (>60 ml/min/1.73 sqM) Glucose 240 H (74-99) mg/dL Plasma Lactic Acid Keith 1.5 (0.7-2.0) mmol/L Calcium 10.3 H (8.4-10.2) mg/dL Total Bilirubin 0.5 (0.2-1.3) mg/dL AST 38 H (14-36) U/L ALT 54 H (4-34) U/L Alkaline Phosphatase 89 (38-126) U/L Total Protein 7.3 (6.3-8.2) g/dL Albumin 4.5 (3.5-5.0) g/dL Lipase 122 (23-300) U/L HCG, Qual Urine Color Urine Appearance (Clear) Urine pH (5.0-8.0) Ur Specific Howard (1.001-1.035) Urine Protein (Negative) Urine Glucose (UA) (Negative) Urine Ketones (Negative) Urine Blood (Negative) Urine Nitrite (Negative) Urine Bilirubin (Negative) Urine Urobilinogen (<2.0) mg/dL Ur Leukocyte Esterase (Negative) 11/22/22 11/22/22 Range/Units 09:22 09:22 WBC (3.8-10.6) k/uL RBC (3.80-5.40) m/uL Hgb (11.4-16.0) gm/dL Hct (34.0-46.0) % MCV (80.0-100.0) fL MCH (25.0-35.0) pg MCHC (31.0-37.0) g/dL RDW (11.5-15.5) % Plt Count (150-450) k/uL MPV Neutrophils % % Lymphocytes % % Monocytes % % Eosinophils % % Basophils % % Neutrophils # (1.3-7.7) k/uL Lymphocytes # (1.0-4.8) k/uL Monocytes # (0-1.0) k/uL Eosinophils # (0-0.7) k/uL Basophils # (0-0.2) k/uL Sodium (137-145) mmol/L Potassium (3.5-5.1) mmol/L Chloride (98-107) mmol/L Carbon Dioxide (22-30) mmol/L Anion Gap mmol/L BUN (7-17) mg/dL Creatinine (0.52-1.04) mg/dL Est GFR (CKD-EPI)AfAm (>60 ml/min/1.73 sqM) Est GFR (CKD-EPI)NonAf (>60 ml/min/1.73 sqM) Glucose (74-99) mg/dL Plasma Lactic Acid Kieth (0.7-2.0) mmol/L Calcium (8.4-10.2) mg/dL Total Bilirubin (0.2-1.3) mg/dL AST (14-36) U/L ALT (4-34) U/L Alkaline Phosphatase (38-126) U/L Total Protein (6.3-8.2) g/dL Albumin (3.5-5.0) g/dL Lipase (23-300) U/L HCG, Qual Not Detected Urine Color Light Yellow Urine Appearance Clear (Clear) Urine pH 5.0 (5.0-8.0) Ur Specific Howard 1.032 (1.001-1.035) Urine Protein Negative (Negative) Urine Glucose (UA) 4+ H (Negative) Urine Ketones 1+ H (Negative) Urine Blood Negative (Negative) Urine Nitrite Negative (Negative) Urine Bilirubin Negative (Negative) Urine Urobilinogen <2.0 (<2.0) mg/dL Ur Leukocyte Esterase Negative (Negative) Disposition Clinical Impression: Intractable abdominal pain Disposition: ADMITTED IP TO THIS HOSP Condition: Fair Referrals: Kirsten Meade MD [Primary Care Provider] - 1-2 days Decision Time: 11:22
[2022-11-22] MEDS ORDERED: ONDANSETRON 4 MG/2 ML VIAL IVP STA (09:27)
[2022-11-22 09:31] LABS: Basophils # (A) 0.1 k/uL (0-0.2); Basophils % (A) 1 %; Eosinophils # (A) 0.2 k/uL (0-0.7); Eosinophils % (A) 2 %; HCT 44.5 % (34.0-46.0); HGB 15.6 gm/dL (11.4-16.0); Lymphocytes # (A) 1.8 k/uL (1.0-4.8); Lymphocytes % (A) 22 %; MCH 30.7 pg (25.0-35.0); MCHC 35.1 g/dL (31.0-37.0); MCV 87.4 fL (80.0-100.0); Mean Platelet Volume 8.2; Monocytes # (A) 0.4 k/uL (0-1.0); Monocytes % (A) 4 %; Neutrophils # (A) 5.9 k/uL (1.3-7.7); Neutrophils % (A) 70 %; Platelet Count 218 k/uL (150-450); RBC 5.09 m/uL (3.80-5.40); RDW 12.6 % (11.5-15.5); WBC 8.4 k/uL (3.8-10.6)
[2022-11-22 09:35] LABS: Appearance,Urine Clear (Clear); Bilirubin,Urine Negative (Negative); Blood,Urine Negative (Negative); Color,Urine Light Yellow; Glucose,Urine (UA) 4+ (Negative); Ketones,Urine 1+ (Negative); Leukocyte Esterase,Urine Negative (Negative); Nitrite,Urine Negative (Negative); Protein,Urine Negative (Negative); Specific Gravity,Urine 1.032 (1.001-1.035); Urobilinogen,Urine <2.0 mg/dL (<2.0)
[2022-11-22 09:42] LABS: ALT 54 U/L (4-34); AST 38 U/L (14-36); African American GFR (CKD) >90 (>60 ml/min/1.73 sqM); Albumin 4.5 g/dL (3.5-5.0); Alkaline Phosphatase 89 U/L (38-126); Anion Gap 12 mmol/L; Blood Urea Nitrogen 16 mg/dL (7-17); Calcium 10.3 mg/dL (8.4-10.2); Carbon Dioxide 20 mmol/L (22-30); Chloride 104 mmol/L (98-107); Glucose 240 mg/dL (74-99); Lipase 122 U/L (23-300); Non-African American GFR(CKD) >90 (>60 ml/min/1.73 sqM); Potassium 4.3 mmol/L (3.5-5.1); Sodium 136 mmol/L (137-145); Total Bilirubin 0.5 mg/dL (0.2-1.3); Total Protein 7.3 g/dL (6.3-8.2)
--- NOTE | 2022-11-22 10:03 | XR ---
EXAMINATION TYPE: XR abdomen 1V DATE OF EXAM: 11/22/2022 COMPARISON: NONE HISTORY: Pain TECHNIQUE: One view abdominal series FINDINGS: The osseous structures are intact. The bowel gas pattern is nonspecific. Lung bases are clear. Surg ical clips in the right lower quadrant and there is a vascular stent involving the right iliac region . Bilateral hypertrophic arthropathy. Spina bifida occulta of the sacrum. IMPRESSION: 1. Nonspecific abdomen.
[2022-11-22] MEDS ORDERED: NALOXONE 0.4 MG/ML 1 ML VIAL IV PRN (11:04)
[2022-11-22] MEDS: SODIUM CHLORIDE 0.9% 1,000 ML IV SCH ×2 (11:39→17:40)
[2022-11-22] MEDS: PANTOPRAZOLE 40 MG/10 ML VIAL IVP SCH ×2 (12:54→21:25)
[2022-11-22] MEDS: HYDROmorphone 0.5 MG/0.5 ML SYRINGE IVP PRN ×2 (12:54→21:34)
[2022-11-22] MEDS ORDERED: IOPAMIDOL CONTRAST (ORAL USE) VIAL PO PRN (13:38)
--- NOTE | 2022-11-22 13:53 | P.GSCN ---
History of Present Illness Consult date: 11/22/22 History of present illness: CHIEF COMPLAINT: Abdominal pain HISTORY OF PRESENT ILLNESS: This is a 47-year-old female who presented to the hospital with complaints of abdominal pain for the past 3 months. She reports over the last few days the pain has worsened. Pain is located in the epigastric area and left upper quadrant and radiates to the left side of her back. She has been having nausea and vomiting. The emesis is mostly bile. She's had poor oral intake. Her bowel movements have been loose to constipated. She did have a bowel movement this morning and has been having flatus. She denies any fever chills or sweats. She was just in ER yesterday and the CAT scan without contrast had shown fecal stasis and ileus. She was discharged home with Dulcola x and pain medication. Patient reports her last colonoscopy was about 4 years ago. Last charted colonoscopy was in 2016 with a right colon polyp. Denies any history of EGD. Denies any fever chills or sweats. She does report urinary frequency. She does have a known left any mass. She is supposed to follow up with urology outpatient this Monday. Past surgical history includes appendectomy, cholecystectomy and umbilical hernia repair. She also has a stent in her aorta. PAST MEDICAL HISTORY: See below PAST SURGICAL HISTORY: See below MEDICATIONS: See below ALLERGIES: See below SOCIAL HISTORY: No illicit drug use. REVIEW OF SYSTEMS: CONSTITUTIONAL: Denies fever or chills. HEENT: Denies blurred vision, vision changes, or eye pain. Denies hemoptysis CARDIOVASCULAR: Denies chest pain or pressure. RESPIRATORY: No shortness of breath. GASTROINTESTINAL: See HPI for pertinent findings HEMATOLOGIC: Denies bleeding disorders. GENITOURINARY: Denies any blood in urine or increased urinary frequency. SKIN: Denies pruitis. Denies rash. PHYSICAL EXAM: VITAL SIGNS: Reviewed GENERAL: Well-developed in no acute distress. HEENT: No sclera icterus. Extraocular movements grossly intact. Moist buccal mucosa. Head is atraumatic, normocephalic. No nasal drainage. ABDOMEN: Soft. Nondistended. Tenderness to palpation of epigastric left upper quadrant and left flank. Also noted some lower abdominal tenderness. This was less tender than the upper abdomen NEUROLOGIC: Alert and oriented. Cranial nerves II through XII grossly intact. LABORATORY DATA: WBC is 8.4 Hgb 15.6 platelets 218 Sodium 136 potassium 4.3 creatinine 0.58 Lactic acid 1.5 AST 38 ALT 54 lipase 122 IMAGING: Abdominal x-ray nonspecific abdomen Abdominal CT small bowel feces throughout the abdomen correlate for fecal stasis/ileus. No acute abdominal process to explain the patient's pain. No renal mass identified. Fat-containing lesion described on prior CT involving the left kidney is not visualized. This can be confirmed with MRI renal mass protocol. In determining left adrenal 1.2 cm nodule consider further evaluation on MRI adrenal mass protocol ASSESSMENT: 1. Abdominal pain with nausea and vomiting 2. Fecal stasis and ileus noted on yesterday's CT without oral contrast 3. Left renal mass 4. Left Adrenal mass PLAN: -Computed tomography scan abdomen and pelvis with oral contrast for further evaluation of patient's abdominal pain with nausea and vomiting -Keep patient nothing by mouth until CAT scan findings reviewed -Urology consultation regarding left renal mass -Continue IV fluids -Continue antiemetics -Continue pain medication as needed Thank you for this consultation Physician Cuff Knitter note has been reviewed by physician. Signing provider agrees with the documented findings, assessment, and plan of care. Past Medical History Past Medical History: Diabetes Mellitus, Fibromyalgia, GERD/Reflux Additional Past Medical History / Comment(s): change in bowel habits, ovarian cyst History of Any Multi-Drug Resistant Organisms: None Reported Past Surgical History: Appendectomy, Cholecystectomy, Hernia Repair, Orthopedic Surgery, Uterine Ablation Additional Past Surgical History / Comment(s): sinus surgery, carpal tunnel-rt, vein stripping, aortic stent placed approx 2 years ago. Past Anesthesia/Blood Transfusion Reactions: Previous Problems w/ Anesthesia, Motion Sickness Additional Past Anesthesia/Blood Transfusion Reaction / Comm: "sometimes hard time coming out of anesthesia" Past Psychological History: Depression Smoking Status: Current every day smoker Past Alcohol Use History: Occasional Past Drug Use History: None Reported - Past Family History Father Family Medical History: Pulmonary Embolus Medications and Allergies Home Medications Medication Instructions Recorded Confirmed Type metFORMIN HCL [Glucophage] 1,000 mg PO BID 05/12/16 11/22/22 History Pregabalin [Lyrica] 75 mg PO BID 09/04/18 11/22/22 History Dulaglutide [Trulicity] 3 mg SQ DIRECTED 06/23/21 11/22/22 History Empagliflozin [Jardiance] 10 mg PO DAILY 04/08/22 11/22/22 History Glimepiride [Amaryl] 4 mg PO BID 04/08/22 11/22/22 History Ondansetron [Zofran] 4 mg PO QID PRN 04/08/22 11/22/22 History Rosuvastatin Calcium [Crestor] 20 mg PO DAILY 04/08/22 11/22/22 History Acetaminophen Tab [Tylenol] 650 mg PO Q4HR PRN tab 04/14/22 11/22/22 Rx Vortioxetine Hydrobromide 20 mg PO DAILY 30 Days tab 04/14/22 11/22/22 Rx [Trintellix] Albuterol Sulfate [Proair Hfa] 2 puff INHALATION RT-Q6H PRN 11/22/22 11/22/22 History HYDROcodone/APAP 5-325MG [[place] 5] 1 tab PO Q6HR PRN 11/22/22 11/22/22 History Ibuprofen [Motrin] 800 mg PO TID PRN 11/22/22 11/22/22 History Lactulose 10 gm PO DAILY PRN 11/22/22 11/22/22 History OXcarbazepine [Trileptal] 300 mg PO HS 11/22/22 11/22/22 History Omeprazole 20 mg PO DAILY 11/22/22 11/22/22 History Phentermine HCl [Adipex-P] 37.5 mg PO DAILY 11/22/22 11/22/22 History Pioglitazone [Actos] 15 mg PO HS 11/22/22 11/22/22 History bisacodyL [Dulcolax] 5 mg PO DAILY PRN 11/22/22 11/22/22 History buPROPion HCL [Wellbutrin SR] 200 mg PO BID 11/22/22 11/22/22 History Allergies Allergy/AdvReac Type Severity Reaction Status Date / Time codeine AdvReac Nausea & Verified 11/22/22 11:18 Vomiting Surgical - Exam Vital Signs Temp Pulse Resp BP Pulse Ox 98.4 F 108 H 16 122/88 96 11/22/22 08:51 11/22/22 08:51 11/22/22 08:51 11/22/22 08:51 11/22/22 08:51 Results - Labs 11/22/22 09:22 11/22/22 09:22 Abnormal Lab Results - Last 24 Hours (Table) 11/22/22 11/22/22 Range/Units 09:22 09:22 Sodium 136 L (137-145) mmol/L Carbon Dioxide 20 L (22-30) mmol/L Glucose 240 H (74-99) mg/dL Calcium 10.3 H (8.4-10.2) mg/dL AST 38 H (14-36) U/L ALT 54 H (4-34) U/L Urine Glucose (UA) 4+ H (Negative) Urine Ketones 1+ H (Negative) Diabetes panel 11/22/22 Range/Units 09:22 Sodium 136 L (137-145) mmol/L Potassium 4.3 (3.5-5.1) mmol/L Chloride 104 (98-107) mmol/L Carbon Dioxide 20 L (22-30) mmol/L BUN 16 (7-17) mg/dL Creatinine 0.58 (0.52-1.04) mg/dL Glucose 240 H (74-99) mg/dL Calcium 10.3 H (8.4-10.2) mg/dL AST 38 H (14-36) U/L ALT 54 H (4-34) U/L Alkaline Phosphatase 89 (38-126) U/L Total Protein 7.3 (6.3-8.2) g/dL Albumin 4.5 (3.5-5.0) g/dL Calcium panel 11/22/22 Range/Units 09:22 Calcium 10.3 H (8.4-10.2) mg/dL Albumin 4.5 (3.5-5.0) g/dL Pituitary panel 11/22/22 Range/Units 09:22 Sodium 136 L (137-145) mmol/L Potassium 4.3 (3.5-5.1) mmol/L Chloride 104 (98-107) mmol/L Carbon Dioxide 20 L (22-30) mmol/L BUN 16 (7-17) mg/dL Creatinine 0.58 (0.52-1.04) mg/dL Glucose 240 H (74-99) mg/dL Calcium 10.3 H (8.4-10.2) mg/dL Adrenal panel 11/22/22 Range/Units 09:22 Sodium 136 L (137-145) mmol/L Potassium 4.3 (3.5-5.1) mmol/L Chloride 104 (98-107) mmol/L Carbon Dioxide 20 L (22-30) mmol/L BUN 16 (7-17) mg/dL Creatinine 0.58 (0.52-1.04) mg/dL Glucose 240 H (74-99) mg/dL Calcium 10.3 H (8.4-10.2) mg/dL Total Bilirubin 0.5 (0.2-1.3) mg/dL AST 38 H (14-36) U/L ALT 54 H (4-34) U/L Alkaline Phosphatase 89 (38-126) U/L Total Protein 7.3 (6.3-8.2) g/dL Albumin 4.5 (3.5-5.0) g/dL
--- NOTE | 2022-11-22 15:48 | CT ---
EXAMINATION TYPE: CT abdomen pelvis wo con CT DLP: 967.6 mGycm, Automated exposure control for dose reduction was used. DATE OF EXAM: 11/22/2022 3:31 PM COMPARISON: CT abdomen pelvis most recent from 11/21/2022, 11/04/2022, 05/12/2016 TECHNIQUE: Standard CT of the abdomen and pelvis following the administration of oral contrast. Cor onal and sagittal reformats were performed. FINDINGS: Evaluation is limited due to lack of intravenous contrast. LOWER CHEST: Unremarkable ABDOMEN LIVER: Unremarkable noncontrast appearance. GALLBLADDER AND BILE DUCTS: The gallbladder is surgically absent. No biliary duct dilatation. PANCREAS: Unremarkable noncontrast appearance. SPLEEN: Stable upper limits of size measuring up to 14 cm. ADRENAL GLANDS: Stable indeterminate 1.2 cm left adrenal gland nodule with a Hounsfield unit of 14. T his is stable dating back to 2015 and considered benign. Right adrenal gland is unremarkable. KIDNEYS AND URETERS: No hydronephrosis or renal calculi. PELVIS BLADDER: Under distended, limiting evaluation. REPRODUCTIVE: Fibroid uterus with lobulated contour noted. ABDOMEN & PELVIS STOMACH AND BOWEL: Stomach is unremarkable. Circumferential thickening of the duodenum. No surroundin g inflammatory changes. Enteric contrast reaches the splenic flexure. No evidence of bowel obstructio n. PERITONEUM: No evidence of pneumoperitoneum or free fluid. VASCULATURE: No evidence of aortic aneurysm. Right common iliac artery vein stent is again present. MUSCULOSKELETAL: No acute osseous abnormalities LYMPH NODES: No gross evidence for lymphadenopathy. SOFT TISSUE/ABDOMINAL WALL: Postsurgical changes of the anterior, wall. IMPRESSION: 1. Circumferential wall thickening of the duodenum which can be seen with duodenitis. 2. Stable indeterminate left adrenal gland 1.2 cm nodule, stable dating back to 2015. Considered aubrey gn.
[2022-11-22] MEDS: ACETAMINOPHEN TAB 325 MG TAB PO PRN (16:12)
[2022-11-22] MEDS ORDERED: DEXTROSE 50% SYRINGE 50 ML IVP PRN ×2 (18:19)
--- NOTE | 2022-11-22 18:26 | P.HPIM ---
History of Present Illness This is a pleasant 47 years old female with past medical history of diabetes mellitus, status post cholecystectomy, nicotine dependence, motion sickness. Presents because of abdominal pain. She came to emergency room yesterday or t joe. patient says that her abdominal pain has been going on since last September 2022, and that her PCP Knows about It, and She Ordered Lactulose for Her with No Much Benefit. This Time Her Pain in the Left Upper Abdomen, Going around to the Back, with 10/10 in Severity, Improved with Pain Medication down to 4/10. She Vomited Yesterday and Twice Today, No Blood in His Vomitus. She Had Not Pasty-like Brown Bowel Movement This Morning with No Blood. Usually She Has a 9 Bowel Movements per Day but since September Her Bowel Movements Are Only 3-4 per Day but She Denies Overt Diarrhea she denies chest pain or dyspnea or coughing. She has some dizziness but no headache or weakness or numbness, no urinary symptoms. She supposed to follow-up with Dr. Hensley for kidney mass. She smokes about 6 cigarettes per day and she was counseled to quit and agrees to the nicotine patch but no alcohol or illicit drugs. Patient aware there is no GI service and this hospital but she does not want to be transfer to tertiary center. Patient also is diabetic and states she is taking metformin, glimepiride Actos and Januvia at home. Patient is mildly tachycardic around 108. Patient is afebrile. CBC is unremarkable. Sodium 136. Glucose elevated 311 and 240. Calcium was 10.3. Liver enzymes mildly elevated with AST 38, and ALT 54 which is stable from yesterday. Bilirubin is normal. Urinalysis showed glucose urea with no evidence of infection. CT of the abdomen and pelvis: 1.2 cm left adrenal gland nodule. Moderate amount of stool in the colon Abdominal x-ray from today show nonspecific abdomen EKG showing normal sinus rhythm at [address]-T changes HCG in the serum undetected today. Patient was admitted with surgery team consult. CT of the abdomen and pelvis without contrast: Gallbladder absent. Stable left 1.2 cm adrenal gland nodule with Hounsfield unit of 14. This is stable dating back to 2016 and considered benign. Right adrenal gland is unremarkable, uterine fibroids. Thickening of the duodenum suspicious for duodenitis Review of Systems Review of systems CONSTITUTIONAL: No fever, no malaise, no fatigue. HEENT: No recent visual problems or hearing problems. Denied any sore throat. CARDIOVASCULAR: No orthopnea, PND, no palpitations, no syncope. PULMONARY: No shortness of breath, no cough, no hemoptysis. GASTROINTESTINAL: No diarrhea, . Normoactive bowel sounds. NEUROLOGICAL: No headaches, no weakness, no numbness. HEMATOLOGICAL: Denies any bleeding or petechiae. GENITOURINARY: Denies any burning micturition, frequency, or urgency. MUSCULOSKELETAL/RHEUMATOLOGICAL: Denies any joint pain, swelling, or any muscle pain. ENDOCRINE: Denies any polyuria or polydipsia. Past Medical History Past Medical History: Diabetes Mellitus, Fibromyalgia, GERD/Reflux Additional Past Medical History / Comment(s): change in bowel habits, ovarian cyst History of Any Multi-Drug Resistant Organisms: None Reported Past Surgical History: Appendectomy, Cholecystectomy, Hernia Repair, Orthopedic Surgery, Uterine Ablation Additional Past Surgical History / Comment(s): sinus surgery, carpal tunnel-rt, vein stripping, aortic stent placed approx 2 years ago. Past Anesthesia/Blood Transfusion Reactions: Previous Problems w/ Anesthesia, Motion Sickness Additional Past Anesthesia/Blood Transfusion Reaction / Comment(s): "sometimes hard time coming out of anesthesia" Past Psychological History: Depression Smoking Status: Current every day smoker Past Alcohol Use History: Occasional Past Drug Use History: None Reported - Past Family History Father Family Medical History: Pulmonary Embolus Medications and Allergies Home Medications Medication Instructions Recorded Confirmed Type metFORMIN HCL [Glucophage] 1,000 mg PO BID 05/12/16 11/22/22 History Pregabalin [Lyrica] 75 mg PO BID 09/04/18 11/22/22 History Dulaglutide [Trulicity] 3 mg SQ DIRECTED 06/23/21 11/22/22 History Empagliflozin [Jardiance] 10 mg PO DAILY 04/08/22 11/22/22 History Glimepiride [Amaryl] 4 mg PO BID 04/08/22 11/22/22 History Ondansetron [Zofran] 4 mg PO QID PRN 04/08/22 11/22/22 History Rosuvastatin Calcium [Crestor] 20 mg PO DAILY 04/08/22 11/22/22 History Acetaminophen Tab [Tylenol] 650 mg PO Q4HR PRN tab 04/14/22 11/22/22 Rx Vortioxetine Hydrobromide 20 mg PO DAILY 30 Days tab 04/14/22 11/22/22 Rx [Trintellix] Albuterol Sulfate [Proair Hfa] 2 puff INHALATION RT-Q6H PRN 11/22/22 11/22/22 History HYDROcodone/APAP 5-325MG [[place] 5] 1 tab PO Q6HR PRN 11/22/22 11/22/22 History Ibuprofen [Motrin] 800 mg PO TID PRN 11/22/22 11/22/22 History Lactulose 10 gm PO DAILY PRN 11/22/22 11/22/22 History OXcarbazepine [Trileptal] 300 mg PO HS 11/22/22 11/22/22 History Omeprazole 20 mg PO DAILY 11/22/22 11/22/22 History Phentermine HCl [Adipex-P] 37.5 mg PO DAILY 11/22/22 11/22/22 History Pioglitazone [Actos] 15 mg PO HS 11/22/22 11/22/22 History bisacodyL [Dulcolax] 5 mg PO DAILY PRN 11/22/22 11/22/22 History buPROPion HCL [Wellbutrin SR] 200 mg PO BID 11/22/22 11/22/22 History Allergies Allergy/AdvReac Type Severity Reaction Status Date / Time codeine AdvReac Nausea & Verified 11/22/22 11:18 Vomiting Physical Exam Vitals: Vital Signs Temp Pulse Resp BP Pulse Ox 11/22/22 08:51 98.4 F 108 H 16 122/88 96 Intake and Output 11/21/22 11/22/22 11/22/22 22:59 06:59 14:59 Other: Weight 97.522 kg GENERAL: The patient is alert and oriented x3, not in any acute distress. Well developed, well nourished. HEENT: Pupils are round and equally reacting to light. EOMI. No scleral icterus. No conjunctival pallor. Normocephalic, atraumatic. No pharyngeal erythema. No thyromegaly. CARDIOVASCULAR: S1 and S2 present. No murmurs, rubs, or gallops. PULMONARY: Chest is clear to auscultation, no wheezing or crackles. -ABDOMEN: Soft, epigastric and left upper quadrant tendernessr, nondistended, normoactive bowel sounds. No palpable organomegaly. MUSCULOSKELETAL: No joint swelling or deformity. EXTREMITIES: No cyanosis, clubbing, or pedal edema. NEUROLOGICAL: Gross neurological examination did not reveal any focal deficits. SKIN: No rashes. no petechiae. Results CBC & Chem 7: 11/22/22 09:22 11/22/22 09:22 Labs: Abnormal Lab Results - Last 24 Hours (Table) 11/22/22 11/22/22 Range/Units 09:22 09:22 Sodium 136 L (137-145) mmol/L Carbon Dioxide 20 L (22-30) mmol/L Glucose 240 H (74-99) mg/dL Calcium 10.3 H (8.4-10.2) mg/dL AST 38 H (14-36) U/L ALT 54 H (4-34) U/L Urine Glucose (UA) 4+ H (Negative) Urine Ketones 1+ H (Negative) Assessment and Plan Assessment: Abdominal pain secondary to Duodenitis, acute Diabetes mellitus with hyperglycemia stable Left adrenal nodule 1.2 cmsince 2016 Mild transaminitis. Stable. History of cholecystectomy nicotine dependence obesity with BMI of 36.9 diabetes mellitus uterine fibroids fibromyalgia History of GERD Plan: Continue with bowel rest IV fluids Pain management Surgery team consult check pro-calcitonin Labs and medication were reviewed.. Continue same treatment. Continue with symptomatic treatment. Resume home medication. Monitor labs and vitals. DVT and GI prophylaxis. Further recommendations as per clinical course of the patient DVT prophylaxis: Subcutaneous heparin GI Prophylaxis: Ppi Protonix IV twice a day Prognosis is guarded
[2022-11-22] MEDS: ONDANSETRON 4 MG/2 ML VIAL IVP PRN (18:41)
[2022-11-22] MEDS ORDERED: ALBUTEROL HFA INHALER INHALATION PRN (20:31)
[2022-11-22 20:38] LABS: Glucose,Whole Blood 213 mg/dL (70-110)
[2022-11-22] MEDS: OXcarbazepine 300 MG TAB PO SCH (21:23)
[2022-11-22] MEDS: INSULIN ASPART (NovoLOG) 100 UNIT/ML VIAL SQ SCH (21:25)
[2022-11-22] MEDS: HEPARIN SODIUM,PORCINE/PF 5,000 UNIT/0.5 ML SYRINGE SQ SCH (21:25)
[2022-11-22] MEDS: NICOTINE 14MG/24HR PATCH TRANSDERM SCH (21:26)
[2022-11-23] MEDS: ONDANSETRON 4 MG/2 ML VIAL IVP PRN ×4 (01:14→20:23)
[2022-11-23] MEDS: SODIUM CHLORIDE 0.9% 1,000 ML IV SCH ×3 (01:15→18:15)
[2022-11-23] MEDS: HYDROmorphone 0.5 MG/0.5 ML SYRINGE IVP PRN ×3 (05:55→18:16)
[2022-11-23 07:12] LABS: Glucose,Whole Blood 193 mg/dL (70-110)
[2022-11-23] MEDS: HEPARIN SODIUM,PORCINE/PF 5,000 UNIT/0.5 ML SYRINGE SQ SCH ×2 (09:05→20:23)
[2022-11-23] MEDS: PANTOPRAZOLE 40 MG/10 ML VIAL IVP SCH ×2 (09:05→20:25)
[2022-11-23] MEDS: INSULIN ASPART (NovoLOG) 100 UNIT/ML VIAL SQ SCH ×4 (09:05→20:45)
[2022-11-23] MEDS: NICOTINE 14MG/24HR PATCH TRANSDERM SCH (09:06)
[2022-11-23] MEDS: ACETAMINOPHEN TAB 325 MG TAB PO PRN (09:19)
[2022-11-23 09:41] LABS: Basophils # (A) 0.03 X 10*3/uL (0.00-0.10); Basophils % (A) 0.5 %; Eosinophils # (A) 0.15 X 10*3/uL (0.04-0.35); Eosinophils % (A) 2.6 %; HCT 43.4 % (37.2-46.3); HGB 14.6 g/dL (12.0-15.0); Immature Grans, Automated 0.7 %; Lymphocytes # (A) 2.06 X 10*3/uL (0.90-5.00); Lymphocytes % (A) 36.1 %; MCH 30.4 pg (27.0-32.0); MCHC 33.6 g/dL (32.0-37.0); MCV 90.2 fL (80.0-97.0); Mean Platelet Volume 10.1 fL (9.5-12.2); Monocytes # (A) 0.39 X 10*3/uL (0.20-1.00); Monocytes % (A) 6.8 %; NRBC Per 100 WBC 0 /100 WBCS (0.0-0.0); Neutrophils # (A) 3.03 X 10*3/uL (1.80-7.70); Neutrophils % (A) 53.3 %; Platelet Count 206 X 10*3/uL (140-440); RBC 4.81 X 10*6/uL (4.10-5.20); RDW 12.6 % (11.5-14.5)
[2022-11-23] MEDS ORDERED: PEG 3350 (236 GM/BTL) + LYTES 4,000 ML BOTTLE PO ONE (10:00)
[2022-11-23 10:04] LABS: ALT 52 U/L (8-44); AST 36 U/L (13-35); African American GFR (CKD) 117.8 (60.0-200.0); Albumin 4.1 g/dL (3.8-4.9); Albumin/Globulin Ratio 1.94 (1.60-3.17); Alkaline Phosphatase 63 U/L (41-126); BUN/Creat Ratio 16.27 Ratio (12.00-20.00); Bilirubin, Conjugated <0.20 mg/dL (0.20-0.40); Blood Urea Nitrogen 11.6 mg/dL (9.0-27.0); Calcium 9.1 mg/dL (8.7-10.3); Carbon Dioxide 22.7 mmol/L (20.0-27.5); Chloride 106 mmol/L (96-109); Globulin 2.1 g/dL (1.6-3.3); Glucose 204 mg/dL (70-110); Non-African American GFR(CKD) 101.6 (60.0-200.0); Potassium 4.5 mmol/L (3.5-5.5); Sodium 140 mmol/L (135-145); Total Protein 6.2 g/dL (6.2-8.2)
--- NOTE | 2022-11-23 10:42 | P.GSCN ---
History of Present Illness Consult date: 11/23/22 Reason for Consult: Left kidney mass Requesting physician: Milagro Gomez History of present illness: The patient is a 47-year-old female with a past medical history significant for diabetes mellitus, fibromyalgia appendectomy, and cholecystectomy. The was just in emergency department on 11/21 with abdominal pain and the CT scan without contrast had shown fecal stasis and ileus, and an indeterminate left adrenal 1.2 cm nodule. She was discharged home with Dulcolax and pain medication. The patient presented to the emergency department on 11/22/22 again with complaints of abdominal pain, nausea, and vomiting. She reports the abdominal pain has been ongoing for 3 months, but has gotten progressively worse over the last few days. 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 CT scan on 11/22 revealed a stable indeterminant 1.2 cm left adrenal gland nodule with a Hounsfield unit of 14. This is stable dating back to 2015 and considered benign. Right adrenal gland is unremarkable. No hydronephrosis or renal calculi noted. Review of Systems - Constitutional Denies chills, Denies fever - Cardiovascular Denies chest pain, Denies shortness of breath - Gastrointestinal Reports abdominal pain, Reports nausea, Reports vomiting - Genitourinary Genitourinary: Reports flank pain, Reports urinary frequency, Denies dysuria Past Medical History Past Medical History: Diabetes Mellitus, Fibromyalgia, GERD/Reflux Additional Past Medical History / Comment(s): change in bowel habits, ovarian cyst History of Any Multi-Drug Resistant Organisms: None Reported Past Surgical History: Appendectomy, Cholecystectomy, Hernia Repair, Orthopedic Surgery, Uterine Ablation Additional Past Surgical History / Comment(s): sinus surgery, carpal tunnel-rt, vein stripping, aortic stent placed approx 2 years ago. Past Anesthesia/Blood Transfusion Reactions: Previous Problems w/ Anesthesia, Motion Sickness Additional Past Anesthesia/Blood Transfusion Reaction / Comm: "sometimes hard time coming out of anesthesia" Past Psychological History: Depression Smoking Status: Current every day smoker Past Alcohol Use History: Occasional Past Drug Use History: None Reported - Past Family History Father Family Medical History: Pulmonary Embolus Medications and Allergies Home Medications Medication Instructions Recorded Confirmed Type metFORMIN HCL [Glucophage] 1,000 mg PO BID 05/12/16 11/22/22 History Pregabalin [Lyrica] 75 mg PO BID 09/04/18 11/22/22 History Dulaglutide [Trulicity] 3 mg SQ DIRECTED 06/23/21 11/22/22 History Empagliflozin [Jardiance] 10 mg PO DAILY 04/08/22 11/22/22 History Glimepiride [Amaryl] 4 mg PO BID 04/08/22 11/22/22 History Ondansetron [Zofran] 4 mg PO QID PRN 04/08/22 11/22/22 History Rosuvastatin Calcium [Crestor] 20 mg PO DAILY 04/08/22 11/22/22 History Acetaminophen Tab [Tylenol] 650 mg PO Q4HR PRN tab 04/14/22 11/22/22 Rx Vortioxetine Hydrobromide 20 mg PO DAILY 30 Days tab 04/14/22 11/22/22 Rx [Trintellix] Albuterol Sulfate [Proair Hfa] 2 puff INHALATION RT-Q6H PRN 11/22/22 11/22/22 History HYDROcodone/APAP 5-325MG [[place] 5] 1 tab PO Q6HR PRN 11/22/22 11/22/22 History Ibuprofen [Motrin] 800 mg PO TID PRN 11/22/22 11/22/22 History Lactulose 10 gm PO DAILY PRN 11/22/22 11/22/22 History OXcarbazepine [Trileptal] 300 mg PO HS 11/22/22 11/22/22 History Omeprazole 20 mg PO DAILY 11/22/22 11/22/22 History Phentermine HCl [Adipex-P] 37.5 mg PO DAILY 11/22/22 11/22/22 History Pioglitazone [Actos] 15 mg PO HS 11/22/22 11/22/22 History bisacodyL [Dulcolax] 5 mg PO DAILY PRN 11/22/22 11/22/22 History buPROPion HCL [Wellbutrin SR] 200 mg PO BID 11/22/22 11/22/22 History Allergies Allergy/AdvReac Type Severity Reaction Status Date / Time codeine AdvReac Nausea & Verified 11/22/22 11:18 Vomiting Surgical - Exam Vital Signs Temp Pulse Resp BP Pulse Ox 98.4 F 108 H 16 122/88 96 11/22/22 08:51 11/22/22 08:51 11/22/22 08:51 11/22/22 08:51 11/22/22 08:51 General: Well developed, well nourished. No acute distress. HEENT: Head is atraumatic, normocephalic. Lungs: Respirations even and nonlabored. Abdomen/GI: Soft, Nondistended. Abdomen tender to palpitation. : No suprapubic tenderness. Left flank tenderness. Skin: Warm and dry Neurologic: Awake, alert and oriented times 3. CN II-XII grossly intact. No focal deficits. Psychiatric: Appropriate mood and affect. Results - Labs 11/23/22 06:27 11/23/22 06:27 Abnormal Lab Results - Last 24 Hours (Table) 11/22/22 11/23/22 Range/Units 20:36 07:11 POC Glucose (mg/dL) 213 H 193 H (70-110) mg/dL - Imaging Abdominal x-ray: report reviewed CT scan - abdomen: report reviewed CT scan - pelvis: report reviewed Assessment and Plan Assessment: The patient has diffuse abdominal and left flank tenderness to palpitation. She states her pain radiates from the left upper quadrant to her back. She denies any difficulty urinating. She reports frequent urination. She reports that her pain increases if she does not void frequently. She denies any hematuria or dysuria. She does not have a history of kidney stones. Urinalysis is not indicative of infection. Serum creatinine is 0.7Previous abdominal surgeries include appendectomy, cholecystectomy, umbilical hernia repair, and AAA stent placement. The patient has a smoking history of 6-10 cigarettes a day for approximately 10 years. Family history includes a grandmother that had bladder cancer. She was aware of her left renal mass and supposed to follow up in our office on Monday. We will obtain a MRI to further evaluate the left renal mass and left adrenal mass. We will check cortisol levels during follow-up appointment as outpatient, as they may be falsely elevated secondary to her ileus. (1) Adrenal mass Current Visit: Yes Status: Acute Code(s): E27.8 - OTHER SPECIFIED DISORDERS OF ADRENAL GLAND SNOMED Code(s): 534388934 (2) Left renal mass Current Visit: Yes Status: Acute Code(s): N28.89 - OTHER SPECIFIED DISORDERS OF KIDNEY AND URETER SNOMED Code(s): 407554896 Plan: - MRI to evaluate adrenal gland and kidney masses - Continue current pain regimen as needed - Continue antiemetics Impression and plan of care have been directed as dictated by the signing physician. Dagmar De Leon nurse practitioner acting as scribe for signing physician. Dagmar De Leon [facility] Palliative Care/Urology [facility] [id number] Email: [email or web address] I personally performed and participated in the history, physical, the decision making, I agree with the assessment and plan of [employer]
[2022-11-23 11:11] LABS: Glucose,Whole Blood 170 mg/dL (70-110)
--- NOTE | 2022-11-23 12:13 | P.PN ---
Subjective Progress Note Date: 11/23/22 CHIEF COMPLAINT: Abdominal pain HISTORY OF PRESENT ILLNESS: Patient continues to report epigastric and left upper quadrant pain that radiates to the left side. She does report nausea. Denies any vomiting. Computed tomography scan has shown circumferential wall thickening of the duodenum which can be seen with duodenitis. Stable indeterminate left adrenal gland 1.2 cm nodule, stable dating back to 2016. Consider benign. Patient seen by urology service. MRI has been ordered. Patient does have a known history of colon polyps. Last colonoscopy was in 2016. She was due for repeat colonoscopy. PHYSICAL EXAM: VITAL SIGNS: Reviewed. GENERAL: Well-developed in no acute distress. HEENT: No sclera icterus. Extraocular movements grossly intact. Moist buccal mucosa. Head is atraumatic, normocephalic. ABDOMEN: Soft. Nondistended. Epigastric and left upper quadrant tenderness NEUROLOGIC: Alert and oriented. Cranial nerves II through XII grossly intact. ASSESSMENT: 1. Epigastric and left upper quadrant abdominal pain with evidence of duodenal thickening on CAT scan likely due to duodenitis 2. History of colon polyps PLAN: -Patient scheduled for EGD and colonoscopy tomorrow with Dr. patel -Start GoLYTELY prep today -Clear liquid diet today -Nothing by mouth after midnight -Continue PPI Physician Facialist note has been reviewed by physician. Signing provider agrees with the documented findings, assessment, and plan of care. Objective - Vital Signs Vital signs: Vital Signs Temp 98.4 F 11/23/22 07:08 Pulse 82 11/23/22 07:08 Resp 17 11/23/22 07:08 BP 98/61 11/23/22 07:08 Pulse Ox 97 11/23/22 07:08 FiO2 Intake & Output 11/22/22 11/23/22 11/23/22 18:59 06:59 18:59 Intake Total 1560 Balance 1560 Weight 97.522 kg Intake: Intake, IV Titration 1560 Amount Sodium Chloride 0.9% 1, 1560 000 ml @ 130 mls/hr IV . Q7H42M [facility] Rx#:[id number] Other: Voiding Method Toilet Toilet - Labs CBC & Chem 7: 11/23/22 06:27 11/23/22 06:27 Labs: Abnormal Lab Results - Last 24 Hours (Table) 11/22/22 11/23/22 11/23/22 Range/Units 20:36 06:27 06:27 Glucose 204 H (70-110) mg/dL POC Glucose (mg/dL) 213 H (70-110) mg/dL Hemoglobin A1c 9.2 H (0.0-6.0) % Conjugated Bilirubin <0.20 L (0.20-0.40) mg/dL AST 36 H (13-35) U/L ALT 52 H (8-44) U/L 11/23/22 11/23/22 Range/Units 07:11 11:09 Glucose (70-110) mg/dL POC Glucose (mg/dL) 193 H 170 H (70-110) mg/dL Hemoglobin A1c (0.0-6.0) % Conjugated Bilirubin (0.20-0.40) mg/dL AST (13-35) U/L ALT (8-44) U/L
--- NOTE | 2022-11-23 13:40 | P.PN ---
Subjective This is a pleasant 47 years old female with past medical history of diabetes mellitus, status post cholecystectomy, nicotine dependence, motion sickness. Presents because of abdominal pain. She came to emergency room yesterday or today. patient says that her abdominal pain has been going on since last September 2022, and that her PCP Knows about It, and She Ordered Lactulose for Her with No Much Benefit. This Time Her Pain in the Left Upper Abdomen, Going around to the Back, with 10/10 in Severity, Improved with Pain Medication down to 4/10. She Vomited Yesterday and Twice Today, No Blood in His Vomitus. She Had Not Pasty-like Brown Bowel Movement This Morning with No Blood. Usually She Has a 9 Bowel Movements per Day but since September Her Bowel Movements Are Only 3-4 per Day but She Denies Overt Diarrhea she denies chest pain or dyspnea or coughing. She has some dizziness but no headache or weakness or numbness, no urinary symptoms. She supposed to follow-up with Dr. Hensley for kidney mass. She smokes about 6 cigarettes per day and she was counseled to quit and agrees to the nicotine patch but no alcohol or illicit drugs. Patient aware there is no GI service and this hospital but she does not want to be transfer to tertiary center. Patient also is diabetic and states she is taking metformin, glimepiride Actos and Januvia at home. Patient is mildly tachycardic around 108. Patient is afebrile. CBC is unremarkable. Sodium 136. Glucose elevated 311 and 240. Calcium was 10.3. Liver enzymes mildly elevated with AST 38, and ALT 54 which is stable from yesterday. Bilirubin is normal. Urinalysis showed glucose urea with no evidence of infection. CT of the abdomen and pelvis: 1.2 cm left adrenal gland nodule. Moderate amount of stool in the colon Abdominal x-ray from today show nonspecific abdomen EKG showing normal sinus rhythm at [address]-T changes HCG in the serum undetected today. Patient was admitted with surgery team consult. CT of the abdomen and pelvis without contrast: Gallbladder absent. Stable left 1.2 cm adrenal gland nodule with Hounsfield unit of 14. This is stable dating b ack to 2016 and considered benign. Right adrenal gland is unremarkable, uterine fibroids. Thickening of the duodenum suspicious for duodenitis 11/23/2022 Patient is with abdominal pain today 05/22, she had 1 bowel movement with no blood and she is tolerating liquid diet with no vomiting or nausea. She remains on normal saline. By mouth medication are held because she has NG tube accept Trileptal because of her history of seizure. Surgery team on the case with the plan for EGD/colonoscopy tomorrow Neurology input recommended MRI for today adrenal gland, however patient states that she has appointment with her urologist Dr. Vargas on this coming saturday 11/25 for the same reason. Objective - Vital Signs Vital signs: Vital Signs Temp 98.1 F 11/23/22 12:04 Pulse 80 11/23/22 12:04 Resp 17 11/23/22 12:04 BP 105/69 11/23/22 12:04 Pulse Ox 100 11/23/22 12:04 FiO2 Intake & Output 11/22/22 11/23/22 11/23/22 18:59 06:59 18:59 Intake Total 1560 Balance 1560 Weight 97.522 kg Intake: Intake, IV Titration 1560 Amount Sodium Chloride 0.9% 1, 1560 000 ml @ 130 mls/hr IV . Q7H42M [facility] Rx#:[id number] Other: Voiding Method Toilet Toilet - Exam GENERAL: The patient is alert and oriented x3, not in any acute distress. Well developed, well nourished. HEENT: Pupils are round and equally reacting to light. EOMI. No scleral icterus. No conjunctival pallor. Normocephalic, atraumatic. No pharyngeal erythema. No thyromegaly. CARDIOVASCULAR: S1 and S2 present. No murmurs, rubs, or gallops. PULMONARY: Chest is clear to auscultation, no wheezing or crackles. -ABDOMEN: Soft, left lower quadrant tenderness and epigastric tenderness, nondistended, normoactive bowel sounds. No palpable organomegaly. NG tube in place MUSCULOSKELETAL: No joint swelling or deformity. EXTREMITIES: No cyanosis, clubbing, or pedal edema. NEUROLOGICAL: Gross neurological examination did not reveal any focal deficits. SKIN: No rashes. no petechiae. - Labs CBC & Chem 7: 11/23/22 06:27 11/23/22 06:27 Labs: Abnormal Lab Results - Last 24 Hours (Table) 11/22/22 11/23/22 11/23/22 Range/Units 20:36 06:27 06:27 Glucose 204 H (70-110) mg/dL POC Glucose (mg/dL) 213 H (70-110) mg/dL Hemoglobin A1c 9.2 H (0.0-6.0) % Conjugated Bilirubin <0.20 L (0.20-0.40) mg/dL AST 36 H (13-35) U/L ALT 52 H (8-44) U/L 11/23/22 11/23/22 Range/Units 07:11 11:09 Glucose (70-110) mg/dL POC Glucose (mg/dL) 193 H 170 H (70-110) mg/dL Hemoglobin A1c (0.0-6.0) % Conjugated Bilirubin (0.20-0.40) mg/dL AST (13-35) U/L ALT (8-44) U/L Assessment and Plan Assessment: Abdominal pain secondary to Duodenitis, acute Diabetes mellitus with hyperglycemia stable Left adrenal nodule 1.2 cmsince 2016 Mild transaminitis. Stable. History of cholecystectomy nicotine dependence obesity with BMI of 36.9 diabetes mellitus uterine fibroids fibromyalgia History of GERD Plan: Continue with bowel rest IV fluids Pain management Surgery team consult check EGD and colonoscopy tomorrow Neurologist on the case and recommended MRI however patient has appointment with her urologist on 09/25 Labs and medication were reviewed.. Continue same treatment. Continue with symptomatic treatment. Resume home medication. Monitor labs and vitals. DVT and GI prophylaxis. Further recommendations as per clinical course of the patient DVT prophylaxis: Subcutaneous heparin GI Prophylaxis: Ppi Protonix IV twice a day Prognosis is guarded
[2022-11-23 17:04] LABS: Glucose,Whole Blood 173 mg/dL (70-110)
[2022-11-23 20:20] LABS: Glucose,Whole Blood 217 mg/dL (70-110)
[2022-11-23] MEDS: OXcarbazepine 300 MG TAB PO SCH (20:23)
[2022-11-24] MEDS: HYDROmorphone 0.5 MG/0.5 ML SYRINGE IVP PRN ×4 (02:21→21:13)
[2022-11-24] MEDS: ACETAMINOPHEN TAB 325 MG TAB PO PRN (02:22)
[2022-11-24] MEDS: SODIUM CHLORIDE 0.9% 1,000 ML IV SCH ×3 (04:14→18:04)
[2022-11-24 07:08] LABS: Basophils % (A) 1 %; Eosinophils # (A) 0.1 k/uL (0-0.7); Eosinophils % (A) 3 %; HCT 41.7 % (34.0-46.0); Lymphocytes # (A) 1.9 k/uL (1.0-4.8); Lymphocytes % (A) 37 %; MCH 30.1 pg (25.0-35.0); MCHC 33.6 g/dL (31.0-37.0); MCV 89.5 fL (80.0-100.0); Mean Platelet Volume 7.8; Monocytes # (A) 0.3 k/uL (0-1.0); Monocytes % (A) 5 %; Neutrophils # (A) 2.6 k/uL (1.3-7.7); Neutrophils % (A) 52 %; Platelet Count 175 k/uL (150-450); RBC 4.66 m/uL (3.80-5.40)
[2022-11-24 07:09] LABS: African American GFR (CKD) >90 (>60 ml/min/1.73 sqM); Anion Gap 1 mmol/L; Blood Urea Nitrogen 6 mg/dL (7-17); Calcium 8.5 mg/dL (8.4-10.2); Carbon Dioxide 28 mmol/L (22-30); Chloride 107 mmol/L (98-107); Glucose 171 mg/dL (74-99); Non-African American GFR(CKD) >90 (>60 ml/min/1.73 sqM); Potassium 4.2 mmol/L (3.5-5.1); Sodium 136 mmol/L (137-145)
[2022-11-24 07:16] LABS: Glucose,Whole Blood 163 mg/dL (70-110)
[2022-11-24] MEDS: INSULIN ASPART (NovoLOG) 100 UNIT/ML VIAL SQ SCH ×4 (07:51→21:08)
[2022-11-24] MEDS: HEPARIN SODIUM,PORCINE/PF 5,000 UNIT/0.5 ML SYRINGE SQ SCH ×2 (07:52→21:09)
[2022-11-24] MEDS: ONDANSETRON 4 MG/2 ML VIAL IVP PRN ×2 (07:52→15:02)
[2022-11-24] MEDS: PANTOPRAZOLE 40 MG/10 ML VIAL IVP SCH ×2 (07:52→21:09)
[2022-11-24] MEDS: NICOTINE 14MG/24HR PATCH TRANSDERM SCH (07:55)
[2022-11-24] MEDS ORDERED: IV FLUID CONTINUATION 1,000 ML IV ONE (10:42)
[2022-11-24] MEDS ORDERED: LIDOCAINE 2% INJ 20 MG/ML (2 ML VIAL) ONE (10:44)
[2022-11-24] MEDS ORDERED: PROPOFOL 10 MG/ML 20 ML VIAL IV ONE (10:44)
[2022-11-24] MEDS ORDERED: PHENYLEPHRINE-0.9% NACL SYG 1,000 MCG/10 ML SYRINGE ONE (10:44)
--- NOTE | 2022-11-24 11:01 | P.OP ---
Date of Procedure: 11/24/22 Preoperative Diagnosis: Abdominal pain Postoperative Diagnosis: Antral gastritis Procedure(s) Performed: EGD Colonoscopy Anesthesia: MAC Surgeon: Chad Hernadez Pathology: other (Antrum) Condition: stable Disposition: PACU Description of Procedure: Patient's placed on the endoscopy table in the lateral position. She received IV sedation. The gastroscope placed oropharynx passed in the esophagus and into the stomach. Scope was then placed through the pylorus. First and second portion of the duodenum appeared normal. There is no evidence of duodenitis. Scope was then brought back the antrum and this appeared minimally inflamed. A biopsies performed. The scope was unretroflexed and remainder of the stomach appeared normal. The GE junction was at 40 cm per the distal esophagus appeared normal. The proximal esophagus appeared normal. The withdrawn for patient. Next digital rectal exam was performed. This revealed a few external hemorrhoids. The flexible colonoscope was then placed patient anus and passed throughout the colon. The cecal valve was visually is. The cecum, ascending and transverse colon appeared normal. The descending and sigmoid colon appeared normal. Scope was brought back the rectum and this appeared normal. The scope was then withdrawn. There is no signs of inflammatory bowel disease.
[2022-11-24 11:13] LABS: Glucose,Whole Blood 200 mg/dL (70-110)
[2022-11-24] MEDS ORDERED: SODIUM CHLORIDE 0.9% 500 ML 500 ML IV ONE (12:42)
[2022-11-24] MEDS ORDERED: bisacodyL 5 MG TABLET.DR PO PRN (12:44)
--- NOTE | 2022-11-24 12:49 | P.PN ---
Progress Note - Text Progress Note Date: 11/24/22 The patient was being taken down to endoscopy for an EGD and a colonoscopy. No acute events overnight. No changes in her abdominal pain and nausea. She is still voiding without difficulty. MRI to further evaluate the left renal mass and left adrenal mass is still pending. Will continue to follow. Impression and plan of care have been directed as dictated by the signing physician. Dagmar De Leon nurse practitioner acting as scribe for signing physician. Dagmar De Leon [facility] Palliative Care/Urology [place] [id number] Email: [email or web address]
--- NOTE | 2022-11-24 12:52 | P.PN ---
Subjective This is a pleasant 47 years old female with past medical history of diabetes mellitus, status post cholecystectomy, nicotine dependence, motion sickness. Presents because of abdominal pain. She came to emergency room yesterday or today. patient says that her abdominal pain has been going on since last September 2022, and that her PCP Knows about It, and She Ordered Lactulose for Her with No Much Benefit. This Time Her Pain in the Left Upper Abdomen, Going around to the Back, with 10/10 in Severity, Improved with Pain Medication down to 4/10. She Vomited Yesterday and Twice Today, No Blood in His Vomitus. She Had Not Pasty-like Brown Bowel Movement This Morning with No Blood. Usually She Has a 9 Bowel Movements per Day but since September Her Bowel Movements Are Only 3-4 per Day but She Denies Overt Diarrhea she denies chest pain or dyspnea or coughing. She has some dizziness but no headache or weakness or numbness, no urinary symptoms. She supposed to follow-up with Dr. Hensley for kidney mass. She smokes about 6 cigarettes per day and she was counseled to quit and agrees to the nicotine patch but no alcohol or illicit drugs. Patient aware there is no GI service and this hospital but she does not want to be transfer to tertiary center. Patient also is diabetic and states she is taking metformin, glimepiride Actos and Januvia at home. Patient is mildly tachycardic around 108. Patient is afebrile. CBC is unremarkable. Sodium 136. Glucose elevated 311 and 240. Calcium was 10.3. Liver enzymes mildly elevated with AST 38, and ALT 54 which is stable from yesterday. Bilirubin is normal. Urinalysis showed glucose urea with no evidence of infection. CT of the abdomen and pelvis: 1.2 cm left adrenal gland nodule. Moderate amount of stool in the colon Abdominal x-ray from today show nonspecific abdomen EKG showing normal sinus rhythm at [address]-T changes HCG in the serum undetected today. Patient was admitted with surgery team consult. CT of the abdomen and pelvis without contrast: Gallbladder absent. Stable left 1.2 cm adrenal gland nodule with Hounsfield unit of 14. This is stable dating b ack to 2016 and considered benign. Right adrenal gland is unremarkable, uterine fibroids. Thickening of the duodenum suspicious for duodenitis 11/23/2022 Patient is with abdominal pain today 05/22, she had 1 bowel movement with no blood and she is tolerating liquid diet with no vomiting or nausea. She remains on normal saline. By mouth medication are held because she has NG tube accept Trileptal because of her history of seizure. Surgery team on the case with the plan for EGD/colonoscopy tomorrow Neurology input recommended MRI for today adrenal gland, however patient states that she has appointment with her urologist Dr. Vargas on this coming saturday 11/25 for the same reason. 11/24/2022 Patient still complains from some nausea and she is complaining of from abdominal pain with some tenderness in the epigastric and left abdomen, she still is not able to tolerate diet well. Postoperative pressures until the low side. She had EGD and colonoscopy today which they were remarkable for significant abnormality some minimal antritis/gastritis and biopsy was taken. But no findings to explain patient's symptoms. Her vitals are stable other than moderately low blood pressure. Also patient hemoglobin A1c is uncontrolled with 9.2%. Patient has uncontrolled diabetes which might contribute into her GI symptoms. We going to give bolus of normal saline Advance diet as tolerated Also we'll start Bentyl Possible discharge in 24-48 hours once patient able to tolerate diet. Patient will need better control of her diabetes as an outpatient Objective - Vital Signs Vital signs: Vital Signs Temp 98.3 F 11/24/22 11:15 Pulse 74 11/24/22 11:15 Resp 17 11/24/22 11:15 BP 99/66 11/24/22 11:15 Pulse Ox 94 L 11/24/22 11:15 FiO2 Intake & Output 11/23/22 11/24/22 11/24/22 18:59 06:59 18:59 Intake Total 100 Balance 100 Intake: IV 100 Other: Voiding Method Toilet # Voids 6 3 # Bowel Movements 6 3 - Exam GENERAL: The patient is alert and oriented x3, not in any acute distress. Well developed, well nourished. HEENT: Pupils are round and equally reacting to light. EOMI. No scleral icterus. No conjunctival pallor. Normocephalic, atraumatic. No pharyngeal erythema. No thyromegaly. CARDIOVASCULAR: S1 and S2 present. No murmurs, rubs, or gallops. PULMONARY: Chest is clear to auscultation, no wheezing or crackles. -ABDOMEN: Soft, left lower quadrant tenderness and epigastric tenderness, nondistended, normoactive bowel sounds. No palpable organomegaly. NG tube in place MUSCULOSKELETAL: No joint swelling or deformity. EXTREMITIES: No cyanosis, clubbing, or pedal edema. NEUROLOGICAL: Gross neurological examination did not reveal any focal deficits. SKIN: No rashes. no petechiae. - Labs CBC & Chem 7: 11/24/22 06:33 11/24/22 06:37 Labs: Abnormal Lab Results - Last 24 Hours (Table) 11/23/22 11/23/22 11/24/22 Range/Units 17:03 20:17 06:37 Sodium 136 L (137-145) mmol/L BUN 6 L (7-17) mg/dL Glucose 171 H (74-99) mg/dL POC Glucose (mg/dL) 173 H 217 H (70-110) mg/dL 11/24/22 11/24/22 Range/Units 07:15 11:11 Sodium (137-145) mmol/L BUN (7-17) mg/dL Glucose (74-99) mg/dL POC Glucose (mg/dL) 163 H 200 H (70-110) mg/dL Assessment and Plan Assessment: Abdominal pain secondary to Duodenitis, acute. However EGD/colonoscopy were unremarkable Diabetes mellitus with hyperglycemia stable Left adrenal nodule 1.2 cmsince 2016 Mild transaminitis. Stable. History of cholecystectomy nicotine dependence obesity with BMI of 36.9 diabetes mellitus uterine fibroids fibromyalgia History of GERD Plan: Advance diet as tolerated IV fluids Pain management Surgery team consult Follow-up biopsy of the EGD Start Bentyl Patient will need better control of her diabetes, she might benefit from construction inspector as an outpatient Neurologist on the case and recommended MRI however patient has appointment with her urologist on 09/25. Follow-up MRI of the abdomen ordered by urologist Labs and medication were reviewed.. Continue same treatment. Continue with symptomatic treatment. Resume home medication. Monitor labs and vitals. DVT and GI prophylaxis. Further recommendations as per clinical course of the patient DVT prophylaxis: Subcutaneous heparin GI Prophylaxis: Ppi Protonix IV twice a day Prognosis is guarded
[2022-11-24] MEDS: DICYCLOMINE 10 MG CAP PO SCH ×3 (13:06→21:08)
--- NOTE | 2022-11-24 15:09 | MR ---
EXAMINATION TYPE: MR abdomen wo/w con DATE OF EXAM: 11/24/2022 COMPARISON: CT abdomen and pelvis 2 days ago and older CTs back to 2015 HISTORY: Left side abdominal pain, abnormal CT. CONTRAST: Standard multiplanar, multisequence MRI departmental protocol images were obtained without contrast a nd with 11 mL intravenous Gadavist gadolinium contrast. Imaging performed of the abdomen focusing on the adrenal glands. FINDINGS: Adrenal glands: Persistent thickening to the left adrenal gland with subtle small nodularity or mass inferiorly measuring 1.5 x 1.2 cm showing diffuse signal dropout consistent with benign lipid rich ad enoma. This is grossly unchanged in size from the 2015 CT. Right adrenal gland appears within normal limits. Other: Lung bases are clear. The spleen and pancreas appear within normal limits. There is no concern ing renal mass or hydronephrosis. No suspicious small or large bowel dilatation. Gallbladder surgical ly absent. No concerning intrahepatic mass. Osseous structures are intact. IMPRESSION: There is redemonstration of inferior 1.5 cm left adrenal mass showing diffuse signal drop out consistent with benign lipid rich adenoma. No suspicious new or acute findings identified on MRI versus most recent CT.
[2022-11-24 17:06] LABS: Glucose,Whole Blood 388 mg/dL (70-110)
[2022-11-24 20:04] LABS: Glucose,Whole Blood 214 mg/dL (70-110)
[2022-11-24] MEDS: OXcarbazepine 300 MG TAB PO SCH (21:08)
[2022-11-24] MEDS: buPROPion SR 100 MG TABLET.ER PO SCH (21:08)
[2022-11-25] MEDS: SODIUM CHLORIDE 0.9% 1,000 ML IV SCH ×2 (02:43→17:43)
[2022-11-25] MEDS: HYDROmorphone 0.5 MG/0.5 ML SYRINGE IVP PRN ×2 (05:06→07:38)
[2022-11-25 07:27] LABS: Glucose,Whole Blood 248 mg/dL (70-110)
[2022-11-25] MEDS ORDERED: LACTULOSE 20 GM/30 ML CUP PO PRN (08:39)
[2022-11-25] MEDS: INSULIN ASPART (NovoLOG) 100 UNIT/ML VIAL SQ SCH ×4 (08:45→21:07)
--- NOTE | 2022-11-25 09:06 | P.PN ---
Subjective Progress Note Date: 11/25/22 The patient is a 47-year-old female with a past medical history significant for diabetes mellitus, fibromyalgia appendectomy, and cholecystectomy. The was just in emergency department on 11/21 with abdominal pain and the CT scan without contrast had shown fecal stasis and ileus, and an indeterminate left adrenal 1.2 cm nodule. She was discharged home with Dulcolax and pain medication. The patient presented to the emergency department on 11/22/22 again with complaints of abdominal pain, nausea, and vomiting. She reports the abdominal pain has been ongoing for 3 months, but has gotten progressively worse over the last few days. 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 CT scan on 11/22 revealed a stable indeterminant 1.2 cm left adrenal gland nodule with a Hounsfield unit of 14. This is stable dating back to 2015 and considered benign. Right adrenal gland is unremarkable. No hydronephrosis or renal calculi noted. 11/23 The patient has diffuse abdominal and left flank tenderness to palpitation. She states her pain radiates from the left upper quadrant to her back. She denies any difficulty urinating. She reports frequent urination. She reports that her pain increases if she does not void frequently. She denies any hematuria or dysuria. She does not have a history of kidney stones. Urinalysis is not indicative of infection. Serum creatinine is 0.7Previous abdominal surgeries include appendectomy, cholecystectomy, umbilical hernia repair, and A AA stent placement. The patient has a smoking history of 6-10 cigarettes a day for approximately 10 years. Family history includes a grandmother that had bladder cancer. She was aware of her left renal mass and supposed to follow up in our office on Monday. We will obtain a MRI to further evaluate the left renal mass and left adrenal mass. We will check cortisol levels during follow- up appointment as outpatient, as they may be falsely elevated secondary to her ileus. Objective - Vital Signs Vital signs: Vital Signs Temp 97.8 F 11/25/22 07:36 Pulse 68 11/25/22 07:36 Resp 18 11/25/22 07:36 BP 112/75 11/25/22 07:36 Pulse Ox 95 11/25/22 07:36 FiO2 Intake & Output 11/24/22 11/25/22 11/25/22 18:59 06:59 18:59 Intake Total 100 590 Balance 100 590 Intake: IV 100 Oral 590 Other: Voiding Method Toilet # Voids 6 2 # Bowel Movements 6 - Exam General: Well developed, well nourished. No acute distress. HEENT: Head is atraumatic, normocephalic. Lungs: Respirations even and nonlabored. Abdomen/GI: Soft, Nondistended. Abdomen tender to palpitation. : No suprapubic tenderness. Left flank tenderness. Skin: Warm and dry Neurologic: Awake, alert and oriented times 3. CN II-XII grossly intact. No focal deficits. Psychiatric: Appropriate mood and affect. - Labs CBC & Chem 7: 11/24/22 06:33 11/25/22 06:19 Labs: Abnormal Lab Results - Last 24 Hours (Table) 11/24/22 11/24/22 11/24/22 Range/Units 11:11 17:05 20:02 POC Glucose (mg/dL) 200 H 388 H 214 H (70-110) mg/dL 11/25/22 Range/Units 07:26 POC Glucose (mg/dL) 248 H (70-110) mg/dL Assessment and Plan (1) Adrenal mass Current Visit: Yes Status: Acute Code(s): E27.8 - OTHER SPECIFIED DISORDERS OF ADRENAL GLAND SNOMED Code(s): 089658169 (2) Left renal mass Current Visit: Yes Status: Acute Code(s): N28.89 - OTHER SPECIFIED DISORDERS OF KIDNEY AND URETER SNOMED Code(s): 392952525 Plan: MRI images reviewed by Dr. Alfaro. Left adrenal mass consistent with benign lipid rich adenoma, no renal masses, no hydronephrosis. Findings discussed with the patient. From a urological standpoint, the patient may be discharged today. Cortisol levels will be checked during her follow-up visit. She is to follow up with Dr. Alfaro in our office in 6 weeks. Impression and plan of care have been directed as dictated by the signing physician. Dagmar De Leon nurse practitioner acting as scribe for signing physician. Dagmar De Leon [facility] Palliative Care/Urology [facility] [id number] Email: I personally performed and participated in the history, physical, the decision making, I agree with the assessment and plan of MEDICAL CODING SPECIALIST
[2022-11-25] MEDS: ATORVASTATIN 40 MG TAB PO SCH (09:24)
[2022-11-25] MEDS: DICYCLOMINE 10 MG CAP PO SCH ×4 (09:24→21:07)
[2022-11-25] MEDS: PREGABALIN 75 MG CAP PO SCH ×2 (09:24→21:07)
[2022-11-25] MEDS: buPROPion SR 100 MG TABLET.ER PO SCH ×2 (09:25→21:06)
[2022-11-25] MEDS: VORTIOXETINE HYDROBROMIDE 20 MG TABLET PO SCH (09:25)
[2022-11-25] MEDS: DAPAGLIFLOZIN PROPANEDIOL 5 MG TABLET PO SCH (09:25)
[2022-11-25] MEDS: HEPARIN SODIUM,PORCINE/PF 5,000 UNIT/0.5 ML SYRINGE SQ SCH ×2 (09:25→21:07)
[2022-11-25] MEDS: NICOTINE 14MG/24HR PATCH TRANSDERM SCH (09:26)
[2022-11-25] MEDS: metFORMIN 500 MG TAB PO SCH ×2 (11:48→17:43)
[2022-11-25] MEDS: PANTOPRAZOLE 40 MG/10 ML VIAL IVP SCH ×2 (11:48→21:07)
[2022-11-25] MEDS ORDERED: MAG HYDROX/AL HYDROX/SIMETH 30 ML CUP PO PRN ×2 (11:53→14:15)
[2022-11-25 12:11] LABS: ALT 57 U/L (8-44); AST 27 U/L (13-35); African American GFR (CKD) 114.5 (60.0-200.0); Albumin/Globulin Ratio 2.02 (1.60-3.17); Alkaline Phosphatase 67 U/L (41-126); BUN/Creat Ratio 13.97 Ratio (12.00-20.00); Bilirubin, Conjugated <0.20 mg/dL (0.20-0.40); Blood Urea Nitrogen 10.2 mg/dL (9.0-27.0); Calcium 9.8 mg/dL (8.7-10.3); Carbon Dioxide 26.9 mmol/L (20.0-27.5); Chloride 102 mmol/L (96-109); Glucose 294 mg/dL (70-110); Magnesium 1.8 mg/dL (1.5-2.4); Non-African American GFR(CKD) 98.8 (60.0-200.0); Potassium 4.5 mmol/L (3.5-5.5); Sodium 138 mmol/L (135-145); Total Bilirubin <0.15 mg/dL (0.30-1.20); Total Protein 5.9 g/dL (6.2-8.2)
[2022-11-25 12:51] LABS: Glucose,Whole Blood 155 mg/dL (70-110)
--- NOTE | 2022-11-25 13:06 | P.PN ---
Subjective This is a pleasant 47 years old female with past medical history of diabetes mellitus, status post cholecystectomy, nicotine dependence, motion sickness. Presents because of abdominal pain. She came to emergency room yesterday or today. patient says that her abdominal pain has been going on since last September 2022, and that her PCP Knows about It, and She Ordered Lactulose for Her with No Much Benefit. This Time Her Pain in the Left Upper Abdomen, Going around to the Back, with 10/10 in Severity, Improved with Pain Medication down to 4/10. She Vomited Yesterday and Twice Today, No Blood in His Vomitus. She Had Not Pasty-like Brown Bowel Movement This Morning with No Blood. Usually She Has a 9 Bowel Movements per Day but since September Her Bowel Movements Are Only 3-4 per Day but She Denies Overt Diarrhea she denies chest pain or dyspnea or coughing. She has some dizziness but no headache or weakness or numbness, no urinary symptoms. She supposed to follow-up with Dr. Hensley for kidney mass. She smokes about 6 cigarettes per day and she was counseled to quit and agrees to the nicotine patch but no alcohol or illicit drugs. Patient aware there is no GI service and this hospital but she does not want to be transfer to tertiary center. Patient also is diabetic and states she is taking metformin, glimepiride Actos and Januvia at home. Patient is mildly tachycardic around 108. Patient is afebrile. CBC is unremarkable. Sodium 136. Glucose elevated 311 and 240. Calcium was 10.3. Liver enzymes mildly elevated with AST 38, and ALT 54 which is stable from yesterday. Bilirubin is normal. Urinalysis showed glucose urea with no evidence of infection. CT of the abdomen and pelvis: 1.2 cm left adrenal gland nodule. Moderate amount of stool in the colon Abdominal x-ray from today show nonspecific abdomen EKG showing normal sinus rhythm at [address]-T changes HCG in the serum undetected today. Patient was admitted with surgery team consult. CT of the abdomen and pelvis without contrast: Gallbladder absent. Stable left 1.2 cm adrenal gland nodule with Hounsfield unit of 14. This is stable dating b ack to 2016 and considered benign. Right adrenal gland is unremarkable, uterine fibroids. Thickening of the duodenum suspicious for duodenitis 11/23/2022 Patient is with abdominal pain today 05/22, she had 1 bowel movement with no blood and she is tolerating liquid diet with no vomiting or nausea. She remains on normal saline. By mouth medication are held because she has NG tube accept Trileptal because of her history of seizure. Surgery team on the case with the plan for EGD/colonoscopy tomorrow Neurology input recommended MRI for today adrenal gland, however patient states that she has appointment with her urologist Dr. Vargas on this coming saturday 11/25 for the same reason. 11/24/2022 Patient still complains from some nausea and she is complaining of from abdominal pain with some tenderness in the epigastric and left abdomen, she still is not able to tolerate diet well. Postoperative pressures until the low side. She had EGD and colonoscopy today which they were remarkable for significant abnormality some minimal antritis/gastritis and biopsy was taken. But no findings to explain patient's symptoms. Her vitals are stable other than moderately low blood pressure. Also patient hemoglobin A1c is uncontrolled with 9.2%. Patient has uncontrolled diabetes which might contribute into her GI symptoms. We going to give bolus of normal saline Advance diet as tolerated Also we'll start Bentyl Possible discharge in 24-48 hours once patient able to tolerate diet. Patient will need better control of her diabetes as an outpatient 11/27/2022 Patient was informed this morning about the results of EGD and colonoscopy which are basically unremarkable however she needs to follow-up the results of the biopsy, follow-up with surgery team Also I discussed the case with urology team, MRI of the abdomen showing the same 1.5 lesion, urology team recommended outpatient follow-up however patient is still have abdominal pain with eating, retracted advanced diet as tolerated. Lower IV fluid to 50 mL/h DC Dilaudid and started the patient on Toradol when necessary, also Bentyl. Most likely patient's symptoms could be explained by uncontrolled diabetes, patient informs needs better control of her sugar, resumed her antidiabetic medication. Hemoglobin A1c is more than 90%, patient referred to station operator an outpatient, Dr. Orta or Dr. montez are suggested Once control symptoms patient may be considered for discharge Objective - Vital Signs Vital signs: Vital Signs Temp 97.8 F 11/25/22 07:36 Pulse 68 11/25/22 07:36 Resp 18 11/25/22 07:36 BP 112/75 11/25/22 07:36 Pulse Ox 95 11/25/22 07:36 FiO2 Intake & Output 11/24/22 11/25/22 11/25/22 18:59 06:59 18:59 Intake Total 100 590 Balance 100 590 Intake: IV 100 Oral 590 Other: Voiding Method Toilet # Voids 6 2 # Bowel Movements 6 - Exam GENERAL: The patient is alert and oriented x3, not in any acute distress. Well developed, well nourished. HEENT: Pupils are round and equally reacting to light. EOMI. No scleral icterus. No conjunctival pallor. Normocephalic, atraumatic. No pharyngeal erythema. No thyromegaly. CARDIOVASCULAR: S1 and S2 present. No murmurs, rubs, or gallops. PULMONARY: Chest is clear to auscultation, no wheezing or crackles. -ABDOMEN: Soft, left lower quadrant tenderness and epigastric tenderness, nondistended, normoactive bowel sounds. No palpable organomegaly. NG tube in place MUSCULOSKELETAL: No joint swelling or deformity. EXTREMITIES: No cyanosis, clubbing, or pedal edema. NEUROLOGICAL: Gross neurological examination did not reveal any focal deficits. SKIN: No rashes. no petechiae. - Labs CBC & Chem 7: 11/24/22 06:33 11/25/22 06:19 Labs: Abnormal Lab Results - Last 24 Hours (Table) 11/24/22 11/24/22 11/25/22 Range/Units 17:05 20:02 06:19 Anion Gap 8.30 L (10.00-18.00) mmol/L Glucose 294 H (70-110) mg/dL POC Glucose (mg/dL) 388 H 214 H (70-110) mg/dL Total Bilirubin <0.15 L (0.30-1.20) mg/dL Conjugated Bilirubin <0.20 L (0.20-0.40) mg/dL ALT 57 H (8-44) U/L Total Protein 5.9 L (6.2-8.2) g/dL 11/25/22 11/25/22 Range/Units 07:26 12:49 Anion Gap (10.00-18.00) mmol/L Glucose (70-110) mg/dL POC Glucose (mg/dL) 248 H 155 H (70-110) mg/dL Total Bilirubin (0.30-1.20) mg/dL Conjugated Bilirubin (0.20-0.40) mg/dL ALT (8-44) U/L Total Protein (6.2-8.2) g/dL Assessment and Plan Assessment: Abdominal pain secondary to Duodenitis, acute. However EGD/colonoscopy were unremarkable Possible diabetic enteropathy versus irritable bowel syndrome, referred to outpatient follow-up with GI service Dr. Cronin Diabetes mellitus with hyperglycemia stable Left adrenal nodule 1.2 cmsince 2015 Mild transaminitis. Stable. History of cholecystectomy nicotine dependence obesity with BMI of 36.9 diabetes mellitus uterine fibroids fibromyalgia History of GERD Plan: Advance diet as tolerated IV fluids Pain management Surgery team consult Follow-up biopsy of the EGD Start Bentyl Toradol when necessary for pain management Patient will need better control of her diabetes, she might benefit from station operator as an outpatient Follow-up with urologist as an outpatient Follow-up with GI service and station operator as an outpatient Follow-up MRI of the abdomen ordered by urologist Labs and medication were reviewed.. Continue same treatment. Continue with symptomatic treatment. Resume home medication. Monitor labs and vitals. DVT and GI prophylaxis. Further recommendations as per clinical course of the patient DVT prophylaxis: Subcutaneous heparin GI Prophylaxis: Ppi Protonix IV twice a day Prognosis is guarded
[2022-11-25 13:23] VITALS: BMI 36.8
[2022-11-25] MEDS: KETOROLAC 15 MG/ML 1 ML VIAL IVP PRN ×2 (14:27→23:02)
--- NOTE | 2022-11-25 15:11 | P.PN ---
Subjective Progress Note Date: 11/25/22 CHIEF COMPLAINT: Abdominal pain HISTORY OF PRESENT ILLNESS: Patient is status post EGD and colonoscopy showing evidence of gastritis and hemorrhoids. Patient continues to complain of burning sensation in her stomach. Afebrile. PHYSICAL EXAM: VITAL SIGNS: Reviewed. GENERAL: Well-developed in no acute distress. HEENT: No sclera icterus. Extraocular movements grossly intact. Moist buccal mucosa. Head is atraumatic, normocephalic. ABDOMEN: Soft. Nondistended. Epigastric and left upper quadrant tenderness NEUROLOGIC: Alert and oriented. Cranial nerves II through XII grossly intact. ASSESSMENT: 1. Epigastric and left upper quadrant abdominal pain and EGD demonstrated gastritis 2. History of colon polyps PLAN: -Carafate and Mylanta added -Continue PPI -Continue regular diet Physician Invoice Control Clerk note has been reviewed by physician. Signing provider agrees with the documented findings, assessment, and plan of care. Objective - Vital Signs Vital signs: Vital Signs Temp 98.7 F 11/25/22 12:53 Pulse 64 11/25/22 12:53 Resp 18 11/25/22 12:53 BP 114/71 11/25/22 12:53 Pulse Ox 94 L 11/25/22 12:53 FiO2 Intake & Output 11/24/22 11/25/22 11/25/22 18:59 06:59 18:59 Intake Total 100 590 Balance 100 590 Weight 97.522 kg Intake: IV 100 Oral 590 Other: Voiding Method Toilet # Voids 6 2 # Bowel Movements 6 - Labs CBC & Chem 7: 11/24/22 06:33 11/25/22 06:19 Labs: Abnormal Lab Results - Last 24 Hours (Table) 11/24/22 11/24/22 11/25/22 Range/Units 17:05 20:02 06:19 Anion Gap 8.30 L (10.00-18.00) mmol/L Glucose 294 H (70-110) mg/dL POC Glucose (mg/dL) 388 H 214 H (70-110) mg/dL Total Bilirubin <0.15 L (0.30-1.20) mg/dL Conjugated Bilirubin <0.20 L (0.20-0.40) mg/dL ALT 57 H (8-44) U/L Total Protein 5.9 L (6.2-8.2) g/dL 11/25/22 11/25/22 Range/Units 07:26 12:49 Anion Gap (10.00-18.00) mmol/L Glucose (70-110) mg/dL POC Glucose (mg/dL) 248 H 155 H (70-110) mg/dL Total Bilirubin (0.30-1.20) mg/dL Conjugated Bilirubin (0.20-0.40) mg/dL ALT (8-44) U/L Total Protein (6.2-8.2) g/dL
[2022-11-25 17:37] LABS: Glucose,Whole Blood 194 mg/dL (70-110)
[2022-11-25] MEDS: SUCRALFATE 1 GM TAB PO SCH (17:44)
[2022-11-25 20:16] LABS: Glucose,Whole Blood 204 mg/dL (70-110)
[2022-11-25] MEDS: OXcarbazepine 300 MG TAB PO SCH (21:06)
[2022-11-25] MEDS: PIOGLITAZONE 15 MG TAB PO SCH (21:06)
[2022-11-25] MEDS: ONDANSETRON 4 MG/2 ML VIAL IVP PRN (23:02)
[2022-11-26] MEDS: SODIUM CHLORIDE 0.9% 1,000 ML IV SCH ×2 (05:25→18:33)
[2022-11-26 08:09] LABS: Glucose,Whole Blood 232 mg/dL (70-110)
[2022-11-26] MEDS: KETOROLAC 15 MG/ML 1 ML VIAL IVP PRN ×3 (08:55→22:56)
[2022-11-26] MEDS: PANTOPRAZOLE 40 MG/10 ML VIAL IVP SCH ×2 (08:56→22:43)
[2022-11-26] MEDS: metFORMIN 500 MG TAB PO SCH ×2 (08:57→18:03)
[2022-11-26] MEDS: DAPAGLIFLOZIN PROPANEDIOL 5 MG TABLET PO SCH (08:57)
[2022-11-26] MEDS: PREGABALIN 75 MG CAP PO SCH ×2 (08:57→22:42)
[2022-11-26] MEDS: ATORVASTATIN 40 MG TAB PO SCH (08:57)
[2022-11-26] MEDS: VORTIOXETINE HYDROBROMIDE 20 MG TABLET PO SCH (08:57)
[2022-11-26] MEDS: SUCRALFATE 1 GM TAB PO SCH ×2 (08:57→18:03)
[2022-11-26] MEDS: DICYCLOMINE 10 MG CAP PO SCH ×4 (08:57→22:41)
[2022-11-26] MEDS: buPROPion SR 100 MG TABLET.ER PO SCH ×2 (08:57→22:42)
[2022-11-26] MEDS: HEPARIN SODIUM,PORCINE/PF 5,000 UNIT/0.5 ML SYRINGE SQ SCH ×2 (08:58→22:43)
[2022-11-26] MEDS: NICOTINE 14MG/24HR PATCH TRANSDERM SCH (08:58)
[2022-11-26] MEDS: INSULIN ASPART (NovoLOG) 100 UNIT/ML VIAL SQ SCH ×4 (08:58→22:42)
[2022-11-26] MEDS ORDERED: BARIUM SULFATE 450 ML ORAL.SUSP BOTTLE PO PRN (11:15)
--- NOTE | 2022-11-26 11:15 | P.PN ---
Progress Note - Text Progress Note Date: 11/26/22 Patient still has complaints of intermittent severe right and left epigastric abdominal pain. On exam vital signs appear stable. Abdomen soft. Patient undergo repeat CAT scan today. Is unclear what is causing her epigastric pain.
[2022-11-26] MEDS: IOPAMIDOL CONTRAST (ORAL USE) VIAL PO PRN ×2 (11:56→12:48)
[2022-11-26] MEDS: ACETAMINOPHEN TAB 325 MG TAB PO PRN ×2 (13:23→22:59)
[2022-11-26] MEDS: ONDANSETRON 4 MG/2 ML VIAL IVP PRN (13:23)
[2022-11-26 13:27] LABS: Glucose,Whole Blood 147 mg/dL (70-110)
--- NOTE | 2022-11-26 13:44 | CT ---
EXAMINATION TYPE: CT abdomen pelvis w con CT DLP: 1596.9 mGycm, Automated exposure control for dose reduction was used. DATE OF EXAM: 11/26/2022 1:23 PM COMPARISON: CT abdomen pelvis most recent from CLINICAL INDICATION:Female, 47 years old with history of pain; Mid abdominal pain. TECHNIQUE: Axial CT of the abdomen and pelvis. Sagittal and coronal reformats were created on a [employer] workstation. Contrast used:100ml mL of Isovue 300 with IV Contrast, Oral contrast used: with Oral Contrast FINDINGS: LOWER CHEST: Unremarkable ABDOMEN LIVER: Unremarkable GALLBLADDER AND BILE DUCTS: Gallbladder is surgically absent with mild intrahepatic and extra hepatic biliary dilatation likely physiologic and a postcholecystectomy change. No evidence of choledocholit hiasis. PANCREAS: Unremarkable. SPLEEN: Unremarkable. ADRENAL GLANDS: 1.2 cm left adrenal gland nodule which is indeterminate. No adrenal gland is unremark able. Moderate amount of stool seen within the colon KIDNEYS AND URETERS: No evidence of hydronephrosis or renal calculus. The ureters are unremarkable. PELVIS BLADDER: Unremarkable REPRODUCTIVE: Love dilated contralateral uterus likely representing fibroids. ABDOMEN & PELVIS STOMACH AND BOWEL: No evidence of bowel obstruction. Appendix appears surgically absent. PERITONEUM/RETROPERITONEUM: No evidence of pneumoperitoneum or free fluid. . VASCULATURE: No evidence of aortic aneurysm. Right common iliac vein/external iliac vein stent. MUSCULOSKELETAL: No acute osseous abnormalities LYMPH NODES: No gross evidence for lymphadenopathy. SOFT TISSUE/ABDOMINAL WALL: Unremarkable IMPRESSION: 1. No acute intra-abdominal process. 2. Fibroid uterus. 3. Biliary dilation 4. Indeterminate left adrenal 1.2 cm nodule consider further evaluation on MRI adrenal mass protocol.
--- NOTE | 2022-11-26 16:02 | P.PN ---
Subjective Progress Note Date: 11/26/22 This is a pleasant 47 years old female with past medical history of diabetes mellitus, status post cholecystectomy, nicotine dependence, motion sickness. Presents because of abdominal pain. She came to emergency room yesterday or today. patient says that her abdominal pain has been going on since last September 2022, and that her PCP Knows about It, and She Ordered Lactulose for Her with No Much Benefit. This Time Her Pain in the Left Upper Abdomen, Going around to the Back, with 10/10 in Severity, Improved with Pain Medication down to 4/10. She Vomited Yesterday and Twice Today, No Blood in His Vomitus. She Had Not Pasty-like Brown Bowel Movement This Morning with No Blood. Usually She Has a 9 Bowel Movements per Day but since September Her Bowel Movements Are Only 3-4 per Day but She Denies Overt Diarrhea she denies chest pain or dyspnea or coughing. She has some dizziness but no headache or weakness or numbness, no urinary symptoms. She supposed to follow-up with Dr. Hensley for kidney mass. She smokes about 6 cigarettes per day and she was counseled to quit and agrees to the nicotine patch but no alcohol or illicit drugs. Patient aware there is no GI service and this hospital but she does not want to be transfer to tertiary center. Patient also is diabetic and states she is taking metformin, glimepiride Actos and Januvia at home. Patient is mildly tachycardic around 108. Patient is afebrile. CBC is unremarkable. Sodium 136. Glucose elevated 311 and 240. Calcium was 10.3. Liver enzymes mildly elevated with AST 38, and ALT 54 which is stable from yesterday. Bilirubin is normal. Urinalysis showed glucose urea with no evidence of infection. CT of the abdomen and pelvis: 1.2 cm left adrenal gland nodule. Moderate amount of stool in the colon Abdominal x-ray from today show nonspecific abdomen EKG showing normal sinus rhythm at [address]-T changes HCG in the serum undetected today. Patient was admitted with surgery team consult. CT of the abdomen and pelvis without contrast: Gallbladder absent. Stable left 1.2 cm adrenal gland nodule with Hounsfield unit of 14. This is stable dating back to 2016 and considered benign. Right adrenal gland is unremarkable, uterine fibroids. Thickening of the duodenum suspicious for duodenitis 11/23/2022 Patient is with abdominal pain today 05/22, she had 1 bowel movement with no blood and she is tolerating liquid diet with no vomiting or nausea. She remains on normal saline. By mouth medication are held because she has NG tube accept Trileptal because of her history of seizure. Surgery team on the case with the plan for EGD/colonoscopy tomorrow Neurology input recommended MRI for today adrenal gland, however patient states that she has appointment with her urologist Dr. Vargas on this coming saturday 11/25 for the same reason. 11/24/2022 Patient still complains from some nausea and she is complaining of from abdominal pain with some tenderness in the epigastric and left abdomen, she still is not able to tolerate diet well. Postoperative pressures until the low side. She had EGD and colonoscopy today which they were remarkable for significant abnormality some minimal antritis/gastritis and biopsy was taken. But no findings to explain patient's symptoms. Her vitals are stable other than moderately low blood pressure. Also patient hemoglobin A1c is uncontrolled with 9.2%. Patient has uncontrolled diabetes which might contribute into her GI symptoms. We going to give bolus of normal saline Advance diet as tolerated Also we'll start Bentyl Possible discharge in 24-48 hours once patient able to tolerate diet. Patient will need better control of her diabetes as an outpatient 11/25/2022 Patient was informed this morning about the results of EGD and colonoscopy which are basically unremarkable however she needs to follow-up the results of the biopsy, follow-up with surgery team Also I discussed the case with urology team, MRI of the abdomen showing the same 1.5 lesion, urology team recommended outpatient follow-up however patient is still have abdominal pain with eating, retracted advanced diet as tolerated. Lower IV fluid to 50 mL/h DC Dilaudid and started the patient on Toradol when necessary, also Bentyl. Most likely patient's symptoms could be explained by uncontrolled diabetes, patient informs needs better control of her sugar, resumed her antidiabetic medication. Hemoglobin A1c is more than 90%, patient referred to senior ios developer an outpatient, Dr. Orta or Dr. montez are suggested Once control symptoms patient may be considered for discharge 11/26. Patient seen and examined. States she still has abdominal pain. Denies any nausea or vomiting. surgery following the patient REVIEW OF SYSTEMS: CONSTITUTIONAL: No fever, no malaise,. CARDIOVASCULAR: No chest pain, no palpitations, no syncope. PULMONARY: No shortness of breath, no cough, GASTROINTESTINAL: No diarrhea, no nausea, no vomiting, NEUROLOGICAL: No headaches, no weakness, PHYSICAL EXAMINATION: GENERAL: The patient is alert and oriented x3, not in any acute distress. Well developed, well nourished. HEENT: Pupils are round and equally reacting to light. EOMI. No scleral icterus. No conjunctival pallor. Normocephalic, atraumatic. No pharyngeal erythema. No thyromegaly. CARDIOVASCULAR: S1 and S2 present. No murmurs, rubs, or gallops. PULMONARY: Chest is clear to auscultation, no wheezing or crackles. ABDOMEN: Soft, nontender, nondistended, normoactive bowel sounds. No palpable organomegaly. MUSCULOSKELETAL: No joint swelling or deformity. EXTREMITIES: No cyanosis, clubbing, or pedal edema. NEUROLOGICAL: Gross neurological examination did not reveal any focal deficits. SKIN: No rashes. Assessment and plan Abdominal pain secondary to Duodenitis, acute. However EGD/colonoscopy were unremarkable Possible diabetic enteropathy versus irritable bowel syndrome, referred to outpatient follow-up with GI service Dr. Cronin Diabetes mellitus with hyperglycemia stable Left adrenal nodule 1.2 cmsince 2016 Mild transaminitis. Stable. History of cholecystectomy nicotine dependence obesity with BMI of 36.9 diabetes mellitus uterine fibroids fibromyalgia History of GERD Plan: Monitor vital signs and monitor CBC Repeat CT of abdomen pelvis ordered IV fluids Pain management MRI abdominal done on 11/24 showed 1.5 cm left adrenal mass showing diffuse signal dropout consistent with benign lipid rich adenoma, outpatient follow-up with endocrinology Follow-up on general surgery recommendations Objective - Vital Signs Vital signs: Vital Signs Temp 98.4 F 11/26/22 13:25 Pulse 73 11/26/22 13:25 Resp 16 11/26/22 13:25 BP 114/75 11/26/22 13:25 Pulse Ox 96 11/26/22 13:25 FiO2 Intake & Output 11/25/22 11/26/22 11/26/22 18:59 06:59 18:59 Intake Total 1250 590 Balance 1250 590 Weight 97.522 kg 97.522 kg Intake: Oral 1250 590 Other: Voiding Method Toilet Toilet # Voids 2 2 - Labs CBC & Chem 7: 11/24/22 06:33 11/25/22 06:19 Labs: Abnormal Lab Results - Last 24 Hours (Table) 11/25/22 11/25/22 11/26/22 Range/Units 17:35 20:15 08:07 POC Glucose (mg/dL) 194 H 204 H 232 H (70-110) mg/dL 11/26/22 Range/Units 13:26 POC Glucose (mg/dL) 147 H (70-110) mg/dL
[2022-11-26 17:36] LABS: Glucose,Whole Blood 221 mg/dL (70-110)
[2022-11-26 20:17] LABS: Glucose,Whole Blood 335 mg/dL (70-110)
[2022-11-26] MEDS: PIOGLITAZONE 15 MG TAB PO SCH (22:41)
[2022-11-26] MEDS: OXcarbazepine 300 MG TAB PO SCH (22:42)
[2022-11-27] MEDS: ONDANSETRON 4 MG/2 ML VIAL IVP PRN ×2 (03:27→09:49)
[2022-11-27] MEDS: SUCRALFATE 1 GM TAB PO SCH (06:26)
[2022-11-27 07:34] LABS: Glucose,Whole Blood 206 mg/dL (70-110)
[2022-11-27 08:01] VITALS: BP 109/69; PULSE 72; RESP 18; TEMP 98
[2022-11-27] MEDS: PREGABALIN 75 MG CAP PO SCH (08:58)
[2022-11-27] MEDS: buPROPion SR 100 MG TABLET.ER PO SCH (08:58)
[2022-11-27] MEDS: metFORMIN 500 MG TAB PO SCH (08:58)
[2022-11-27] MEDS: ATORVASTATIN 40 MG TAB PO SCH (08:58)
[2022-11-27] MEDS: HEPARIN SODIUM,PORCINE/PF 5,000 UNIT/0.5 ML SYRINGE SQ SCH (08:58)
[2022-11-27] MEDS: DICYCLOMINE 10 MG CAP PO SCH (08:58)
[2022-11-27] MEDS: DAPAGLIFLOZIN PROPANEDIOL 5 MG TABLET PO SCH (08:58)
[2022-11-27] MEDS: VORTIOXETINE HYDROBROMIDE 20 MG TABLET PO SCH (08:58)
[2022-11-27] MEDS: PANTOPRAZOLE 40 MG/10 ML VIAL IVP SCH (08:59)
[2022-11-27] MEDS: INSULIN ASPART (NovoLOG) 100 UNIT/ML VIAL SQ SCH ×2 (08:59→11:46)
[2022-11-27] MEDS: KETOROLAC 15 MG/ML 1 ML VIAL IVP PRN (08:59)
[2022-11-27] MEDS: NICOTINE 14MG/24HR PATCH TRANSDERM SCH (08:59)
[2022-11-27 11:11] LABS: Glucose,Whole Blood 275 mg/dL (70-110)
--- NOTE | 2022-11-27 11:14 | P.DS ---
Providers Date of admission: 11/22/22 11:04 Expected date of discharge: 11/27/22 Attending physician: Marcos Franco MD Consults: 11/22/22 10:27 Consult Physician Routine Consulting Provider: Chad Hernadez Consult Reason/Comments: intratable abdominal pain Do you want consulting provider notified?: Yes 11/22/22 12:52 Consult Physician Routine Consulting Provider: Luis Antonio Alfaro Consult Reason/Comments: left kidney mass Do you want consulting provider notified?: Yes Primary care physician: [facility] Course: Discharge diagnoses; Abdominal pain secondary to Duodenitis, acute. However EGD/colonoscopy were unremarkable Possible diabetic enteropathy versus irritable bowel syndrome, referred to outpatient follow-up with GI service Dr. Cronin Diabetes mellitus with hyperglycemia stable Left adrenal nodule 1.2 cmsince 2016 Mild transaminitis. Stable. History of cholecystectomy nicotine dependence obesity with BMI of 36.9 diabetes mellitus uterine fibroids fibromyalgia History of GERD Hospital course; This is a pleasant 47 years old female with past medical history of diabetes mellitus, status post cholecystectomy, nicotine dependence, motion sickness. Presents because of abdominal pain. She came to emergency room yesterday or today. patient says that her abdominal pain has been going on since last September 2022, and that her PCP Knows about It, and She Ordered Lactulose for Her with No Much Benefit. This Time Her Pain in the Left Upper Abdomen, Going around to the Back, with 10/10 in Severity, Improved with Pain Medication down to 4/10. She Vomited Yesterday and Twice Today, No Blood in His Vomitus. She Had Not Pasty-like Brown Bowel Movement This Morning with No Blood. Usually She Has a 9 Bowel Movements per Day but since September Her Bowel Movements Are Only 3-4 per Day but She Denies Overt Diarrhea she denies chest pain or dyspnea or coughing. She has some dizziness but no headache or weakness or numbness, no urinary symptoms. She supposed to follow-up with Dr. Hensley for kidney mass. She smokes about 6 cigarettes per day and she was counseled to quit and agrees to the nicotine patch but no alcohol or illicit drugs. Patient aware there is no GI service and this hospital but she does not want to be transfer to tertiary center. Patient also is diabetic and states she is taking metformin, glimepiride Actos and Januvia at home. Patient is mildly tachycardic around 108. Patient is afebrile. CBC is unremarkable. Sodium 136. Glucose elevated 311 and 240. Calcium was 10.3. Liver enzymes mildly elevated with AST 38, and ALT 54 which is stable from yesterday. Bilirubin is normal. Urinalysis showed glucose urea with no evidence of infection. CT of the abdomen and pelvis: 1.2 cm left adrenal gland nodule. Moderate amount of stool in the colon Abdominal x-ray from today show nonspecific abdomen EKG showing normal sinus rhythm at [address]-T changes HCG in the serum undetected today. Patient was admitted with surgery team consult. CT of the abdomen and pelvis without contrast: Gallbladder absent. Stable left 1.2 cm adrenal gland nodule with Hounsfield unit of 14. This is stable dating b ack to 2016 and considered benign. Right adrenal gland is unremarkable, uterine fibroids. Thickening of the duodenum suspicious for duodenitis 11/23/2022 Patient is with abdominal pain today 05/22, she had 1 bowel movement with no blood and she is tolerating liquid diet with no vomiting or nausea. She remains on normal saline. By mouth medication are held because she has NG tube accept Trileptal because of her history of seizure. Surgery team on the case with the plan for EGD/colonoscopy tomorrow Neurology input recommended MRI for today adrenal gland, however patient states that she has appointment with her urologist Dr. Vargas on this coming saturday 11/25 for the same reason. 11/24/2022 Patient still complains from some nausea and she is complaining of from abdominal pain with some tenderness in the epigastric and left abdomen, she still is not able to tolerate diet well. Postoperative pressures until the low side. She had EGD and colonoscopy today which they were remarkable for significant abnormality some minimal antritis/gastritis and biopsy was taken. But no findings to explain patient's symptoms. Her vitals are stable other than moderately low blood pressure. Also patient hemoglobin A1c is uncontrolled with 9.2%. Patient has uncontrolled diabetes which might contribute into her GI symptoms. We going to give bolus of normal saline Advance diet as tolerated Also we'll start Bentyl Possible discharge in 24-48 hours once patient able to tolerate diet. Patient will need better control of her diabetes as an outpatient 11/25/2022 Patient was informed this morning about the results of EGD and colonoscopy which are basically unremarkable however she needs to follow-up the results of the biopsy, follow-up with surgery team Also I discussed the case with urology team, MRI of the abdomen showing the same 1.5 lesion, urology team recommended outpatient follow-up however patient is still have abdominal pain with eating, retracted advanced diet as tolerated. Lower IV fluid to 50 mL/h DC Dilaudid and started the patient on Toradol when necessary, also Bentyl. Most likely patient's symptoms could be explained by uncontrolled diabetes, patient informs needs better control of her sugar, resumed her antidiabetic medication. Hemoglobin A1c is more than 90%, patient referred to track repairer helper an outpatient, Dr. Orta or Dr. montez are suggested Once control symptoms patient may be considered for discharge 11/26. Patient seen and examined. States she still has abdominal pain. Denies any nausea or vomiting. surgery following the patient 11/27. Patient seen and examined. Repeat CT abdominal and pelvis done, showed no evidence of acute intra-abdominal process. Patient needs outpatient follow- up with GI PHYSICAL EXAMINATION: GENERAL: The patient is alert and oriented x3, not in any acute distress. Well developed, well nourished. HEENT: Pupils are round and equally reacting to light. EOMI. No scleral icterus. No conjunctival pallor. Normocephalic, atraumatic. No pharyngeal erythema. No thyromegaly. CARDIOVASCULAR: S1 and S2 present. No murmurs, rubs, or gallops. PULMONARY: Chest is clear to auscultation, no wheezing or crackles. ABDOMEN: Soft, nontender, nondistended, normoactive bowel sounds. No palpable organomegaly. MUSCULOSKELETAL: No joint swelling or deformity. EXTREMITIES: No cyanosis, clubbing, or pedal edema. NEUROLOGICAL: Gross neurological examination did not reveal any focal deficits. SKIN: No rashes. Plan - Discharge Summary Discharge Rx Participant: Yes New Discharge Prescriptions: New Dicyclomine [Bentyl] 10 mg PO QID #28 cap Sucralfate [Carafate] 1 gm PO AC-BID 30 Days #60 tab Continue metFORMIN HCL [Glucophage] 1,000 mg PO BID Pregabalin [Lyrica] 75 mg PO BID Empagliflozin [Jardiance] 10 mg PO DAILY Acetaminophen Tab [Tylenol] 650 mg PO Q4HR PRN tab PRN Reason: Pain/Discomfort Vortioxetine Hydrobromide [Trintellix] 20 mg PO DAILY 30 Days tab bisacodyL [Dulcolax] 5 mg PO DAILY PRN PRN Reason: Constipation with Hodges buPROPion HCL [Wellbutrin SR] 200 mg PO BID HYDROcodone/APAP 5-325MG [Hodges 5-325] 1 tab PO Q6HR PRN PRN Reason: Pain Phentermine HCl [Adipex-P] 37.5 mg PO DAILY Dulaglutide [Trulicity] 3 mg SQ DIRECTED Rosuvastatin Calcium [Crestor] 20 mg PO DAILY Ondansetron [Zofran] 4 mg PO QID PRN PRN Reason: nausea Glimepiride [Amaryl] 4 mg PO BID Albuterol Sulfate [Proair Hfa] 2 puff INHALATION RT-Q6H PRN PRN Reason: Shortness Of Breath Lactulose 10 gm PO DAILY PRN PRN Reason: Constipation OXcarbazepine [Trileptal] 300 mg PO HS Pioglitazone [Actos] 15 mg PO HS Changed Omeprazole 40 mg PO BID #60 cap Discontinued Ibuprofen [Motrin] 800 mg PO TID PRN PRN Reason: Pain Discharge Medication List metFORMIN HCL [Glucophage] 1,000 mg PO BID 05/12/16 [History] Pregabalin [Lyrica] 75 mg PO BID 09/04/18 [History] Dulaglutide [Trulicity] 3 mg SQ DIRECTED 06/23/21 [History] Empagliflozin [Jardiance] 10 mg PO DAILY 04/08/22 [History] Glimepiride [Amaryl] 4 mg PO BID 04/08/22 [History] Ondansetron [Zofran] 4 mg PO QID PRN 04/08/22 [History] Rosuvastatin Calcium [Crestor] 20 mg PO DAILY 04/08/22 [History] Acetaminophen Tab [Tylenol] 650 mg PO Q4HR PRN tab 04/14/22 [Rx] Vortioxetine Hydrobromide [Trintellix] 20 mg PO DAILY 30 Days tab 04/14/22 [Rx] Albuterol Sulfate [Proair Hfa] 2 puff INHALATION RT-Q6H PRN 11/22/22 [History] HYDROcodone/APAP 5-325MG [Hodges 5-325] 1 tab PO Q6HR PRN 11/22/22 [History] Lactulose 10 gm PO DAILY PRN 11/22/22 [History] OXcarbazepine [Trileptal] 300 mg PO HS 11/22/22 [History] Phentermine HCl [Adipex-P] 37.5 mg PO DAILY 11/22/22 [History] Pioglitazone [Actos] 15 mg PO HS 11/22/22 [History] bisacodyL [Dulcolax] 5 mg PO DAILY PRN 11/22/22 [History] buPROPion HCL [Wellbutrin SR] 200 mg PO BID 11/22/22 [History] Dicyclomine [Bentyl] 10 mg PO QID #28 cap 11/27/22 [Rx] Omeprazole 40 mg PO BID #60 cap 11/27/22 [Rx] Sucralfate [Carafate] 1 gm PO AC-BID 30 Days #60 tab 11/27/22 [Rx] Follow up Appointment(s)/Referral(s): Kirsten Meade MD [Primary Care Provider] - 1-2 days Andrea Montez MD [REFERRING] - 2 Weeks (Pharmacy Director for your diabetes) Luis Antonio Alfaro MD [STAFF PHYSICIAN] - 6 Weeks Jennifer Cronin MD [STAFF PHYSICIAN] - 10 Days (GI Dr. for your abdominal symptoms) Darling Orta MD [STAFF PHYSICIAN] - 2 Weeks (Pharmacy Director for your diabetes) Activity/Diet/Wound Care/Special Instructions: [facility] We are here when you cant be. Director: Lyle Blanca Call Today! [email or web address] [facility] When a person is providing care 24-hours a day to a loved one, it does not leave much time to run errands or to do some of the special things that interest the care provider. It also makes holding a job almost impossible for some care providers. [facility] is an alternative for individuals in these types of situations. [employer] is available Monday through Monday, 8:00 a.m. to 4:30 p.m., and Saturdays if a need arises to provide supervised activities, companionship, exercise, and mental stimulation for seniors who have become the victims of stroke, Alzheimers, or Dementia. Clients can come every day of the week, or any portion of it that they require. Care providers can use [facility] as a place to leave a loved one once a week as they do their shopping and errands, or as a place where mom and/or dad can stay while a care provider goes to work. Clients arrive each day at [facility] and are greeted by a cheerful staff who will attend to their needs throughout the day. There are activities for the seniors to participate in, as well as quiet areas for those who need or prefer to rest. The seniors are made to feel that [facility] is their home away from home, and they are encouraged to participate in the seasonal decorating and daily activities. Transportation and personal care services are available. For more information please contact Lyle Blanca or [email or web address] ([email or web address]) with [email or web address]) Find additional local resources for Dementia and Alzheimers Disease in [facility] through the Dementia and Alzheimers Resource Committee (DARC): http://darcscc.org/ Discharge/Stand Alone Forms: Who Do I Call?, Community Resources, Help In The Home Discharge Disposition: HOME SELF-CARE
--- NOTE | 2022-11-27 11:58 | P.PN ---
Progress Note - Text Progress Note Date: 11/27/22 Patient still has complaints of some vague epigastric pain. Her repeat CAT scan was essentially normal. On exam vessels are still. Abdomen soft. I deeply the patient be discharged home today. She will follow-up as needed.
== END 2022-11-27 13:20 | disposition home or self-care (01) | DRG 392 ==
LOC: EC 08:46 → 4SSUR 11:04 → 5NMEDONC 15:48
PROVIDERS: ADMIT Internal Medicine; ATTEND Internal Medicine
PROC: 0DJD8ZZ Inspection of Lower Intestinal Tract, Via Natural or Artificial Opening Endoscopic (ICD-10-PCS; principal; 2022-11-24 10:50)
PROC: 0DB78ZX Excision of Stomach, Pylorus, Via Natural or Artificial Opening Endoscopic, Diagnostic (ICD-10-PCS; principal; 2022-11-24 10:50)
DX: K29.70 Gastritis, unspecified, without bleeding (principal); K56.7 Ileus, unspecified; E27.8 Other specified disorders of adrenal gland; E11.65 Type 2 diabetes mellitus with hyperglycemia; G40.909 Epilepsy, unspecified, not intractable, without status epilepticus; F32.A Depression, unspecified; K64.4 Residual hemorrhoidal skin tags; N28.89 Other specified disorders of kidney and ureter; K21.9 Gastro-esophageal reflux disease without esophagitis; D25.9 Leiomyoma of uterus, unspecified; M79.7 Fibromyalgia; R35.0 Frequency of micturition; R74.01 Elevation of levels of liver transaminase levels; E66.9 Obesity, unspecified; Z68.36 Body mass index [BMI] 36.0-36.9, adult; F17.210 Nicotine dependence, cigarettes, uncomplicated; Z71.6 Tobacco abuse counseling; Z79.84 Long term (current) use of oral hypoglycemic drugs; Z79.85 Long-term (current) use of injectable non-insulin antidiabetic drugs; Z79.899 Other long term (current) drug therapy; Z71.3 Dietary counseling and surveillance; Z88.5 Allergy status to narcotic agent
CPT/HCPCS: 36415; 43239; 45378; 74018; 74176; 74177; 74183; 80048; 80053; 80076; 81003; 83036; 83605; 83690; 83735; 84145; 84703; 85025; 88305; 93005; 96374; 96375; 99285

== ENCOUNTER 2023-02-17 06:53 | Emergency (ER) | payer MEDICAID, OTHER ==
[2023-02-17] MEDS ORDERED: SODIUM CHLORIDE 0.9% 500 ML 500 ML IV STA (07:18)
[2023-02-17] MEDS ORDERED: KETOROLAC 15 MG/ML 1 ML VIAL IVP STA (07:19)
--- NOTE | 2023-02-17 07:23 | ED ---
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 States feels like she is on a boat. Patient also states her blood glucose levels have been elevated today around 200. Denies any fever. No ear pain or fullness. Denies any difficulty in breathing or chest pain. No abdominal pain. Does have a history of diabetes, fibromyalgia, GERD, appendectomy and cholecystectomy. -: days(s) (5) Associated Symptoms: cough, other (dizziness, sore throat) - Related Data Home Medications Medication Instructions Recorded Confirmed metFORMIN HCL [Glucophage] 1,000 mg PO BID 05/12/16 11/22/22 Pregabalin [Lyrica] 75 mg PO BID 09/04/18 11/22/22 Dulaglutide [Trulicity] 3 mg SQ DIRECTED 06/23/21 11/22/22 Empagliflozin [Jardiance] 10 mg PO DAILY 04/08/22 11/22/22 Glimepiride [Amaryl] 4 mg PO BID 04/08/22 11/22/22 Ondansetron [Zofran] 4 mg PO QID PRN 04/08/22 11/22/22 Rosuvastatin Calcium [Crestor] 20 mg PO DAILY 04/08/22 11/22/22 Albuterol Sulfate [Proair Hfa] 2 puff INHALATION RT-Q6H PRN 11/22/22 11/22/22 HYDROcodone/APAP 5-325MG [[place] 1 tab PO Q6HR PRN 11/22/22 11/22/22 5-325] Lactulose 10 gm PO DAILY PRN 11/22/22 11/22/22 OXcarbazepine [Trileptal] 300 mg PO HS 11/22/22 11/22/22 Phentermine HCl [Adipex-P] 37.5 mg PO DAILY 11/22/22 11/22/22 Pioglitazone [Actos] 15 mg PO HS 11/22/22 11/22/22 bisacodyL [Dulcolax] 5 mg PO DAILY PRN 11/22/22 11/22/22 buPROPion HCL [Wellbutrin SR] 200 mg PO BID 11/22/22 11/22/22 Previous Rx's Medication Instructions Recorded Acetaminophen Tab [Tylenol] 650 mg PO Q4HR PRN tab 04/14/22 Vortioxetine Hydrobromide 20 mg PO DAILY 30 Days tab 04/14/22 [Trintellix] Dicyclomine [Bentyl] 10 mg PO QID #28 cap 11/27/22 Omeprazole 40 mg PO BID #60 cap 11/27/22 Sucralfate [Carafate] 1 gm PO AC-BID 30 Days #60 tab 11/27/22 Meclizine [Antivert] 25 mg PO TID PRN #15 tab 02/17/23 Allergies Allergy/AdvReac Type Severity Reaction Status Date / Time codeine AdvReac Nausea & Verified 02/17/23 07:00 Vomiting Review of Systems ROS Statement: Those systems with pertinent positive or pertinent negative responses have been documented in the HPI. ROS Other: All systems not noted in ROS Statement are negative. Past Medical History Past Medical History: Diabetes Mellitus, Fibromyalgia, GERD/Reflux Additional Past Medical History / Comment(s): change in bowel habits, ovarian cyst History of Any Multi-Drug Resistant Organisms: None Reported Past Surgical History: Appendectomy, Cholecystectomy, Hernia Repair, Orthopedic Surgery, Uterine Ablation Additional Past Surgical History / Comment(s): sinus surgery, carpal tunnel-rt, vein stripping, aortic stent placed approx 2 years ago. Past Anesthesia/Blood Transfusion Reactions: Previous Problems w/ Anesthesia, Motion Sickness Additional Past Anesthesia/Blood Transfusion Reaction / Comment(s): "sometimes hard time coming out of anesthesia" Past Psychological History: Depression Smoking Status: Current every day smoker Past Alcohol Use History: Occasional Past Drug Use History: None Reported - Past Family History Father Family Medical History: Pulmonary Embolus General Exam Limitations: no limitations General appearance: alert, in no apparent distress Head exam: Present: atraumatic Eye exam: Present: normal appearance. Absent: scleral icterus, conjunctival injection, periorbital swelling ENT exam: Present: mucous membranes moist, TM's normal bilaterally Neck exam: Present: full ROM. Absent: tenderness, meningismus, lymphadenopathy Respiratory exam: Present: normal lung sounds bilaterally. Absent: respiratory distress, accessory muscle use Cardiovascular Exam: Present: regular rate GI/Abdominal exam: Present: soft. Absent: distended, tenderness, guarding, rebound, rigid Extremities exam: Present: normal capillary refill. Absent: pedal edema Back exam: Absent: tenderness Neurological exam: Present: alert, oriented X3, normal gait Expanded Patient oriented to: Present: person, place, time Cranial nerves: EOM's Intact: Normal, Gag Reflex: Normal, Tongue Deviation: Normal Cerebellar function: Finger to Nose: Normal (rapid hand movements intact) Motor strength exam: RUE: 5, LUE: 5, RLE: 5, LLE: 5 Eye Response: (4) open spontaneously Motor Response: (6) obeys commands Verbal Response: (5) oriented [place] Total: 15 Psychiatric exam: Present: normal affect, normal mood Skin exam: Present: warm, dry, normal color. Absent: cyanosis, diaphoretic, petechiae, pallor Course Vital Signs 02/17/23 02/17/23 07:00 08:27 Temperature 97.7 F Pulse Rate 90 78 Respiratory 18 16 Rate Blood Pressure 127/76 125/78 O2 Sat by Pulse 98 95 Oximetry - Reevaluation(s) Reevaluation #1: 02/17/23 08:40 Patient resting comfortably on her right side using her phone. Continues to complain of some dizziness. Reglan and Antivert given. Time: 08:40 EKG Findings - EKG Results: EKG: sinus rhythm (Sinus rhythm with ventricular rate of 79, [place] interval 0.144, QRS 0.94, QTC 0.431, no significant change compared to old 11/22/22) Medical Decision Making - Medical Decision Making Patient presents ambulatory with steady gait. No focal neurological deficits. No evidence of nystagmus. EKG shows sinus rhythm with ventricular rate of 79, [place] interval 0.144, QRS 0.94, QTC 0.431, no significant change compared to old 11/22/22 No evidence of leukocytosis. Electrolytes show blood glucose level of 238, urinalysis shows 4+ glucose no evidence of ketones. No evidence of UTI. Influenza, coronavirus and strep swabs negative. Troponin is negative. Patient's symptoms of dizziness are likely related to her blood glucose level in addition to upper respiratory infection. She was given IV fluids, antivert, and reglan with some relief. Directed to follow-up with the primary care doctor on Monday for continuation of care and ENT it symptoms of vertigo persist. She is agreeable to this plan of care. Case discussed with Dr. Machado. Was pt. sent in by a medical professional or institution (, [facility], [employer], urgent care, hospital, or fdc...) When possible be specific @ -No Did you speak to anyone other than the patient for history (EMS, parent, family, police, friend...)? What history was obtained from this source @ -No Did you review nursing and triage notes (agree or disagree)? Why? @ -I reviewed and agree with nursing and triage notes Were old charts reviewed (outside hosp., previous admission, EMS record, old EKG, old radiological studies, urgent care reports/EKG's, fdc records)? Report findings @ -Old EKG Differential Diagnosis (chest pain, altered mental status, abdominal pain women, abdominal pain men, vaginal bleeding, weakness, fever, dyspnea, syncope, headache, dizziness, GI bleed, back pain, seizure, CVA, palpatations, mental health, musculoskeletal)? @ -Differential Dizziness: Benign paroxysmal positional Vertigo, Menieres disease, otitis media, acoustic neuroma, vertebrobasilar insufficiency, cerebellar stroke, encephalitis, hypovolemic, arrhythmia, coronary artery syndrome, anemia, this is not meant to be an all-inclusive list EKG interpreted by me (3pts min.). @ -As above X-rays interpreted by me (1pt min.). @ -None done CT interpreted by me (1pt min.). @ -None done U/S interpreted by me (1pt. min.). @ -None done What testing was considered but not performed or refused? (CT, X-rays, U/S, lab s)? Why? @ -None What meds were considered but not given or refused? Why? @ -None Did you discuss the management of the patient with other professionals (professionals i.e. , [facility], [employer], lab, RT, psych nurse, clinical social work aide, mental health social worker, teacher, chief resource officer, casework specialist)? Give summary @ -No Was smoking cessation discussed for >3mins.? @ -No Was critical care preformed (if so, how long)? @ -No Were there social determinants of health that impacted care today? How? (Homelessness, low income, unemployed, alcoholism, drug addiction, transportation, low edu. Level, literacy, decrease access to med. care, detention, rehab)? @ -No Was there de-escalation of care discussed even if they declined (Discuss DNR or withdrawal of care, Hospice)? DNR status @ -No What co-morbidities impacted this encounter? (DM, HTN, Smoking, COPD, CAD, Cancer, CVA, ARF, Chemo, Hep., AIDS, mental health diagnosis, sleep apnea, morbid obesity)? @ -Diabetes, fibromyalgia, GERD, depression Was patient admitted / discharged? Hospital course, mention meds given and route, prescriptions, significant lab abnormalities, going to OR and other pertinent info. @ -Discharged Undiagnosed new problem with uncertain prognosis? @ -No Drug Therapy requiring intensive monitoring for toxicity (Heparin, Nitro, Insulin, Cardizem)? @ -No Were any procedures done? @ -No Diagnosis/symptom? @ -URI, vertigo, hyperglycemia Acute, or Chronic, or Acute on Chronic? @ -Acute Uncomplicated (without systemic symptoms) or Complicated (systemic symptoms)? @ -Uncomplicated Side effects of treatment? @ -No Exacerbation, Progression, or Severe Exacerbation? @ -No Poses a threat to life or bodily function? How? (Chest pain, [place], [place], pneumonia, PE, COPD, DKA, ARF, appy, cholecystitis, CVA, Diverticulitis, Homicidal, Suicidal, threat to staff... and all critical care pts) @ -No - Lab Data Result diagrams: 02/17/23 07:33 02/17/23 07:33 Lab Results 02/17/23 02/17/23 02/17/23 Range/Units 07:33 07:33 07:33 WBC 6.0 (3.8-10.6) k/uL RBC 4.65 (3.80-5.40) m/uL Hgb 13.9 (11.4-16.0) gm/dL Hct 40.9 (34.0-46.0) % MCV 87.9 (80.0-100.0) fL MCH 29.8 (25.0-35.0) pg MCHC 33.9 (31.0-37.0) g/dL RDW 12.9 (11.5-15.5) % Plt Count 215 (150-450) k/uL MPV 7.6 Neutrophils % 66 % Lymphocytes % 25 % Monocytes % 4 % Eosinophils % 3 % Basophils % 0 % Neutrophils # 3.9 (1.3-7.7) k/uL Lymphocytes # 1.5 (1.0-4.8) k/uL Monocytes # 0.2 (0-1.0) k/uL Eosinophils # 0.2 (0-0.7) k/uL Basophils # 0.0 (0-0.2) k/uL Sodium 137 (137-145) mmol/L Potassium 4.4 (3.5-5.1) mmol/L Chloride 105 (98-107) mmol/L Carbon Dioxide 25 (22-30) mmol/L Anion Gap 7 mmol/L BUN 13 (7-17) mg/dL Creatinine 0.73 (0.52-1.04) mg/dL Est GFR (CKD-EPI)AfAm >90 (>60 ml/min/1.73 sqM) Est GFR (CKD-EPI)NonAf >90 (>60 ml/min/1.73 sqM) Glucose 238 H (74-99) mg/dL POC Glucose (mg/dL) (70-110) mg/dL POC Glu Cap Inspector ID Calcium 9.1 (8.4-10.2) mg/dL Total Bilirubin 0.4 (0.2-1.3) mg/dL AST 33 (14-36) U/L ALT 38 H (4-34) U/L Alkaline Phosphatase 77 (38-126) U/L Troponin I (0.000-0.034) ng/mL Total Protein 6.6 (6.3-8.2) g/dL Albumin 3.9 (3.5-5.0) g/dL Urine Color Light Yellow Urine Appearance Clear (Clear) Urine pH 5.5 (5.0-8.0) Ur Specific [place] 1.029 (1.001-1.035) Urine Protein Negative (Negative) Urine Glucose (UA) 4+ H (Negative) Urine Ketones Negative (Negative) Urine Blood Moderate H (Negative) Urine Nitrite Negative (Negative) Urine Bilirubin Negative (Negative) Urine Urobilinogen <2.0 (<2.0) mg/dL Ur Leukocyte Esterase Negative (Negative) Urine RBC <1 (0-5) /hpf Urine WBC 1 (0-5) /hpf Ur Squamous Epith Cells 2 (0-4) /hpf Influenza Type A (PCR) (Not Detectd) Influenza Type B (PCR) (Not Detectd) RSV (PCR) (Not Detectd) SARS-CoV-2 (PCR) (Not Detectd) Group A Strep (PCR) (Not Detectd) 02/17/23 02/17/23 02/17/23 Range/Units 07:33 07:33 07:33 WBC (3.8-10.6) k/uL RBC (3.80-5.40) m/uL Hgb (11.4-16.0) gm/dL Hct (34.0-46.0) % MCV (80.0-100.0) fL MCH (25.0-35.0) pg MCHC (31.0-37.0) g/dL RDW (11.5-15.5) % Plt Count (150-450) k/uL MPV Neutrophils % % Lymphocytes % % Monocytes % % Eosinophils % % Basophils % % Neutrophils # (1.3-7.7) k/uL Lymphocytes # (1.0-4.8) k/uL Monocytes # (0-1.0) k/uL Eosinophils # (0-0.7) k/uL Basophils # (0-0.2) k/uL Sodium (137-145) mmol/L Potassium (3.5-5.1) mmol/L Chloride (98-107) mmol/L Carbon Dioxide (22-30) mmol/L Anion Gap mmol/L BUN (7-17) mg/dL Creatinine (0.52-1.04) mg/dL Est GFR (CKD-EPI)AfAm (>60 ml/min/1.73 sqM) Est GFR (CKD-EPI)NonAf (>60 ml/min/1.73 sqM) Glucose (74-99) mg/dL POC Glucose (mg/dL) (70-110) mg/dL POC Glu Cap Inspector ID Calcium (8.4-10.2) mg/dL Total Bilirubin (0.2-1.3) mg/dL AST (14-36) U/L ALT (4-34) U/L Alkaline Phosphatase (38-126) U/L Troponin I <0.012 (0.000-0.034) ng/mL Total Protein (6.3-8.2) g/dL Albumin (3.5-5.0) g/dL Urine Color Urine Appearance (Clear) Urine pH (5.0-8.0) Ur Specific [place] (1.001-1.035) Urine Protein (Negative) Urine Glucose (UA) (Negative) Urine Ketones (Negative) Urine Blood (Negative) Urine Nitrite (Negative) Urine Bilirubin (Negative) Urine Urobilinogen (<2.0) mg/dL Ur Leukocyte Esterase (Negative) Urine RBC (0-5) /hpf Urine WBC (0-5) /hpf Ur Squamous Epith Cells (0-4) /hpf Influenza Type A (PCR) Not Detected (Not Detectd) Influenza Type B (PCR) Not Detected (Not Detectd) RSV (PCR) Not Detected (Not Detectd) SARS-CoV-2 (PCR) Not Detected (Not Detectd) Group A Strep (PCR) NOT DETECTED (Not Detectd) 02/17/23 Range/Units 09:18 WBC (3.8-10.6) k/uL RBC (3.80-5.40) m/uL Hgb (11.4-16.0) gm/dL Hct (34.0-46.0) % MCV (80.0-100.0) fL MCH (25.0-35.0) pg MCHC (31.0-37.0) g/dL RDW (11.5-15.5) % Plt Count (150-450) k/uL MPV Neutrophils % % Lymphocytes % % Monocytes % % Eosinophils % % Basophils % % Neutrophils # (1.3-7.7) k/uL Lymphocytes # (1.0-4.8) k/uL Monocytes # (0-1.0) k/uL Eosinophils # (0-0.7) k/uL Basophils # (0-0.2) k/uL Sodium (137-145) mmol/L Potassium (3.5-5.1) mmol/L Chloride (98-107) mmol/L Carbon Dioxide (22-30) mmol/L Anion Gap mmol/L BUN (7-17) mg/dL Creatinine (0.52-1.04) mg/dL Est GFR (CKD-EPI)AfAm (>60 ml/min/1.73 sqM) Est GFR (CKD-EPI)NonAf (>60 ml/min/1.73 sqM) Glucose (74-99) mg/dL POC Glucose (mg/dL) 169 H (70-110) mg/dL POC Glu Cap Inspector Adelaida Cruz Calcium (8.4-10.2) mg/dL Total Bilirubin (0.2-1.3) mg/dL AST (14-36) U/L ALT (4-34) U/L Alkaline Phosphatase (38-126) U/L Troponin I (0.000-0.034) ng/mL Total Protein (6.3-8.2) g/dL Albumin (3.5-5.0) g/dL Urine Color Urine Appearance (Clear) Urine pH (5.0-8.0) Ur Specific [place] (1.001-1.035) Urine Protein (Negative) Urine Glucose (UA) (Negative) Urine Ketones (Negative) Urine Blood (Negative) Urine Nitrite (Negative) Urine Bilirubin (Negative) Urine Urobilinogen (<2.0) mg/dL Ur Leukocyte Esterase (Negative) Urine RBC (0-5) /hpf Urine WBC (0-5) /hpf Ur Squamous Epith Cells (0-4) /hpf Influenza Type A (PCR) (Not Detectd) Influenza Type B (PCR) (Not Detectd) RSV (PCR) (Not Detectd) SARS-CoV-2 (PCR) (Not Detectd) Group A Strep (PCR) (Not Detectd) Disposition Clinical Impression: Dizziness, URI (upper respiratory infection), Hyperglycemia due to diabetes mellitus, Vertigo Disposition: HOME SELF-CARE Condition: Good Instructions (If sedation given, give patient instructions): Vertigo (ED), Upper Respiratory Infection (ED), Diabetic Hyperglycemia (ED) Additional Instructions: Increase your fluid intake. Take Antivert as needed for any dizziness. Do not roll out of bed or bend over which may cause worsening vertigo or dizziness. Do not drive or operate heavy machinery when having episodes of dizziness. Follow-up with your primary care doctor on Monday. If dizziness persists after 4 days follow-up with ENT. Prescriptions: Meclizine [Antivert] 25 mg PO TID PRN #15 tab PRN Reason: Vertigo Is patient prescribed a controlled substance at d/c from ED?: No Referrals: Kirsten Meade MD [Primary Care Provider] - 1-2 days Carlin Rajan MD [STAFF PHYSICIAN] - 1-2 days Time of Disposition: 09:29
[2023-02-17 07:54] LABS: Appearance,Urine Clear (Clear); Bilirubin,Urine Negative (Negative); Blood,Urine Moderate (Negative); Color,Urine Light Yellow; Glucose,Urine (UA) 4+ (Negative); Ketones,Urine Negative (Negative); Leukocyte Esterase,Urine Negative (Negative); Nitrite,Urine Negative (Negative); PH, Urine 5.5 (5.0-8.0); Protein,Urine Negative (Negative); RBC,Urine <1 /hpf (0-5); Specific Gravity,Urine 1.029 (1.001-1.035); Squamous Epithelial Cell,Urine 2 /hpf (0-4); Urobilinogen,Urine <2.0 mg/dL (<2.0); WBC,Urine 1 /hpf (0-5)
[2023-02-17 08:02] LABS: Basophils % (A) 0 %; Eosinophils # (A) 0.2 k/uL (0-0.7); Eosinophils % (A) 3 %; HCT 40.9 % (34.0-46.0); HGB 13.9 gm/dL (11.4-16.0); Lymphocytes # (A) 1.5 k/uL (1.0-4.8); Lymphocytes % (A) 25 %; MCH 29.8 pg (25.0-35.0); MCHC 33.9 g/dL (31.0-37.0); MCV 87.9 fL (80.0-100.0); Mean Platelet Volume 7.6; Monocytes # (A) 0.2 k/uL (0-1.0); Monocytes % (A) 4 %; Neutrophils # (A) 3.9 k/uL (1.3-7.7); Neutrophils % (A) 66 %; Platelet Count 215 k/uL (150-450); RBC 4.65 m/uL (3.80-5.40); RDW 12.9 % (11.5-15.5)
[2023-02-17 08:21] LABS: ALT 38 U/L (4-34); AST 33 U/L (14-36); African American GFR (CKD) >90 (>60 ml/min/1.73 sqM); Albumin 3.9 g/dL (3.5-5.0); Alkaline Phosphatase 77 U/L (38-126); Anion Gap 7 mmol/L; Blood Urea Nitrogen 13 mg/dL (7-17); Calcium 9.1 mg/dL (8.4-10.2); Carbon Dioxide 25 mmol/L (22-30); Chloride 105 mmol/L (98-107); Glucose 238 mg/dL (74-99); Non-African American GFR(CKD) >90 (>60 ml/min/1.73 sqM); Potassium 4.4 mmol/L (3.5-5.1); Sodium 137 mmol/L (137-145); Total Bilirubin 0.4 mg/dL (0.2-1.3); Total Protein 6.6 g/dL (6.3-8.2)
--- NOTE | 2023-02-17 08:21 | XR ---
EXAMINATION TYPE: XR chest 2V DATE OF EXAM: 02/17/2023 COMPARISON: Chest x-ray April 19, 2022 HISTORY: Cough. TECHNIQUE: Frontal and lateral views of the chest are obtained. FINDINGS: There is no suspicious new focal air space opacity, pleural effusion, or pneumothorax seen . The cardiac silhouette size is stable and within normal limits. The osseous structures are intac t. Cholecystectomy clips are present. IMPRESSION: No acute pulmonary process. No significant change from prior.
[2023-02-17] MEDS ORDERED: SODIUM CHLORIDE 0.9% 500 ML 500 ML IV ONE (08:26)
[2023-02-17 08:27] VITALS: RESP 16
[2023-02-17] MEDS ORDERED: METOCLOPRAMIDE 5 MG/ML 2 ML VIAL IVP STA (08:39)
[2023-02-17] MEDS ORDERED: MECLIZINE 12.5 MG TAB PO STA (08:39)
[2023-02-17 09:21] LABS: Glucose,Whole Blood 169 mg/dL (70-110)
[2023-02-17 09:47] VITALS: BP 114/70; PULSE 85; TEMP 98.2
== END 2023-02-17 09:46 | disposition home or self-care (01) ==
LOC: EC 06:53
DX: E11.65 Type 2 diabetes mellitus with hyperglycemia (principal); J06.9 Acute upper respiratory infection, unspecified; R42 Dizziness and giddiness; F17.200 Nicotine dependence, unspecified, uncomplicated; K21.9 Gastro-esophageal reflux disease without esophagitis; Z20.822 Contact with and (suspected) exposure to COVID-19; Z88.8 Allergy status to other drugs, medicaments and biological substances; Z90.49 Acquired absence of other specified parts of digestive tract; Z90.89 Acquired absence of other organs; Z79.899 Other long term (current) drug therapy; Z79.84 Long term (current) use of oral hypoglycemic drugs
CPT/HCPCS: 36415; 93005; 87651; 80053; 84484; 85025; 81001; 87636; 71046; 99285; 96374; 96375; 96361; J2765; J1885

== ENCOUNTER 2023-02-24 13:04 | Emergency (ER) | payer OTHER, MEDICAID ==
[2023-02-24 13:12] VITALS: BP 109/73; PULSE 85; RESP 20; TEMP 98
--- NOTE | 2023-02-24 13:14 | ED ---
Skin/Abscess/FB HPI - General Chief complaint: Needlestick/Exposure Stated complaint: ACC NEEDLE STICK Time Seen by Provider: 02/24/23 13:12 Source: patient, RN notes reviewed Mode of arrival: ambulatory Limitations: no limitations - History of Present Illness Initial comments: This is a 47-year-old female who presents to the emergency department for a n eedlestick to the right index finger. 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 States that this only involved the tip of the needle. Pain is controlled at this time. Tetanus vaccine is up-to-date. MD complaint: other (needle stick exposure) Tetanus Up to Date: yes - Related Data Home Medications Medication Instructions Recorded Confirmed metFORMIN HCL [Glucophage] 1,000 mg PO BID 05/12/16 11/22/22 Pregabalin [Lyrica] 75 mg PO BID 09/04/18 11/22/22 Dulaglutide [Trulicity] 3 mg SQ DIRECTED 06/23/21 11/22/22 Empagliflozin [Jardiance] 10 mg PO DAILY 04/08/22 11/22/22 Glimepiride [Amaryl] 4 mg PO BID 04/08/22 11/22/22 Ondansetron [Zofran] 4 mg PO QID PRN 04/08/22 11/22/22 Rosuvastatin Calcium [Crestor] 20 mg PO DAILY 04/08/22 11/22/22 Albuterol Sulfate [Proair Hfa] 2 puff INHALATION RT-Q6H PRN 11/22/22 11/22/22 HYDROcodone/APAP 5-325MG [[place] 1 tab PO Q6HR PRN 11/22/22 11/22/22 5-325] Lactulose 10 gm PO DAILY PRN 11/22/22 11/22/22 OXcarbazepine [Trileptal] 300 mg PO HS 11/22/22 11/22/22 Phentermine HCl [Adipex-P] 37.5 mg PO DAILY 11/22/22 11/22/22 Pioglitazone [Actos] 15 mg PO HS 11/22/22 11/22/22 bisacodyL [Dulcolax] 5 mg PO DAILY PRN 11/22/22 11/22/22 buPROPion HCL [Wellbutrin SR] 200 mg PO BID 11/22/22 11/22/22 Previous Rx's Medication Instructions Recorded Acetaminophen Tab [Tylenol] 650 mg PO Q4HR PRN tab 04/14/22 Vortioxetine Hydrobromide 20 mg PO DAILY 30 Days tab 04/14/22 [Trintellix] Dicyclomine [Bentyl] 10 mg PO QID #28 cap 11/27/22 Omeprazole 40 mg PO BID #60 cap 11/27/22 Sucralfate [Carafate] 1 gm PO AC-BID 30 Days #60 tab 11/27/22 Meclizine [Antivert] 25 mg PO TID PRN #15 tab 02/17/23 Allergies Allergy/AdvReac Type Severity Reaction Status Date / Time codeine AdvReac Nausea & Verified 02/24/23 13:11 Vomiting Review of Systems ROS Statement: Those systems with pertinent positive or pertinent negative responses have been documented in the HPI. ROS Other: All systems not noted in ROS Statement are negative. Past Medical History Past Medical History: Diabetes Mellitus, Fibromyalgia, GERD/Reflux Additional Past Medical History / Comment(s): change in bowel habits, ovarian cyst History of Any Multi-Drug Resistant Organisms: None Reported Past Surgical History: Appendectomy, Cholecystectomy, Hernia Repair, Orthopedic Surgery, Uterine Ablation Additional Past Surgical History / Comment(s): sinus surgery, carpal tunnel-rt, vein stripping, aortic stent placed approx 2 years ago. Past Anesthesia/Blood Transfusion Reactions: Previous Problems w/ Anesthesia, Motion Sickness Additional Past Anesthesia/Blood Transfusion Reaction / Comment(s): "sometimes hard time coming out of anesthesia" Past Psychological History: Depression Smoking Status: Current every day smoker Past Alcohol Use History: Occasional Past Drug Use History: None Reported - Past Family History Father Family Medical History: Pulmonary Embolus General Exam Limitations: no limitations General appearance: alert, in no apparent distress Head exam: Present: atraumatic, normocephalic, normal inspection Respiratory exam: Present: normal lung sounds bilaterally. Absent: respiratory distress, wheezes, rales, rhonchi, stridor Cardiovascular Exam: Present: regular rate, normal rhythm, normal heart sounds. Absent: systolic murmur, diastolic murmur, rubs, gallop, clicks Neurological exam: Present: alert, oriented X3, CN II-XII intact Psychiatric exam: Present: normal affect, normal mood Skin exam: Present: other (Very small area on the pad of the right index finger consistent with recent needlestick exposure. No tenderness or active bleeding.) Course Vital Signs 02/24/23 13:09 Temperature 98.0 F Pulse Rate 85 Respiratory 20 Rate Blood Pressure 109/73 O2 Sat by Pulse 96 Oximetry Medical Decision Making - Medical Decision Making This is a 47-year-old female who presents to the emergency department for a needlestick injury. Was pt. sent in by a medical professional or institution? @ -No Did you speak to anyone other than the patient for history? @ -No Did you review nursing and triage notes? @ -Yes, and I agree, it is accurate with regards to the patient's symptoms. Were old charts reviewed? @ -No Differential Diagnosis? @ -Not applicable What testing was considered but not performed? (CT, X-rays, U/S, labs)? Why? @ -None What meds were considered but not given? Why? @ -None Did you discuss the management of the patient with other professionals? @ -No Did you reconcile home meds? @ -No Was smoking cessation discussed for >3mins.? @ -No Was critical care preformed (if so, how long)? @ -No Were there social determinants of health that impacted care today? How? (Homelessness, low income, unemployed, alcoholism, drug addiction, transportation, low edu. Level, literacy, decrease access to med. care, custodial, rehab)? @ -No Was there de-escalation of care discussed even if they declined? (Discuss DNR or withdrawal of care, Hospice)? @ -No What co-morbidities impacted this encounter? (DM, HTN, Smoking, COPD, CAD, Cancer, CVA, Hep., AIDS, mental health diagnosis, sleep apnea, morbid obesity)? @ -None Was patient admitted / discharged? @ -Discharged. The appropriate paperwork was filled out and required laboratory testing was obtained. Patient's tetanus status is up-to-date. Advised ibuprofen and Tylenol as needed for any discomfort. Undiagnosed new problem with uncertain prognosis? @ -None Drug Therapy requiring intensive monitoring for toxicity (Heparin, Nitro, Insulin, Cardizem)? @ -None Were any procedures done? @ -None Diagnosis/symptom? @ -Needle stick injury Acute, or Chronic, or Acute on Chronic? @ -Acute Uncomplicated (without systemic symptoms) or Complicated (systemic symptoms)? @ -Uncomplicated Side effects of treatment? @ -None Exacerbation, Progression, or Severe Exacerbation] @ -Not applicable Poses a threat to life or bodily function? @ -No Return precautions reviewed in depth, the patient is instructed to return to the emergency department with any new, worsening, or concerning symptoms. Patient verbalized understanding. This case was discussed in detail with the attending ED physician, Dr. Machado. Presentation, findings, and treatment plan discussed in detail as well. Disposition Clinical Impression: Needle stick injury of finger Disposition: HOME SELF-CARE Instructions (If sedation given, give patient instructions): Needle Stick Injuries (ED) Additional Instructions: Return to the emergency department with any new, worsening, or concerning symptoms. Alternate with ibuprofen and Tylenol as needed for any discomfort. Follow up with your primary care provider in 1-2 days. Is patient prescribed a controlled substance at d/c from ED?: No Referrals: Kirsten Meade MD [Primary Care Provider] - 1-2 days
== END 2023-02-24 14:13 | disposition home or self-care (01) ==
LOC: EC 13:04
DX: S60.940A Unspecified superficial injury of right index finger, initial encounter (principal); E11.9 Type 2 diabetes mellitus without complications; K21.9 Gastro-esophageal reflux disease without esophagitis; F32.A Depression, unspecified; F17.200 Nicotine dependence, unspecified, uncomplicated; Z79.899 Other long term (current) drug therapy; W46.0XXA Contact with hypodermic needle, initial encounter
CPT/HCPCS: 99282

== ENCOUNTER 2023-05-21 11:57 | Emergency (ER) | payer MEDICAID, OTHER ==
[2023-05-21 12:09] VITALS: TEMP 98.1
[2023-05-21] MEDS ORDERED: SODIUM CHLORIDE 0.9% 500 ML 500 ML IV STA (12:30)
[2023-05-21] MEDS ORDERED: LORazepam 2 MG/ML INJ IV STA (12:30)
--- NOTE | 2023-05-21 12:37 | ED ---
General Adult HPI - General Chief complaint: Back Pain/Injury Stated complaint: Right shoulder pain, CHARLA Time Seen by Provider: 05/21/23 12:19 Source: patient, RN notes reviewed, old records reviewed Mode of arrival: ambulatory Limitations: no limitations - History of Present Illness Initial comments: 47-year-old tearful patient presents to the emergency room with complaints of right upper back pain sharp and stabbing in nature for the past week. She states she had previous occurrence of this a month ago did see her primary care doctor who put her on Robaxin and she did get relief. Patient states she stopped taking the medication and the pain returned on Monday. She tried medication again and did not resolve the symptoms. She denies any nausea vomiting or fevers. No abdominal pain. No chest pain. Does have a history of diabetes, GERD, fibromyalgia, cholecystectomy and appendectomy -: week(s) (1) Location: right (upper back / shoulder blade) Severity scale (1-10): 10 Quality: stabbing, sharp Consistency: constant Associated Symptoms: denies other symptoms - Related Data Home Medications Medication Instructions Recorded Confirmed metFORMIN HCL [Glucophage] 1,000 mg PO BID 05/12/16 11/22/22 Pregabalin [Lyrica] 75 mg PO BID 09/04/18 11/22/22 Dulaglutide [Trulicity] 3 mg SQ DIRECTED 06/23/21 11/22/22 Empagliflozin [Jardiance] 10 mg PO DAILY 04/08/22 11/22/22 Glimepiride [Amaryl] 4 mg PO BID 04/08/22 11/22/22 Ondansetron [Zofran] 4 mg PO QID PRN 04/08/22 11/22/22 Rosuvastatin Calcium [Crestor] 20 mg PO DAILY 04/08/22 11/22/22 Albuterol Sulfate [Proair Hfa] 2 puff INHALATION RT-Q6H PRN 11/22/22 11/22/22 HYDROcodone/APAP 5-325MG [[employer] 1 tab PO Q6HR PRN 11/22/22 11/22/22 5-325] Lactulose 10 gm PO DAILY PRN 11/22/22 11/22/22 OXcarbazepine [Trileptal] 300 mg PO HS 11/22/22 11/22/22 Phentermine HCl [Adipex-P] 37.5 mg PO DAILY 11/22/22 11/22/22 Pioglitazone [Actos] 15 mg PO HS 11/22/22 11/22/22 bisacodyL [Dulcolax] 5 mg PO DAILY PRN 11/22/22 11/22/22 buPROPion HCL [Wellbutrin SR] 200 mg PO BID 11/22/22 11/22/22 Previous Rx's Medication Instructions Recorded Acetaminophen Tab [Tylenol] 650 mg PO Q4HR PRN tab 04/14/22 Vortioxetine Hydrobromide 20 mg PO DAILY 30 Days tab 04/14/22 [Trintellix] Dicyclomine [Bentyl] 10 mg PO QID #28 cap 11/27/22 Omeprazole 40 mg PO BID #60 cap 11/27/22 Sucralfate [Carafate] 1 gm PO AC-BID 30 Days #60 tab 11/27/22 Meclizine [Antivert] 25 mg PO TID PRN #15 tab 02/17/23 Lidocaine 5% Patch [Lidoderm] 1 patch TOPICAL DAILY 14 Days #14 05/21/23 patch Allergies Allergy/AdvReac Type Severity Reaction Status Date / Time codeine AdvReac Nausea & Verified 05/21/23 12:08 Vomiting Review of Systems ROS Statement: Those systems with pertinent positive or pertinent negative responses have been documented in the HPI. ROS Other: All systems not noted in ROS Statement are negative. Past Medical History Past Medical History: Diabetes Mellitus, Fibromyalgia, GERD/Reflux Additional Past Medical History / Comment(s): change in bowel habits, ovarian cyst History of Any Multi-Drug Resistant Organisms: None Reported Past Surgical History: Appendectomy, Cholecystectomy, Hernia Repair, Orthopedic Surgery, Uterine Ablation Additional Past Surgical History / Comment(s): sinus surgery, carpal tunnel-rt, vein stripping, aortic stent placed approx 2 years ago. Past Anesthesia/Blood Transfusion Reactions: Previous Problems w/ Anesthesia, Motion Sickness Additional Past Anesthesia/Blood Transfusion Reaction / Comment(s): "sometimes hard time coming out of anesthesia" Past Psychological History: Depression Smoking Status: Current every day smoker Past Alcohol Use History: Occasional Past Drug Use History: None Reported - Past Family History Father Family Medical History: Pulmonary Embolus General Exam Limitations: no limitations General appearance: alert, in no apparent distress Head exam: Present: atraumatic Eye exam: Absent: periorbital swelling ENT exam: Present: mucous membranes moist Neck exam: Absent: tenderness, meningismus Respiratory exam: Present: normal lung sounds bilaterally. Absent: respiratory distress, accessory muscle use Cardiovascular Exam: Present: tachycardia GI/Abdominal exam: Present: soft. Absent: distended, tenderness, guarding, rebound, rigid Extremities exam: Present: full ROM, normal capillary refill. Absent: tenderness, pedal edema, calf tenderness Back exam: Absent: tenderness, CVA tenderness (R), CVA tenderness (L), vertebral tenderness, rash noted Neurological exam: Present: alert, oriented X3 Psychiatric exam: Present: normal affect, normal mood, anxious Skin exam: Present: warm, intact, normal color. Absent: rash, cyanosis, diaphoretic, petechiae, pallor Course Vital Signs 05/21/23 05/21/23 05/21/23 12:06 12:08 12:24 Temperature 98.1 F Pulse Rate 109 H 93 Respiratory 18 24 Rate Blood Pressure 110/72 126/84 O2 Sat by Pulse 98 97 96 Oximetry 05/21/23 05/21/23 05/21/23 12:30 12:40 12:50 Temperature Pulse Rate 96 90 88 Respiratory Rate Blood Pressure 130/86 138/90 138/90 O2 Sat by Pulse 97 96 94 L Oximetry 05/21/23 05/21/23 05/21/23 13:00 13:10 13:20 Temperature Pulse Rate 90 Respiratory 20 Rate Blood Pressure 138/90 132/82 132/82 O2 Sat by Pulse 93 L Oximetry 05/21/23 05/21/23 05/21/23 13:30 13:40 13:50 Temperature Pulse Rate 92 92 Respiratory Rate Blood Pressure 132/82 123/88 123/88 O2 Sat by Pulse 97 95 Oximetry 05/21/23 14:44 Temperature Pulse Rate 87 Respiratory 20 Rate Blood Pressure 100/58 O2 Sat by Pulse 97 Oximetry EKG Findings - EKG Results: EKG: interpreted by ERMD (EKG interpreted by me shows sinus rhythm with a ventricular rate of 86, SC interval 0.148, QRS 0.94, QTC 0.413, normal axis, no concerning changes compared to old 02/17/2023) Medical Decision Making - Medical Decision Making Was pt. sent in by a medical professional or institution (, [place], [facility], urgent care, hospital, or shelter...) When possible be specific @ -No Did you speak to anyone other than the patient for history (EMS, parent, family, police, friend...)? What history was obtained from this source @ -No Did you review nursing and triage notes (agree or disagree)? Why? @ -I reviewed and agree with nursing and triage notes Were old charts reviewed (outside hosp., previous admission, EMS record, old EKG, old radiological studies, urgent care reports/EKG's, shelter records)? Report findings @ -Old EKG 02-17-23 Differential Diagnosis (chest pain, altered mental status, abdominal pain women, abdominal pain men, vaginal bleeding, weakness, fever, dyspnea, syncope, headache, dizziness, GI bleed, back pain, seizure, CVA, palpatations, mental health, musculoskeletal)? @ -Differential Back Pain: Strain, zoster, cauda equina syndrome, epidural abscess, vertebral osteomyelitis, discitis, fracture, subluxation, disc herniation, DJD, spinal stenosis, dissection, AAA, pancreatitis, peptic ulcer disease, pyelonephritis, kidney stone, this is not meant to be an all-inclusive list. EKG interpreted by me (3pts min.). @ -yes EKG interpreted by me shows sinus rhythm with a ventricular rate of 86, SC interval 0.148, QRS 0.94, QTC 0.413, normal axis, no concerning changes compared to old 02/17/2023 X-rays interpreted by me (1pt min.). @ -Chest x-ray interpreted by me shows no evidence of focal consolidation. Tr achea is midline. Cardiac silhouette within normal size. No evidence of free air. CT interpreted by me (1pt min.). @ -None done U/S interpreted by me (1pt. min.). @ -None done What testing was considered but not performed or refused? (CT, X-rays, U/S, labs)? Why? @ -None What meds were considered but not given or refused? Why? @ -None Did you discuss the management of the patient with other professionals (professionals i.e. Dr. PA, [facility], lab, RT, psych nurse, social worker palliative care, rfid developer, teacher, medical officer psychiatry, correctional case manager)? Give summary @ -No Was smoking cessation discussed for >3mins.? @ -No Was critical care preformed (if so, how long)? @ -No Were there social determinants of health that impacted care today? How? (Homelessness, low income, unemployed, alcoholism, drug addiction, transportation, low edu. Level, literacy, decrease access to med. care, skilled nursing, rehab)? @ -No Was there de-escalation of care discussed even if they declined (Discuss DNR or withdrawal of care, Hospice)? DNR status @ -No What co-morbidities impacted this encounter? (DM, HTN, Smoking, COPD, CAD, Cancer, CVA, ARF, Chemo, Hep., AIDS, mental health diagnosis, sleep apnea, morbid obesity)? @ -Does have a history of diabetes, GERD, fibromyalgia, cholecystectomy and appendectomy Was patient admitted / discharged? Hospital course, mention meds given and route, prescriptions, significant lab abnormalities, going to OR and other pertinent info. @ -Discharged 47-year-old tearful patient presents to the emergency room with complaints of right upper back pain states sharp and stabbing in nature for the past week. She states she had previous occurrence of this a month ago did see her primary care doctor who put her on Robaxin and she did get relief for 3 weeks. Patient states she stopped taking the medication and the pain returned on Monday last week. She tried medication again and did not resolve the symptoms. She denies any nausea vomiting or fevers. No abdominal pain. No chest pain. EKG interpreted by me shows sinus rhythm with a ventricular rate of 86, SC interval 0.148, QRS 0.94, QTC 0.413, normal axis, no concerning changes compared to old 02/17/2023 Chest x-ray interpreted by me shows no evidence of focal consolidation. Trachea is midline. Cardiac silhouette within normal size. No evidence of free air. Radiologist interpretation no acute cardiopulmonary disease or process. CBC unremarkable with no evidence of leukocytosis. D-dimer negative at 0.30. Electrolytes show blood glucose of 172 and slight elevation in AST and ALT. Urinalysis 4+ glucose, patient is a diabetic Patient states she continues to have right scapular pain however appears to be musculoskeletal, worse with palpation and movement. She was offered Flexeril instead of the Robaxin and declined states that she's had that before. She was offered a Lidoderm patch which she was acceptable to. Directed her to continue the Robaxin and Lidoderm patches, follow up with her primary care doctor tomorrow morning as Dr. Meade has seen her for this same pain in the past. Patient reluctantly agreeable to this plan of care. Discharged home with family. Case discussed with Dr. Chung Undiagnosed new problem with uncertain prognosis? @ -No Drug Therapy requiring intensive monitoring for toxicity (Heparin, Nitro, Insulin, Cardizem)? @ -No Were any procedures done? @ -No Diagnosis/symptom? @ -Musculoskeletal back pain Acute, or Chronic, or Acute on Chronic? @ -Acute Uncomplicated (without systemic symptoms) or Complicated (systemic symptoms)? @ -Uncomplicated Side effects of treatment? @ -No Exacerbation, Progression, or Severe Exacerbation? @ -No Poses a threat to life or bodily function? How? (Chest pain, USA, NM, pneumonia, PE, COPD, DKA, ARF, appy, cholecystitis, CVA, Diverticulitis, Homicidal, Suicidal, threat to staff... and all critical care pts) @ -No - Lab Data Result diagrams: 05/21/23 12:30 05/21/23 12:30 Lab Results 05/21/23 05/21/23 05/21/23 Range/Units 12:30 12:30 12:30 WBC 7.9 (3.8-10.6) k/uL RBC 5.09 (3.80-5.40) m/uL Hgb 15.0 (11.4-16.0) gm/dL Hct 45.6 (34.0-46.0) % MCV 89.6 (80.0-100.0) fL MCH 29.5 (25.0-35.0) pg MCHC 32.9 (31.0-37.0) g/dL RDW 13.4 (11.5-15.5) % Plt Count 221 (150-450) k/uL MPV 7.7 Neutrophils % 68 % Lymphocytes % 25 % Monocytes % 4 % Eosinophils % 2 % Basophils % 0 % Neutrophils # 5.3 (1.3-7.7) k/uL Lymphocytes # 1.9 (1.0-4.8) k/uL Monocytes # 0.3 (0-1.0) k/uL Eosinophils # 0.1 (0-0.7) k/uL Basophils # 0.0 (0-0.2) k/uL D-Dimer (<0.60) mg/L FEU Sodium 136 L (137-145) mmol/L Potassium 4.7 (3.5-5.1) mmol/L Chloride 102 (98-107) mmol/L Carbon Dioxide 25 (22-30) mmol/L Anion Gap 9 mmol/L BUN 15 (7-17) mg/dL Creatinine 0.58 (0.52-1.04) mg/dL Est GFR (CKD-EPI)AfAm >90 (>60 ml/min/1.73 sqM) Est GFR (CKD-EPI)NonAf >90 (>60 ml/min/1.73 sqM) Glucose 172 H (74-99) mg/dL Plasma Lactic Acid Keith (0.7-2.0) mmol/L Calcium 9.8 (8.4-10.2) mg/dL Total Bilirubin 0.6 (0.2-1.3) mg/dL AST 40 H (14-36) U/L ALT 60 H (4-34) U/L Alkaline Phosphatase 88 (38-126) U/L Total Protein 7.2 (6.3-8.2) g/dL Albumin 4.4 (3.5-5.0) g/dL Amylase 65 (30-110) U/L Lipase 97 (23-300) U/L Urine Color Light Yellow Urine Appearance Clear (Clear) Urine pH 6.5 (5.0-8.0) Ur Specific Moran 1.022 (1.001-1.035) Urine Protein Negative (Negative) Urine Glucose (UA) 4+ H (Negative) Urine Ketones Negative (Negative) Urine Blood Negative (Negative) Urine Nitrite Negative (Negative) Urine Bilirubin Negative (Negative) Urine Urobilinogen <2.0 (<2.0) mg/dL Ur Leukocyte Esterase Negative (Negative) 05/21/23 05/21/23 Range/Units 12:30 12:30 WBC (3.8-10.6) k/uL RBC (3.80-5.40) m/uL Hgb (11.4-16.0) gm/dL Hct (34.0-46.0) % MCV (80.0-100.0) fL MCH (25.0-35.0) pg MCHC (31.0-37.0) g/dL RDW (11.5-15.5) % Plt Count (150-450) k/uL MPV Neutrophils % % Lymphocytes % % Monocytes % % Eosinophils % % Basophils % % Neutrophils # (1.3-7.7) k/uL Lymphocytes # (1.0-4.8) k/uL Monocytes # (0-1.0) k/uL Eosinophils # (0-0.7) k/uL Basophils # (0-0.2) k/uL D-Dimer 0.30 (<0.60) mg/L FEU Sodium (137-145) mmol/L Potassium (3.5-5.1) mmol/L Chloride (98-107) mmol/L Carbon Dioxide (22-30) mmol/L Anion Gap mmol/L BUN (7-17) mg/dL Creatinine (0.52-1.04) mg/dL Est GFR (CKD-EPI)AfAm (>60 ml/min/1.73 sqM) Est GFR (CKD-EPI)NonAf (>60 ml/min/1.73 sqM) Glucose (74-99) mg/dL Plasma Lactic Acid Keith 1.9 (0.7-2.0) mmol/L Calcium (8.4-10.2) mg/dL Total Bilirubin (0.2-1.3) mg/dL AST (14-36) U/L ALT (4-34) U/L Alkaline Phosphatase (38-126) U/L Total Protein (6.3-8.2) g/dL Albumin (3.5-5.0) g/dL Amylase (30-110) U/L Lipase (23-300) U/L Urine Color Urine Appearance (Clear) Urine pH (5.0-8.0) Ur Specific Moran (1.001-1.035) Urine Protein (Negative) Urine Glucose (UA) (Negative) Urine Ketones (Negative) Urine Blood (Negative) Urine Nitrite (Negative) Urine Bilirubin (Negative) Urine Urobilinogen (<2.0) mg/dL Ur Leukocyte Esterase (Negative) Disposition Clinical Impression: Musculoskeletal back pain Disposition: HOME SELF-CARE Condition: Good Instructions (If sedation given, give patient instructions): Musculoskeletal Pain (ED) Additional Instructions: Continue taking your Robaxin, you can use Lidoderm patches in addition for pain relief. Follow-up with your primary care doctor tomorrow morning. Return to the emergency room with a concerning symptoms. Prescriptions: Lidocaine 5% Patch [Lidoderm] 1 patch TOPICAL DAILY 14 Days #14 patch Is patient prescribed a controlled substance at d/c from ED?: No Referrals: Kirsten Meade MD [Primary Care Provider] - 1-2 days Time of Disposition: 15:41
[2023-05-21 13:01] VITALS: RESP 20
[2023-05-21 13:05] LABS: Basophils % (A) 0 %; Eosinophils # (A) 0.1 k/uL (0-0.7); Eosinophils % (A) 2 %; HCT 45.6 % (34.0-46.0); Lymphocytes # (A) 1.9 k/uL (1.0-4.8); Lymphocytes % (A) 25 %; MCH 29.5 pg (25.0-35.0); MCHC 32.9 g/dL (31.0-37.0); MCV 89.6 fL (80.0-100.0); Mean Platelet Volume 7.7; Monocytes # (A) 0.3 k/uL (0-1.0); Monocytes % (A) 4 %; Neutrophils # (A) 5.3 k/uL (1.3-7.7); Neutrophils % (A) 68 %; Platelet Count 221 k/uL (150-450); RBC 5.09 m/uL (3.80-5.40); RDW 13.4 % (11.5-15.5); WBC 7.9 k/uL (3.8-10.6)
[2023-05-21 13:23] LABS: ALT 60 U/L (4-34); AST 40 U/L (14-36); African American GFR (CKD) >90 (>60 ml/min/1.73 sqM); Albumin 4.4 g/dL (3.5-5.0); Alkaline Phosphatase 88 U/L (38-126); Amylase 65 U/L (30-110); Anion Gap 9 mmol/L; Blood Urea Nitrogen 15 mg/dL (7-17); Calcium 9.8 mg/dL (8.4-10.2); Carbon Dioxide 25 mmol/L (22-30); Chloride 102 mmol/L (98-107); Glucose 172 mg/dL (74-99); Lipase 97 U/L (23-300); Non-African American GFR(CKD) >90 (>60 ml/min/1.73 sqM); Potassium 4.7 mmol/L (3.5-5.1); Sodium 136 mmol/L (137-145); Total Bilirubin 0.6 mg/dL (0.2-1.3); Total Protein 7.2 g/dL (6.3-8.2)
--- NOTE | 2023-05-21 13:26 | XR ---
EXAMINATION TYPE: XR chest 2V DATE OF EXAM: 05/21/2023 1:21 PM COMPARISON: Chest radiographs from 02/17/2023 TECHNIQUE: XR chest 2V Frontal and lateral views of the chest. CLINICAL INDICATION:Female, 47 years old with history of pain; FINDINGS: Lungs/Pleura: There is no evidence of pleural effusion, focal consolidation, or pneumothorax. Pulmonary vascularity: Unremarkable. Heart/mediastinum: Cardiomediastinal silhouette is unremarkable. Musculoskeletal: No acute osseous pathology. IMPRESSION: No acute cardiopulmonary disease/process.
[2023-05-21] MEDS ORDERED: ORPHENADRINE 30 MG/ML 2 ML VIAL IVP STA (13:39)
[2023-05-21 14:32] LABS: Appearance,Urine Clear (Clear); Bilirubin,Urine Negative (Negative); Blood,Urine Negative (Negative); Color,Urine Light Yellow; Glucose,Urine (UA) 4+ (Negative); Ketones,Urine Negative (Negative); Leukocyte Esterase,Urine Negative (Negative); Nitrite,Urine Negative (Negative); PH, Urine 6.5 (5.0-8.0); Protein,Urine Negative (Negative); Specific Gravity,Urine 1.022 (1.001-1.035); Urobilinogen,Urine <2.0 mg/dL (<2.0)
[2023-05-21] MEDS ORDERED: fentaNYL (PF) 50 MCG/ML 2 ML AMP IVP STA (14:34)
[2023-05-21 14:45] VITALS: BP 100/58; PULSE 87
[2023-05-21] MEDS ORDERED: LIDOCAINE 5% PATCH TOPICAL SCH (15:45)
== END 2023-05-21 16:49 | disposition home or self-care (01) ==
LOC: EC 11:57
DX: M54.9 Dorsalgia, unspecified (principal); M25.511 Pain in right shoulder; E11.9 Type 2 diabetes mellitus without complications; K21.9 Gastro-esophageal reflux disease without esophagitis; F32.A Depression, unspecified; F17.200 Nicotine dependence, unspecified, uncomplicated; Z88.5 Allergy status to narcotic agent; Z79.84 Long term (current) use of oral hypoglycemic drugs; Z79.899 Other long term (current) drug therapy
CPT/HCPCS: 36415; 85379; 80053; 82150; 83605; 83690; 85025; 81003; 71046; 99284; 96374; 96375 ×2; J2060; J2360; J3010

== ENCOUNTER → 2023-05-30 | Outpatient (CLI) | payer MEDICAID, OTHER ==
--- NOTE | 2023-05-30 15:37 | XR ---
EXAM TYPE: LUMBAR SPINE X RAY SERIES COMPARISON: NONE HISTORY: Pain TECHNIQUE: 4 views are submitted. FINDINGS: Alignment is anatomic. The pedicles are intact. The transverse processes are intact. There is surg ical clips right upper quadrant. There is a vascular stent. There is a slight anterior listhesis of L 4 on L5 and L5 on S1 with facet arthropathy. Mild degenerative disc disease L4-5 and L5-S1. Degenerat gavino disc disease also noted thoracolumbar junction. 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 IMPRESSION: 1. Grade 1 anterior listhesis L4 on L5 and L5 on S1 with facet arthropathy and degenerative changes. Suspect a spondylolysis of L5.
--- NOTE | 2023-05-30 15:38 | XR ---
EXAMINATION TYPE: XR thoracic spine complete DATE OF EXAM: 05/30/2023 COMPARISON: NONE HISTORY: Pain TECHNIQUE: 3 views submitted FINDINGS: Alignment is anatomic. There is no compression deformities. Multilevel moderate to severe degenerati ve disc disease and hypertrophic changes. Surgical clips gallbladder fossa. IMPRESSION: 1. Multilevel moderate to severe degenerative disc disease
== END | disposition home or self-care (01) ==
LOC: RADXRMAIN 14:21
PROVIDERS: ATTEND Family Medicine
DX: M43.17 Spondylolisthesis, lumbosacral region (principal); M47.816 Spondylosis without myelopathy or radiculopathy, lumbar region; M51.34 Other intervertebral disc degeneration, thoracic region
CPT/HCPCS: 72072; 72100

== ENCOUNTER 2023-06-09 15:06 | Emergency (ER) | payer MEDICAID, OTHER ==
[2023-06-09 15:17] LABS: Glucose,Whole Blood 180 mg/dL (70-110)
--- NOTE | 2023-06-09 15:48 | XR ---
EXAMINATION TYPE: XR chest 2V DATE OF EXAM: 06/09/2023 COMPARISON: NONE HISTORY: Chest pain TECHNIQUE: Frontal and lateral views of the chest are obtained. FINDINGS: There is no focal air space opacity. No evidence for pneumothorax. No pleural effusion. The cardiac silhouette size is within normal limits. The osseous structures are grossly intact. IMPRESSION: 1. No acute cardiopulmonary process.
[2023-06-09 15:54] LABS: Basophils % (A) 0 %; Eosinophils # (A) 0.1 k/uL (0-0.7); Eosinophils % (A) 1 %; HGB 14.9 gm/dL (11.4-16.0); Lymphocytes # (A) 1.9 k/uL (1.0-4.8); Lymphocytes % (A) 18 %; MCH 30.4 pg (25.0-35.0); MCHC 34.6 g/dL (31.0-37.0); MCV 87.9 fL (80.0-100.0); Mean Platelet Volume 7.7; Monocytes # (A) 0.5 k/uL (0-1.0); Monocytes % (A) 5 %; Neutrophils % (A) 75 %; Platelet Count 179 k/uL (150-450); RBC 4.89 m/uL (3.80-5.40); RDW 13.4 % (11.5-15.5); WBC 10.7 k/uL (3.8-10.6)
[2023-06-09 16:06] LABS: ALT 35 U/L (4-34); AST 26 U/L (14-36); African American GFR (CKD) >90 (>60 ml/min/1.73 sqM); Albumin 4.2 g/dL (3.5-5.0); Alkaline Phosphatase 92 U/L (38-126); Anion Gap 9 mmol/L; Blood Urea Nitrogen 16 mg/dL (7-17); Calcium 9.7 mg/dL (8.4-10.2); Carbon Dioxide 22 mmol/L (22-30); Chloride 105 mmol/L (98-107); Glucose 171 mg/dL (74-99); Lipase 196 U/L (23-300); Magnesium 2.1 mg/dL (1.6-2.3); Non-African American GFR(CKD) >90 (>60 ml/min/1.73 sqM); Potassium 3.8 mmol/L (3.5-5.1); Sodium 136 mmol/L (137-145); Total Bilirubin 0.4 mg/dL (0.2-1.3); Total Protein 6.9 g/dL (6.3-8.2)
[2023-06-09 16:13] LABS: NT-Pro-B-Type Natriuretic Pept 75 pg/mL
[2023-06-09 16:17] LABS: Prothrombin Time 10.2 sec (9.0-12.0)
[2023-06-09 16:42] LABS: Partial Thromboplastin Time 21.8 sec (22.0-30.0)
--- NOTE | 2023-06-09 17:06 | ED ---
Chest Pain HPI - General Chief Complaint: Chest Pain Stated Complaint: chest pain dizziness Time Seen by Provider: 06/09/23 15:19 Source: patient Mode of arrival: ambulatory Limitations: no limitations - History of Present Illness Initial Comments: Sarah 47-year-old female presents the emergency department today for palpitations and shortness of breath. She describes experiencing palpitations and feeling as though she's being choked. This episode happened without provocation while she was working. Patient has no cardiac history. No history of DVT or PE. She is on no estrogen. - Related Data Home Medications Medication Instructions Recorded Confirmed metFORMIN HCL [Glucophage] 1,000 mg PO BID 05/12/16 06/09/23 Pregabalin [Lyrica] 75 mg PO BID 09/04/18 06/09/23 Empagliflozin [Jardiance] 10 mg PO HS 04/08/22 06/09/23 Glimepiride [Amaryl] 4 mg PO BID 04/08/22 06/09/23 Ondansetron [Zofran] 4 mg PO QID PRN 04/08/22 06/09/23 Rosuvastatin Calcium [Crestor] 20 mg PO HS 04/08/22 06/09/23 Pioglitazone [Actos] 15 mg PO DAILY 11/22/22 06/09/23 Ibuprofen [Motrin] 800 mg PO Q8H PRN 06/09/23 06/09/23 Omeprazole [PriLOSEC] 40 mg PO DAILY 06/09/23 06/09/23 Semaglutide [Ozempic] 0.5 mg SQ FR 06/09/23 06/09/23 Sertraline [Zoloft] 100 mg PO HS 06/09/23 06/09/23 buPROPion XL [Wellbutrin XL] 150 mg PO DAILY 06/09/23 06/09/23 buPROPion XL [Wellbutrin XL] 300 mg PO DAILY 06/09/23 06/09/23 traMADol HCL 50 mg PO TID PRN 06/09/23 06/09/23 Previous Rx's Medication Instructions Recorded Vortioxetine Hydrobromide 20 mg PO DAILY 30 Days tab 04/14/22 [Trintellix] Allergies Allergy/AdvReac Type Severity Reaction Status Date / Time codeine AdvReac Nausea & Verified 06/09/23 18:45 Vomiting Review of Systems ROS Statement: Those systems with pertinent positive or pertinent negative responses have been documented in the HPI. ROS Other: All systems not noted in ROS Statement are negative. EKG Findings - EKG Comments: EKG Findings:: EKG interpreted by me EKG was obtained due to complaint of shortness breath EKG was obtained at 1526 rate is 90 rhythm is sinus normal axis normal intervals no acute ST elevations or depressions or evidence of ischemia or infarction Past Medical History Past Medical History: Diabetes Mellitus, Fibromyalgia, GERD/Reflux Additional Past Medical History / Comment(s): change in bowel habits, ovarian cyst History of Any Multi-Drug Resistant Organisms: None Reported Past Surgical History: Appendectomy, Cholecystectomy, Hernia Repair, Orthopedic Surgery, Uterine Ablation Additional Past Surgical History / Comment(s): sinus surgery, carpal tunnel-rt, vein stripping, aortic stent placed approx 2 years ago. Past Anesthesia/Blood Transfusion Reactions: Previous Problems w/ Anesthesia, Motion Sickness Additional Past Anesthesia/Blood Transfusion Reaction / Comment(s): "sometimes hard time coming out of anesthesia" Past Psychological History: Depression Smoking Status: Current every day smoker Past Alcohol Use History: Occasional Past Drug Use History: None Reported - Past Family History Father Family Medical History: Pulmonary Embolus General Exam - General Exam Comments Initial Comments: Physical Exam GENERAL: Patient is well-developed and well-nourished. Patient is nontoxic and well- hydrated and is in no distress. HENT: Normocephalic, Atraumatic. EYES: PERRL, EOMI PULMONARY: Unlabored respirations. No audible rales rhonchi or wheezing was noted. CARDIOVASCULAR: There is a regular rate and rhythm without any murmurs gallops or rubs. ABDOMEN: Soft and nontender with normal bowel sounds. SKIN: Skin is clear with no lesions or rashes and otherwise unremarkable. : Deferred NEUROLOGIC: Patient is alert and oriented x3. Moving all extremities spontaneously MUSCULOSKELETAL: Normal extremities with adequate strength and full range of motion. No lower extremity swelling or edema. No calf tenderness. PSYCHIATRIC: Normal psychiatric evaluation. Limitations: no limitations Course Vital Signs 06/09/23 06/09/23 06/09/23 15:12 17:37 18:56 Temperature 98.5 F 98.4 F 97.9 F Pulse Rate 93 89 89 Respiratory 20 18 18 Rate Blood Pressure 128/83 100/63 114/74 O2 Sat by Pulse 96 94 L 94 L Oximetry 06/09/23 21:16 Temperature Pulse Rate 89 Respiratory 16 Rate Blood Pressure 114/70 O2 Sat by Pulse 95 Oximetry Chest Pain MDM - [facility] Patient was seen and evaluated, history is obtained from the patient. PERC and Wells negative D-dimer negative Trop negative x2 HEART score 2 TSH normal Patient with no arrhythmia noted. At this time she is stable for discharge home for outpatient follow-up. I did discuss with the patient that she may need a Holter monitor and she can follow with her primary care or have referral to cardiology to discuss this. At this time the patient has low risk chest discomfort with palpitations and no arrhythmia. She stable for discharge home and outpatient management. Patient was comfortable with this plan.Was pt. sent in by a medical professional or institution ([facility] Mercer, PHLEBOTOMY TECHNOLOGIST, urgent care, hospital, or senior care...) When possible be specific @ -No Did you speak to anyone other than the patient for history (EMS, parent, family, police, friend...)? What history was obtained from this source @ -No Did you review nursing and triage notes (agree or disagree)? Why? @ -I reviewed and agree with nursing and triage notes Were old charts reviewed (outside hosp., previous admission, EMS record, old EKG, old radiological studies, urgent care reports/EKG's, senior care records)? Report findings @ -No old charts were reviewed Differential Diagnosis (chest pain, altered mental status, abdominal pain women, abdominal pain men, vaginal bleeding, weakness, fever, dyspnea, syncope, headache, dizziness, GI bleed, back pain, seizure, CVA, palpatations, mental health, musculoskeletal)? @ -not applicable EKG interpreted by me (3pts min.). @ -As above X-rays interpreted by me (1pt min.). @ -None done CT interpreted by me (1pt min.). @ -None done U/S interpreted by me (1pt. min.). @ -None done What testing was considered but not performed or refused? (CT, X-rays, U/S, labs)? Why? @ -CT to rule out pulmonary embolism was discussed with the patient however she is PERC and Wells negative with a negative d-dimer, and normal vital signs risk of PE is very minimal therefore we will not expose her to radiation What meds were considered but not given or refused? Why? @ -None Did you discuss the management of the patient with other professionals (professionals i.e. , PA, PHLEBOTOMY TECHNOLOGIST, lab, RT, psych nurse, renal social worker, playground attendant, teacher, security police officer, casework specialist)? Give summary @ -No Was smoking cessation discussed for >3mins.? @ -No Was critical care preformed (if so, how long)? @ -No Were there social determinants of health that impacted care today? How? (Homelessness, low income, unemployed, alcoholism, drug addiction, transportation, low edu. Level, literacy, decrease access to med. care, group home, rehab)? @ -No Was there de-escalation of care discussed even if they declined (Discuss DNR or withdrawal of care, Hospice)? DNR status @ -No What co-morbidities impacted this encounter? (DM, HTN, Smoking, COPD, CAD, Cancer, CVA, ARF, Chemo, Hep., AIDS, mental health diagnosis, sleep apnea, morbid obesity)? @ -None Was patient admitted / discharged? Hospital course, mention meds given and route, prescriptions, significant lab abnormalities, going to OR and other pertinent info. @ -[Discharge Undiagnosed new problem with uncertain prognosis? @ -No Drug Therapy requiring intensive monitoring for toxicity (Heparin, Nitro, Ins ulin, Cardizem)? @ -No Were any procedures done? @ -No Diagnosis/symptom? @ -Palpitations Acute, or Chronic, or Acute on Chronic? @ -default Uncomplicated (without systemic symptoms) or Complicated (systemic symptoms)? @ -default Side effects of treatment? @ -No Exacerbation, Progression, or Severe Exacerbation? @ -No Poses a threat to life or bodily function? How? (Chest pain, [place], [place], pneumonia, PE, COPD, DKA, ARF, appy, cholecystitis, CVA, Diverticulitis, Homicidal, Suicidal, threat to staff... and all critical care pts) @ -No Disposition Clinical Impression: Palpitations, Atypical chest pain Disposition: HOME SELF-CARE Condition: Stable Is patient prescribed a controlled substance at d/c from ED?: No Referrals: Kirsten Meade MD [Primary Care Provider] - 1-2 days
[2023-06-09] MEDS: ASPIRIN 81 MG PO STA ×3 (17:28→17:37)
[2023-06-09] MEDS ORDERED: MORPHINE SULFATE 4 MG/ML SYRINGE IVP STA (17:33)
[2023-06-09 18:58] VITALS: TEMP 97.9
[2023-06-09 22:31] VITALS: BP 96/55; PULSE 90; RESP 18
== END 2023-06-09 22:31 | disposition home or self-care (01) ==
LOC: EC 15:06
DX: R00.2 Palpitations (principal); R07.89 Other chest pain; E11.9 Type 2 diabetes mellitus without complications; K21.9 Gastro-esophageal reflux disease without esophagitis; F32.A Depression, unspecified; F17.200 Nicotine dependence, unspecified, uncomplicated; Z79.899 Other long term (current) drug therapy; Z79.84 Long term (current) use of oral hypoglycemic drugs; Z88.5 Allergy status to narcotic agent
CPT/HCPCS: 36415; 93005; 85379; 83880; 80053; 83690; 83735; 84443; 84484; 85025; 85610; 85730; 71046; 99285; 96374; J2270

== ENCOUNTER 2023-09-03 18:44 | Emergency (ER) | payer MEDICAID, OTHER ==
[2023-09-03] MEDS ORDERED: SODIUM CHLORIDE 0.9% 1,000 ML IV STA (19:40)
[2023-09-03] MEDS ORDERED: ONDANSETRON 4 MG/2 ML VIAL IVP STA (19:40)
[2023-09-03] MEDS ORDERED: MECLIZINE 12.5 MG TAB PO STA (19:40)
--- NOTE | 2023-09-03 20:16 | XR ---
EXAMINATION TYPE: XR chest 1V portable DATE OF EXAM: 09/03/2023 8:03 PM CLINICAL INDICATION:Female, 48 years old with history of chest pain; [facility] COMPARISON: Chest radiographs from 06/09/2023 TECHNIQUE: XR chest 1V portable Frontal view of the chest. FINDINGS: Lungs/Pleura: There is no evidence of pleural effusion, focal consolidation, or pneumothorax. Pulmonary vascularity: Unremarkable. Heart/mediastinum: Cardiomediastinal silhouette is unremarkable. Musculoskeletal: No acute osseous pathology. IMPRESSION: No acute cardiopulmonary disease/process.
[2023-09-03 20:25] LABS: Basophils % (A) 0 %; Eosinophils # (A) 0.2 k/uL (0-0.7); Eosinophils % (A) 2 %; HGB 14.1 gm/dL (11.4-16.0); Lymphocytes # (A) 2.5 k/uL (1.0-4.8); Lymphocytes % (A) 28 %; MCHC 33.6 g/dL (31.0-37.0); Monocytes # (A) 0.4 k/uL (0-1.0); Monocytes % (A) 5 %; Neutrophils # (A) 5.5 k/uL (1.3-7.7); Neutrophils % (A) 62 %; Platelet Count 191 k/uL (150-450); RBC 4.72 m/uL (3.80-5.40); RDW 13.6 % (11.5-15.5); WBC 8.8 k/uL (3.8-10.6)
[2023-09-03 20:30] LABS: Prothrombin Time 10.7 sec (10.0-12.5)
[2023-09-03 20:33] LABS: Appearance,Urine Clear (Clear); Bilirubin,Urine Negative (Negative); Blood,Urine Moderate (Negative); Color,Urine Yellow; Glucose,Urine (UA) 4+ (Negative); Ketones,Urine Negative (Negative); Leukocyte Esterase,Urine Negative (Negative); Mucus,Urine Few /hpf; Nitrite,Urine Negative (Negative); PH, Urine 5.5 (5.0-8.0); Protein,Urine Trace (Negative); RBC,Urine 1 /hpf (0-5); Specific Gravity,Urine 1.029 (1.001-1.035); Squamous Epithelial Cell,Urine 2 /hpf (0-4); Urobilinogen,Urine <2.0 mg/dL (<2.0); WBC,Urine 1 /hpf (0-5)
[2023-09-03 20:42] LABS: ALT 51 U/L (4-34); AST 34 U/L (14-36); African American GFR (CKD) >90 (>60 ml/min/1.73 sqM); Albumin 3.9 g/dL (3.5-5.0); Alkaline Phosphatase 64 U/L (38-126); Anion Gap 10 mmol/L; Blood Urea Nitrogen 15 mg/dL (7-17); Carbon Dioxide 21 mmol/L (22-30); Chloride 106 mmol/L (98-107); Glucose 103 mg/dL (74-99); Non-African American GFR(CKD) >90 (>60 ml/min/1.73 sqM); Potassium 3.7 mmol/L (3.5-5.1); Sodium 137 mmol/L (137-145); Total Bilirubin 0.4 mg/dL (0.2-1.3); Total Protein 6.5 g/dL (6.3-8.2)
--- NOTE | 2023-09-03 21:06 | ED ---
Dizziness HPI - General Chief Complaint: Dizziness Stated Complaint: dizziness Time Seen by Provider: 09/03/23 18:57 Source: patient Mode of arrival: wheelchair Limitations: no limitations - History of Present Illness Initial Comments: Aleena is a 48-year-old female who presents here today for evaluation of dizziness. Patient reports she was working this evening, she got up to walk from one set of labs the other when she had some dizziness which she describes as room spinning around her. Symptoms seem to improve with sitting down and resting. She no headache or vision changes. She states she has had episodes of lightheadedness in the past she's followed with cardiology and has had episodes of sinus tach on her Holter monitor. No history of pots. Patient reports she has not been ill recently she's been eating and drinking well she not concerned about dehydration. She had not been standing for prolonged period of time with this episode happened. - Related Data Home Medications Medication Instructions Recorded Confirmed metFORMIN HCL [Glucophage] 1,000 mg PO BID 05/12/16 06/09/23 Pregabalin [Lyrica] 75 mg PO BID 09/04/18 06/09/23 Empagliflozin [Jardiance] 10 mg PO HS 04/08/22 06/09/23 Glimepiride [Amaryl] 4 mg PO BID 04/08/22 06/09/23 Ondansetron [Zofran] 4 mg PO QID PRN 04/08/22 06/09/23 Rosuvastatin Calcium [Crestor] 20 mg PO HS 04/08/22 06/09/23 Pioglitazone [Actos] 15 mg PO DAILY 11/22/22 06/09/23 Ibuprofen [Motrin] 800 mg PO Q8H PRN 06/09/23 06/09/23 Omeprazole [PriLOSEC] 40 mg PO DAILY 06/09/23 06/09/23 Semaglutide [Ozempic] 0.5 mg SQ FR 06/09/23 06/09/23 Sertraline [Zoloft] 100 mg PO HS 06/09/23 06/09/23 buPROPion XL [Wellbutrin XL] 150 mg PO DAILY 06/09/23 06/09/23 buPROPion XL [Wellbutrin XL] 300 mg PO DAILY 06/09/23 06/09/23 traMADol HCL 50 mg PO TID PRN 06/09/23 06/09/23 Previous Rx's Medication Instructions Recorded Vortioxetine Hydrobromide 20 mg PO DAILY 30 Days tab 04/14/22 [Trintellix] Allergies Allergy/AdvReac Type Severity Reaction Status Date / Time codeine AdvReac Nausea & Verified 09/03/23 18:49 Vomiting Review of Systems ROS Statement: Those systems with pertinent positive or pertinent negative responses have been documented in the HPI. ROS Other: All systems not noted in ROS Statement are negative. Past Medical History Past Medical History: Diabetes Mellitus, Fibromyalgia, GERD/Reflux Additional Past Medical History / Comment(s): change in bowel habits, ovarian cyst History of Any Multi-Drug Resistant Organisms: None Reported Past Surgical History: Appendectomy, Cholecystectomy, Hernia Repair, Orthopedic Surgery, Uterine Ablation Additional Past Surgical History / Comment(s): sinus surgery, carpal tunnel-rt, vein stripping, aortic stent placed approx 2 years ago. Past Anesthesia/Blood Transfusion Reactions: Previous Problems w/ Anesthesia, Motion Sickness Additional Past Anesthesia/Blood Transfusion Reaction / Comment(s): "sometimes hard time coming out of anesthesia" Past Psychological History: Depression Smoking Status: Current every day smoker Past Alcohol Use History: Occasional Past Drug Use History: None Reported - Past Family History Father Family Medical History: Pulmonary Embolus General Exam - General Exam Comments Initial Comments: Physical Exam GENERAL: Patient is well-developed and well-nourished. Patient is nontoxic and well- hydrated and is in no distress. HENT: Normocephalic, Atraumatic. EYES: PERRL, EOMI PULMONARY: Unlabored respirations. No audible rales rhonchi or wheezing was noted. CARDIOVASCULAR: There is a regular rate and rhythm without any murmurs gallops or rubs. ABDOMEN: Soft and nontender with normal bowel sounds. SKIN: Skin is clear with no lesions or rashes and otherwise unremarkable. : Deferred NEUROLOGIC: Patient is alert and oriented x3. Moving all extremities spontaneously MUSCULOSKELETAL: Normal extremities with adequate strength and full range of motion. No lower extremity swelling or edema. No calf tenderness. PSYCHIATRIC: Normal psychiatric evaluation. Limitations: no limitations Course Vital Signs 09/03/23 09/03/23 09/03/23 18:47 21:12 22:00 Temperature 97.9 F 98.1 F Pulse Rate 81 82 86 Respiratory 16 18 18 Rate Blood Pressure 111/75 101/69 94/62 O2 Sat by Pulse 96 96 93 L Oximetry EKG Findings - EKG Comments: EKG Findings:: EKG obtained due to complaint of chest pain, EKG obtained at 1910, rate is 78 rhythm is sinus normal axis, normal intervals, TX 150, QRS 5, QTC 417 there are no acute ST elevations or depressions there is no evidence of acute ischemia or infarction. Medical Decision Making - Medical Decision Making Was pt. sent in by a medical professional or institution (, [facility], WEB COORDINATOR, urgent care, hospital, or [place] health care facility...) When possible be specific @ -No Did you speak to anyone other than the patient for history (EMS, parent, family, police, friend...)? What history was obtained from this source @ -No Did you review nursing and triage notes (agree or disagree)? Why? @ -I reviewed and agree with nursing and triage notes Were old charts reviewed (outside hosp., previous admission, EMS record, old EKG, old radiological studies, urgent care reports/EKG's, [place] health [place] facility records)? Report findings @ -No old charts were reviewed Differential Diagnosis (chest pain, altered mental status, abdominal pain women, abdominal pain men, vaginal bleeding, weakness, fever, dyspnea, syncope, headache, dizziness, GI bleed, back pain, seizure, CVA, palpatations, mental health, musculoskeletal)? @ -Differential Dizziness: Benign paroxysmal positional Vertigo, Menieres disease, otitis media, acoustic neuroma, vertebrobasilar insufficiency, cerebellar stroke, encephalitis, hypovolemic, arrhythmia, coronary artery syndrome, anemia, this is not meant to be an all-inclusive list EKG interpreted by me (3pts min.). @ -As above X-rays interpreted by me (1pt min.). @ -None done CT interpreted by me (1pt min.). @ -None done U/S interpreted by me (1pt. min.). @ -None done What testing was considered but not performed or refused? (CT, X-rays, U/S, labs)? Why? @ -None What meds were considered but not given or refused? Why? @ -None Did you discuss the management of the patient with other professionals (professionals i.e. , [facility], WEB COORDINATOR, lab, RT, psych nurse, health and social care teacher, fabric pattern grader, teacher, quarantine officer, leather case finisher)? Give summary @ -No Was smoking cessation discussed for >3mins.? @ -No Was critical care preformed (if so, how long)? @ -No Were there social determinants of health that impacted care today? How? (Homelessness, low income, unemployed, alcoholism, drug addiction, transportation, low edu. Level, literacy, decrease access to med. care, fdc, rehab)? @ -No Was there de-escalation of care discussed even if they declined (Discuss DNR or withdrawal of care, Hospice)? DNR status @ -No What co-morbidities impacted this encounter? (DM, HTN, Smoking, COPD, CAD, Cancer, CVA, ARF, Chemo, Hep., AIDS, mental health diagnosis, sleep apnea, morbid obesity)? @ -Diabetes Was patient admitted / discharged? Hospital course, mention meds given and route, prescriptions, significant lab abnormalities, going to OR and other pertinent info. @ -Discharge The patient was seen and evaluated, history is obtained from the patient. Patient with dizziness that seems to be worse with moving her head. Better with rest. No nystagmus is noted. No dizziness at rest. Patient is given Antivert, labs were obtained. Patient reported that she has had intermittent heaviness in her chest for a long period of time. Patient's troponin was neg ative, EKG was nonischemic and she was not having chest pain here in the emergency department. Patient did report an improvement in her dizziness after Antivert. She also now reports that she does occasionally have buzzing or ringing in the right ear. Advised her she should follow with ENT for possible evaluation of Mnire's disease. Patient will be discharged home with prescription for Antivert and plan for outpatient management. Undiagnosed new problem with uncertain prognosis? @ -No Drug Therapy requiring intensive monitoring for toxicity (Heparin, Nitro, Insulin, Cardizem)? @ -No Were any procedures done? @ -No Diagnosis/symptom? @ -Benign positional vertigo Acute, or Chronic, or Acute on Chronic? @ -default Uncomplicated (without systemic symptoms) or Complicated (systemic symptoms)? @ -default Side effects of treatment? @ -No Exacerbation, Progression, or Severe Exacerbation? @ -No Poses a threat to life or bodily function? How? (Chest pain, [place], [place], pneumonia, PE, COPD, DKA, ARF, appy, cholecystitis, CVA, Diverticulitis, Homicidal, Suicidal, threat to staff... and all critical care pts) @ -No - Lab Data Result diagrams: 09/03/23 19:41 09/03/23 19:41 Lab Results 09/03/23 09/03/23 09/03/23 Range/Units 19:41 19:41 19:41 WBC 8.8 (3.8-10.6) k/uL RBC 4.72 (3.80-5.40) m/uL Hgb 14.1 (11.4-16.0) gm/dL Hct 42.0 (34.0-46.0) % MCV 89.0 (80.0-100.0) fL MCH 30.0 (25.0-35.0) pg MCHC 33.6 (31.0-37.0) g/dL RDW 13.6 (11.5-15.5) % Plt Count 191 (150-450) k/uL MPV 8.0 Neutrophils % 62 % Lymphocytes % 28 % Monocytes % 5 % Eosinophils % 2 % Basophils % 0 % Neutrophils # 5.5 (1.3-7.7) k/uL Lymphocytes # 2.5 (1.0-4.8) k/uL Monocytes # 0.4 (0-1.0) k/uL Eosinophils # 0.2 (0-0.7) k/uL Basophils # 0.0 (0-0.2) k/uL PT 10.7 (10.0-12.5) sec INR 1.0 (<1.2) Sodium (137-145) mmol/L Potassium (3.5-5.1) mmol/L Chloride (98-107) mmol/L Carbon Dioxide (22-30) mmol/L Anion Gap mmol/L BUN (7-17) mg/dL Creatinine (0.52-1.04) mg/dL Est GFR (CKD-EPI)AfAm (>60 ml/min/1.73 sqM) Est GFR (CKD-EPI)NonAf (>60 ml/min/1.73 sqM) Glucose (74-99) mg/dL Calcium (8.4-10.2) mg/dL Total Bilirubin (0.2-1.3) mg/dL AST (14-36) U/L ALT (4-34) U/L Alkaline Phosphatase (38-126) U/L Troponin I (0.000-0.034) ng/mL Total Protein (6.3-8.2) g/dL Albumin (3.5-5.0) g/dL Urine Color Yellow Urine Appearance Clear (Clear) Urine pH 5.5 (5.0-8.0) Ur Specific [place] 1.029 (1.001-1.035) Urine Protein Trace H (Negative) Urine Glucose (UA) 4+ H (Negative) Urine Ketones Negative (Negative) Urine Blood Moderate H (Negative) Urine Nitrite Negative (Negative) Urine Bilirubin Negative (Negative) Urine Urobilinogen <2.0 (<2.0) mg/dL Ur Leukocyte Esterase Negative (Negative) Urine RBC 1 (0-5) /hpf Urine WBC 1 (0-5) /hpf Ur Squamous Epith Cells 2 (0-4) /hpf Urine Mucus Few H (None) /hpf 09/03/23 09/03/23 Range/Units 19:41 19:41 WBC (3.8-10.6) k/uL RBC (3.80-5.40) m/uL Hgb (11.4-16.0) gm/dL Hct (34.0-46.0) % MCV (80.0-100.0) fL MCH (25.0-35.0) pg MCHC (31.0-37.0) g/dL RDW (11.5-15.5) % Plt Count (150-450) k/uL MPV Neutrophils % % Lymphocytes % % Monocytes % % Eosinophils % % Basophils % % Neutrophils # (1.3-7.7) k/uL Lymphocytes # (1.0-4.8) k/uL Monocytes # (0-1.0) k/uL Eosinophils # (0-0.7) k/uL Basophils # (0-0.2) k/uL PT (10.0-12.5) sec INR (<1.2) Sodium 137 (137-145) mmol/L Potassium 3.7 (3.5-5.1) mmol/L Chloride 106 (98-107) mmol/L Carbon Dioxide 21 L (22-30) mmol/L Anion Gap 10 mmol/L BUN 15 (7-17) mg/dL Creatinine 0.56 (0.52-1.04) mg/dL Est GFR (CKD-EPI)AfAm >90 (>60 ml/min/1.73 sqM) Est GFR (CKD-EPI)NonAf >90 (>60 ml/min/1.73 sqM) Glucose 103 H (74-99) mg/dL Calcium 10.0 (8.4-10.2) mg/dL Total Bilirubin 0.4 (0.2-1.3) mg/dL AST 34 (14-36) U/L ALT 51 H (4-34) U/L Alkaline Phosphatase 64 (38-126) U/L Troponin I <0.012 (0.000-0.034) ng/mL Total Protein 6.5 (6.3-8.2) g/dL Albumin 3.9 (3.5-5.0) g/dL Urine Color Urine Appearance (Clear) Urine pH (5.0-8.0) Ur Specific [place] (1.001-1.035) Urine Protein (Negative) Urine Glucose (UA) (Negative) Urine Ketones (Negative) Urine Blood (Negative) Urine Nitrite (Negative) Urine Bilirubin (Negative) Urine Urobilinogen (<2.0) mg/dL Ur Leukocyte Esterase (Negative) Urine RBC (0-5) /hpf Urine WBC (0-5) /hpf Ur Squamous Epith Cells (0-4) /hpf Urine Mucus (None) /hpf Disposition Clinical Impression: BPPV (benign paroxysmal positional vertigo) Disposition: HOME SELF-CARE Condition: Stable Instructions (If sedation given, give patient instructions): Meniere Disease (ED) Is patient prescribed a controlled substance at d/c from ED?: No Referrals: Kirsten Meade MD [Primary Care Provider] - 1-2 days
[2023-09-03 21:19] VITALS: RESP 18
[2023-09-03 23:29] VITALS: BP 99/61; PULSE 82; TEMP 98.2
== END 2023-09-03 23:29 | disposition home or self-care (01) ==
LOC: EC 18:44
DX: H81.10 Benign paroxysmal vertigo, unspecified ear (principal); E11.9 Type 2 diabetes mellitus without complications; K21.9 Gastro-esophageal reflux disease without esophagitis; F32.A Depression, unspecified; F17.200 Nicotine dependence, unspecified, uncomplicated; Z79.899 Other long term (current) drug therapy; Z79.84 Long term (current) use of oral hypoglycemic drugs; Z88.5 Allergy status to narcotic agent; Z90.49 Acquired absence of other specified parts of digestive tract
CPT/HCPCS: 36415; 93005; 80053; 84484; 85025; 85610; 81001; 71045; 99284; 96374; 96361; J2405

== ENCOUNTER 2023-09-15 14:44 | Emergency (ER) | payer MEDICAID, OTHER ==
[2023-09-15 14:53] VITALS: RESP 18
[2023-09-15] MEDS ORDERED: OXYMETAZOLINE 0.05% NASL SPRAY 1 SPRAY BOTTLE NASAL STA (15:34)
--- NOTE | 2023-09-15 15:50 | ED ---
ENT HPI - General Chief complaint: ENT Stated complaint: Nosebleed Time Seen by Provider: 09/15/23 15:34 Source: patient, RN notes reviewed Mode of arrival: ambulatory Limitations: no limitations - History of Present Illness Initial comments: Patient is a 48-year-old female presented ER with chief complaint of a nosebleed. Patient states her nose started bleeding at 10:30 this morning from her right nostril. Patient states she was able to get it to stop using Afrin this morning so she could get to work but it started bleeding again shortly after her arrival at work. Patient states she noticed some blood coming out of her right eye as well. Patient states it was also dripping down the back of her throat causing her to cough. Patient denies history of nosebleeds or blood thinners. - Related Data Home Medications Medication Instructions Recorded Confirmed metFORMIN HCL [Glucophage] 1,000 mg PO BID 05/12/16 06/09/23 Pregabalin [Lyrica] 75 mg PO BID 09/04/18 06/09/23 Empagliflozin [Jardiance] 10 mg PO HS 04/08/22 06/09/23 Glimepiride [Amaryl] 4 mg PO BID 04/08/22 06/09/23 Ondansetron [Zofran] 4 mg PO QID PRN 04/08/22 06/09/23 Rosuvastatin Calcium [Crestor] 20 mg PO HS 04/08/22 06/09/23 Pioglitazone [Actos] 15 mg PO DAILY 11/22/22 06/09/23 Ibuprofen [Motrin] 800 mg PO Q8H PRN 06/09/23 06/09/23 Omeprazole [PriLOSEC] 40 mg PO DAILY 06/09/23 06/09/23 Semaglutide [Ozempic] 0.5 mg SQ FR 06/09/23 06/09/23 Sertraline [Zoloft] 100 mg PO HS 06/09/23 06/09/23 buPROPion XL [Wellbutrin XL] 150 mg PO DAILY 06/09/23 06/09/23 buPROPion XL [Wellbutrin XL] 300 mg PO DAILY 06/09/23 06/09/23 traMADol HCL 50 mg PO TID PRN 06/09/23 06/09/23 Previous Rx's Medication Instructions Recorded Vortioxetine Hydrobromide 20 mg PO DAILY 30 Days tab 04/14/22 [Trintellix] Meclizine [Antivert] 12.5 mg PO Q6H #12 tablet 09/03/23 Allergies Allergy/AdvReac Type Severity Reaction Status Date / Time codeine AdvReac Nausea & Verified 09/15/23 14:52 Vomiting Review of Systems ROS Statement: Those systems with pertinent positive or pertinent negative responses have been documented in the HPI. ROS Other: All systems not noted in ROS Statement are negative. Past Medical History Past Medical History: Diabetes Mellitus, Fibromyalgia, GERD/Reflux Additional Past Medical History / Comment(s): change in bowel habits, ovarian cyst History of Any Multi-Drug Resistant Organisms: None Reported Past Surgical History: Appendectomy, Cholecystectomy, Hernia Repair, Orthopedic Surgery, Uterine Ablation Additional Past Surgical History / Comment(s): sinus surgery, carpal tunnel-rt, vein stripping, aortic stent placed approx 2 years ago. Past Anesthesia/Blood Transfusion Reactions: Previous Problems w/ Anesthesia, Motion Sickness Additional Past Anesthesia/Blood Transfusion Reaction / Comment(s): "sometimes hard time coming out of anesthesia" Past Psychological History: Depression Smoking Status: Current every day smoker Past Alcohol Use History: Occasional Past Drug Use History: None Reported - Past Family History Father Family Medical History: Pulmonary Embolus General Exam Limitations: no limitations General appearance: alert, anxious ENT exam: Present: normal exam, mucous membranes moist, other (blood in posterior nasopharynx noted. dried blood noted from medial right eye. nasal passage blocked by clots. actively bleeding from right nostril. ) Respiratory exam: Present: normal lung sounds bilaterally. Absent: respiratory distress, wheezes, rales, rhonchi, stridor Cardiovascular Exam: Present: regular rate, normal rhythm, normal heart sounds. Absent: systolic murmur, diastolic murmur, rubs, gallop, clicks Neurological exam: Present: alert, oriented X3, CN II-XII intact Psychiatric exam: Present: anxious Course Vital Signs 09/15/23 09/15/23 14:49 16:40 Temperature 97.7 F Pulse Rate 82 86 Respiratory 18 18 Rate Blood Pressure 137/84 96/65 O2 Sat by Pulse 96 96 Oximetry Medical Decision Making - Medical Decision Making Was pt. sent in by a medical professional or institution (, PA, FALL INTERN, urgent care, hospital, or alf...) When possible be specific @ -No Did you speak to anyone other than the patient for history (EMS, parent, family, police, friend...)? What history was obtained from this source @ -No Did you review nursing and triage notes (agree or disagree)? Why? @ -I reviewed and agree with nursing and triage notes Were old charts reviewed (outside hosp., previous admission, EMS record, old EKG, old radiological studies, urgent care reports/EKG's, alf records)? Report findings @ -No old charts were reviewed Differential Diagnosis (chest pain, altered mental status, abdominal pain women, abdominal pain men, vaginal bleeding, weakness, fever, dyspnea, syncope, headache, dizziness, GI bleed, back pain, seizure, CVA, palpatations, mental health, musculoskeletal)? @ -Nosebleed, nose fracture, nose trauma EKG interpreted by me (3pts min.). @ -[None X-rays interpreted by me (1pt min.). @ -None done CT interpreted by me (1pt min.). @ -None done U/S interpreted by me (1pt. min.). @ -None done What testing was considered but not performed or refused? (CT, X-rays, U/S, labs)? Why? @ -None What meds were considered but not given or refused? Why? @ -None Did you discuss the management of the patient with other professionals (professionals i.e. , PA, FALL INTERN, lab, RT, psych nurse, social media editor, flagman, teacher, sheriffs officer, case management associate)? Give summary @ -No Was smoking cessation discussed for >3mins.? @ -No Was critical care preformed (if so, how long)? @ -No Were there social determinants of health that impacted care today? How? (Homelessness, low income, unemployed, alcoholism, drug addiction, transportation, low edu. Level, literacy, decrease access to med. care, [facility] [facility], rehab)? @ -No Was there de-escalation of care discussed even if they declined (Discuss DNR or withdrawal of care, Hospice)? DNR status @ -No What co-morbidities impacted this encounter? (DM, HTN, Smoking, COPD, CAD, Cancer, CVA, ARF, Chemo, Hep., AIDS, mental health diagnosis, sleep apnea, morbid obesity)? @ -None Was patient admitted / discharged? Hospital course, mention meds given and r oute, prescriptions, significant lab abnormalities, going to OR and other pertinent info. @ -Discharged. A nose clamp was placed upon arrival to ER. The patient was having trouble clearing the clots and having drainage into her throat about 20 minutes after placement of clamp. Afrin was admistered and nose clam was replaced. After about 20 minutes she was still bleeding from her right nostril and having drainage in the back of her throat. Patient was advised to clear clots from nose extensively and place clamp on again with added pressure. The bleeding finally stopped and the patient was feeling very weak and lightheaded. Her BP was 96/65 so labs were drawn and patient was given 1 L of IV fluids. Labs were WML. After, fluids the patient stated she felt better and was ready for discharge. Patient will be discharged home in stable condition with follow- up to PCP. Patient expressed understanding. Undiagnosed new problem with uncertain prognosis? @ -No Drug Therapy requiring intensive monitoring for toxicity (Heparin, Nitro, Insulin, Cardizem)? @ -No Were any procedures done? @ -No Diagnosis/symptom? @ -Nosebleed Acute, or Chronic, or Acute on Chronic? @ -Acute Uncomplicated (without systemic symptoms) or Complicated (systemic symptoms)? @ -Uncomplicated Side effects of treatment? @ -No Exacerbation, Progression, or Severe Exacerbation? @ -[No Poses a threat to life or bodily function? How? (Chest pain, USA, IA, pneumonia, PE, COPD, DKA, ARF, appy, cholecystitis, CVA, Diverticulitis, Homicidal, Suicidal, threat to staff... and all critical care pts) @ -No - Lab Data Result diagrams: 09/15/23 16:57 09/15/23 16:57 Lab Results 09/15/23 09/15/23 Range/Units 16:57 16:57 WBC 9.4 (3.8-10.6) k/uL RBC 4.70 (3.80-5.40) m/uL Hgb 14.4 (11.4-16.0) gm/dL Hct 41.9 (34.0-46.0) % MCV 89.2 (80.0-100.0) fL MCH 30.6 (25.0-35.0) pg MCHC 34.3 (31.0-37.0) g/dL RDW 13.2 (11.5-15.5) % Plt Count 225 (150-450) k/uL MPV 7.4 Sodium 137 (137-145) mmol/L Potassium 4.2 (3.5-5.1) mmol/L Chloride 105 (98-107) mmol/L Carbon Dioxide 23 (22-30) mmol/L Anion Gap 9 mmol/L BUN 15 (7-17) mg/dL Creatinine 0.68 (0.52-1.04) mg/dL Est GFR (CKD-EPI)AfAm >90 (>60 ml/min/1.73 sqM) Est GFR (CKD-EPI)NonAf >90 (>60 ml/min/1.73 sqM) Glucose 87 (74-99) mg/dL Calcium 10.0 (8.4-10.2) mg/dL Total Bilirubin 0.4 (0.2-1.3) mg/dL AST 30 (14-36) U/L ALT 39 H (4-34) U/L Alkaline Phosphatase 68 (38-126) U/L Total Protein 6.7 (6.3-8.2) g/dL Albumin 4.1 (3.5-5.0) g/dL Disposition Clinical Impression: Nosebleed Disposition: HOME SELF-CARE Condition: Stable Instructions (If sedation given, give patient instructions): Nosebleed (ED) Additional Instructions: Please return to the Emergency Department if symptoms worsen or any other concerns. Is patient prescribed a controlled substance at d/c from ED?: No Referrals: Kirsten Meade MD [Primary Care Provider] - 1-2 days Decision Time: 17:52
[2023-09-15] MEDS ORDERED: SODIUM CHLORIDE 0.9% 1,000 ML IV STA (16:51)
[2023-09-15 17:17] LABS: HCT 41.9 % (34.0-46.0); HGB 14.4 gm/dL (11.4-16.0); MCH 30.6 pg (25.0-35.0); MCHC 34.3 g/dL (31.0-37.0); MCV 89.2 fL (80.0-100.0); Mean Platelet Volume 7.4; Platelet Count 225 k/uL (150-450); RDW 13.2 % (11.5-15.5); WBC 9.4 k/uL (3.8-10.6)
[2023-09-15 17:25] LABS: ALT 39 U/L (4-34); AST 30 U/L (14-36); African American GFR (CKD) >90 (>60 ml/min/1.73 sqM); Albumin 4.1 g/dL (3.5-5.0); Alkaline Phosphatase 68 U/L (38-126); Anion Gap 9 mmol/L; Blood Urea Nitrogen 15 mg/dL (7-17); Carbon Dioxide 23 mmol/L (22-30); Chloride 105 mmol/L (98-107); Glucose 87 mg/dL (74-99); Non-African American GFR(CKD) >90 (>60 ml/min/1.73 sqM); Potassium 4.2 mmol/L (3.5-5.1); Sodium 137 mmol/L (137-145); Total Bilirubin 0.4 mg/dL (0.2-1.3); Total Protein 6.7 g/dL (6.3-8.2)
[2023-09-15 18:24] VITALS: BP 102/70; PULSE 84; TEMP 98.7
== END 2023-09-15 18:12 | disposition home or self-care (01) ==
LOC: EC 14:44
DX: R04.0 Epistaxis (principal); E11.9 Type 2 diabetes mellitus without complications; K21.9 Gastro-esophageal reflux disease without esophagitis; F32.A Depression, unspecified; F17.200 Nicotine dependence, unspecified, uncomplicated; Z79.84 Long term (current) use of oral hypoglycemic drugs; Z79.899 Other long term (current) drug therapy; Z88.5 Allergy status to narcotic agent; Z90.49 Acquired absence of other specified parts of digestive tract
CPT/HCPCS: 36415; 80053; 85027; 96360; 99283

== ENCOUNTER → 2023-12-13 | Outpatient (CLI) | payer MEDICAID, OTHER ==
--- NOTE | 2023-12-13 18:24 | CT ---
EXAMINATION TYPE: CT sinus wo con CT DLP: 693.0 mGycm, Automated exposure control for dose reduction was used. DATE OF EXAM: 12/13/2023 5:50 PM COMPARISON: 01/07/2021. CLINICAL INDICATION:Female, 48 years old with history of J32.0 CHRONIC MAXILLARY SINUSITIS; , CHRONIC MAXILLARY SINUSITIS TECHNIQUE: Multiple thin axial images were obtained through the paranasal sinuses without the use of IV contrast. Additional coronal and sagittal reformatted images were submitted for evaluation. Contrast used: none Oral contrast used: none FINDINGS: Frontal sinuses: Normally developed and aerated. Frontal Recess: Clear Maxillary Sinuses: Normally developed and aerated. Maxillary Infundibula([facility]): Clear, antrostomy changes bilaterally No Soo cells identified. Ethmoid sinuses: Normally developed and aerated. Ethmoidal notch: Unprotected left unprotected right anterior ethmoidal arteries. Sphenoid sinuses: Normally developed and aerated. There is sellar sphenoid sinus pneumatization witho ut evidence of dehiscence. No dehiscence of carotid canal. No evidence of optic nerve dehiscence wit hin the sphenoid sinus. No evidence of Onodi cells. Sphenoethmoidal recesses: Clear. Nasal septum: Within normal limits.. Nasal Turbinates: Within normal limits. Mastoid air cells & middle ears: The air cells are clear. The middle ears are grossly unremarkable. Modified Soft tissues & Brain: Partially seen without gross abnormality. Globes are intact. Other: Cribriform plate demonstrates symmetric Keros classification type 2 cribriform plate. No evidence of bony dehiscence of skull base. Lamina papyracea is intact without evidence of remote orbital fracture or orbital prolapse into the e thmoid sinus. IMPRESSION: 1. No significant mucosal sinus disease. 2. The ostiomeatal units, frontonasal and sphenoethmoidal recesses are clear.
== END | disposition home or self-care (01) ==
LOC: RADCTMAIN 17:27
PROVIDERS: ATTEND Otolaryngology
DX: J32.0 Chronic maxillary sinusitis (principal)
CPT/HCPCS: 70486

== ENCOUNTER 2024-01-09 12:24 | Emergency (ER) | payer MEDICAID, OTHER ==
--- NOTE | 2024-01-09 13:18 | ED ---
General Adult HPI - General Source: patient, RN notes reviewed Mode of arrival: ambulatory Limitations: no limitations <Alli Kincaid - Last Filed: 01/09/24 13:17> <Aakash John - Last Filed: 01/09/24 15:06> - General Chief complaint: Shortness of Breath Stated complaint: SOB, Cough Time Seen by Provider: 01/09/24 12:31 - History of Present Illness Initial comments: 48-year-old female presents emergency department chief complaint of fever chills cough congestion. Patient states symptoms started Monday. Patient states symptoms are greatly worsened she has shortness of breath. Patient states her pulse ox was low at home. Patient is exposed to multiple sick contacts at the hospital. Patient denies any abdominal complaints (Alli Kincaid) Patient is a 48-year-old female who presents emergency department complaining of upper respiratory symptoms, shortness of breath, and generalized bodyaches. Originally seen as a quick note. I evaluated the patient when she was placed in a room. Symptoms started on Monday and have progressively worsened. Has a history of diabetes, fibromyalgia. Patient smokes tobacco. No cardiac history. 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 Presents for further evaluation at this time. Pulse ox apparently was low at home. Denies any history of COPD.Patient originally ev aluated as a quick note. I evaluated her when she was placed in room. (Aakash John) - Related Data Home Medications Medication Instructions Recorded Confirmed metFORMIN HCL [Glucophage] 1,000 mg PO BID 05/12/16 06/09/23 Pregabalin [Lyrica] 75 mg PO BID 09/04/18 06/09/23 Empagliflozin [Jardiance] 10 mg PO HS 04/08/22 06/09/23 Glimepiride [Amaryl] 4 mg PO BID 04/08/22 06/09/23 Ondansetron [Zofran] 4 mg PO QID PRN 04/08/22 06/09/23 Rosuvastatin Calcium [Crestor] 20 mg PO HS 04/08/22 06/09/23 Pioglitazone [Actos] 15 mg PO DAILY 11/22/22 06/09/23 Ibuprofen [Motrin] 800 mg PO Q8H PRN 06/09/23 06/09/23 Omeprazole [PriLOSEC] 40 mg PO DAILY 06/09/23 06/09/23 Semaglutide [Ozempic] 0.5 mg SQ FR 06/09/23 06/09/23 Sertraline [Zoloft] 100 mg PO HS 06/09/23 06/09/23 buPROPion XL [Wellbutrin XL] 150 mg PO DAILY 06/09/23 06/09/23 buPROPion XL [Wellbutrin XL] 300 mg PO DAILY 06/09/23 06/09/23 traMADol HCL 50 mg PO TID PRN 06/09/23 06/09/23 Previous Rx's Medication Instructions Recorded Vortioxetine Hydrobromide 20 mg PO DAILY 30 Days tab 04/14/22 [Trintellix] Meclizine [Antivert] 12.5 mg PO Q6H #12 tablet 09/03/23 Albuterol Inhaler [Ventolin Hfa 2 puff INHALATION Q6H PRN #1 each 01/09/24 Inhaler] predniSONE [Deltasone] 40 mg PO DAILY 5 Days #10 tab 01/09/24 Allergies Allergy/AdvReac Type Severity Reaction Status Date / Time codeine AdvReac Nausea & Verified 01/09/24 12:47 Vomiting Review of Systems ROS Other: All systems not noted in ROS Statement are negative. <Alli Kincaid - Last Filed: 01/09/24 13:17> ROS Other: All systems not noted in ROS Statement are negative. <Aakash John - Last Filed: 01/09/24 15:06> ROS Statement: Those systems with pertinent positive or pertinent negative responses have been documented in the HPI. Review of Systems: CONST: Denies fever EYES: Denies blurry vision ENT: Endorses nasal congestion C/V: Denies Chest pain RESP: Endorses shortness of breath, cough, congestion GI: Denies abdominal pain : Denies dysuria SKIN: Denies rash. MSK: Endorses joint pain NEURO: Denies headache (Aakash John) Past Medical History Past Medical History: Diabetes Mellitus, Fibromyalgia, GERD/Reflux Additional Past Medical History / Comment(s): change in bowel habits, ovarian cyst History of Any Multi-Drug Resistant Organisms: None Reported Past Surgical History: Appendectomy, Cholecystectomy, Hernia Repair, Orthopedic Surgery, Uterine Ablation Additional Past Surgical History / Comment(s): sinus surgery, carpal tunnel-rt, vein stripping, aortic stent placed approx 2 years ago. Past Anesthesia/Blood Transfusion Reactions: Previous Problems w/ Anesthesia, Motion Sickness Additional Past Anesthesia/Blood Transfusion Reaction / Comment(s): "sometimes hard time coming out of anesthesia" Past Psychological History: Depression Smoking Status: Current every day smoker Past Alcohol Use History: Occasional Past Drug Use History: None Reported - Past Family History Father Family Medical History: Pulmonary Embolus <Alli Kincaid - Last Filed: 01/09/24 13:17> General Exam Limitations: no limitations <Alli Kincaid - Last Filed: 01/09/24 13:17> <Aakash John - Last Filed: 01/09/24 15:06> - General Exam Comments Initial Comments: Visual Physical Exam Vital signs reviewed General: Well-appearing, nontoxic, no acute distress. Head: Normocephalic, atraumatic Eyes: PERRLA, EOMI ENT: Airway patent Chest: Nonlabored breathing Skin: No visual rash, normal skin tone Neuro: Alert and oriented 3 Musculoskeletal: No gross abnormalities (Alli Kincaid) General: Appears in no acute distress. HEAD: Normal with no signs of head trauma. EYES: PERRLA, EOMI, conjunctiva normal, no discharge. ENT: Hearing grossly intact, normal oropharynx. RESPIRATORY: Mild end expiratory wheezing. No hypoxia. No increased work of breathing.. C/V: Regular rate and rhythm. S1 and S2 auscultated, no edema, peripheral pulses 2+ and intact throughout ABD: Abd is soft, nontender, nondistended EXT: Normal range of motion, no obvious deformity SKIN: No rashes or lesions observed on exposed skin. NEURO: Alert and oriented x 4. (Aakash John) Course Vital Signs 01/09/24 01/09/24 01/09/24 12:45 13:55 14:26 Temperature 98.8 F 98.1 F Pulse Rate 94 87 Respiratory 24 18 18 Rate Blood Pressure 91/63 96/66 O2 Sat by Pulse 97 96 Oximetry Medical Decision Making <Alli Kincaid - Last Filed: 01/09/24 13:17> - Lab Data Result diagrams: 01/09/24 12:30 01/09/24 12:30 - EKG Data -: EKG Interpreted by Me <Aakash John - Last Filed: 01/09/24 15:06> - Medical Decision Making I completed the quick note portion of this chart signed Alli Kincaid PA-C (Alli Jackson) Was pt. sent in by a medical professional or institution ([facility] Mercer, [employer] MAKE UP HELPER, urgent care, hospital, or fpc...) When possible be specific @ -No Did you speak to anyone other than the patient for history (EMS, parent, family, police, friend...)? What history was obtained from this source @ -No Did you review nursing and triage notes (agree or disagree)? Why? @ -I reviewed and agree with nursing and triage notes Were old charts reviewed (outside hosp., previous admission, EMS record, old EKG, old radiological studies, urgent care reports/EKG's, fpc records)? Report findings @ -No old charts were reviewed Differential Diagnosis (chest pain, altered mental status, abdominal pain women, abdominal pain men, vaginal bleeding, weakness, fever, dyspnea, syncope, headache, dizziness, GI bleed, back pain, seizure, CVA, palpatations, mental health, musculoskeletal)? @ -COVID, flu, RSV, pneumonia. This list is not all inclusive. EKG interpreted by me (3pts min.). @ -As above X-rays interpreted by me (1pt min.). @ -Chest x-ray shows no obvious focal infiltrate or acute process. CT interpreted by me (1pt min.). @ -None done U/S interpreted by me (1pt. min.). @ -None done What testing was considered but not performed or refused? (CT, X-rays, U/S, labs)? Why? @ -None What meds were considered but not given or refused? Why? @ -None Did you discuss the management of the patient with other professionals (professionals i.e. [facility] Mercer, [employer] MAKE UP HELPER, lab, RT, psych nurse, social media assistant, retoucher, teacher, security officer, case therapist)? Give summary @ -No Was smoking cessation discussed for >3mins.? @ -Yes Was critical care preformed (if so, how long)? @ -No Were there social determinants of health that impacted care today? How? (Homelessness, low income, unemployed, alcoholism, drug addiction, transportation, low edu. Level, literacy, decrease access to med. care, [facility], rehab)? @ -No Was there de-escalation of care discussed even if they declined (Discuss DNR or withdrawal of care, Hospice)? DNR status @ -No What co-morbidities impacted this encounter? (DM, HTN, Smoking, COPD, CAD, Cancer, CVA, ARF, Chemo, Hep., AIDS, mental health diagnosis, sleep apnea, morbid obesity)? @ -Tobacco user Was patient admitted / discharged? Hospital course, mention meds given and route, prescriptions, significant lab abnormalities, going to OR and other p ertinent info. @ -Patient presents with upper respiratory symptoms for multiple days as well as generalized joint pain. Has a history of diabetes. Recommended basic labs, chest x-ray, EKG, viral swabs. Patient in agreement this plan. Patient be symptomatically treated with albuterol inhaler, 1 L fluid bolus, as well as a dose of a steroid. EKG shows no signs of acute ischemia. Laboratory studies unremarkable. Viral swabs positive for COVID-19 infection. Chest x-ray reveals no obvious focal infiltrate or acute process. On reevaluation, patient's vital signs remained stable. Patient has chronic blood pressures with systolics in the 90s per patient. Appears to be at her baseline overall. We discussed her workup. She will be discharged home at this time with albuterol inhaler, steroids. She was in agreement this plan. Strict return precautions discussed. Recommended continue monitoring her pulse ox at home. Patient's viral COVID infection likely causing some degree of bronchitis/URI symptoms, and therefore we will not be treating with antibiotics at this time. I will provide the patient with a prescription for prednisone, albuterol inhaler. I instructed the patient to follow up with their PCP in the next 1-3 days.. I explained that the patient should return to the emergency department if they experience any worsening symptoms. Strict return precautions were disc ussed with the patient. The patient expressed understanding of these instructions. I answered all questions that the patient had. The patient was discharged home in good condition with their prescriptions and follow up information. Undiagnosed new problem with uncertain prognosis? @ -No Drug Therapy requiring intensive monitoring for toxicity (Heparin, Nitro, Insulin, Cardizem)? @ -No Were any procedures done? @ -No Diagnosis/symptom? @ -COPD, COVID-19 infection Acute, or Chronic, or Acute on Chronic? @ -Acute Uncomplicated (without systemic symptoms) or Complicated (systemic symptoms)? @ -Complicated Side effects of treatment? @ -No Exacerbation, Progression, or Severe Exacerbation? @ -No Poses a threat to life or bodily function? How? (Chest pain, [place], [place], pneumonia, PE, COPD, DKA, ARF, appy, cholecystitis, CVA, Diverticulitis, Homicidal, Suicidal, threat to staff... and all critical care pts) @ -No Diagnosis/symptom? @ -Tobacco dependence Acute, or Chronic, or Acute on Chronic? @ -Chronic Uncomplicated (without systemic symptoms) or Complicated (systemic symptoms)? @ -Uncomplicated Side effects of treatment? @ -[none] Exacerbation, Progression, or Severe Exacerbation] @ -[no] Poses a threat to life or bodily function? @ -Can contribute to morbidity and mortality. (Aakash John) - Lab Data Lab Results 01/09/24 01/09/24 01/09/24 Range/Units 12:30 12:30 12:30 WBC 7.0 (3.8-10.6) k/uL RBC 5.13 (3.80-5.40) m/uL Hgb 15.2 (11.4-16.0) gm/dL Hct 45.3 (34.0-46.0) % MCV 88.3 (80.0-100.0) fL MCH 29.6 (25.0-35.0) pg MCHC 33.5 (31.0-37.0) g/dL RDW 13.4 (11.5-15.5) % Plt Count 191 (150-450) k/uL MPV 8.2 Neutrophils % 73 % Lymphocytes % 19 % Monocytes % 5 % Eosinophils % 1 % Basophils % 0 % Neutrophils # 5.1 (1.3-7.7) k/uL Lymphocytes # 1.3 (1.0-4.8) k/uL Monocytes # 0.4 (0-1.0) k/uL Eosinophils # 0.1 (0-0.7) k/uL Basophils # 0.0 (0-0.2) k/uL Sodium 137 (137-145) mmol/L Potassium 4.4 (3.5-5.1) mmol/L Chloride 106 (98-107) mmol/L Carbon Dioxide 24 (22-30) mmol/L Anion Gap 7 mmol/L BUN 11 (7-17) mg/dL Creatinine 0.57 (0.52-1.04) mg/dL Est GFR (CKD-EPI)AfAm >90 (>60 ml/min/1.73 sqM) Est GFR (CKD-EPI)NonAf >90 (>60 ml/min/1.73 sqM) Glucose 160 H (74-99) mg/dL Calcium 10.2 (8.4-10.2) mg/dL Influenza Type A (PCR) Not Detected (Not Detectd) Influenza Type B (PCR) Not Detected (Not Detectd) RSV (PCR) Not Detected (Not Detectd) SARS-CoV-2 (PCR) Detected A (Not Detectd) - EKG Data EKG Comments: 12-lead Electrocardiogram Interpretation Note EKG was reviewed and interpreted by myself. 12-lead ECG performed at 1230 is interpreted by me as revealing normal sinus rhythm at a rate of 83 beats per m inute. [place] is normal. IN interval is 151 ms, QRS duration is 94 ms, QTc is 404 ms.. There were no ST or T wave abnormalities to suggest myocardial ischemia or injury. R wave progression across the precordium was delayed. By my interpretation this EKG is non-diagnostic for acute ischemia. (Aakash John) Disposition <Alli Kincaid - Last Filed: 01/09/24 13:17> Is patient prescribed a controlled substance at d/c from ED?: No Time of Disposition: 15:00 <Aakash John - Last Filed: 01/09/24 15:06> Clinical Impression: COPD (chronic obstructive pulmonary disease), COVID-19 virus infection, Tobacco dependence Disposition: ADMITTED IP TO THIS HOSP Condition: Good Instructions (If sedation given, give patient instructions): COPD (Chronic Obstructive Pulmonary Disease) (ED), COVID-19 (Coronavirus Disease 2019) (ED) Prescriptions: predniSONE [Deltasone] 40 mg PO DAILY 5 Days #10 tab Albuterol Inhaler [Ventolin Hfa Inhaler] 2 puff INHALATION Q6H PRN #1 each PRN Reason: Dyspnea Referrals: Kirsten Meade MD [Primary Care Provider] - 1-2 days
[2024-01-09] MEDS ORDERED: IPRATROPIUM-ALBUTEROL 3 ML NEB INHALATION STA (13:28)
[2024-01-09 13:36] LABS: Basophils % (A) 0 %; Eosinophils # (A) 0.1 k/uL (0-0.7); Eosinophils % (A) 1 %; HCT 45.3 % (34.0-46.0); HGB 15.2 gm/dL (11.4-16.0); Lymphocytes # (A) 1.3 k/uL (1.0-4.8); Lymphocytes % (A) 19 %; MCH 29.6 pg (25.0-35.0); MCHC 33.5 g/dL (31.0-37.0); MCV 88.3 fL (80.0-100.0); Mean Platelet Volume 8.2; Monocytes # (A) 0.4 k/uL (0-1.0); Monocytes % (A) 5 %; Neutrophils # (A) 5.1 k/uL (1.3-7.7); Neutrophils % (A) 73 %; Platelet Count 191 k/uL (150-450); RBC 5.13 m/uL (3.80-5.40); RDW 13.4 % (11.5-15.5)
[2024-01-09 13:44] LABS: African American GFR (CKD) >90 (>60 ml/min/1.73 sqM); Anion Gap 7 mmol/L; Blood Urea Nitrogen 11 mg/dL (7-17); Calcium 10.2 mg/dL (8.4-10.2); Carbon Dioxide 24 mmol/L (22-30); Chloride 106 mmol/L (98-107); Glucose 160 mg/dL (74-99); Non-African American GFR(CKD) >90 (>60 ml/min/1.73 sqM); Potassium 4.4 mmol/L (3.5-5.1); Sodium 137 mmol/L (137-145)
[2024-01-09] MEDS: SODIUM CHLORIDE 0.9% 1,000 ML IV STA (13:52)
[2024-01-09 14:03] VITALS: RESP 18
[2024-01-09] MEDS: ALBUTEROL HFA INHALER INHALATION PRN (14:40)
--- NOTE | 2024-01-09 14:56 | XR ---
EXAMINATION TYPE: XR chest 2V DATE OF EXAM: 01/09/2024 2:24 PM CLINICAL INDICATION:Female, 48 years old with history of sob; COMPARISON: Chest radiographs from and 09/03/2023 TECHNIQUE: XR chest 2V Frontal and lateral views of the chest. FINDINGS: Lungs/Pleura: There is no evidence of pleural effusion, focal consolidation, or pneumothorax. Pulmonary vascularity: Unremarkable. Heart/mediastinum: Cardiomediastinal silhouette is unremarkable. Musculoskeletal: No acute osseous pathology. IMPRESSION: No acute cardiopulmonary disease/process.
[2024-01-09] MEDS: TIOTROPIUM 2.5 MCG INHALER INHALATION SCH (15:19)
[2024-01-09] MEDS: methylPREDNISolone SOD SUCCI 125 MG/2 ML VIAL IV STA (15:23)
[2024-01-09 16:10] VITALS: BP 97/62; PULSE 84; TEMP 98.2
== END 2024-01-09 15:45 | disposition other institution (70) ==
LOC: EC 12:24
DX: U07.1 COVID-19 (principal); J44.9 Chronic obstructive pulmonary disease, unspecified; F17.200 Nicotine dependence, unspecified, uncomplicated; E11.9 Type 2 diabetes mellitus without complications; K21.9 Gastro-esophageal reflux disease without esophagitis; F32.A Depression, unspecified; M79.7 Fibromyalgia; Z79.84 Long term (current) use of oral hypoglycemic drugs; Z79.85 Long-term (current) use of injectable non-insulin antidiabetic drugs; Z79.899 Other long term (current) drug therapy; Z88.5 Allergy status to narcotic agent; Z90.49 Acquired absence of other specified parts of digestive tract
CPT/HCPCS: 36415; 94640; 93005; 80048; 85025; 87636; 71046; 99406; 99285; 96374; 96361; J2930

== ENCOUNTER 2024-04-20 12:09 | Emergency (ER) | payer MEDICAID ==
--- NOTE | 2024-04-20 12:26 | ED ---
General Adult HPI - General Chief complaint: Skin/Abscess/Foreign Body Stated complaint: sore back of head Time Seen by Provider: 04/20/24 12:13 Source: patient, RN notes reviewed Mode of arrival: ambulatory Limitations: no limitations - History of Present Illness Initial comments: 48-year-old female with past medical history of diabetes presents to the emergency department for evaluation of a sore on the back of her head. She states that has been there for around 2 days. She notes that it has become bigger today. She states that it is painful. She denies any drainage from the area. Denies fever, chills. - Related Data Home Medications Medication Instructions Recorded Confirmed metFORMIN HCL [Glucophage] 1,000 mg PO BID 05/12/16 06/09/23 Pregabalin [Lyrica] 75 mg PO BID 09/04/18 06/09/23 Empagliflozin [Jardiance] 10 mg PO HS 04/08/22 06/09/23 Glimepiride [Amaryl] 4 mg PO BID 04/08/22 06/09/23 Ondansetron [Zofran] 4 mg PO QID PRN 04/08/22 06/09/23 Rosuvastatin Calcium [Crestor] 20 mg PO HS 04/08/22 06/09/23 Pioglitazone [Actos] 15 mg PO DAILY 11/22/22 06/09/23 Ibuprofen [Motrin] 800 mg PO Q8H PRN 06/09/23 06/09/23 Omeprazole [PriLOSEC] 40 mg PO DAILY 06/09/23 06/09/23 Semaglutide [Ozempic] 0.5 mg SQ FR 06/09/23 06/09/23 Sertraline [Zoloft] 100 mg PO HS 06/09/23 06/09/23 buPROPion XL [Wellbutrin XL] 150 mg PO DAILY 06/09/23 06/09/23 buPROPion XL [Wellbutrin XL] 300 mg PO DAILY 06/09/23 06/09/23 traMADol HCL 50 mg PO TID PRN 06/09/23 06/09/23 Previous Rx's Medication Instructions Recorded Vortioxetine Hydrobromide 20 mg PO DAILY 30 Days tab 04/14/22 [Trintellix] Meclizine [Antivert] 12.5 mg PO Q6H #12 tablet 09/03/23 Albuterol Inhaler [Ventolin Hfa 2 puff INHALATION Q6H PRN #1 each 01/09/24 Inhaler] predniSONE [Deltasone] 40 mg PO DAILY 5 Days #10 tab 01/09/24 Cephalexin [Keflex] 500 mg PO Q6HR #40 cap 04/20/24 Sulfamethox-Tmp 800-160Mg [Bactrim 1 each PO Q12HR #20 tab 04/20/24 Ds] Allergies Allergy/AdvReac Type Severity Reaction Status Date / Time codeine AdvReac Nausea & Verified 04/20/24 12:12 Vomiting Review of Systems ROS Statement: Those systems with pertinent positive or pertinent negative responses have been documented in the HPI. ROS Other: All systems not noted in ROS Statement are negative. Past Medical History Past Medical History: Diabetes Mellitus, Fibromyalgia, GERD/Reflux Additional Past Medical History / Comment(s): change in bowel habits, ovarian cyst History of Any Multi-Drug Resistant Organisms: None Reported Past Surgical History: Appendectomy, Cholecystectomy, Hernia Repair, Orthopedic Surgery, Uterine Ablation Additional Past Surgical History / Comment(s): sinus surgery, carpal tunnel-rt, vein stripping, aortic stent placed approx 2 years ago. Past Anesthesia/Blood Transfusion Reactions: Previous Problems w/ Anesthesia, Motion Sickness Additional Past Anesthesia/Blood Transfusion Reaction / Comment(s): "sometimes hard time coming out of anesthesia" Past Psychological History: Depression Smoking Status: Current every day smoker Past Alcohol Use History: Occasional Past Drug Use History: None Reported - Past Family History Father Family Medical History: Pulmonary Embolus General Exam Limitations: no limitations General appearance: alert, in no apparent distress Head exam: Present: atraumatic, normocephalic, normal inspection Eye exam: Present: normal appearance, PERRL, EOMI. Absent: scleral icterus, conjunctival injection, periorbital swelling ENT exam: Present: normal exam, mucous membranes moist Respiratory exam: Present: normal lung sounds bilaterally. Absent: respiratory distress, wheezes, rales, rhonchi, stridor Cardiovascular Exam: Present: regular rate, normal rhythm, normal heart sounds. Absent: systolic murmur, diastolic murmur, rubs, gallop, clicks Neurological exam: Present: alert, oriented X3 Psychiatric exam: Present: normal affect, normal mood Skin exam: Present: warm, dry, erythema (occipital scalp). Absent: intact, normal color Course Vital Signs 04/20/24 12:10 Temperature 98 F Pulse Rate 88 Respiratory 18 Rate Blood Pressure 108/74 O2 Sat by Pulse 98 Oximetry Procedures - Incision & Drainage Consent Obtained: verbal consent Indication: abscess Site: scalp I&D Cleaning Method: Alcohol Wipe, Betadine Scalpel Used: #11 I&D Drainage Obtained: Other Patient Tolerated Procedure: well, no complications Medical Decision Making - Medical Decision Making Was pt. sent in by a medical professional or institution ([facility] Mercer, TECHNICAL COMMUNICATOR, urgent care, hospital, or longterm...) When possible be specific @ -No Did you speak to anyone other than the patient for history (EMS, parent, family, police, friend...)? What history was obtained from this source @ -No Did you review nursing and triage notes (agree or disagree)? Why? @ -I reviewed and agree with nursing and triage notes Were old charts reviewed (outside hosp., previous admission, EMS record, old EKG, old radiological studies, urgent care reports/EKG's, longterm records)? Report findings @ -No old charts were reviewed Differential Diagnosis (chest pain, altered mental status, abdominal pain women, abdominal pain men, vaginal bleeding, weakness, fever, dyspnea, syncope, headache, dizziness, GI bleed, back pain, seizure, CVA, palpatations, mental health, musculoskeletal)? @ -Abscess, cyst, seborrheic dermatitis, this list is not all inclusive EKG interpreted by me (3pts min.). @ -None X-rays interpreted by me (1pt min.). @ -None done CT interpreted by me (1pt min.). @ -None done U/S interpreted by me (1pt. min.). @ -None done What testing was considered but not performed or refused? (CT, X-rays, U/S, labs)? Why? @ -None What meds were considered but not given or refused? Why? @ -None Did you discuss the management of the patient with other professionals (professionals i.e. EF[facility] Mercer, TECHNICAL COMMUNICATOR, lab, RT, psych nurse, social and political studies professor, air conditioning coil assembler, teacher, parole or probation officer, family service caseworker)? Give summary @ -No Was smoking cessation discussed for >3mins.? @ -No Was critical care preformed (if so, how long)? @ -No Were there social determinants of health that impacted care today? How? (Homelessness, low income, unemployed, alcoholism, drug addiction, transportation, low edu. Level, literacy, decrease access to med. care, [facility]cf[facility], rehab)? @ -No Was there de-escalation of care discussed even if they declined (Discuss DNR or withdrawal of care, Hospice)? DNR status @ -No What co-morbidities impacted this encounter? (DM, HTN, Smoking, COPD, CAD, Cancer, CVA, ARF, Chemo, Hep., AIDS, mental health diagnosis, sleep apnea, morbid obesity)? @ -None Was patient admitted / discharged? Hospital course, mention meds given and route, prescriptions, significant lab abnormalities, going to OR and other pertinent info. @ -Discharged. Patient presented to the emergency department for evaluation of scalp sore x2 days. Topical LET was applied and area was lanced. Patient will be started on antibiotics. Advised to follow up with her PCP. Patient understanding and agreeable with plan. Patient stable at time of discharge. Case discussed with Dr. Thayer. Undiagnosed new problem with uncertain prognosis? @ -No Drug Therapy requiring intensive monitoring for toxicity (Heparin, Nitro, Insulin, Cardizem)? @ -No Were any procedures done? @ -I&D Diagnosis/symptom? @ -Abscess Acute, or Chronic, or Acute on Chronic? @ -acute Uncomplicated (without systemic symptoms) or Complicated (systemic symptoms)? @ -uncomplicated Side effects of treatment? @ -No Exacerbation, Progression, or Severe Exacerbation? @ -No Poses a threat to life or bodily function? How? (Chest pain, [place], [place], pneumonia, PE, COPD, DKA, ARF, appy, cholecystitis, CVA, Diverticulitis, Homicidal, Suicidal, threat to staff... and all critical care pts) @ -No Disposition Clinical Impression: Scalp abscess Disposition: HOME SELF-CARE Condition: Stable Instructions (If sedation given, give patient instructions): Abscess (ED) Additional Instructions: Please follow up with your doctor as scheduled. supervisory it specialist antibiotics and take to completion. Return to the emergency department for new or worsening symptoms. Prescriptions: Sulfamethox-Tmp 800-160Mg [Bactrim Ds] 1 each PO Q12HR #20 tab Cephalexin [Keflex] 500 mg PO Q6HR #40 cap Is patient prescribed a controlled substance at d/c from ED?: No Referrals: Kirsten Meade MD [Primary Care Provider] - 1-2 days
[2024-04-20] MEDS: LIDOCAINE/EPINEPHR/TETRACAINE 5 ML BOTTLE TOPICAL ONE (12:28)
[2024-04-20 13:21] VITALS: BP 146/78; PULSE 78; RESP 20; TEMP 98.1
== END 2024-04-20 13:21 | disposition home or self-care (01) ==
LOC: EC 12:09
DX: L02.811 Cutaneous abscess of head [any part, except face] (principal); F17.200 Nicotine dependence, unspecified, uncomplicated; Z88.5 Allergy status to narcotic agent
CPT/HCPCS: 10060; 99283

== ENCOUNTER 2024-04-21 10:32 | Emergency (ER) | payer MEDICAID ==
[2024-04-21 10:35] VITALS: RESP 18
--- NOTE | 2024-04-21 10:56 | ED ---
General Adult HPI - General Chief complaint: Skin/Abscess/Foreign Body Stated complaint: abcess on back of head Time Seen by Provider: 04/21/24 10:40 Source: patient, RN notes reviewed, old records reviewed Mode of arrival: ambulatory Limitations: no limitations - History of Present Illness Initial comments: This is a 48-year-old female who presents to the emergency department complaining of an abscess on the back of her head. Patient states she was here in the emergency department yesterday and they tried to drain it and they were under except for getting any pus out of it. Patient is on Bactrim and Keflex. Patient denies any fever chills patient states the pain continues today so she came back into the emergency department - Related Data Home Medications Medication Instructions Recorded Confirmed metFORMIN HCL [Glucophage] 1,000 mg PO BID 05/12/16 06/09/23 Pregabalin [Lyrica] 75 mg PO BID 09/04/18 06/09/23 Empagliflozin [Jardiance] 10 mg PO HS 04/08/22 06/09/23 Glimepiride [Amaryl] 4 mg PO BID 04/08/22 06/09/23 Ondansetron [Zofran] 4 mg PO QID PRN 04/08/22 06/09/23 Rosuvastatin Calcium [Crestor] 20 mg PO HS 04/08/22 06/09/23 Pioglitazone [Actos] 15 mg PO DAILY 11/22/22 06/09/23 Ibuprofen [Motrin] 800 mg PO Q8H PRN 06/09/23 06/09/23 Omeprazole [PriLOSEC] 40 mg PO DAILY 06/09/23 06/09/23 Semaglutide [Ozempic] 0.5 mg SQ FR 06/09/23 06/09/23 Sertraline [Zoloft] 100 mg PO HS 06/09/23 06/09/23 buPROPion XL [Wellbutrin XL] 150 mg PO DAILY 06/09/23 06/09/23 buPROPion XL [Wellbutrin XL] 300 mg PO DAILY 06/09/23 06/09/23 traMADol HCL 50 mg PO TID PRN 06/09/23 06/09/23 Previous Rx's Medication Instructions Recorded Vortioxetine Hydrobromide 20 mg PO DAILY 30 Days tab 04/14/22 [Trintellix] Meclizine [Antivert] 12.5 mg PO Q6H #12 tablet 09/03/23 Albuterol Inhaler [Ventolin Hfa 2 puff INHALATION Q6H PRN #1 each 01/09/24 Inhaler] predniSONE [Deltasone] 40 mg PO DAILY 5 Days #10 tab 01/09/24 Cephalexin [Keflex] 500 mg PO Q6HR #40 cap 04/20/24 Sulfamethox-Tmp 800-160Mg [Bactrim 1 each PO Q12HR #20 tab 04/20/24 Ds] Allergies Allergy/AdvReac Type Severity Reaction Status Date / Time codeine AdvReac Nausea & Verified 04/21/24 10:35 Vomiting Review of Systems ROS Statement: Those systems with pertinent positive or pertinent negative responses have been documented in the HPI. ROS Other: All systems not noted in ROS Statement are negative. Past Medical History Past Medical History: Diabetes Mellitus, Fibromyalgia, GERD/Reflux Additional Past Medical History / Comment(s): change in bowel habits, ovarian cyst History of Any Multi-Drug Resistant Organisms: None Reported Past Surgical History: Appendectomy, Cholecystectomy, Hernia Repair, Orthopedic Surgery, Uterine Ablation Additional Past Surgical History / Comment(s): sinus surgery, carpal tunnel-rt, vein stripping, aortic stent placed approx 2 years ago. Past Anesthesia/Blood Transfusion Reactions: Previous Problems w/ Anesthesia, Motion Sickness Additional Past Anesthesia/Blood Transfusion Reaction / Comment(s): "sometimes hard time coming out of anesthesia" Past Psychological History: Depression Smoking Status: Current every day smoker Past Alcohol Use History: Occasional Past Drug Use History: None Reported - Past Family History Father Family Medical History: Pulmonary Embolus General Exam - General Exam Comments Initial Comments: GENERAL Patient is well-developed and well-nourished. Patient is in mild distress. EYES Patient's pupils are equal and round. Extraocular motion is intact ENT There is a small red tender raised area in the back of her scalp which has a area of scab over from the incision yesterday. It is difficult to assess fluctuation since the patient has somewhat pain and touching the area. SKIN Unremarkable NEURO The patient is alert and oriented A&Ox3 PYSCH Patient has normal interpersonal interactions. MUSCULOSKELETAL All 4 extremities with full range of motion Limitations: no limitations Course Vital Signs 04/21/24 10:33 Temperature 98 F Pulse Rate 82 Respiratory 18 Rate O2 Sat by Pulse 96 Oximetry Procedures - Incision & Drainage Consent Obtained: verbal consent Site: scalp Anesthetic Used: lidocaine 1% I&D Cleaning Method: Betadine Ultrasound used: No Needle Aspiration Performed?: Yes Irrigation Performed?: No I&D Drainage Obtained: Blood, Other Insertion of drain: No Culture Obtained?: No Complications: bleeding Patient Tolerated Procedure: well Medical Decision Making - Medical Decision Making Was pt. sent in by a medical professional or institution ([facility] Mercer, [employer]IVE [employer] TECHNICIAN, urgent care, hospital, or retirement...) When possible be specific @ -No Did you speak to anyone other than the patient for history (EMS, parent, family, police, friend...)? What history was obtained from this source @ -No Did you review nursing and triage notes (agree or disagree)? Why? @ -I reviewed and agree with nursing and triage notes Were old charts reviewed (outside hosp., previous admission, EMS record, old EKG, old radiological studies, urgent care reports/EKG's, retirement records)? Report findings @ -No old charts were reviewed Differential Diagnosis (chest pain, altered mental status, abdominal pain women, abdominal pain men, vaginal bleeding, weakness, fever, dyspnea, syncope, headac he, dizziness, GI bleed, back pain, seizure, CVA, palpatations, mental health, musculoskeletal)? @ -Insect bite, abscess, scalp infection, this is not an all-inclusive list EKG interpreted by me (3pts min.). @ -As above X-rays interpreted by me (1pt min.). @ -None done CT interpreted by me (1pt min.). @ -None done U/S interpreted by me (1pt. min.). @ -None done What testing was considered but not performed or refused? (CT, X-rays, U/S, labs)? Why? @ -None What meds were considered but not given or refused? Why? @ -None Did you discuss the management of the patient with other professionals (pr ofessionals i.e. [facility] Mercer, LIVE TRUCK TECHNICIAN, lab, RT, psych nurse, social science analyst, science center display builder, teacher, senior officer, mattress spring encaser)? Give summary @ -No Was smoking cessation discussed for >3mins.? @ -No Was critical care preformed (if so, how long)? @ -No Were there social determinants of health that impacted care today? How? (Homelessness, low income, unemployed, alcoholism, drug addiction, transportation, low edu. Level, literacy, decrease access to med. care, prison, rehab)? @ -No Was there de-escalation of care discussed even if they declined (Discuss DNR or withdrawal of care, Hospice)? DNR status @ -No What co-morbidities impacted this encounter? (DM, HTN, Smoking, COPD, CAD, Cancer, CVA, ARF, Chemo, Hep., AIDS, mental health diagnosis, sleep apnea, morbid obesity)? @ -None Was patient admitted / discharged? Hospital course, mention meds given and route, prescriptions, significant lab abnormalities, going to OR and other pertinent info. @ -I used an 18-gauge to attempt to drain what look like a possible abscess I went into all 4 quadrants of the swollen area and no pus was obtained. Patient will continue antibiotics and follow-up with her primary medical care doctor patient is to come back if there is a fever or if the area enlarges significantly Undiagnosed new problem with uncertain prognosis? @ -No Drug Therapy requiring intensive monitoring for toxicity (Heparin, Nitro, Insulin, Cardizem)? @ -No Were any procedures done? @ -No Diagnosis/symptom? @ -Scalp infection Acute, or Chronic, or Acute on Chronic? @ -Acute Uncomplicated (without systemic symptoms) or Complicated (systemic symptoms)? @ -Complicated Side effects of treatment? @ -No Exacerbation, Progression, or Severe Exacerbation? @ -No Poses a threat to life or bodily function? How? (Chest pain, [place], [place], pneumonia, PE, COPD, DKA, ARF, appy, cholecystitis, CVA, Diverticulitis, Homicidal, Suicidal, threat to staff... and all critical care pts) @ -No Disposition Clinical Impression: Infection of scalp Disposition: HOME SELF-CARE Condition: Good Instructions (If sedation given, give patient instructions): Cellulitis (ED) Additional Instructions: Patient is to continue antibiotics and follow-up with her primary medical care doctor. Patient should return if there is a fever or if the area of swelling gets considerably worse. Patient is to take Motrin 600 mg as needed for pain Is patient prescribed a controlled substance at d/c from ED?: No Referrals: Kirsten Meade MD [Primary Care Provider] - 1-2 days Time of Disposition: 11:17
[2024-04-21] MEDS: LIDOCAINE 1% INJ 10MG/ML (20 ML MDV) SQ ONE (11:00)
[2024-04-21 11:19] VITALS: BP 146/72; PULSE 86; TEMP 98.1
== END 2024-04-21 11:24 | disposition home or self-care (01) ==
LOC: EC 10:32
DX: L21.0 Seborrhea capitis (principal); F17.200 Nicotine dependence, unspecified, uncomplicated; Z88.5 Allergy status to narcotic agent
CPT/HCPCS: 99282; 10060; J2001

== ENCOUNTER 2024-04-24 05:17 | Emergency (ER) | payer MEDICAID ==
[2024-04-24 05:22] VITALS: RESP 18
--- NOTE | 2024-04-24 06:18 | ED ---
Skin/Abscess/FB HPI - General Chief complaint: Skin/Abscess/Foreign Body Stated complaint: bump on head Time Seen by Provider: 04/24/24 06:16 Source: patient, RN notes reviewed, old records reviewed Mode of arrival: ambulatory Limitations: no limitations - History of Present Illness Initial comments: 48-year-old female presented to the ER with a chief complaint of a scalp abscess. Patient states she was seen here on Monday for 04-20-2024 and diagnosed with a scalp abscess and started on Keflex and Bactrim. Lesion was lanced at that time with no purulent drainage. Patient was seen the following day 04-21-2024 for similar complaint and increased pain. Area was also lanced at that time with no purulent drainage. Patient was seen by primary care physician yesterday and was told to continue antibiotics and follow-up with a surgeon as it is more than likely a lymph node. Patient states today pain was intolerable with mild radiation to right jaw and neck. Patient admits to low-grade fevers and chills. Denies any unintentional weight loss. Patient denies any other complaints. - Related Data Home Medications Medication Instructions Recorded Confirmed metFORMIN HCL [Glucophage] 1,000 mg PO BID 05/12/16 06/09/23 Pregabalin [Lyrica] 75 mg PO BID 09/04/18 06/09/23 Empagliflozin [Jardiance] 10 mg PO HS 04/08/22 06/09/23 Glimepiride [Amaryl] 4 mg PO BID 04/08/22 06/09/23 Ondansetron [Zofran] 4 mg PO QID PRN 04/08/22 06/09/23 Rosuvastatin Calcium [Crestor] 20 mg PO HS 04/08/22 06/09/23 Pioglitazone [Actos] 15 mg PO DAILY 11/22/22 06/09/23 Ibuprofen [Motrin] 800 mg PO Q8H PRN 06/09/23 06/09/23 Omeprazole [PriLOSEC] 40 mg PO DAILY 06/09/23 06/09/23 Semaglutide [Ozempic] 0.5 mg SQ FR 06/09/23 06/09/23 Sertraline [Zoloft] 100 mg PO HS 06/09/23 06/09/23 buPROPion XL [Wellbutrin XL] 150 mg PO DAILY 06/09/23 06/09/23 buPROPion XL [Wellbutrin XL] 300 mg PO DAILY 06/09/23 06/09/23 traMADol HCL 50 mg PO TID PRN 06/09/23 06/09/23 Previous Rx's Medication Instructions Recorded Vortioxetine Hydrobromide 20 mg PO DAILY 30 Days tab 04/14/22 [Trintellix] Meclizine [Antivert] 12.5 mg PO Q6H #12 tablet 09/03/23 Albuterol Inhaler [Ventolin Hfa 2 puff INHALATION Q6H PRN #1 each 01/09/24 Inhaler] predniSONE [Deltasone] 40 mg PO DAILY 5 Days #10 tab 01/09/24 Cephalexin [Keflex] 500 mg PO Q6HR #40 cap 04/20/24 Sulfamethox-Tmp 800-160Mg [Bactrim 1 each PO Q12HR #20 tab 04/20/24 Ds] Allergies Allergy/AdvReac Type Severity Reaction Status Date / Time codeine AdvReac Nausea & Verified 04/21/24 10:35 Vomiting Review of Systems ROS Statement: Those systems with pertinent positive or pertinent negative responses have been documented in the HPI. ROS Other: All systems not noted in ROS Statement are negative. Past Medical History Past Medical History: Diabetes Mellitus, Fibromyalgia, GERD/Reflux Additional Past Medical History / Comment(s): change in bowel habits, ovarian cyst History of Any Multi-Drug Resistant Organisms: None Reported Past Surgical History: Appendectomy, Cholecystectomy, Hernia Repair, Orthopedic Surgery, Uterine Ablation Additional Past Surgical History / Comment(s): sinus surgery, carpal tunnel-rt, vein stripping, aortic stent placed approx 2 years ago. Past Anesthesia/Blood Transfusion Reactions: Previous Problems w/ Anesthesia, Motion Sickness Additional Past Anesthesia/Blood Transfusion Reaction / Comment(s): "sometimes hard time coming out of anesthesia" Past Psychological History: Depression Smoking Status: Current every day smoker Past Alcohol Use History: Occasional Past Drug Use History: None Reported - Past Family History Father Family Medical History: Pulmonary Embolus General Exam Limitations: no limitations General appearance: alert, in no apparent distress Head exam: Present: other (2 x 2 fluctuant tender area to posterior scalp. Scab present where previous lanced) Eye exam: Present: normal appearance, PERRL, EOMI. Absent: scleral icterus, conjunctival injection, periorbital swelling ENT exam: Present: normal exam, normal oropharynx, mucous membranes moist, TM's normal bilaterally Neck exam: Present: tenderness (right sided) Respiratory exam: Present: normal lung sounds bilaterally. Absent: respiratory distress, wheezes, rales, rhonchi, stridor Cardiovascular Exam: Present: regular rate, normal rhythm, normal heart sounds. Absent: systolic murmur, diastolic murmur, rubs, gallop, clicks Course Vital Signs 04/24/24 04/24/24 04/24/24 05:18 07:54 10:30 Temperature 97.9 F 98.1 F 98.5 F Pulse Rate 95 86 85 Respiratory 18 18 18 Rate Blood Pressure 130/79 126/82 122/65 O2 Sat by Pulse 96 99 99 Oximetry Procedures - Incision & Drainage Consent Obtained: verbal consent Indication: abscess Site: scalp Size (cm): 4 Anesthetic Used: lidocaine 1%, without epi Amount (mLs): 6 I&D Cleaning Method: Alcohol Wipe Sterile Field Used?: Yes Scalpel Used: #11 Ultrasound used: No Needle Aspiration Performed?: Yes Irrigation Performed?: No I&D Drainage Obtained: Pus, Blood Insertion of drain: No Culture Obtained?: Yes Complications: bleeding Patient Tolerated Procedure: well, no complications Medical Decision Making - Medical Decision Making Was pt. sent in by a medical professional or institution ([facility] Mercer, [employer], urgent care, hospital, or assisted...) When possible be specific @ -No Did you speak to anyone other than the patient for history (EMS, parent, family, police, friend...)? What history was obtained from this source @ -No Did you review nursing and triage notes (agree or disagree)? Why? @ -I reviewed and agree with nursing and triage notes Were old charts reviewed (outside hosp., previous admission, EMS record, old EKG, old radiological studies, urgent care reports/EKG's, assisted records)? Report findings @ -Yes, I reviewed ER visit from 04-20-2024 and 6923. Patient seen here for scalp abscess. There was lanced on both visits without expression of purulent drainage. Patient was discharged on Bactrim and Keflex. Differential Diagnosis (chest pain, altered mental status, abdominal pain women, abdominal pain men, vaginal bleeding, weakness, fever, dyspnea, syncope, h eadache, dizziness, GI bleed, back pain, seizure, CVA, palpatations, mental health, musculoskeletal)? @ -Lymphadenopathy, abscess, cyst this list is not meant to be all-inclusive EKG interpreted by me (3pts min.). @ -None X-rays interpreted by me (1pt min.). @ -None done CT interpreted by me (1pt min.). @ -CT soft tissue neck significant for a ill-defined area of increased attenuation measuring 2.0 x 1.9 cm at the posterior scalp. U/S interpreted by me (1pt. min.). @ -None done What testing was considered but not performed or refused? (CT, X-rays, U/S, labs)? Why? @ -None What meds were considered but not given or refused? Why? @ -None Did you discuss the management of the patient with other professionals (professionals i.e. , PA, [employer], lab, RT, psych nurse, rn social services, cut lace machine operator, teacher, special skills officer, case management coordinator)? Give summary @ -No Was smoking cessation discussed for >3mins.? @ -No Was critical care preformed (if so, how long)? @ -No Were there social determinants of health that impacted care today? How? (Homelessness, low income, unemployed, alcoholism, drug addiction, transportation, low edu. Level, literacy, decrease access to med. care, correction, rehab)? @ -No Was there de-escalation of care discussed even if they declined (Discuss DNR or withdrawal of care, Hospice)? DNR status @ -No What co-morbidities impacted this encounter? (DM, HTN, Smoking, COPD, CAD, Cancer, CVA, ARF, Chemo, Hep., AIDS, mental health diagnosis, sleep apnea, morbid obesity)? @ -DM Was patient admitted / discharged? Hospital course, mention meds given and route, prescriptions, significant lab abnormalities, going to OR and other pertinent info. @ -Discharge. 48-year-old female presented to the ER with a chief complaint of a scalp lesion. Patient seen here on 04-20 and 04-21 for similar complaint. Patient started on Bactrim and Keflex at that time. Vitals stable. Exam sign ificant for a 2 cm x 2 cm tender lesion to posterior scalp. Patient in no signs of acute distress and nontoxic-appearing. Laboratory studies obtained as concern of infection given patient is a diabetic. Laboratory studies significant for a lactic of 2.[address] soft tissue neck considered to rule out abscess or bony abnormality. CT soft tissue neck remarkable for a 2.0 x 1.9 cm nonspecific ill-defined area of increased attenuation. Could be posttraumatic in nature or related to an inflammatory process. Patient received IV fluids and Toradol for pain control in the ER. Upon reevaluation, patient resting comfortably in exam room in no signs of acute distress. Patient agreeable for attempted I&D. I&D significant for purulent drainage and blood. Wound culture obtained. Findings discussed with patient, all questions answered. I advised continued use of Bactrim and Keflex. Patient reports that she has a follow-up appointment with a general surgeon on Monday04-29-24. I advised her to keep and attend that appointment. I also instructed patient to use warm compresses and massage to help with loculations. Patient stable for discharge at this time. Return parameters discussed. Patient discharged in stable condition with follow-up to PCP/general surgeon. Patient verbally expressed understanding and agreement with care plan. Case discussed with ED attending, Dr. Chung. Undiagnosed new problem with uncertain prognosis? @ -No Drug Therapy requiring intensive monitoring for toxicity (Heparin, Nitro, Insulin, Cardizem)? @ -No Were any procedures done? @ -Yes I&D Diagnosis/symptom? @ -Scalp abscess Acute, or Chronic, or Acute on Chronic? @ -Acute Uncomplicated (without systemic symptoms) or Complicated (systemic symptoms)? @ -Uncomplicated Side effects of treatment? @ -No Exacerbation, Progression, or Severe Exacerbation? @ -No Poses a threat to life or bodily function? How? (Chest pain, [place], [place], pneumonia, PE, COPD, DKA, ARF, appy, cholecystitis, CVA, Diverticulitis, Homicidal, Suicidal, threat to staff... and all critical care pts) @ -Low likelihood - Lab Data Result diagrams: 04/24/24 06:51 04/24/24 06:51 Lab Results 04/24/24 04/24/24 04/24/24 Range/Units 06:51 06:51 06:51 WBC 7.7 (3.8-10.6) k/uL RBC 4.59 (3.80-5.40) m/uL Hgb 12.7 (11.4-16.0) gm/dL Hct 38.8 (34.0-46.0) % MCV 84.6 (80.0-100.0) fL MCH 27.7 (25.0-35.0) pg MCHC 32.7 (31.0-37.0) g/dL RDW 14.0 (11.5-15.5) % Plt Count 235 (150-450) k/uL MPV 8.0 Neutrophils % 69 % Lymphocytes % 22 % Monocytes % 5 % Eosinophils % 2 % Basophils % 0 % Neutrophils # 5.4 (1.3-7.7) k/uL Lymphocytes # 1.7 (1.0-4.8) k/uL Monocytes # 0.4 (0-1.0) k/uL Eosinophils # 0.1 (0-0.7) k/uL Basophils # 0.0 (0-0.2) k/uL Sodium 137 (137-145) mmol/L Potassium 4.1 (3.5-5.1) mmol/L Chloride 108 H (98-107) mmol/L Carbon Dioxide 22 (22-30) mmol/L Anion Gap 7 mmol/L BUN 18 H (7-17) mg/dL Creatinine 0.70 (0.52-1.04) mg/dL Est GFR (CKD-EPI)AfAm >90 (>60 ml/min/1.73 sqM) Est GFR (CKD-EPI)NonAf >90 (>60 ml/min/1.73 sqM) Glucose 153 H (74-99) mg/dL Lactic Ac Sepsis Rflx Plasma Lactic Acid Keith 2.4 H* (0.7-2.0) mmol/L Calcium 9.8 (8.4-10.2) mg/dL Total Bilirubin 0.3 (0.2-1.3) mg/dL AST 29 (14-36) U/L ALT 29 (4-34) U/L Alkaline Phosphatase 89 (38-126) U/L Total Protein 6.8 (6.3-8.2) g/dL Albumin 4.1 (3.5-5.0) g/dL 04/24/24 04/24/24 Range/Units 07:10 09:33 WBC (3.8-10.6) k/uL RBC (3.80-5.40) m/uL Hgb (11.4-16.0) gm/dL Hct (34.0-46.0) % MCV (80.0-100.0) fL MCH (25.0-35.0) pg MCHC (31.0-37.0) g/dL RDW (11.5-15.5) % Plt Count (150-450) k/uL MPV Neutrophils % % Lymphocytes % % Monocytes % % Eosinophils % % Basophils % % Neutrophils # (1.3-7.7) k/uL Lymphocytes # (1.0-4.8) k/uL Monocytes # (0-1.0) k/uL Eosinophils # (0-0.7) k/uL Basophils # (0-0.2) k/uL Sodium (137-145) mmol/L Potassium (3.5-5.1) mmol/L Chloride (98-107) mmol/L Carbon Dioxide (22-30) mmol/L Anion Gap mmol/L BUN (7-17) mg/dL Creatinine (0.52-1.04) mg/dL Est GFR (CKD-EPI)AfAm (>60 ml/min/1.73 sqM) Est GFR (CKD-EPI)NonAf (>60 ml/min/1.73 sqM) Glucose (74-99) mg/dL Lactic Ac Sepsis Rflx Y Plasma Lactic Acid Keith 1.3 (0.7-2.0) mmol/L Calcium (8.4-10.2) mg/dL Total Bilirubin (0.2-1.3) mg/dL AST (14-36) U/L ALT (4-34) U/L Alkaline Phosphatase (38-126) U/L Total Protein (6.3-8.2) g/dL Albumin (3.5-5.0) g/dL - Radiology Data Radiology results: report reviewed, image reviewed Disposition Clinical Impression: Scalp abscess Disposition: HOME SELF-CARE Condition: Stable Instructions (If sedation given, give patient instructions): Abscess Incision and Drainage (ED), Abscess (ED) Additional Instructions: Please follow-up with general surgeon as scheduled on Monday. Continue taking Keflex and Bactrim as prescribed. I recommend warm compresses and massage. Return to the ER for any new or worsening concerns. Is patient prescribed a controlled substance at d/c from ED?: No Referrals: Kirsten Meade MD [Primary Care Provider] - 1-2 days Kacy Mc MD [STAFF PHYSICIAN] - 1-2 days Time of Disposition: 10:06
[2024-04-24] MEDS: SODIUM CHLORIDE 0.9% 1,000 ML IV STA (06:54)
[2024-04-24 06:58] LABS: Basophils % (A) 0 %; Eosinophils # (A) 0.1 k/uL (0-0.7); Eosinophils % (A) 2 %; HCT 38.8 % (34.0-46.0); HGB 12.7 gm/dL (11.4-16.0); Lymphocytes # (A) 1.7 k/uL (1.0-4.8); Lymphocytes % (A) 22 %; MCH 27.7 pg (25.0-35.0); MCHC 32.7 g/dL (31.0-37.0); MCV 84.6 fL (80.0-100.0); Monocytes # (A) 0.4 k/uL (0-1.0); Monocytes % (A) 5 %; Neutrophils # (A) 5.4 k/uL (1.3-7.7); Neutrophils % (A) 69 %; Platelet Count 235 k/uL (150-450); RBC 4.59 m/uL (3.80-5.40); WBC 7.7 k/uL (3.8-10.6)
[2024-04-24] MEDS: KETOROLAC 15 MG/ML 1 ML VIAL IVP STA (07:02)
[2024-04-24 07:07] LABS: ALT 29 U/L (4-34); AST 29 U/L (14-36); African American GFR (CKD) >90 (>60 ml/min/1.73 sqM); Albumin 4.1 g/dL (3.5-5.0); Alkaline Phosphatase 89 U/L (38-126); Anion Gap 7 mmol/L; Blood Urea Nitrogen 18 mg/dL (7-17); Calcium 9.8 mg/dL (8.4-10.2); Carbon Dioxide 22 mmol/L (22-30); Chloride 108 mmol/L (98-107); Glucose 153 mg/dL (74-99); Non-African American GFR(CKD) >90 (>60 ml/min/1.73 sqM); Potassium 4.1 mmol/L (3.5-5.1); Sodium 137 mmol/L (137-145); Total Bilirubin 0.3 mg/dL (0.2-1.3); Total Protein 6.8 g/dL (6.3-8.2)
--- NOTE | 2024-04-24 08:38 | CT ---
EXAMINATION TYPE: CT soft tissue neck w con DATE OF EXAM: 04/24/2024 COMPARISON: None HISTORY: posterior scalp lesion CONTRAST: CT scan of the neck is performed with IV Contrast, patient injected with 100 mL of Isovue 300. Contrast enhanced CT of the neck was performed from the skull base through the lung apices. At the posterior scalp level seen on image 62 there is an ill-defined area of increased attenuation m easuring 2.0 x 1.9 cm which is nonspecific and could be posttraumatic in nature or related to inflamm atory process. No bony destructive process identified. AIRWAY: The supraglottic, glottic, and subglottic portions of the airway appear patent and free of mass. SALIVARY GLANDS: The submandibular and parotid glands are free of mass or inflammatory process. THYROID GLAND: No nodules or masses seen. LYMPH NODES: No adenopathy seen greater than 1cm. LUNG APICES: No nodule or mass is seen. OTHER: Vascular structures are patent. No significant degenerative change of the cervical spine. N o abscess seen. IMPRESSION: At the posterior scalp level seen on image 62 there is an ill-defined area of increased attenuation m easuring 2.0 x 1.9 cm which is nonspecific and could be posttraumatic in nature or related to inflamm atory process. No bony destructive process identified.
[2024-04-24] MEDS: LIDOCAINE 1% INJ 10MG/ML (20 ML MDV) SQ ONE (09:02)
[2024-04-24 10:32] VITALS: BP 122/65; PULSE 85; TEMP 98.5
== END 2024-04-24 10:30 | disposition home or self-care (01) ==
LOC: EC 05:17
DX: L02.811 Cutaneous abscess of head [any part, except face] (principal); F17.200 Nicotine dependence, unspecified, uncomplicated; E11.9 Type 2 diabetes mellitus without complications; Z88.5 Allergy status to narcotic agent; Z79.84 Long term (current) use of oral hypoglycemic drugs
CPT/HCPCS: 36415; 80053; 83605; 85025; 87070; 87205; 70491; 10060; 99284; 96374; 96361 ×2; J2001; J1885; Q9967

== ENCOUNTER 2024-06-26 13:00 | Day surgery (SDC) | payer MEDICAID ==
[~2024-06-26 13:00] MED LIST: BUPIVACAINE (PF) 0.5% 30 ML VIAL ONE; LACTATED RINGERS 1,000 ML BAG ONE; LIDOCAINE 2% (PF) 20 MG/ML 5 ML VIAL ONE
[2024-06-26] MEDS ORDERED: MIDAZOLAM 2 MG/2 ML VIAL ONE (13:36)
[2024-06-26] MEDS ORDERED: PROPOFOL 10 MG/ML 20 ML VIAL IV ONE (13:36)
[2024-06-26] MEDS ORDERED: fentaNYL (PF) 50 MCG/ML 2 ML AMP ONE (13:36)
[2024-06-26] MEDS ORDERED: KETOROLAC 15 MG/ML 1 ML VIAL ONE (14:23)
== END 2024-06-26 14:50 ==
LOC: OR 13:00
PROVIDERS: ATTEND Orthopaedic Surgery Hand Surgery
DX: G56.01 Carpal tunnel syndrome, right upper limb
CPT/HCPCS: 81025

== ENCOUNTER 2024-10-16 10:57 | Emergency (ER) | payer MEDICAID ==
--- NOTE | 2024-10-16 11:23 | ED ---
Dizziness HPI - General Chief Complaint: Dizziness Stated Complaint: fast hr,dizzy Time Seen by Provider: 10/16/24 11:07 Source: patient, RN notes reviewed Mode of arrival: ambulatory Limitations: no limitations - History of Present Illness Initial Comments: 49 year old female presents to the ED with chief complaint of dizziness and palpitations. She states that today she started feeling lightheaded and needed to lean against something because she felt that she would fall. She did not fall and did not loose consciousness. She reports a history of palpitations for which her PCP placed her on a holter monitor but she is unsure of the diagnosis receiv ed. She states that he placed her on Metoprolol after the holter monitoring. She has a recent history of COVID-19 but denies cough and shortness of breath. She also denies chest pain and other compaints. - Related Data Home Medications Medication Instructions Recorded Confirmed metFORMIN HCL [Glucophage] 1,000 mg PO BID 05/12/16 06/09/23 Pregabalin [Lyrica] 75 mg PO BID 09/04/18 06/09/23 Empagliflozin [Jardiance] 10 mg PO HS 04/08/22 06/09/23 Glimepiride [Amaryl] 4 mg PO BID 04/08/22 06/09/23 Ondansetron [Zofran] 4 mg PO QID PRN 04/08/22 06/09/23 Rosuvastatin Calcium [Crestor] 20 mg PO HS 04/08/22 06/09/23 Pioglitazone [Actos] 15 mg PO DAILY 11/22/22 06/09/23 Ibuprofen [Motrin] 800 mg PO Q8H PRN 06/09/23 06/09/23 Omeprazole [PriLOSEC] 40 mg PO DAILY 06/09/23 06/09/23 Semaglutide [Ozempic] 0.5 mg SQ FR 06/09/23 06/09/23 Sertraline [Zoloft] 100 mg PO HS 06/09/23 06/09/23 buPROPion XL [Wellbutrin XL] 150 mg PO DAILY 06/09/23 06/09/23 buPROPion XL [Wellbutrin XL] 300 mg PO DAILY 06/09/23 06/09/23 traMADol HCL 50 mg PO TID PRN 06/09/23 06/09/23 Previous Rx's Medication Instructions Recorded Vortioxetine Hydrobromide 20 mg PO DAILY 30 Days tab 04/14/22 [Trintellix] Meclizine [Antivert] 12.5 mg PO Q6H #12 tablet 09/03/23 Albuterol Inhaler [Ventolin Hfa 2 puff INHALATION Q6H PRN #1 each 01/09/24 Inhaler] predniSONE [Deltasone] 40 mg PO DAILY 5 Days #10 tab 01/09/24 Cephalexin [Keflex] 500 mg PO Q6HR #40 cap 04/20/24 Sulfamethox-Tmp 800-160Mg [Bactrim 1 each PO Q12HR #20 tab 04/20/24 Ds] Allergies Allergy/AdvReac Type Severity Reaction Status Date / Time codeine AdvReac Nausea & Verified 10/16/24 11:05 Vomiting Review of Systems ROS Statement: Those systems with pertinent positive or pertinent negative responses have been documented in the HPI. ROS Other: All systems not noted in ROS Statement are negative. Past Medical History Past Medical History: Diabetes Mellitus, Fibromyalgia, GERD/Reflux Additional Past Medical History / Comment(s): change in bowel habits, ovarian cyst History of Any Multi-Drug Resistant Organisms: None Reported Past Surgical History: Appendectomy, Cholecystectomy, Hernia Repair, Orthopedic Surgery, Uterine Ablation Additional Past Surgical History / Comment(s): sinus surgery, carpal tunnel-rt, vein stripping, aortic stent placed approx 2 years ago. Past Anesthesia/Blood Transfusion Reactions: Previous Problems w/ Anesthesia, Motion Sickness Additional Past Anesthesia/Blood Transfusion Reaction / Comment(s): "sometimes hard time coming out of anesthesia" Past Psychological History: Depression Smoking Status: Current every day smoker Past Alcohol Use History: Occasional Past Drug Use History: None Reported - Past Family History Father Family Medical History: Pulmonary Embolus General Exam Limitations: no limitations General appearance: alert, in no apparent distress Head exam: Present: atraumatic, normocephalic, normal inspection Eye exam: Present: normal appearance, PERRL, EOMI. Absent: scleral icterus, conjunctival injection, periorbital swelling ENT exam: Present: normal exam, mucous membranes moist Neck exam: Present: normal inspection. Absent: tenderness, meningismus, lymphadenopathy Respiratory exam: Present: normal lung sounds bilaterally. Absent: respiratory distress, wheezes, rales, rhonchi, stridor Cardiovascular Exam: Present: regular rate, normal rhythm, normal heart sounds. Absent: systolic murmur, diastolic murmur, rubs, gallop, clicks GI/Abdominal exam: Present: soft, normal bowel sounds. Absent: distended, tenderness, guarding, rebound, rigid Extremities exam: Present: normal inspection, full ROM, normal capillary refill. Absent: tenderness, pedal edema, joint swelling, calf tenderness Back exam: Present: normal inspection Neurological exam: Present: alert, oriented X3, CN II-XII intact Psychiatric exam: Present: normal affect, normal mood Skin exam: Present: warm, dry, intact, normal color. Absent: rash Course Vital Signs 10/16/24 10/16/24 11:02 12:55 Temperature 98.3 F 98.1 F Pulse Rate 80 72 Respiratory 20 14 Rate Blood Pressure 109/72 100/66 O2 Sat by Pulse 96 100 Oximetry Medical Decision Making - Medical Decision Making Was pt. sent in by a medical professional or institution (, PA, HAND SLITTER, urgent care, hospital, or longterm...) When possible be specific @ -No Did you speak to anyone other than the patient for history (EMS, parent, family, police, friend...)? What history was obtained from this source @ -No Did you review nursing and triage notes (agree or disagree)? Why? @ -I reviewed and agree with nursing and triage notes Were old charts reviewed (outside hosp., previous admission, EMS record, old EK G, old radiological studies, urgent care reports/EKG's, longterm records)? Report findings @ -[Prior event monitor with no acute findings Differential Diagnosis (chest pain, altered mental status, abdominal pain women, abdominal pain men, vaginal bleeding, weakness, fever, dyspnea, syncope, hea dache, dizziness, GI bleed, back pain, seizure, CVA, palpatations, mental health, musculoskeletal)? @ -Differential Dizziness: Benign paroxysmal positional Vertigo, Meniere's disease, otitis media, acoustic neuroma, vertebrobasilar insufficiency, cerebellar stroke, encephalitis, hypovolemic, arrhythmia, coronary artery syndrome, anemia, this is not meant to be an all-inclusive list EKG interpreted by me (3pts min.). @ -As above X-rays interpreted by me (1pt min.). @ -None done CT interpreted by me (1pt min.). @ -None done U/S interpreted by me (1pt. min.). @ -None done What testing was considered but not performed or refused? (CT, X-rays, U/S, labs)? Why? @ -None What meds were considered but not given or refused? Why? @ -None Did you discuss the management of the patient with other professionals (professionals i.e. Dr., PA, HAND SLITTER, lab, RT, psych nurse, older adult social work specialist, pipe and tank fabricator, teacher, corporate compliance officer, classification case manager)? Give summary @ -No Was smoking cessation discussed for >3mins.? @ -No Was critical care preformed (if so, how long)? @ -No Were there social determinants of health that impacted care today? How? (Homelessness, low income, unemployed, alcoholism, drug addiction, transporta tion, low edu. Level, literacy, decrease access to med. care, [facility], rehab)? @ -No Was there de-escalation of care discussed even if they declined (Discuss DNR or withdrawal of care, Hospice)? DNR status @ -No What co-morbidities impacted this encounter? (DM, HTN, Smoking, COPD, CAD, Cancer, CVA, ARF, Chemo, Hep., AIDS, mental health diagnosis, sleep apnea, morbid obesity)? @ -Diabetes fibromyalgia Was patient admitted / discharged? Hospital course, mention meds given and route, prescriptions, significant lab abnormalities, going to OR and other pertinent info. @ -Discharge patient is well-appearing vitals are stable patient stated room and IV fluids patient recent URI symptoms and feeling lightheaded vies increase fluid intake will follow-up with cardiology return parens discussed. Undiagnosed new problem with uncertain prognosis? @ -No Drug Therapy requiring intensive monitoring for toxicity (Heparin, Nitro, Insulin, Cardizem)? @ -No Were any procedures done? @ -No Diagnosis/symptom? @ -Lightheadedness Acute, or Chronic, or Acute on Chronic? @ -Acute Uncomplicated (without systemic symptoms) or Complicated (systemic symptoms)? @ -complicated Side effects of treatment? @ -No Exacerbation, Progression, or Severe Exacerbation? @ -No Poses a threat to life or bodily function? How? (Chest pain, [place], [place], pneumonia, PE, COPD, DKA, ARF, appy, cholecystitis, CVA, Diverticulitis, Homicidal, Suicidal, threat to staff... and all critical care pts) @ -No - Lab Data Result diagrams: 10/16/24 11:38 10/16/24 11:38 Lab Results 10/16/24 10/16/24 10/16/24 Range/Units 11:38 11:38 11:38 WBC 6.5 (3.8-10.6) k/uL RBC 4.75 (3.80-5.40) m/uL Hgb 13.4 (11.4-16.0) gm/dL Hct 39.8 (34.0-46.0) % MCV 83.8 (80.0-100.0) fL MCH 28.3 (25.0-35.0) pg MCHC 33.7 (31.0-37.0) g/dL RDW 14.4 (11.5-15.5) % Plt Count 219 (150-450) k/uL MPV 7.8 Neutrophils % 62 % Lymphocytes % 29 % Monocytes % 5 % Eosinophils % 2 % Basophils % 0 % Neutrophils # 4.0 (1.3-7.7) k/uL Lymphocytes # 1.9 (1.0-4.8) k/uL Monocytes # 0.3 (0-1.0) k/uL Eosinophils # 0.1 (0-0.7) k/uL Basophils # 0.0 (0-0.2) k/uL Sodium 139 (137-145) mmol/L Potassium 3.9 (3.5-5.1) mmol/L Chloride 111 H (98-107) mmol/L Carbon Dioxide 23 (22-30) mmol/L Anion Gap 5 mmol/L BUN 14 (7-17) mg/dL Creatinine 0.66 (0.52-1.04) mg/dL Est GFR (CKD-EPI)AfAm >90 (>60 ml/min/1.73 sqM) Est GFR (CKD-EPI)NonAf >90 (>60 ml/min/1.73 sqM) Glucose 122 H (74-99) mg/dL Calcium 9.8 (8.4-10.2) mg/dL Magnesium 2.1 (1.6-2.3) mg/dL Total Bilirubin 0.5 (0.2-1.3) mg/dL AST 26 (14-36) U/L ALT 30 (4-34) U/L Alkaline Phosphatase 84 (38-126) U/L Troponin I <0.012 (0.000-0.034) ng/mL Total Protein 6.6 (6.3-8.2) g/dL Albumin 3.9 (3.5-5.0) g/dL - EKG Data -: EKG Interpreted by Me EKG Comments: EKG performed at 11: 26 sinus rhythm rate 73 IL 157 QRS 96 QT/QTc 387/413 Disposition Clinical Impression: Lightheadedness, Palpitations Disposition: HOME SELF-CARE Condition: Stable Instructions (If sedation given, give patient instructions): Dizziness (ED) Additional Instructions: Please return to the Emergency Department if symptoms worsen or any other concerns. Is patient prescribed a controlled substance at d/c from ED?: No Referrals: Kirsten Meade MD [Primary Care Provider] - 1-2 days Jarrod Augustine MD [STAFF PHYSICIAN] - 1-2 days Time of Disposition: 12:53
[2024-10-16] MEDS: SODIUM CHLORIDE 0.9% 500 ML 500 ML IV STA (11:41)
[2024-10-16 11:49] LABS: Basophils % (A) 0 %; Eosinophils # (A) 0.1 k/uL (0-0.7); Eosinophils % (A) 2 %; HCT 39.8 % (34.0-46.0); HGB 13.4 gm/dL (11.4-16.0); Lymphocytes # (A) 1.9 k/uL (1.0-4.8); Lymphocytes % (A) 29 %; MCH 28.3 pg (25.0-35.0); MCHC 33.7 g/dL (31.0-37.0); MCV 83.8 fL (80.0-100.0); Mean Platelet Volume 7.8; Monocytes # (A) 0.3 k/uL (0-1.0); Monocytes % (A) 5 %; Neutrophils % (A) 62 %; Platelet Count 219 k/uL (150-450); RBC 4.75 m/uL (3.80-5.40); RDW 14.4 % (11.5-15.5); WBC 6.5 k/uL (3.8-10.6)
[2024-10-16 12:05] LABS: ALT 30 U/L (4-34); AST 26 U/L (14-36); African American GFR (CKD) >90 (>60 ml/min/1.73 sqM); Albumin 3.9 g/dL (3.5-5.0); Alkaline Phosphatase 84 U/L (38-126); Anion Gap 5 mmol/L; Blood Urea Nitrogen 14 mg/dL (7-17); Calcium 9.8 mg/dL (8.4-10.2); Carbon Dioxide 23 mmol/L (22-30); Chloride 111 mmol/L (98-107); Glucose 122 mg/dL (74-99); Magnesium 2.1 mg/dL (1.6-2.3); Non-African American GFR(CKD) >90 (>60 ml/min/1.73 sqM); Potassium 3.9 mmol/L (3.5-5.1); Sodium 139 mmol/L (137-145); Total Bilirubin 0.5 mg/dL (0.2-1.3); Total Protein 6.6 g/dL (6.3-8.2)
[2024-10-16 12:55] VITALS: BP 100/66; PULSE 72; RESP 14; TEMP 98.1
== END 2024-10-16 13:01 | disposition home or self-care (01) ==
LOC: EC 10:57
DX: R42 Dizziness and giddiness (principal); R00.2 Palpitations; E11.9 Type 2 diabetes mellitus without complications; M79.7 Fibromyalgia; F17.200 Nicotine dependence, unspecified, uncomplicated; Z88.5 Allergy status to narcotic agent; Z79.84 Long term (current) use of oral hypoglycemic drugs; Z79.899 Other long term (current) drug therapy; Z86.16 Personal history of COVID-19
CPT/HCPCS: 36415; 80053; 83735; 84484; 85025; 93005; 96360; 99284

== ENCOUNTER → 2025-02-10 | Outpatient (CLI) | payer MEDICAID ==
[2025-02-10 14:55] LABS: Basophils # (A) 0.03 X 10*3/uL (0.00-0.10); Basophils % (A) 0.4 %; Eosinophils # (A) 0.14 X 10*3/uL (0.04-0.35); Eosinophils % (A) 1.9 %; HCT 43.1 % (37.2-46.3); Lymphocytes # (A) 1.87 X 10*3/uL (0.90-5.00); Lymphocytes % (A) 24.8 %; MCH 27.8 pg (27.0-32.0); MCHC 32.5 g/dL (32.0-37.0); MCV 85.5 FL (80.0-97.0); Mean Platelet Volume 10.5 FL (9.5-12.2); Monocytes # (A) 0.41 X 10*3/uL (0.20-1.00); Monocytes % (A) 5.4 %; NRBC Per 100 WBC 0 X 10*3/uL (0.00-0.01); Neutrophils # (A) 5.03 X 10*3/uL (1.80-7.70); Neutrophils % (A) 66.8 %; Platelet Count 242 X 10*3/uL (140-440); RBC 5.04 X 10*6/uL (4.10-5.20); RDW 14.6 % (11.5-14.5); WBC 7.53 X 10*3/uL (4.50-10.00)
[2025-02-10 15:26] LABS: ALT 36 U/L (8-44); AST 30 U/L (13-35); Albumin 4.3 g/dL (3.8-4.9); Albumin/Globulin Ratio 1.79 Ratio (1.60-3.17); Alkaline Phosphatase 99 U/L (41-126); BUN/Creat Ratio 21.88 Ratio (12.00-20.00); Blood Urea Nitrogen 17.5 mg/dL (9.0-27.0); Calcium 9.7 mg/dL (8.7-10.3); Carbon Dioxide 23.5 mmol/L (21.6-31.8); Chloride 104 mmol/L (96-109); Globulin 2.4 g/dL (1.6-3.3); Glucose 184 mg/dL (70-110); Potassium 4.6 mmol/L (3.5-5.5); Sodium 137 mmol/L (135-145); Total Bilirubin 0.3 mg/dL (0.3-1.2); Total Protein 6.7 g/dL (6.2-8.2)
[2025-02-10 18:44] LABS: Microalbumin Creatinine Ratio <23 mg/g Cr (0-30); Urine Creatinine 51.3 mg/dL (28.0-217.0)
== END | disposition home or self-care (01) ==
LOC: LABWHC1 08:59
PROVIDERS: ATTEND Nurse Practitioner Family
DX: Z00.00 Encounter for general adult medical examination without abnormal findings (principal); E11.65 Type 2 diabetes mellitus with hyperglycemia; E78.2 Mixed hyperlipidemia; E11.319 Type 2 diabetes mellitus with unspecified diabetic retinopathy without macular edema
CPT/HCPCS: 36415; 80053; 80061; 82043; 82570; 83036; 84443; 85025

== ENCOUNTER → 2025-02-13 | Outpatient (CLI) | payer MEDICAID ==
--- NOTE | 2025-02-13 13:29 | MM ---
Reason for Exam: Screening (asymptomatic). Last mammogram was performed 2 year(s) and 5 month(s) ago. Patient History: Menarche at age 11. First Full-Term at age 24. Mother had breast cancer, age 68. Risk Values: Luci 5 year model risk: 1.9%. NCI Lifetime model risk: 18.4%. Prior Study Comparison: 06/10/2019 Bilateral Screening Mammogram, [facility]. 09/19/2022 Bilateral MG diagnostic mammo w CAD [facility], [facility]. Tissue Density: There are scattered areas of fibroglandular density. Findings: Analyzed By CAD. There is no suspicious group of microcalcifications or new suspicious mass in either breast. Overall Assessment: Negative, BI-RAD 1 Management: Screening Mammogram of both breasts in 1 year. . Patient should continue monthly self-breast exams. A clinical breast exam by your physician is recommended on an annual basis. This exam should not preclude additional follow-up of suspicious palpable abnormalities. Note on Luci scores and lifetime risk: 1. A Luci score greater than 3% is considered moderate risk. If this is the case, consider specialist referral to assess eligibility for a risk reducing agent. 2. If overall lifetime risk for the development of breast cancer is 20% or higher, the patient may qualify for future screening with alternating mammogram and breast MRI. [facility], , 02/13/2025 1:26 PM. Electronically signed and approved by: Hai Morris M.D. Radiologis
== END | disposition home or self-care (01) ==
LOC: RADMAMWWP 11:31
PROVIDERS: ATTEND Family Medicine
DX: Z12.31 Encounter for screening mammogram for malignant neoplasm of breast (principal); R92.323 Mammographic fibroglandular density, bilateral breasts; Z80.3 Family history of malignant neoplasm of breast
CPT/HCPCS: 77063; 77067

== ENCOUNTER → 2025-02-18 | Outpatient (CLI) | payer MEDICAID ==
--- NOTE | 2025-02-18 11:59 | MR ---
EXAMINATION TYPE: MR knee RT wo con DATE OF EXAM: 02/18/2025 COMPARISON: Outside right knee x-ray January 06, 2025 HISTORY: RT knee pain with locking and swelling for one year after fall injury. History of prior surg bushra TECHNIQUE: Multiplanar, multisequence images of the knee is performed without IV contrast. FINDINGS: MEDIAL MENISCUS: Triangular shaped increased signal posterior horn does not definitively extend to ar ticular surface. LATERAL MENISCUS: Oblique increased signal anterior horn extends to superior articular surface sagitt al image 27. CRUCIATE LIGAMENTS: The anterior and posterior cruciate ligaments are intact and unremarkable. COLLATERAL LIGAMENTS: The medial collateral ligament and lateral collateral ligament complex are inta ct and unremarkable. EXTENSOR MECHANISM: Visualized quadriceps and patellar tendons are intact. EFFUSION: Moderate size suprapatellar joint effusion. POPLITEAL CYST: No popliteal/hope cyst. TRICOMPARTMENT SPACES: Mild to moderate tricompartment joint space loss and mild spurring. CARTILAGE: Some chondromalacia patella with cartilaginous thinning along the posterior patellar pole greatest inferiorly and medially BONE MARROW SIGNAL: No focal abnormal marrow signal is appreciated. OTHER: No additional significant abnormality is appreciated. IMPRESSION: 1. Full-thickness tear anterior horn lateral meniscus. 2. At least intrasubstance tear posterior horn medial meniscus. 3. Mild to moderate tricompartment degenerative changes are present as detailed above most prominent patellofemoral compartment. 4. Moderate-size suprapatellar joint effusion. [facility], , 02/18/2025 11:57 AM
== END | disposition home or self-care (01) ==
LOC: RADMRIMAIN 10:01
PROVIDERS: ATTEND Orthopaedic Surgery
DX: S83.241A Other tear of medial meniscus, current injury, right knee, initial encounter (principal); M17.11 Unilateral primary osteoarthritis, right knee; M25.461 Effusion, right knee